=== PATIENT | female | born 1965 | race Two or more races ===

== ENCOUNTER → 2022-09-01 | Outpatient (CLI) | payer MEDICAID | END | disposition home or self-care (01) | LOC: Rad HDHVI 10:54 | PROVIDERS: ATTEND Internal Medicine Cardiovascular Disease | DX: R07.9 Chest pain, unspecified (principal); E78.5 Hyperlipidemia, unspecified | CPT/HCPCS: 93306 ==

== ENCOUNTER → 2022-09-14 | Outpatient (CLI) | payer MEDICAID ==
[~2022-09-14] VITALS: Ht 165.1 cm; Wt 81.6 kg
[~2022-09-14] MED LIST: ADENOSINE 69 MG in GIVE UN-DILUTED 0 ML IV ONE; ADENOSINE 90 MG/30 ML INJ IV ONE; cloNIDine HCL 0.1 MG TAB ONE
== END | disposition home or self-care (01) ==
LOC: Rad HDHVI 09:28
PROVIDERS: ATTEND Internal Medicine Cardiovascular Disease
DX: I20.0 Unstable angina (principal); I45.10 Unspecified right bundle-branch block; I10 Essential (primary) hypertension; E11.21 Type 2 diabetes mellitus with diabetic nephropathy; E11.65 Type 2 diabetes mellitus with hyperglycemia; E11.40 Type 2 diabetes mellitus with diabetic neuropathy, unspecified
CPT/HCPCS: 78452; 93005; 96374; 96375; A9500; J0153

== ENCOUNTER 2025-01-27 16:03 | Inpatient (IN) | payer MEDICAID ==
[~2025-01-27] VITALS: Ht 152.4 cm; Wt 65.3 kg
--- NOTE | 2025-01-27 16:09 | ECG ---
[facility] Test Date: 2025-01-27 Test Time: 16:08:03 Pat Name: GAIL PEREZ Department: ED Room: [address] [place] [address] Gender: F Tax Accountant: EVANS : 1965 Requested By: EFRA MARLOW Order Number: [id number] Reading MD: Lio Albright Measurements Intervals [place] Rate: 127 P: 0 IN: 100 QRS: 54 QRSD: 136 T: 59 QT: 404 QTc: 588 Interpretive Statements Sinus tachycardia Consider left atrial enlargement Right bundle branch block Electronically Signed On 01-29-2025 21:02:46 PDT by Lio Albright Please click the below link to view image of tracing.
[2025-01-27] MEDS: SODIUM CHLORIDE 0.9% 2,000 ML IV ONE (16:26)
[2025-01-27 16:29] VITALS: PULSE 127; RESP 26; O2SAT 99
--- NOTE | 2025-01-27 16:45 | ED.PDOC ---
Altered Mental Status HPI Comments 59 y.o female with PMHx of DM and HTN, presents to the ED via EMS for an evaluation of altered mental status. EMS reports family on scene noticed patient weak and confused today, unknown what time or when she was last seen normal. Patient presents alert and oriented x 1, complaining of total body pain and nausea. No further information obtained as no family is present at bedside. EMS, patient is currently on doxycycline for unknown reason. 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 Dry mucous membranes.) Neck: Full Range of Motion, Normal Inspection Respiratory: Lungs Clear, No Accessory Muscle Use, No Respiratory Distress, Normal Breath Sounds Cardiovascular: No Edema, No JVD, Tachycardia Breast Exam: Deferred Gastrointestinal: Diffuse, Soft, Tenderness Genitalia: Deferred Pelvic: Deferred Rectal: Deferred Extremities: Normal inspection, Normal range of motion, Non-tender, No pedal edema Neurologic: Alert (Oriented x1), Other (Moves all extremities purposefully with adequate strength and tone) Cerebellar Function: NOT DONE Reflexes: NOT DONE Skin: Dry, Normal Color, Warm Lymphatic: NOT DONE EKG EKG : Comments Sinus tach, rate 127, normal FL interval, QRS prolonged at 136, QTC prolonged at 588, normal axis, right bundle-branch block, anteroseptal T inversion with other nonspecific T change Was a procedure done? Was a procedure done?: No Differential Diagnosis (ALOC) Differential Diagnosis: Dehydration, Hypoglycemia, Encephalopathy, Sepsis, Hypoxemia, Closed Head Injury, CVA, SAH, Drug Overdose, ETOH Intoxication, Heart Failure, Renal Failure, Other (Pneumoniae) Other Differential Diagnosis UTI X-Ray, Labs, Meds, VS Vital Signs Date Time Temp Pulse Resp B/P (MAP) Pulse Ox O2 Delivery O2 Flow Rate FiO2 01/27/25 18:00 98.5 115 20 114/70 (85) 99 98.5 01/27/25 16:29 127 26 99 Room Air* 0 21 01/27/25 16:29 99.4 127 26 93/68 (76) 99 99.4 01/27/25 16:25 131 01/27/25 16:08 127 01/27/25 16:08 98.3 140 16 109/72 (84) 99 98.3 Lab Test 01/27/25 18:01 01/27/25 16:33 01/27/25 16:25 01/27/25 16:06 Range/Units Troponin I High Sensitivity < 3 L 3 L </=34 ng/L White Blood Count 9.2 4.4-10.8 10^3/uL Red Blood Count 3.20 L 4.0-5.20 10^6/uL Hemoglobin 8.8 L 12.2-16.2 g/dL Hematocrit 25.9 L 36.0-46.0 % Mean Corpuscular Volume 80.9 80.0-100.0 fL Mean Corpuscular Hemoglobin 27.5 L 28.0-32.0 pg Mean Corpuscular Hemoglobin Concent 34.0 32.0-36.0 g/dL Red Cell Distribution Width 15.2 H 11.8-14.3 % Platelet Count 330 140-450 10^3/uL Mean Platelet Volume 7.8 6.9-10.8 fL Neutrophils (%) (Auto) 80.2 H 37.0-80.0 % Lymphocytes (%) (Auto) 9.6 L 10.0-50.0 % Monocytes (%) (Auto) 9.2 0.0-12.0 % Eosinophils (%) (Auto) 0.4 0.0-7.0 % Basophils (%) (Auto) 0.6 0.0-2.0 % Neutrophils # (Auto) 7.4 1.6-8.6 10 ^3/uL Lymphocytes # (Auto) 0.9 0.4-5.4 10 ^3/uL Monocytes # (Auto) 0.8 0-1.3 10 ^3/uL Eosinophils # (Auto) 0 0-0.8 10 ^3/uL Basophils # (Auto) 0.1 0-0.2 10 ^3/uL Nucleated Red Blood Cells 0.0 % Sodium Level 140 136-145 mmol/L Potassium Level 2.5 *L 3.5-5.1 mmol/L Chloride Level 101 98-107 mmol/L Carbon Dioxide Level 20 20-31 mmol/L Anion Gap 19 H 5-15 Blood Urea Nitrogen 24 H 9-23 mg/dL Creatinine 0.79 0.550-1.02 mg/dL Glomerular Filtration Rate Calc 86 >90 mL/min BUN/Creatinine Ratio 30.4 H 10.0-20.0 Serum Glucose 96 74-106 mg/dL Lactic Acid Level 2.0 0.4-2.0 mmol/L Calcium Level 8.5 L 8.7-10.4 mg/dL Total Bilirubin 0.6 0.2-1.0 mg/dL Aspartate Amino Transferase (AST) 24 13-40 U/L Alanine Aminotransferase (ALT) < 9 7-40 U/L Alkaline Phosphatase 112 46-116 U/L B-Type Natriuretic Peptide 34.77 0-100 pg/mL Total Protein 5.8 5.7-8.2 g/dL Albumin 3.1 L 3.2-4.8 g/dL Plasma/Serum Blood Alcohol 3.7 <10 mg/dL POC Glucose 106 70-106 mg/dl Urine Color Light-orange Yellow Urine Clarity Ex.turbid Clear Urine pH 6.0 5.0-9.0 Urine Specific [place] 1.021 1.001-1.035 Urine Protein 1+ H Negative Urine Ketones 2+ H Negative Urine Blood Trace H Negative /uL Urine Nitrite Negative Negative Urine Bilirubin 1+ H Negative Urine Urobilinogen 2 H Negative mg/dL Urine Leukocyte Esterase 3+ Negative /uL Urine RBC 30 0 - 4 /hpf Urine WBC Clumps Present None Seen /hpf Urine Microscopic WBC 733 H 0-5 /HPF Urine Squamous Epithelial Cells Mod <5 /hpf Urine Bacteria Few H None Seen /hpf Urine Mucus Few None Seen Urine Yeast (Budding) Many None Seen /hpf Urine Glucose Normal Normal mg/dL Urine Opiates Screen Neg NEGATIVE Urine Fentanyl Screen Neg NEGATIVE Urine Barbiturates Screen Neg NEGATIVE Urine Phencyclidine Screen Neg NEGATIVE Urine Amphetamines Screen Neg NEGATIVE Urine Benzodiazepines Screen Neg NEGATIVE Urine Cocaine Screen Neg NEGATIVE Urine Cannabinoids Screen Neg NEGATIVE Current Medications Medications (Trade) Dose Ordered Sig/Karan Route Start Time Stop Time Status Last Admin Sodium Chloride 2,000 ml @ 1,000 mls/hr Q2H ONCE IV 01/27/25 16:15 01/27/25 18:14 DC 01/27/25 16:26 Ondansetron HCl (Zofran) 4 mg ONCE ONCE IV 01/27/25 17:15 01/27/25 17:16 DC 01/27/25 17:22 Potassium Chloride 100 ml @ 50 mls/hr ONCE ONCE IV 01/27/25 17:15 01/27/25 19:14 01/27/25 17:21 Acetaminophen/ Hydrocodone Bitart (Monclova 5/325MG Tab) 1 tab ONCE ONCE PO 01/27/25 18:15 01/27/25 18:16 DC 01/27/25 18:10 PROCEDURE(s): HWOCT - HEAD WITHOUT CONTRAST REASON: aloc ORDER NUMBER(s): [id number], ACCESSION NUMBER(s): [id number] EXAM: CT HEAD WITHOUT CONTRAST INDICATION: aloc TECHNIQUE: CT of the head without intravenous contrast. Radiation Dose Information: CT Dose: CTDI volume is 53.4 mGy. Dose-length product is 964.64 mGy*cm The dose indicators for CT are the volume Computed Tomography (CT) Dose Index (CTDIvol) and the Dose Length Product (DLP), and are measured in units of mGy and mGy-cm, respectively. These indicators are not patient dose, but values generated from the CT scanner acquisition factors. The report includes radiation exposure data for exposures received during this examination. COMPARISON: None FINDINGS: There is no evidence of acute intracranial hemorrhage, extra-axial collection, mass effect, midline shift, herniation or hydrocephalus. The ventricles, sulci and cisterns are age appropriate. The floyd-white differentiation is intact. Patchy periventricular and subcortical white matter hypoattenuation is nonspecific but may be related to small vessel ischemic disease. The visualized paranasal sinuses and mastoid air cells are clear. The surrounding soft tissues and osseous structures are unremarkable. IMPRESSION: 1. No acute intracranial abnormality. EDURE(s): CXRP - CHEST PORTABLE REASON: gen sultana ORDER NUMBER(s): [id number], ACCESSION NUMBER(s): [id number] CHEST RADIOGRAPH Indication: gen sultana Technique: Single frontal view of the chest was obtained COMPARISON: None FINDINGS: Lines and Tubes: None Lungs: Clear Pleura: No effusion. No pneumothorax. Cardiomediastinal contours: Unremarkable Bones: Unremarkable IMPRESSION: 1. No acute disease. X-Ray, Labs, Meds, VS Comment 59-year-old female with a history of hypertension and diabetes brought in by EMS from home with altered mental status Vitals remarkable for heart rate 127 Exam remarkable for diffuse abdominal tenderness to palpation and orientation x1 Rhythm strip independently interpreted by me: Sinus tach, rate 27, no ectopy. CT head and chest x-ray unremarkable CBC remarkable for hemoglobin 8.8, hematocrit 25.9, basic metabolic panel remarkable for potassium 2.5, BUN 24, troponin and BNP negative, lactate 2.0 Patient treated with the following in the ED: 2 L 0.9 normal saline IV bolus, Zofran 4 mg IV, Monclova 5/325 mg p.o., K rider 20 mEq IV, Rocephin 1 g IV, vancomycin per pharmacy IV On re-evaluation, heart rate is still 120, other vitals were stable. No new neurologic changes. Plan is to admit the patient for IV antibiotics, electrolyte correction and hydration. Time of 1ST Reevaluation: 17:00 Reevaluation 1ST: Unchanged Patient Education/Counseling: Other (Patient is altered ) Family Education/Counseling: No Family Present Sepsis Sepsis Reasesment Focused Exam Sepsis focused exam: focus exam completed (1700) Orders: Laboratory Tests 01/27/25 16:33: Lactic Acid Level 2.0 Sepsis Date: Jan 27, 2025 Time recognized/suspected: 18:00 Recent Procedure: No On Antibiotic Therapy: Yes Respiratory Rate >20: Yes Heart Rate >90: Yes Temp<36 C (96.8 F) or >38.3 C: No SBP <90 or MAP <65 mmHG: No New Acute Mental Status Change: Yes Is the patient on CPAP, BIPAP,: No IV fluid given: Yes Departure 1 Departure Time of Disposition: 18:30 Impression: Primary Impression: UTI (urinary tract infection) Qualified Codes: N39.0 - Urinary tract infection, site not specified Additional Impressions: Sepsis Qualified Codes: A41.9 - Sepsis, unspecified organism Metabolic encephalopathy Hypokalemia Dehydration Disposition: 09 ADMITTED INPATIENT Admit to: Tele Condition: Guarded Critical Care Note Critical Care Time?: Yes (45 min-critical care time only) Critical care comment: Critical care time including multiple bedside re-evaluations, review of lab and imaging studies, and discussion of the case with the admitting provider. Patient is high risk for metabolic and/or hemodynamic decompensation. Stability Stability form required: No Heart Score Heart Score: Heart Score Response (Comments) Value History N/A 0 EKG N/A 0 Age N/A 0 Risk Factors N/A 0 Troponin N/A 0 Total 0 I personally scribed for EFRA CHIRINOS MD ([email or web address]) on 01/27/25 at 16:45. Electronically submitted by Saira Clark ([facility]). EFRA CHIRINOS MD Jan 27, 2025 16:45
[2025-01-27 16:50] LABS: Hematocrit 25.9 % (36.0-46.0); Hemoglobin 8.8 g/dL (12.2-16.2); Mean Corpuscular Hemoglobin 27.5 pg (28.0-32.0); Mean Corpuscular Volume 80.9 fL (80.0-100.0); Nucleated Red Blood Cells % 0.0 %
[2025-01-27 17:02] LABS: Alkaline Phosphatase 112 U/L (46-116); Anion Gap 19 (5-15); BUN/Creatinine Ratio 30.4 (10.0-20.0); Chloride 101 mmol/L (98-107); Glucose 96 mg/dL (74-106); Sodium 140 mmol/L (136-145); Total Protein 5.8 g/dL (5.7-8.2)
[2025-01-27 17:03] LABS: Bilirubin, Total 0.6 mg/dL (0.2-1.0)
[2025-01-27 17:04] LABS: Alanine Aminotransferase < 9 U/L (7-40); Albumin 3.1 g/dL (3.2-4.8); Blood Urea Nitrogen 24 mg/dL (9-23); Calcium 8.5 mg/dL (8.7-10.4); Carbon Dioxide 20 mmol/L (20-31)
[2025-01-27 17:06] LABS: Potassium 2.5 mmol/L (3.5-5.1)
[2025-01-27] MEDS: POTASSIUM CHL 20MEQ/100ML 100 ML IV ONE (17:21)
[2025-01-27] MEDS: ONDANSETRON HCL 4 MG/2 ML VIAL IV ONE (17:22)
[2025-01-27 17:31] LABS: Urine Budding Yeast MANY /hpf (None Seen); Urine Protein, UAD 1+ (Negative); Urine WBC Clumps PRESENT /hpf (None Seen)
[2025-01-27 17:34] LABS: Amphetamine Screen, Urine Neg (NEGATIVE); Barbiturate Scree,Urine Neg (NEGATIVE); Benzodiazephine Screen, Urine Neg (NEGATIVE); Cannabinoid Screen, Urine Neg (NEGATIVE); Cocaine Screen, Urine Neg (NEGATIVE); Opiate Scree,Urine Neg (NEGATIVE); Phencyclidine Screen, Urine Neg (NEGATIVE)
--- NOTE | 2025-01-27 17:55 | DVH ---
EXAM: CT HEAD WITHOUT CONTRAST INDICATION: aloc TECHNIQUE: CT of the head without intravenous contrast. Radiation Dose Information: CT Dose: CTDI volume is 53.4 mGy. Dose-length product is 964.64 mGy*cm The dose indicators for CT are the volume Computed Tomography (CT) Dose Index (CTDIvol) and the Dose Length Product (DLP), and are measured in units of mGy and mGy-cm, respectively. These indicators are not patient dose, but values generated from the CT scanner acquisition factors. The report includes radiation exposure data for exposures received during this examination. COMPARISON: None FINDINGS: There is no evidence of acute intracranial hemorrhage, extra-axial collection, mass effect, midline s hift, herniation or hydrocephalus. The ventricles, sulci and cisterns are age appropriate. The floyd-white differentiation is intact. Patchy periventricular and subcortical white matter hypoattenuation is nonspecific but may be related to small vessel ischemic disease. The visualized paranasal sinuses and mastoid air cells are clear. The surrounding soft tissues and osseous structures are unremarkable. IMPRESSION: 1. No acute intracranial abnormality.
--- NOTE | 2025-01-27 17:56 | DVH ---
CHEST RADIOGRAPH Indication: gen weak Technique: Single frontal view of the chest was obtained COMPARISON: None FINDINGS: Lines and Tubes: None Lungs: Clear Pleura: No effusion. No pneumothorax. Cardiomediastinal contours: Unremarkable Bones: Unremarkable IMPRESSION: 1. No acute disease.
[2025-01-27] MEDS: HYDROcodone-ACET 5/325MG TAB PO ONE (18:10)
[2025-01-27] MEDS ORDERED: VANCOMYCIN PER PHARMACY 0 MG IV SCH (18:30)
[2025-01-27] MEDS ORDERED: DOCUSATE SOD 100 MG CAP PO PRN (18:45)
[2025-01-27] MEDS ORDERED: NITROGLYCERIN 0.4 MG SL TAB SL PRN (18:45)
[2025-01-27] MEDS ORDERED: MORPHINE SULFATE INJ 2 MG/ml SYRG IV PRN (18:45)
--- NOTE | 2025-01-27 18:50 | DVHHP2 ---
History of Present Illness Reason for Visit: Sepsis, unspecified organism History of Present Illness The patient is a 59-year-old female with past medical history of arthritis, diabetes mellitus, and hypertension who presented to [facility] for evaluation of altered mental status. As reported by daughter at bedside, patient was experiencing arthritis pain, became very weak, altered, total body pain, and nausea. Patient was seen and evaluated in the ED, laboratory data shows WBC 9.2, hemoglobin 8.8, hematocrit 25.9, platelets 330, sodium 140, potassium 2.5, BUN 24, creatinine 0.79, glucose 96, troponin < 3, BNP 34.77, albumin 3.1, blood pressure 93/68, heart rate 140 trending down to 110, temperature 99.4 F, O2 saturation 99% on room air, urinalysis positive for urinary tract infection. Head CT showed no acute intracranial abnormality. Patient was started on IV antibiotic regimen levofloxacin, please see medication orders section in the computer. On my assessment, patient denies chest pain, no headache, no dizziness, no diaphoresis, currently on oxygen, no nausea, no vomiting, no fever, no chills. Patient was admitted for further evaluation and medical management. Past Medical History Arthritis, DM, HTN Past Surgical History Reviewed, noncontributory to the management of this case. Past Social History The patient lives at home, denies smoking, alcohol or illicit drugs abuse. Review of Systems Constitutional: Yes: Weakness; No: Fever, Chills, Sweats, Malaise, Other Eyes: No: Pain, Vision change, Conjunctivae inflammation, Eyelid inflammation, Other, Redness ENT: No: Ear pain, Ear discharge, Nose pain, Nose discharge, Nose congestion, Mouth pain, Mouth swelling, Throat pain, Throat swelling, Other Respiratory: No: Cough, Dry, Shortness of breath, SOB with excertion, Wheezing, Hemoptysis, Pleuritic Pain, Sputum, Wheezing, Other Cardiovascular: No: Chest Pain, Palpitations, Orthopnea, Paroxysmal Noc. Dyspnea, Edema, Lt Headedness, Other Gastrointestinal: No: Nausea, Vomiting, Abdominal Pain, Diarrhea, Constipation, Melena, Hematochezia, Other Genitourinary: No Dysuria, No Frequency, No Incontinence, No Hematuria, No Retention; Other (Wilks catheter in place) Musculoskeletal: No: other, neck pain, shoulder pain, arm pain, back pain, hand pain, leg pain, foot pain Skin: No: Rash, Lesions, Jaundice, Bruising, Other Neurological: Other (Altered level of consciousness); No: Weakness, Numbness, Incoordination, Change in speech, Confusion, Seizures Allergies: Coded Allergies: Atorvastatin (Verified Allergy, Unknown, 01/27/25) Penicillins (Verified Allergy, Unknown, 09/14/22) Medications Current Medications Medications Dose Ordered Sig/Karan Route Start Time Stop Time Status Last Admin Dose Admin Vancomycin HCl 0 ml @ 0 mls/hr UD IV 01/27/25 18:30 Vancomycin HCl 200 ml @ 200 mls/hr Q12H IV 01/27/25 20:00 UNV Exam Vital Signs Vital Signs Date Time Temp Pulse Resp B/P (MAP) Pulse Ox O2 Delivery O2 Flow Rate FiO2 01/27/25 18:00 98.5 115 20 114/70 (85) 99 98.5 01/27/25 16:29 Room Air* 0 21 General Appearance: Alert, Cooperative, No acute distress, Other (Oriented x2) HEENT: Atraumatic, PERRLA, EOMI, Mucous membr. moist/pink Respiratory: Normal air movement Cardiovascular: Regular rate, Normal S1, Normal S2, No murmurs Abdominal: Normal bowel sounds, Soft, No tenderness, No hepatospenomegaly, No masses Extremities: No clubbing, No cyanosis, No edema, Normal pulses, Other (Lower extremity tenderness) Skin: No rashes, No breakdown, No significant lesion Neuro: Normal speech, Normal tone, Sensation intact, Cranial nerves 3-12 NL, Reflexes 2+, Other (Generalized weakness) Psych/Mental Status: Mental status NL, Mood NL Labs/Xrays Labs Test 01/27/25 18:01 01/27/25 16:33 01/27/25 16:25 01/27/25 16:06 Range/Units Troponin I High Sensitivity < 3 L </=34 ng/L White Blood Count 9.2 4.4-10.8 10^3/uL Red Blood Count 3.20 L 4.0-5.20 10^6/uL Hemoglobin 8.8 L 12.2-16.2 g/dL Hematocrit 25.9 L 36.0-46.0 % Mean Corpuscular Volume 80.9 80.0-100.0 fL Mean Corpuscular Hemoglobin 27.5 L 28.0-32.0 pg Mean Corpuscular Hemoglobin Concent 34.0 32.0-36.0 g/dL Red Cell Distribution Width 15.2 H 11.8-14.3 % Platelet Count 330 140-450 10^3/uL Mean Platelet Volume 7.8 6.9-10.8 fL Neutrophils (%) (Auto) 80.2 H 37.0-80.0 % Lymphocytes (%) (Auto) 9.6 L 10.0-50.0 % Monocytes (%) (Auto) 9.2 0.0-12.0 % Eosinophils (%) (Auto) 0.4 0.0-7.0 % Basophils (%) (Auto) 0.6 0.0-2.0 % Neutrophils # (Auto) 7.4 1.6-8.6 10 ^3/uL Lymphocytes # (Auto) 0.9 0.4-5.4 10 ^3/uL Monocytes # (Auto) 0.8 0-1.3 10 ^3/uL Eosinophils # (Auto) 0 0-0.8 10 ^3/uL Basophils # (Auto) 0.1 0-0.2 10 ^3/uL Nucleated Red Blood Cells 0.0 % Sodium Level 140 136-145 mmol/L Potassium Level 2.5 *L 3.5-5.1 mmol/L Chloride Level 101 98-107 mmol/L Carbon Dioxide Level 20 20-31 mmol/L Anion Gap 19 H 5-15 Blood Urea Nitrogen 24 H 9-23 mg/dL Creatinine 0.79 0.550-1.02 mg/dL Glomerular Filtration Rate Calc 86 >90 mL/min BUN/Creatinine Ratio 30.4 H 10.0-20.0 Serum Glucose 96 74-106 mg/dL Lactic Acid Level 2.0 0.4-2.0 mmol/L Calcium Level 8.5 L 8.7-10.4 mg/dL Total Bilirubin 0.6 0.2-1.0 mg/dL Aspartate Amino Transferase (AST) 24 13-40 U/L Alanine Aminotransferase (ALT) < 9 7-40 U/L Alkaline Phosphatase 112 46-116 U/L B-Type Natriuretic Peptide 34.77 0-100 pg/mL Total Protein 5.8 5.7-8.2 g/dL Albumin 3.1 L 3.2-4.8 g/dL Plasma/Serum Blood Alcohol 3.7 <10 mg/dL POC Glucose 106 70-106 mg/dl Urine Color Light-orange Yellow Urine Clarity Ex.turbid Clear Urine pH 6.0 5.0-9.0 Urine Specific [place] 1.021 1.001-1.035 Urine Protein 1+ H Negative Urine Ketones 2+ H Negative Urine Blood Trace H Negative /uL Urine Nitrite Negative Negative Urine Bilirubin 1+ H Negative Urine Urobilinogen 2 H Negative mg/dL Urine Leukocyte Esterase 3+ Negative /uL Urine RBC 30 0 - 4 /hpf Urine WBC Clumps Present None Seen /hpf Urine Microscopic WBC 733 H 0-5 /HPF Urine Squamous Epithelial Cells Mod <5 /hpf Urine Bacteria Few H None Seen /hpf Urine Mucus Few None Seen Urine Yeast (Budding) Many None Seen /hpf Urine Glucose Normal Normal mg/dL Urine Opiates Screen Neg NEGATIVE Urine Fentanyl Screen Neg NEGATIVE Urine Barbiturates Screen Neg NEGATIVE Urine Phencyclidine Screen Neg NEGATIVE Urine Amphetamines Screen Neg NEGATIVE Urine Benzodiazepines Screen Neg NEGATIVE Urine Cocaine Screen Neg NEGATIVE Urine Cannabinoids Screen Neg NEGATIVE PATIENT: GAIL PEREZ ACCT: [id number] UNIT: [id number] : 1965 LOC: ER ROOM / BED: / AGE / SEX: 59 / F ADM STATUS: REG ER SERVICE 1611 ORDERING PHYSICIAN: EFRA CHIRINOS MD PROCEDURE(s): HWOCT - HEAD WITHOUT CONTRAST REASON: aloc ORDER NUMBER(s): [id number], ACCESSION NUMBER(s): [id number] EXAM: CT HEAD WITHOUT CONTRAST INDICATION: aloc TECHNIQUE: CT of the head without intravenous contrast. Radiation Dose Information: CT Dose: CTDI volume is 53.4 mGy. Dose-length product is 964.64 mGy*cm The dose indicators for CT are the volume Computed Tomography (CT) Dose Index (CTDIvol) and the Dose Length Product (DLP), and are measured in units of mGy and mGy-cm, respectively. These indicators are not patient dose, but values generated from the CT scanner acquisition factors. The report includes radiation exposure data for exposures received during this examination. COMPARISON: None FINDINGS: There is no evidence of acute intracranial hemorrhage, extra-axial collection, mass effect, midline shift, herniation or hydrocephalus. The ventricles, sulci and cisterns are age appropriate. The floyd-white differentiation is intact. Patchy periventricular and subcortical white matter hypoattenuation is nonspecific but may be related to small vessel ischemic disease. The visualized paranasal sinuses and mastoid air cells are clear. The surrounding soft tissues and osseous structures are unremarkable. IMPRESSION: 1. No acute intracranial abnormality. ORDERING PHYSICIAN: EFRA CHIRINOS MD PROCEDURE(s): CXRP - CHEST PORTABLE REASON: gen weak ORDER NUMBER(s): [id number], ACCESSION NUMBER(s): [id number] CHEST RADIOGRAPH Indication: gen weak Technique: Single frontal view of the chest was obtained COMPARISON: None FINDINGS: Lines and Tubes: None Lungs: Clear Pleura: No effusion. No pneumothorax. Cardiomediastinal contours: Unremarkable Bones: Unremarkable IMPRESSION: 1. No acute disease. Assessment/Plan Assessment/Plan Sepsis, unspecified organism UTI (urinary tract infection) Urinary tract infection, site not specified Hypokalemia Dehydration Metabolic encephalopathy Generalized weakness Plan 1. Admit to telemetry unit 2. Breathing treatment 3. Pain control management 4. IV antibiotic management 5. Management of fluids and electrolytes 6. Consultation for hospitalist 7. Diagnostic test head CT 8. DVT prophylaxis on SCDs 9. Repeat labs CBC, CMP in a.m. 10. Home medication reviewed and reconciled 11. Continue with current medical management 12. Treatment plan discussed with patient/daughter and RN. Patient/daughter verbalized understanding. Plan discussed with: Patient, Other (RN) My Orders Orders - ANURAG NO DNP Procedure Category Date Status Time Levofloxacin Levaquin PHA 01/28/25 Verified 10:00 Admit ADMIT 01/27/25 Verified 18:43 Allergies KALYAN 01/27/25 Verified 18:43 Code Status CODE 01/27/25 Verified 18:43 Sodium Chloride Lock PHA 01/27/25 Verified (Saline Lock Ns) 22:00 Oxygen Per Hour RT 01/27/25 Verified 18:43 Hydrocodone-Acet PHA 01/27/25 Verified 5/325mg Tab ([place] 18:45 Ondansetron Hcl PHA 01/27/25 Verified (Zofran) 18:45 Docusate Sodium PHA 01/27/25 Verified Capsule (Colace 18:45 Fall Risk Precautions KALYAN 01/27/[address] 18:43 Comprehensive LAB 01/28/25 Verified Metabolic Panel 04:00 Cardiac DIET 01/28/25 Verified Diet-2gna,Lofat,Lochol Breakfast Condition: Serious [facility] 01/27/25 Verified 18:43 Acetaminophen Tablet PHA 01/27/25 Verified (Tylenol Tablet) 18:45 Bedrest With Bathroom [facility] 01/27/25 Verified Privileg 18:43 Sequential [facility] 01/27/25 Verified Compression Device Nitroglycerin [facility] 01/27/25 Verified Sublingual (Ntrostat 18:45 Morphine Sulfate [facility] 01/27/25 Verified Injection 18:45 Stat Ekg For Chest [facility] 01/27/25 Verified Pain 18:43 Notify Md Of Changes [facility] 01/27/25 Verified From Base 18:43 Last Sorter For [facility] 01/27/25 Verified 24 Hours 18:43 Emergency Dysrhythmia [facility] 01/27/25 Verified Protocol 18:43 Rhythm Strips Once [facility] 01/27/25 Verified Every Shift 18:43 Oxygen By Nasal RT 01/27/25 Verified Cannula 18:43 Problem List: (1) Sepsis, unspecified organism (2) UTI (urinary tract infection) (3) Hypokalemia (4) Metabolic encephalopathy (5) Dehydration (6) Urinary tract infection, site not specified (7) Generalized weakness Date of Service: Jan 27, 2025 Billing Provider: ANURAG NO DNP Common Visit Codes: 11801-JPOTVTG INP/OBS CARE (HIGH) ANURAG NO DNP Jan 27, 2025 18:50
[2025-01-27] MEDS: cefTRIAXone 1GM/50ML D5W 50 ML IV ONE (19:08)
[2025-01-27 19:30] VITALS: PULSE 108; RESP 17; O2SAT 98
[2025-01-27] MEDS: VANCOMYCIN 1GM/200ML PM 200 ML IV SCH (20:15)
[2025-01-27] MEDS: SODIUM CHLOR 0.9% PF (SALINE LOCK) 10ML VIAL/SYR IV SCH (22:03)
[2025-01-28] VITALS (56 sets, daily range): BP systolic 80–132; BP diastolic 51–83; PULSE 83–115; RESP 17–20; TEMP 97.9–98.8; O2SAT 95–100
[2025-01-28] MEDS: HYDROcodone-ACET 5/325MG TAB PO PRN (01:13)
[2025-01-28 04:29] LABS: Hematocrit 22.6 % (36.0-46.0); Nucleated Red Blood Cells % 0.1 %
[2025-01-28 04:31] LABS: Hemoglobin 7.5 g/dL (12.2-16.2); Mean Corpuscular Hemoglobin 27.5 pg (28.0-32.0); Mean Corpuscular Volume 82.5 fL (80.0-100.0)
[2025-01-28 04:40] LABS: Alkaline Phosphatase 94 U/L (46-116); Anion Gap 17 (5-15); BUN/Creatinine Ratio 30.2 (10.0-20.0); Bilirubin, Total 0.4 mg/dL (0.2-1.0); Blood Urea Nitrogen 16 mg/dL (9-23); Chloride 104 mmol/L (98-107); Glucose 90 mg/dL (74-106); Sodium 139 mmol/L (136-145)
[2025-01-28 04:41] LABS: Alanine Aminotransferase < 9 U/L (7-40); Albumin 2.9 g/dL (3.2-4.8); Calcium 7.9 mg/dL (8.7-10.4); Carbon Dioxide 18 mmol/L (20-31); Potassium 2.7 mmol/L (3.5-5.1); Total Protein 5.4 g/dL (5.7-8.2)
[2025-01-28] MEDS ORDERED: POTASSIUM CHL 20MEQ/100ML 100 ML IV SCH (07:00)
[2025-01-28] MEDS ORDERED: SODIUM CHLORIDE 0.9% 1,000 ML IV ONE (08:00)
[2025-01-28] MEDS: POTASSIUM CHL 20 Meq TABLET PO ONE (08:11)
[2025-01-28] MEDS: SODIUM CHLORIDE 0.9% 1,000 ML IV ONE (08:12)
[2025-01-28] MEDS: NOREPINEPHRINE 8 MG/250ML KIT 250 ML IV SCH (09:33)
[2025-01-28] MEDS: NOREPINEPHRINE 8 MG/250ML KIT 250 ML IV ONE (09:34)
[2025-01-28 09:39] LABS: Hematocrit 21.2 % (36.0-46.0)
[2025-01-28 09:44] LABS: Hemoglobin 7.0 g/dL (12.2-16.2)
[2025-01-28 11:05] LABS: Iron 74.0 ug/dL (50-170)
[2025-01-28 11:10] LABS: Total Iron Binding Capacity 129.0 ug/dL (250-425)
[2025-01-28 13:56] LABS: Hematocrit 22.9 % (36.0-46.0); Hemoglobin 7.6 g/dL (12.2-16.2); Mean Corpuscular Hemoglobin 27.3 pg (28.0-32.0); Mean Corpuscular Volume 81.8 fL (80.0-100.0); Nucleated Red Blood Cells % 0.0 %
[2025-01-28 14:07] LABS: Chloride 107 mmol/L (98-107); Sodium 139 mmol/L (136-145)
[2025-01-28 14:08] LABS: Anion Gap 14 (5-15)
[2025-01-28 14:13] LABS: BUN/Creatinine Ratio 30.6 (10.0-20.0); Blood Urea Nitrogen 15 mg/dL (9-23); Glucose 102 mg/dL (74-106)
[2025-01-28 14:15] LABS: Calcium 8.2 mg/dL (8.7-10.4); Carbon Dioxide 18 mmol/L (20-31)
[2025-01-28 14:16] LABS: Potassium 2.4 mmol/L (3.5-5.1)
[2025-01-28] MEDS: CEFEPIME 2GM/50ML NS 50 ML IV ONE (14:51)
[2025-01-28] MEDS: SODIUM CHLORIDE 0.9% 500 ML IV ONE (17:31)
--- NOTE | 2025-01-28 17:41 | DVH ---
Technique: Real-time ultrasound imaging of the abdomen was performed with grayscale and color Doppler . Indication: cholelithiasis Comparison: None Findings: Liver measures 17.6 cm. Left hepatic lobe not completely visualized/characterized. It is increased i n echogenicity and echotexture without focal mass. Portal vein is normal in caliber and demonstrates normal hepatopetal flow. Right hepatic lobe cysts measuring 1.7 cm. Gallbladder demonstrates sludge and cholelithiasis. There is no pericholecystic fluid. The wall thick ness is normal. The common bile duct is nonvisualized. The right kidney measures 8.7 cm. There is no hydronephrosis or sonographic evidence of nephrolithias is. The visualized portion of the pancreas is unremarkable. Spleen measures cm. The visualized portion of the IVC is unremarkable. Impression: 1. Cholelithiasis and sludge. 2. Echogenic liver which can be seen with hepatic steatosis, cirrhosis. 3. Hepatomegaly. Limited evaluation of the left hepatic lobe
[2025-01-28] MEDS: POTASSIUM CHLORIDE 60 MEQ, LIDOCAINE 1% (LOCAL ANESTH.) 6 ML in SODIUM CHL 0.9% 500 ML IV ONE (18:22)
--- NOTE | 2025-01-28 18:57 | DVH ---
Exam: US LEFT LOWER EXTREMITY ULTRASOUN Date: 01/28/2025 03:56 PM Clinical History: Rule out effusion Comparison: None Technique: Targeted sonographic evaluation of the soft tissues of the knees bilaterallywas obtained utilizing gr ayscale and color Doppler imaging. Findings: Right knee: Small joint effusion right knee measuring 1.5 x 0.3 x 1.5 cm. Left knee: Small effusion measuring 1.6 x 0.6 x 1.1 cm. IMPRESSION: 1. Small bilateral joint effusions with measurements noted above.
[2025-01-28] MEDS: LACTATED RINGER'S 1,000 ML IV SCH (19:12)
--- NOTE | 2025-01-28 19:59 | DVH ---
Exam: US RIGHT LOWER EXTREMITY ULTRASOU Date: 01/28/2025 03:52 PM Clinical History: Bilateral knee effusions. Comparison: None Technique: Targeted sonographic evaluation of the soft tissues of the knees bilaterally. was obtained utilizing grayscale and color Doppler imaging. Findings: Right knee: Small effusion measuring 1.5 x 0.3 x 1.5 cm Left knee: Small effusion measuring 1.6 x 0.6 x 1.1 cm IMPRESSION: 1. Small bilateral knee effusions. Measurements given above.
[2025-01-28] MEDS: VANCOMYCIN 750mg/100mL D5W or NS KIT IV SCH (20:09)
[2025-01-28] MEDS: POTASSIUM EFFERVESENT TAB 25 MEQ PO ONE (21:52)
[2025-01-28] MEDS: CEFEPIME 2GM/50ML NS 50 ML IV SCH (21:54)
[2025-01-29] VITALS (95 sets, daily range): BP systolic 81–148; BP diastolic 45–94; PULSE 92–128; RESP 14–30; TEMP 97.9–99.2; O2SAT 86–100
[2025-01-29 08:13] LABS: Hematocrit 27.6 % (36.0-46.0); Hemoglobin 9.4 g/dL (12.2-16.2); Mean Corpuscular Hemoglobin 28.3 pg (28.0-32.0); Mean Corpuscular Volume 83.4 fL (80.0-100.0); Nucleated Red Blood Cells % 0.0 %
[2025-01-29 08:17] LABS: INR 1.06 (0.9-1.15); Partial Thromboplastin Time 28.6 SEC (24.5-34.5); Prothrombin Time 11.2 sec (9.3-11.8)
--- NOTE | 2025-01-29 09:18 | DVH ---
CT CT AB PEL WITH IV CON ONLY INDICATION: Sacral wound, cholelithiasis EXAM DATE: 01/29/2025 08:15 AM COMPARISON: None RADIATION DOSE: CTDIvol: 15.5 mGy, DLP: 855.84 mGy*cm PROCEDURE: Helical CT images were obtained of the abdomen and pelvis with IV contrast Sagittal and co patrick reconstructions are provided. ORAL CONTRAST: None. ADDITIONAL IMAGES / REFORMATS: None All CT s cans at this medical facility are performed using dose modulation techniques as appropriate to a perf ormed exam including the following: Automated exposure control was utilized; adjustment of the MA and /or KV according to patient size; and use of iterative reconstruction technique. FINDINGS: LUNG BASE: Normal. LIVER: 9 mm calcified liver lesion. GALLBLADDER AND BILIARY TREE: Tiny gallstones. No intra- or extrahepatic biliary ductal dilation. PANCREAS: Normal. SPLEEN: Normal. BOWEL: Moderate colonic diverticulosis. ADRENALS: Normal. KIDNEYS AND URETER: Normal. BLADDER: Wilks in a decompressed bladder. REPRODUCTIVE ORGANS: Normal. LYMPH NODES:No lymphadenopathy. PERITONEUM: No ascites or free air. No other fluid collection. VESSELS: Scattered atherosclerotic calcifications are noted. RETROPERITONEUM: Normal. ABDOMINAL WALL: Normal. BONES: Scattered osseous degenerative changes are noted. IMPRESSION: No acute intraabdominal abnormality. Cholelithiasis. No sacral soft tissue defect visualized.
--- NOTE | 2025-01-29 09:23 | DVHPN2 ---
Subjective Reporting generalized weakness. Nausea and vomiting Reviewed: Care Plan, H&P, Labs, Medications Changes from previous H/P or p: No Changes General: Per HPI Eyes: No Pain, No Vision change, No Conjunctivae inflammation, No Eyelid inflammation, No Other, No Redness ENT: No Ear pain, No Ear discharge, No Nose pain, No Nose discharge, No Nose congestion, No Mouth pain, No Mouth swelling, No Throat pain, No Throat swelling, No Other Cardiovascular: No Chest Pain, No Palpitations, No Orthopnea, No Paroxysmal Noc. Dyspnea, No Edema, No Lt Headedness, No Other Respiratory: No Cough, No Dry, No Shortness of breath, No SOB with excertion, No Wheezing, No Hemoptysis, No Pleuritic Pain, No Sputum, No Other Gastrointestinal: No Nausea, No Vomiting, No Abdominal Pain, No Diarrhea, No Constipation, No Melena, No Hematochezia, No Other Genitourinary: No Dysuria, No Frequency, No Incontinence, No Hematuria, No Retention; Other (Wilks catheter in place) Musculoskeletal: No other, No neck pain, No shoulder pain, No arm pain, No back pain, No hand pain, No leg pain, No foot pain Skin: No Rash, No Lesions, No Jaundice, No Bruising, No Other Objective Vitals Vital Signs Date Time Temp Pulse Resp B/P (MAP) Pulse Ox O2 Delivery O2 Flow Rate FiO2 01/29/25 06:45 114 124/74 (91) 100 01/29/25 06:00 18 01/29/25 06:00 Room Air* 0 21 01/29/25 04:00 97.9 97.9 Intake/Output Intake and Output 01/29/25 07:00 Intake Total 5120.0 ml Output Total 1425 ml Balance 3695.0 ml Intake Oral 200 ml IV Total 3420.0 ml Blood Product 500 ml Other 1000 ml Output Urine Total 1425 ml # Bowel Movements 1 General Appearance: Alert, Oriented X3, Cooperative, mild distress HEENT: Atraumatic, PERRLA Lungs: Clear to auscultation, Normal air movement Cardiovascular: Normal S1, Normal S2 Abdomen: Normal bowel sounds, No tenderness Musculoskeletal: Normal sensory function, Normal motor function Extremities: Other (Knees are swollen) Skin: Dry, Intact Psych/Mental Status: Mental status NL, Mood NL Medications Current Medications Medications Dose Ordered Sig/Karan Route Start Time Stop Time Status Last Admin Dose Admin Vancomycin HCl 0 ml @ 0 mls/hr UD IV 01/27/25 18:30 Sodium Chloride 10 ml Q8HR IV 01/27/25 22:00 01/28/25 22:00 10 ML Acetaminophen/ Hydrocodone Bitart 1 tab Q4HP PRN PO 01/27/25 18:45 01/28/25 17:46 1 TAB Ondansetron HCl 4 mg Q4HP PRN IV 01/27/25 18:45 Docusate Sodium 100 mg BIDPRN PRN PO 01/27/25 18:45 Acetaminophen 650 mg Q6HP PRN PO 01/27/25 18:45 Nitroglycerin 0.4 mg Q5MINP PRN SL 01/27/25 18:45 Morphine Sulfate 2 mg Q30M PRN IV 01/27/25 18:45 Potassium Chloride 100 ml @ 50 mls/hr Q2H IV 01/28/25 07:00 01/28/25 12:59 Cancel Norepinephrine Bitartrate 250 ml @ 3.75 mls/hr Q24H IV 01/28/25 09:15 01/28/25 09:33 3.75 MLS/HR Vancomycin HCl 100 ml @ 100 mls/hr Q12H IV 01/28/25 20:00 01/28/25 20:09 100 MLS/HR Cefepime HCl 50 ml @ 12.5 mls/hr Q8HR IV 01/28/25 22:00 01/29/25 05:14 12.5 MLS/HR Lactated Ringer's 1,000 ml @ 125 mls/hr Q8H IV 01/28/25 15:15 01/29/25 03:25 125 MLS/HR Vancomycin HCl 250 ml @ 200 mls/hr Q12H IV 01/29/25 20:00 UNV Pantoprazole Sodium 40 mg DAILY IV 01/29/25 10:00 UNV Laboratory Results Laboratory Tests 01/28/25 13:30 01/29/25 02:16 01/29/25 03:00 01/29/25 07:46 Chemistry Test 01/28/25 13:30 Calcium Level 8.2 mg/dL (8.7-10.4) L Magnesium Level 2.1 mg/dL (1.6-2.6) Coagulation Test 01/29/25 07:46 Prothrombin Time 11.2 sec (9.3-11.8) Prothrombin Time INR 1.06 (0.9-1.15) Activated Partial Thromboplast Time 28.6 SEC (24.5-34.5) Urinalysis Test 01/27/25 16:06 Urine Color Light-orange (Yellow) Urine Clarity Ex.turbid (Clear) Urine pH 6.0 (5.0-9.0) Urine Specific [place] 1.021 (1.001-1.035) Urine Protein 1+ (Negative) H Urine Ketones 2+ (Negative) H Urine Blood Trace /uL (Negative) H Urine Nitrite Negative (Negative) Urine Bilirubin 1+ (Negative) H Urine Urobilinogen 2 mg/dL (Negative) H Urine Leukocyte Esterase 3+ /uL (Negative) Urine RBC 30 /hpf (0 - 4) Urine WBC Clumps Present /hpf (None Seen) Urine Microscopic WBC 733 /HPF (0-5) H Urine Squamous Epithelial Cells Mod /hpf (<5) Urine Bacteria Few /hpf (None Seen) H Urine Mucus Few (None Seen) Urine Yeast (Budding) Many /hpf (None Seen) Urine Glucose Normal mg/dL (Normal) Blood Gas Results Test 01/28/25 13:34 FiO2 % 21.0 Microbiology Microbiology Date/Time Source Procedure Growth Status 01/28/25 00:45 Nose MRSA Screen - Final Complete 01/27/25 16:41 Blood Blood Culture - Preliminary NO GROWTH AFTER 24 HOURS OF INCUBATION. Resulted Labs and/or images reviewed: Labs reviewed by me, Image(s) reviewed by me Assessment/Plan Assessment/Plan Impression: -severe sepsis with shock -hypokalemia -anemia -cholelithiasis -intractable nausea and vomiting -rheumatoid arthritis -primary hypertension -complicated cystitis Plan: -check ESR, CRP -transfuse 1 unit of PRBCs -empiric antibiotic therapy with cefepime and Zyvox -CT scan of the abdomen and pelvis with IV contrast -gallbladder ultrasound -bilateral knee ultrasound for possible joint effusions -check haptoglobin, direct, indirect Sofiya, reticulocyte count. Iron panel normal -blood and urine cultures -norepinephrine drip to keep map greater than 65 mmHg -repeat labs in a.m. -potassium replacement Critical care time spent with patient discussing and formulating plan of care: 40 minutes. This does not include time spent performing procedures. This medical document was created using an electronic medical record system with [employer] computerized dictation system. Although this document has been carefully reviewed, there may still be some phonetic and typographical errors. These areas are purely typographical due to imperfections of the software programs, and do not reflect any compromise in the patient's medical care. Plan discussed with: Patient, Other (RN) My Orders Orders - MARC CARVER NP Procedure Category Date Status Time Haptoglobin LAB 01/28/25 In Process 12:53 Venous Blood Gas RT 01/28/25 Logged 12:54 Vitamin D 25-Hydroxy LAB 01/28/25 In Process D2 + D3 12:53 Cefepime 2gm/50ml Ns PHA 01/28/25 In Process (Maxipime 2gm/50ml) 22:00 Pharmacy [facility] 01/28/25 In Process Clarification: 13:06 Jannette; Comprehensive LAB 01/28/25 In Process Panel 12:53 Ct Ab Pel With Iv Con CT 01/28/25 Taken Only 15:08 Gallbladder US 01/28/25 Resulted 15:08 Urine Bacterial LALO 01/28/25 In Process Culture 15:08 Wound Culture W/ Gs LALO 01/28/25 In Process 15:08 Lactated Ringer's PHA 01/28/25 In Process 15:15 Right Lower Extremity US 01/28/25 Resulted Ultrasou 15:15 Left Lower Extremity US 01/28/25 Resulted Ultrasoun 15:15 Cleanse Wound With [facility] 01/28/25 In Process Wound Clean 16:08 Basic Metabolic Panel LAB 01/30/25 Verified 05:00 Basic Metabolic Panel LAB 01/31/25 Verified 05:00 Basic Metabolic Panel LAB 02/01/25 Verified 05:00 Complete Blood Count LAB 01/30/25 Verified 05:00 Complete Blood Count LAB 01/31/25 Verified 05:00 Complete Blood Count LAB 02/01/25 Verified 05:00 Echo 2d Mode Cardiac US 01/29/25 Logged DOP 09:10 Obtain Mr From Other ORDERS 01/29/25 Transmitted Facility 09:11 Pantoprazole PHA 01/29/25 Logged (Protonix) 10:00 Clear Liq Diet DIET 01/29/25 Transmitted Breakfast Date of Service: Jan 28, 2025 Billing Provider: MARC CARVER NP Common Visit Codes: [id number] CARE 30-74 MIN MARC CARVER NP Jan 29, 2025 09:23
--- NOTE | 2025-01-29 09:26 | DVHPN2 ---
Subjective Patient states she feels better than yesterday. Reviewed: Care Plan, H&P, Labs, Medications Changes from previous H/P or p: No Changes General: Per HPI Eyes: No Pain, No Vision change, No Conjunctivae inflammation, No Eyelid inflammation, No Other, No Redness ENT: No Ear pain, No Ear discharge, No Nose pain, No Nose discharge, No Nose congestion, No Mouth pain, No Mouth swelling, No Throat pain, No Throat swelling, No Other Cardiovascular: No Chest Pain, No Palpitations, No Orthopnea, No Paroxysmal Noc. Dyspnea, No Edema, No Lt Headedness, No Other Respiratory: No Cough, No Dry, No Shortness of breath, No SOB with excertion, No Wheezing, No Hemoptysis, No Pleuritic Pain, No Sputum, No Other Gastrointestinal: No Nausea, No Vomiting, No Abdominal Pain, No Diarrhea, No Constipation, No Melena, No Hematochezia, No Other Genitourinary: No Dysuria, No Frequency, No Incontinence, No Hematuria, No Retention; Other (Wilks catheter in place) Musculoskeletal: No other, No neck pain, No shoulder pain, No arm pain, No back pain, No hand pain, No leg pain, No foot pain Skin: No Rash, No Lesions, No Jaundice, No Bruising, No Other Objective Vitals Vital Signs Date Time Temp Pulse Resp B/P (MAP) Pulse Ox O2 Delivery O2 Flow Rate FiO2 01/29/25 06:45 114 124/74 (91) 100 01/29/25 06:00 18 01/29/25 06:00 Room Air* 0 21 01/29/25 04:00 97.9 97.9 Intake/Output Intake and Output 01/29/25 07:00 Intake Total 5120.0 ml Output Total 1425 ml Balance 3695.0 ml Intake Oral 200 ml IV Total 3420.0 ml Blood Product 500 ml Other 1000 ml Output Urine Total 1425 ml # Bowel Movements 1 General Appearance: Alert, Oriented X3, Cooperative, mild distress HEENT: Atraumatic, PERRLA Lungs: Clear to auscultation, Normal air movement Cardiovascular: Normal S1, Normal S2, Other (Sinus tachycardia) Abdomen: Normal bowel sounds, No tenderness Musculoskeletal: Normal sensory function, Normal motor function Extremities: Other (Knees are swollen) Skin: Dry, Intact Psych/Mental Status: Mental status NL, Mood NL Medications Current Medications Medications Dose Ordered Sig/Karan Route Start Time Stop Time Status Last Admin Dose Admin Vancomycin HCl 0 ml @ 0 mls/hr UD IV 01/27/25 18:30 Sodium Chloride 10 ml Q8HR IV 01/27/25 22:00 01/28/25 22:00 10 ML Acetaminophen/ Hydrocodone Bitart 1 tab Q4HP PRN PO 01/27/25 18:45 01/28/25 17:46 1 TAB Ondansetron HCl 4 mg Q4HP PRN IV 01/27/25 18:45 Docusate Sodium 100 mg BIDPRN PRN PO 01/27/25 18:45 Acetaminophen 650 mg Q6HP PRN PO 01/27/25 18:45 Nitroglycerin 0.4 mg Q5MINP PRN SL 01/27/25 18:45 Morphine Sulfate 2 mg Q30M PRN IV 01/27/25 18:45 Potassium Chloride 100 ml @ 50 mls/hr Q2H IV 01/28/25 07:00 01/28/25 12:59 Cancel Norepinephrine Bitartrate 250 ml @ 3.75 mls/hr Q24H IV 01/28/25 09:15 01/28/25 09:33 3.75 MLS/HR Vancomycin HCl 100 ml @ 100 mls/hr Q12H IV 01/28/25 20:00 01/28/25 20:09 100 MLS/HR Cefepime HCl 50 ml @ 12.5 mls/hr Q8HR IV 01/28/25 22:00 01/29/25 05:14 12.5 MLS/HR Lactated Ringer's 1,000 ml @ 125 mls/hr Q8H IV 01/28/25 15:15 01/29/25 03:25 125 MLS/HR Vancomycin HCl 250 ml @ 200 mls/hr Q12H IV 01/29/25 20:00 UNV Pantoprazole Sodium 40 mg DAILY IV 01/29/25 10:00 UNV Laboratory Results Laboratory Tests 01/28/25 13:30 01/29/25 02:16 01/29/25 03:00 01/29/25 07:46 Chemistry Test 01/28/25 13:30 Calcium Level 8.2 mg/dL (8.7-10.4) L Magnesium Level 2.1 mg/dL (1.6-2.6) Coagulation Test 01/29/25 07:46 Prothrombin Time 11.2 sec (9.3-11.8) Prothrombin Time INR 1.06 (0.9-1.15) Activated Partial Thromboplast Time 28.6 SEC (24.5-34.5) Urinalysis Test 01/27/25 16:06 Urine Color Light-orange (Yellow) Urine Clarity Ex.turbid (Clear) Urine pH 6.0 (5.0-9.0) Urine Specific [place] 1.021 (1.001-1.035) Urine Protein 1+ (Negative) H Urine Ketones 2+ (Negative) H Urine Blood Trace /uL (Negative) H Urine Nitrite Negative (Negative) Urine Bilirubin 1+ (Negative) H Urine Urobilinogen 2 mg/dL (Negative) H Urine Leukocyte Esterase 3+ /uL (Negative) Urine RBC 30 /hpf (0 - 4) Urine WBC Clumps Present /hpf (None Seen) Urine Microscopic WBC 733 /HPF (0-5) H Urine Squamous Epithelial Cells Mod /hpf (<5) Urine Bacteria Few /hpf (None Seen) H Urine Mucus Few (None Seen) Urine Yeast (Budding) Many /hpf (None Seen) Urine Glucose Normal mg/dL (Normal) Blood Gas Results Test 01/28/25 13:34 FiO2 % 21.0 Microbiology Microbiology Date/Time Source Procedure Growth Status 01/28/25 00:45 Nose MRSA Screen - Final Complete 01/27/25 16:41 Blood Blood Culture - Preliminary NO GROWTH AFTER 24 HOURS OF INCUBATION. Resulted Labs and/or images reviewed: Labs reviewed by me, Image(s) reviewed by me Assessment/Plan Assessment/Plan Impression: -severe sepsis with shock -hypokalemia -anemia -cholelithiasis -intractable nausea and vomiting -rheumatoid arthritis -primary hypertension -complicated cystitis Plan: -events: No events overnight. Patient off norepinephrine. Potassium repleted -CT scan of the abdomen and pelvis results pending -empiric antibiotic therapy with cefepime and Zyvox -gallbladder ultrasound with stone and sludge -bilateral knee ultrasounds with minimal fluid. -echocardiogram -blood and urine cultures: Results pending -continue aggressive IV hydration -start clear liquid diet -repeat labs in a.m. -obtain medical records from [facility] regarding EGD and colonoscopy results. -long discussion made with the patient's family were bedside. All questions answered. Critical care time spent with patient discussing and formulating plan of care: 90 minutes. This does not include time spent performing procedures. This medical document was created using an electronic medical record system with H[employer] dictation system. Although this document has been carefully reviewed, there may still be some phonetic and typographical errors. These areas are purely typographical due to imperfections of the software programs, and do not reflect any compromise in the patient's medical care. Plan discussed with: Patient, Other (RN) My Orders Orders - MARC CARVER MICA SIZER Procedure Category Date Status Time Haptoglobin LAB 01/28/25 In Process 12:53 Venous Blood Gas RT 01/28/25 Logged 12:54 Vitamin D 25-Hydroxy LAB 01/28/25 In Process D2 + D3 12:53 Cefepime 2gm/50ml Ns PHA 01/28/25 In Process (Maxipime 2gm/50ml) 22:00 Pharmacy [facility] 01/28/25 In Process Clarification: 13:06 Jannette; Comprehensive LAB 01/28/25 In Process Panel 12:53 Ct Ab Pel With Iv Con CT 01/28/25 Taken Only 15:08 Gallbladder US 01/28/25 Resulted 15:08 Urine Bacterial LALO 01/28/25 In Process Culture 15:08 Wound Culture W/ Gs LALO 01/28/25 In Process 15:08 Lactated Ringer's PHA 01/28/25 In Process 15:15 Right Lower Extremity US 01/28/25 Resulted Ultrasou 15:15 Left Lower Extremity US 01/28/25 Resulted Ultrasoun 15:15 Cleanse Wound With [facility] 01/28/25 In Process Wound Clean 16:08 Basic Metabolic Panel LAB 01/30/25 Verified 05:00 Basic Metabolic Panel LAB 01/31/25 Verified 05:00 Basic Metabolic Panel LAB 02/01/25 Verified 05:00 Complete Blood Count LAB 01/30/25 Verified 05:00 Complete Blood Count LAB 01/31/25 Verified 05:00 Complete Blood Count LAB 02/01/25 Verified 05:00 Echo 2d Mode Cardiac US 01/29/25 Logged DOP 09:10 Obtain Mr From Other ORDERS 01/29/25 Transmitted Facility 09:11 Pantoprazole PHA 01/29/25 Logged (Protonix) 10:00 Clear Liq Diet DIET 6/11/25 Transmitted Breakfast Date of Service: Jan 29, 2025 Billing Provider: MARC CARVER NP Common Visit Codes: [id number] CARE 30-74 MIN, [id number] CARE-EACH +30MIN MARC CARVER NP Jan 29, 2025 09:26
[2025-01-29 10:35] LABS: Hepatitis B Surface Antigen Negative (Negative); Hepatitis C Antibody Negative (Negative)
[2025-01-29] MEDS ORDERED: VANCOMYCIN 750mg/100mL D5W or NS KIT IV SCH (13:00)
[2025-01-29] MEDS: VANCOMYCIN 750mg/150ml 150 ML IV SCH (13:57)
[2025-01-29] MEDS: PANTOPRAZOLE 40 MG/10 ML VIAL INJ IV SCH (13:57)
--- NOTE | 2025-01-29 15:10 | DVH ---
EXAM: US Duplex Bilateral Upper Extremities Veins CLINICAL INDICATION: r/o dvt TECHNIQUE: Real-time duplex ultrasound scan of the bilateral upper extremity veins integrating B-mod e two-dimensional vascular structure, Doppler spectral analysis, color flow Doppler imaging and compr ession. COMPARISON: None FINDINGS: RIGHT DEEP VEINS: Unremarkable. No DVT in the right internal jugular, subclavian, axillary, or bra chial veins. The veins demonstrate normal color flow, are normally compressible, with normal phasic flow and/or augmentation response. RIGHT SUPERFICIAL VEINS: Thrombus of the cephalic veins, bilaterally. LEFT DEEP VEINS: Unremarkable. No DVT in the left internal jugular, subclavian, axillary, or brach ial veins. The veins demonstrate normal color flow, are normally compressible, with normal phasic fl ow and/or augmentation response. LEFT SUPERFICIAL VEINS: See above. SOFT TISSUES: No acute findings. OTHER FINDINGS: Right thyroid nodule with hypervascularity measuring 2.1 x 1.1 x 1.1 cm. Dedicated ultrasound of the thyroid is recommended. . IMPRESSION: 1. Thrombus of the cephalic veins, bilaterally. 2. Right thyroid nodule with hypervascularity measuring 2.1 x 1.1 x 1.1 cm. Dedicated ultrasound of the thyroid is recommended.
--- NOTE | 2025-01-29 17:30 | DVHSR ---
APPROVED REPORT EXAM: Two-dimensional and M-mode echocardiogram with Doppler and color Doppler. Blood Pressure: 124/74 mmHg INDICATION Tachycardia, shock? Hx of CAD RISK FACTORS Height: 60, Weight: 143 DIMENSIONS LVDd (3.8-5.7cm)LA (2D)3.3 (1.9-4.0cm)Aortic Root (2.0-3.7cm) EF (%) 52.0 (55-70%)Rt. Atrium3.1 (1.9-4.0cm)Asc. Aorta cm Mitral Valve MitralMitral Stenosis E wave0.50m/sMV Mean GR.1mmHg A wave0.75m/sMV Peak GR.3mmHg E/A ratio0.72D MVAcm2 DECEL [id number] 1/2 [id number] IVRTmsDop MVA4.48cm2 Aortic Valve Aortic ValveAortic Stenosis V10.88m/Elin Mean GR.3mmHg V21.20m/Elin Peak GR.6mmHg Tricuspid Valve TR Velocity1.90m/s [id number] Other Information Technically limited study due to body habitus and patient position. Patient was non verbal and unabl e to follow directions. Patient was laying flat on her back during exam. Conclusion lvef 60% grade 1 diastolic dysfunction normal rv functon left atrium enlarged
[2025-01-29] MEDS ORDERED: VANCOMYCIN 1.25GM/250ML 250 ML IV SCH (20:00)
[2025-01-29] MEDS: ONDANSETRON HCL 4 MG/2 ML VIAL IV PRN (21:55)
[2025-01-30] VITALS (94 sets, daily range): BP systolic 73–130; BP diastolic 34–89; PULSE 67–110; RESP 12–25; TEMP 97.9–98.3; O2SAT 98–100
[2025-01-30 04:03] LABS: Hematocrit 25.0 % (36.0-46.0)
[2025-01-30 04:06] LABS: Hemoglobin 8.4 g/dL (12.2-16.2); Mean Corpuscular Hemoglobin 28.0 pg (28.0-32.0); Mean Corpuscular Volume 83.5 fL (80.0-100.0); Nucleated Red Blood Cells % 0.2 %
[2025-01-30 04:14] LABS: Anion Gap 10 (5-15); Potassium 3.9 mmol/L (3.5-5.1); Sodium 137 mmol/L (136-145)
[2025-01-30 04:20] LABS: BUN/Creatinine Ratio 32.1 (10.0-20.0); Glucose 87 mg/dL (74-106)
[2025-01-30 04:44] LABS: Blood Urea Nitrogen 9 mg/dL (9-23); Calcium 7.6 mg/dL (8.7-10.4); Carbon Dioxide 19 mmol/L (20-31); Chloride 108 mmol/L (98-107)
[2025-01-30] MEDS: LACTATED RINGER'S 1,000 ML IV SCH (10:00)
--- NOTE | 2025-01-30 10:11 | DVH ---
ULTRASOUND SOFT TISSUE HEAD AND NECK CLINICAL INDICATION: thyroid panel TECHNIQUE: Multiple real time sonographic images of the thyroid were obtained. FINDINGS: The right thyroid gland measures 3 cm. The left thyroid gland measures approximately 3.6 cm. The isthmus measures 0.4 cm. ACR TIRADS 2 x 2 x 2 cm Right Lobe TR 3 nodule. IMPRESSION: 1. 2 x 2 x 2 cm Right Lobe TR 3 nodule. FNA is suggested. [employer] TI-RADS Categories and Recommendations (2017): TR1: 0 points, Benign, No FNA TR2: 2 points, Not suspicious, No FNA TR3: 3 points, Mildly suspicious, FNA if > or = 2.5 cm, Follow if > or = 1.5 cm TR4: 4-6 points, Moderately Suspicious, FNA if > or = 1.5 cm, Follow if > or = 1.0 cm TR5: 7+ points, Highly Suspicious, FNA if > or = 1.0 cm, Follow if > or = 0.5 cm Follow-up ultrasound guidelines: TR5: yearly for 5 years, if no growth or change in TI-RADS level TR4: at 1, 2, 3 and 5 years, if no growth or change in TI-RADS level TR3: at 1, 3 and 5 years, if no growth or change in TI-RADS level If increased but below threshold for FNA, repeat in one year. Source: ACR Thyroid Imaging, Reporting and Data System (TI-RADS): White Paper of the ACR TI-RADS Committee. Mikhail et al., J Am Eryn Radiol 2017;14:587-595.
[2025-01-30] MEDS: KETOROLAC TROMETH 30 MG/ML 1ML VIAL IV ONE (10:39)
[2025-01-30] MEDS: MICAFUNGIN SODIUM 100 MG in SODIUM CHL 0.9% 100 ML IV SCH (10:42)
--- NOTE | 2025-01-30 11:16 | DVHPN2 ---
Subjective Patient with generalized weakness, lethargic today. Reviewed: Care Plan, H&P, Labs, Medications Changes from previous H/P or p: No Changes General: Per HPI Eyes: No Pain, No Vision change, No Conjunctivae inflammation, No Eyelid inflammation, No Other, No Redness ENT: No Ear pain, No Ear discharge, No Nose pain, No Nose discharge, No Nose congestion, No Mouth pain, No Mouth swelling, No Throat pain, No Throat swelling, No Other Cardiovascular: No Chest Pain, No Palpitations, No Orthopnea, No Paroxysmal Noc. Dyspnea, No Edema, No Lt Headedness, No Other Respiratory: No Cough, No Dry, No Shortness of breath, No SOB with excertion, No Wheezing, No Hemoptysis, No Pleuritic Pain, No Sputum, No Other Gastrointestinal: No Nausea, No Vomiting, No Abdominal Pain, No Diarrhea, No Constipation, No Melena, No Hematochezia, No Other Genitourinary: No Dysuria, No Frequency, No Incontinence, No Hematuria, No Retention; Other (Wilks catheter in place) Musculoskeletal: No other, No neck pain, No shoulder pain, No arm pain, No back pain, No hand pain, No leg pain, No foot pain Skin: No Rash, No Lesions, No Jaundice, No Bruising, No Other Objective Vitals Vital Signs Date Time Temp Pulse Resp B/P (MAP) Pulse Ox O2 Delivery O2 Flow Rate FiO2 01/30/25 06:45 91 17 91/66 (74) 100 01/30/25 06:00 Room Air* 0 21 01/30/25 04:00 98.3 98.3 Intake/Output Intake and Output 01/30/25 07:00 Intake Total 3497.5 ml Output Total 1225 ml Balance 2272.5 ml Intake Oral 110 ml IV Total 3387.5 ml Output Urine Total 1225 ml # Bowel Movements 3 General Appearance: Alert, Oriented X3, Cooperative, mild distress HEENT: Atraumatic, PERRLA Lungs: Clear to auscultation, Normal air movement Cardiovascular: Normal S1, Normal S2, Other (Sinus tachycardia) Abdomen: Normal bowel sounds, No tenderness Musculoskeletal: Normal sensory function, Normal motor function Extremities: Other (Knees are swollen) Skin: Dry, Intact Psych/Mental Status: Mental status NL, Mood NL Medications Current Medications Medications Dose Ordered Sig/Karan Route Start Time Stop Time Status Last Admin Dose Admin Vancomycin HCl 0 ml @ 0 mls/hr UD IV 01/27/25 18:30 Sodium Chloride 10 ml Q8HR IV 01/27/25 22:00 01/30/25 06:11 10 ML Acetaminophen/ Hydrocodone Bitart 1 tab Q4HP PRN PO 01/27/25 18:45 01/30/25 02:33 1 TAB Ondansetron HCl 4 mg Q4HP PRN IV 01/27/25 18:45 01/30/25 04:38 4 MG Docusate Sodium 100 mg BIDPRN PRN PO 01/27/25 18:45 Acetaminophen 650 mg Q6HP PRN PO 01/27/25 18:45 Nitroglycerin 0.4 mg Q5MINP PRN SL 01/27/25 18:45 Morphine Sulfate 2 mg Q30M PRN IV 01/27/25 18:45 Potassium Chloride 100 ml @ 50 mls/hr Q2H IV 01/28/25 07:00 01/28/25 12:59 Cancel Norepinephrine Bitartrate 250 ml @ 3.75 mls/hr Q24H IV 01/28/25 09:15 01/28/25 09:33 3.75 MLS/HR Cefepime HCl 50 ml @ 12.5 mls/hr Q8HR IV 01/28/25 22:00 01/30/25 06:11 12.5 MLS/HR Pantoprazole Sodium 40 mg DAILY IV 01/29/25 10:00 01/30/25 10:42 40 MG Vancomycin HCl 150 ml @ 150 mls/hr Q12H IV 01/29/25 13:00 01/30/25 01:12 150 MLS/HR Micafungin Sodium 100 mg/Sodium Chloride 100 ml @ 100 mls/hr DAILY IV 01/30/25 10:00 01/30/25 10:42 100 MLS/HR Lactated Ringer's 1,000 ml @ 75 mls/hr [id number] IV 01/30/25 10:00 01/30/25 10:00 75 MLS/HR Midodrine 10 mg TID@0600,1200,1800 PO 01/30/25 12:00 UNV Laboratory Results Laboratory Tests 01/30/25 03:41 Chemistry Test 01/30/25 03:41 Calcium Level 7.6 mg/dL (8.7-10.4) L Urinalysis Test 01/27/25 16:06 Urine Color Light-orange (Yellow) Urine Clarity Ex.turbid (Clear) Urine pH 6.0 (5.0-9.0) Urine Specific [place] 1.021 (1.001-1.035) Urine Protein 1+ (Negative) H Urine Ketones 2+ (Negative) H Urine Blood Trace /uL (Negative) H Urine Nitrite Negative (Negative) Urine Bilirubin 1+ (Negative) H Urine Urobilinogen 2 mg/dL (Negative) H Urine Leukocyte Esterase 3+ /uL (Negative) Urine RBC 30 /hpf (0 - 4) Urine WBC Clumps Present /hpf (None Seen) Urine Microscopic WBC 733 /HPF (0-5) H Urine Squamous Epithelial Cells Mod /hpf (<5) Urine Bacteria Few /hpf (None Seen) H Urine Mucus Few (None Seen) Urine Yeast (Budding) Many /hpf (None Seen) Urine Glucose Normal mg/dL (Normal) Microbiology Microbiology Date/Time Source Procedure Growth Status 01/28/25 16:23 Sacrum Gram Stain - Final Resulted 01/28/25 16:23 Sacrum Wound Culture - Preliminary Resulted 01/27/25 16:41 Blood Blood Culture - Preliminary NO GROWTH AFTER 48 HOURS OF INCUBATION. Resulted Labs and/or images reviewed: Labs reviewed by me, Image(s) reviewed by me Assessment/Plan Assessment/Plan Impression: -severe sepsis with shock -hypokalemia -anemia -cholelithiasis -intractable nausea and vomiting -rheumatoid arthritis -primary hypertension -complicated cystitis Plan: -events: No events overnight. Blood pressure on lower end. Ultrasound of bilateral extremity shows superficial thrombus to cephalic veins. Continues to have loose stools. Check for C diff -CT of the abdomen and pelvis reviewed. -empiric antibiotic therapy with cefepime and Zyvox -echocardiogram: Normal ejection fraction, unremarkable -blood and urine cultures: Results pending -continue aggressive IV hydration Continue clear liquid diet -start midodrine 10 mg p.o. t.i.d. -repeat labs in a.m. -obtain medical records from [facility] regarding EGD and colonoscopy results. Critical care time spent with patient discussing and formulating plan of care: 90 minutes. This does not include time spent performing procedures. This medical document was created using an electronic medical record system with [employer] dictation system. Although this document has been carefully reviewed, there may still be some phonetic and typographical errors. These areas are purely typographical due to imperfections of the software programs, and do not reflect any compromise in the patient's medical care. Plan discussed with: Patient, Other (RN) My Orders Orders - MARC CARVER NP Procedure Category Date Status Time Bi Lat Upper Dvt US 01/29/25 Resulted 11:30 Micafungin Sodium PHA 01/30/25 In Process (Mycamine) 10:00 Thyroid US 01/30/25 Resulted 08:38 Cortisol Am LAB 01/31/25 Verified 04:00 Transfer Orders XFER 01/30/25 Transmitted 09:48 Thyroid Panel LAB 01/30/25 In Process 09:50 Lactated Ringer's PHA 01/30/25 In Process 10:00 Insert Rectal Tube ORDERS 01/30/25 Transmitted 10:34 Midodrine Tablet PHA 01/30/25 Transmitted (Proamatine Tablet) 12:00 Date of Service: Jan 30, 2025 Billing Provider: MARC CARVER NP Common Visit Codes: [id number] CARE 30-74 MIN MARC CARVER NP Jan 30, 2025 11:16
[2025-01-30 14:07] LABS: Anti-Centromere B Antibody <0.2 AI (0.0-0.9); Anti-Jo-1 Antibody <0.2 AI (0.0-0.9); Anti-dsDNA Antibody 2 IU/mL (0-9); Antichromatin Antibody <0.2 AI (0.0-0.9); Antiscleroderma-70 Antibody <0.2 AI (0.0-0.9); Sjogren's Anti-SS-A Antibody <0.2 AI (0.0-0.9); Sjogren's Anti-SS-B Antibody <0.2 AI (0.0-0.9)
[2025-01-30] MEDS: MIDODRINE HCL 10 MG TAB PO SCH (14:15)
[2025-01-31] VITALS (95 sets, daily range): BP systolic 91–141; BP diastolic 32–87; PULSE 59–89; RESP 13–21; TEMP 96.8–98.1; O2SAT 96–100
[2025-01-31 03:53] LABS: Hematocrit 28.5 % (36.0-46.0); Hemoglobin 9.4 g/dL (12.2-16.2); Mean Corpuscular Hemoglobin 27.7 pg (28.0-32.0); Mean Corpuscular Volume 83.6 fL (80.0-100.0); Nucleated Red Blood Cells % 0.1 %
[2025-01-31 04:06] LABS: Anion Gap 11 (5-15); Carbon Dioxide 20 mmol/L (20-31); Potassium 3.5 mmol/L (3.5-5.1); Sodium 140 mmol/L (136-145)
[2025-01-31 04:07] LABS: Chloride 109 mmol/L (98-107)
[2025-01-31 04:11] LABS: Calcium 7.8 mg/dL (8.7-10.4)
[2025-01-31 04:12] LABS: BUN/Creatinine Ratio 38.5 (10.0-20.0); Blood Urea Nitrogen 10 mg/dL (9-23); Glucose 70 mg/dL (74-106)
[2025-01-31] MEDS: CALCIUM GLUC 1,000mg/50ml-NS 50 ML IV ONE (05:43)
[2025-01-31] MEDS: POTASSIUM CHL 20MEQ/100ML 100 ML IV ONE (05:44)
[2025-01-31 07:07] LABS: Free Thyroxine Index 2.3 (1.2-4.9)
[2025-01-31 11:07] LABS: Vitamin D-2 25-Hydroxy <1.0 ng/mL (.); Vitamin D-3 25-Hydroxy 11 ng/mL (.)
--- NOTE | 2025-01-31 11:14 | DVHPN2 ---
Subjective Patient with generalized weakness, lethargic today. Reviewed: Care Plan, H&P, Labs, Medications Changes from previous H/P or p: No Changes General: Per HPI Eyes: No Pain, No Vision change, No Conjunctivae inflammation, No Eyelid inflammation, No Other, No Redness ENT: No Ear pain, No Ear discharge, No Nose pain, No Nose discharge, No Nose congestion, No Mouth pain, No Mouth swelling, No Throat pain, No Throat swelling, No Other Cardiovascular: No Chest Pain, No Palpitations, No Orthopnea, No Paroxysmal Noc. Dyspnea, No Edema, No Lt Headedness, No Other Respiratory: No Cough, No Dry, No Shortness of breath, No SOB with excertion, No Wheezing, No Hemoptysis, No Pleuritic Pain, No Sputum, No Other Gastrointestinal: No Nausea, No Vomiting, No Abdominal Pain, No Diarrhea, No Constipation, No Melena, No Hematochezia, No Other Genitourinary: Other Musculoskeletal: No other, No neck pain, No shoulder pain, No arm pain, No back pain, No hand pain, No leg pain, No foot pain Skin: No Rash, No Lesions, No Jaundice, No Bruising, No Other Objective Vitals Vital Signs Date Time Temp Pulse Resp B/P (MAP) Pulse Ox O2 Delivery O2 Flow Rate FiO2 01/31/25 10:45 68 17 114/73 (87) 100 01/31/25 10:00 Room Air* 0 21 01/31/25 08:00 97.4 97.4 Intake/Output Intake and Output 01/31/25 07:00 Intake Total 2406.0 ml Output Total 1850 ml Balance 556.0 ml Intake Oral 45 ml IV Total 2361.0 ml Output Urine Total 1850 ml # Bowel Movements 4 General Appearance: Alert, Oriented X3, Cooperative, mild distress HEENT: Atraumatic, PERRLA Lungs: Clear to auscultation, Normal air movement Cardiovascular: Normal S1, Normal S2, Other Abdomen: Normal bowel sounds, No tenderness Musculoskeletal: Normal sensory function, Normal motor function Extremities: Other Skin: Dry, Intact Psych/Mental Status: Mental status NL, Mood NL Medications Current Medications Medications Dose Ordered Sig/Karan Route Start Time Stop Time Status Last Admin Dose Admin Sodium Chloride 10 ml Q8HR IV 01/27/25 22:00 01/31/25 05:42 10 ML Acetaminophen/ Hydrocodone Bitart 1 tab Q4HP PRN PO 01/27/25 18:45 01/30/25 02:33 1 TAB Ondansetron HCl 4 mg Q4HP PRN IV 01/27/25 18:45 01/30/25 04:38 4 MG Docusate Sodium 100 mg BIDPRN PRN PO 01/27/25 18:45 Acetaminophen 650 mg Q6HP PRN PO 01/27/25 18:45 Nitroglycerin 0.4 mg Q5MINP PRN SL 01/27/25 18:45 Morphine Sulfate 2 mg Q30M PRN IV 01/27/25 18:45 Potassium Chloride 100 ml @ 50 mls/hr Q2H IV 01/28/25 07:00 01/28/25 12:59 Cancel Norepinephrine Bitartrate 250 ml @ 3.75 mls/hr Q24H IV 01/28/25 09:15 01/28/25 09:33 3.75 MLS/HR Cefepime HCl 50 ml @ 12.5 mls/hr Q8HR IV 01/28/25 22:00 01/31/25 05:43 12.5 MLS/HR Pantoprazole Sodium 40 mg DAILY IV 01/29/25 10:00 01/31/25 10:05 40 MG Micafungin Sodium 100 mg/Sodium Chloride 100 ml @ 100 mls/hr DAILY IV 01/30/25 10:00 01/31/25 10:07 100 MLS/HR Lactated Ringer's 1,000 ml @ 75 mls/hr [id number] IV 01/30/25 10:00 01/31/25 06:15 75 MLS/HR Midodrine 10 mg TID@0600,1200,1800 PO 01/30/25 12:00 01/31/25 05:43 10 MG Laboratory Results Laboratory Tests 01/31/25 03:35 Chemistry Test 01/31/25 03:35 Calcium Level 7.8 mg/dL (8.7-10.4) L Urinalysis Test 01/27/25 16:06 Urine Color Light-orange (Yellow) Urine Clarity Ex.turbid (Clear) Urine pH 6.0 (5.0-9.0) Urine Specific [place] 1.021 (1.001-1.035) Urine Protein 1+ (Negative) H Urine Ketones 2+ (Negative) H Urine Blood Trace /uL (Negative) H Urine Nitrite Negative (Negative) Urine Bilirubin 1+ (Negative) H Urine Urobilinogen 2 mg/dL (Negative) H Urine Leukocyte Esterase 3+ /uL (Negative) Urine RBC 30 /hpf (0 - 4) Urine WBC Clumps Present /hpf (None Seen) Urine Microscopic WBC 733 /HPF (0-5) H Urine Squamous Epithelial Cells Mod /hpf (<5) Urine Bacteria Few /hpf (None Seen) H Urine Mucus Few (None Seen) Urine Yeast (Budding) Many /hpf (None Seen) Urine Glucose Normal mg/dL (Normal) Microbiology Microbiology Date/Time Source Procedure Growth Status 01/28/25 20:20 Urine - [place] Urine Culture - Preliminary Resulted 01/28/25 16:23 Sacrum Gram Stain - Final Resulted 01/28/25 16:23 Wound Culture - Preliminary Escherichia coli Resulted 01/27/25 16:41 Blood Blood Culture - Preliminary NO GROWTH AFTER 72 HOURS OF INCUBATION. Resulted Labs and/or images reviewed: Labs reviewed by me, Image(s) reviewed by me Assessment/Plan Assessment/Plan Impression: -severe sepsis with shock -hypokalemia -anemia -cholelithiasis -intractable nausea and vomiting -rheumatoid arthritis -primary hypertension -complicated cystitis Plan: -events: No events overnight. Patient hemodynamically stable. Now with persistent encephalopathy. -MRI of the brain -neurology consultation -CT of the abdomen and pelvis reviewed. -continue cefepime and micafungin -urine with greater than [id number] yeast. -decrease IV fluids -advance diet as tolerated -continue midodrine -repeat labs in a.m. -C diff results pending Critical care time spent with patient discussing and formulating plan of care: 90 minutes. This does not include time spent performing procedures. This medical document was created using an electronic medical record system with [employer] dictation system. Although this document has been carefully reviewed, there may still be some phonetic and typographical errors. These areas are purely typographical due to imperfections of the software programs, and do not reflect any compromise in the patient's medical care. Plan discussed with: Patient, Other (RN) My Orders Orders - MARC CARVER CUSTOMER RELATIONS CONSULTANT Procedure Category Date Status Time Midodrine Tablet PHA 01/30/25 In Process (Proamatine Tablet) 12:00 Brain Head Wo Contrast MRI 01/31/25 Logged 10:59 Date of Service: Jan 31, 2025 Billing Provider: MARC CARVER NP Common Visit Codes: [id number] CARE 30-74 MIN MARC CARVER NP Jan 31, 2025 11:14
--- NOTE | 2025-01-31 18:37 | DVH ---
EXAM: MRI BRAIN HEAD WO CONTRAST CLINICAL HISTORY: aloc COMPARISON: 01/27/2025 TECHNIQUE: Multiplanar, multisequence magnetic resonance imaging of the brain was performed intravenous contrast . FINDINGS: There is normal brain volume and formation. Scattered periventricular, deep and subcortical white mat ter T2/FLAIR hyperintense foci which may represent chronic small-vessel ischemic changes. No hemorrhages, masses, mass effect, midline shift, herniation or cytotoxic edema following large vas cular territory. No intra-axial or extra-axial fluid collections. No evidence of hydrocephalus. Basa l cisterns are patent. Vascular flow voids are maintained. The pituitary gland, sella and parasellar regions unremarkable. The cerebellar tonsils are in normal position. The cerebellum is unremarkable. The orbits and globes unremarkable. Paranasal sinuses and mastoids are clear. There are No worrisome calvarial lesions. IMPRESSION: No evidence of acute intracranial abnormalities.
--- NOTE | 2025-01-31 19:41 | DVHINCON2 ---
Date of service: Jan 31, 2025 Referring Physician Maximo Reason for Consultation Encephalopathy History of Present Illness Ms. Evans is a 59 years old right-handed female with a history of hypertension, diabetes, gallstone, rheumatoid arthritis, the patient was brought to the [facility] on 01/27/2025 with a chief company of altered mental status. At this time, she is awake, not cooperative, he may only orie nted to herself, the history is obtained from her daughter, nurse, and chart review On 01/27/2025, her eyes were spacing out, mentally altered or less responsive to her surroundings, and she was brought to the hospital. In the hospital, the patient was found to have hypotension, UTI,, sedated metabolic acidosis, sacral wound Apparently the patient has had intermittent nausea, vomiting for a while. In 12/2024, the patient was admitted to the [facility] for nausea, vomiting, pain in the knee and stomach, About 1-2 weeks ago, because of worsened nausea, vomiting, she was seen in the [facility] for one day, where the patient was said to have infection in her bottom, the patient was discharged with antibiotics Blood culture, 01/28/2025: Wound culture, 01/28/2025: E coli Urine culture, 01/28/2025: Yeast: > 100,000 UDS, 01/27/2025: Negative Plasma alcohol, 01/27/2025: 3.7 Urinalysis, 01/27/2025: WBC: 733, urine leukocyte esterase: 3+ WBC/HB/PLT/MCV, 02/17/2025: 6.6/9.4/258/83.6 HCO3, : 20, 01/28/2025: 18, 02/17/2025: 20 CRP, 01/28/2025: 8.04 Liver function tests, 01/28/2025: Unremarkable Ammonia, : 10 Vitamin B12, 01/28/2025: 339 Folic acid, 01/28/2025: 2.75 TSH, 01/28/2025: 3.96 FT four, 01/30/2025: 2.3 Echocardiogram, 01/29/2025: Conclusion lvef 60% grade 1 diastolic dysfunction normal rv functon left atrium enlarged CT abdominal/pelvis, 01/29/2025: No acute intraabdominal abnormality. Cholelithiasis.No sacral soft tissue defect visualized MRI head, 01/31/2025: No evidence of acute intracranial abnormalities Past Medical History Hypertension, diabetes, gallstone, rheumatoid arthritis Past Surgical History None Family History: FH: brain aneurysm G8 BROTHER, Onset:Unknown FH: myocardial infarction G8 BROTHER, Onset:Unknown G8 BROTHER, Onset:Unknown Stroke in brother G8 BROTHER, Onset:Unknown Family History Hypertension, diabetes, bony autism, heart attack, stroke, ovarian cancer Social History She has no history of tobacco smoking, alcohol or drug abuse Allergies: Coded Allergies: Atorvastatin (Verified Allergy, Unknown, 01/27/25) Penicillins (Verified Allergy, Unknown, 09/14/22) Review of Systems As above, the other systems are negative Vital Signs Vital Signs Date Time Temp Pulse Resp B/P (MAP) Pulse Ox O2 Delivery O2 Flow Rate FiO2 01/31/25 18:45 63 19 107/57 (74) 100 01/31/25 18:00 Room Air* 0 21 01/31/25 16:00 96.8 96.8 Physical Exam GENERAL EXAM: General: the patient is well developed and nourished. No acute distress. HEENT: Normocephalic, neck is supple, no carotid bruits. No mass. RESPIRATORY: Normal respiratory effort with symmetrical lung expansion. Lungs clear to auscultation. CARDIOVASCULAR: Regular rate and rhythm with no murmurs. S1, S2. ABDOMEN: Soft, nontender, normal bowel sound MUSCULOSKELETAL EXAM: Change in the both hands is consistent with history of rheumatoid arthritis NEUROLOGICAL: MENTAL STATUS: HPI SPEECH, LANGUAGE, HIGHER CORTICAL FUNCTION: She does not vocalize. CRANIAL NERVES: #2: Intact visual fisher to confrontation to visual field. #3,4,6: Pupils are equal, round and reactive. EOMs full and conjugate. #5: Facial sensation intact in all three divisions bilaterally. Mandibular strength intact. #7: Facial muscles symmetrical and strength intact. #8: Hearing grossly normal to voice. #9,10: Deferred #11: Deferred. #12: Deferred SENSATION: Sensation to touch and pinprick is okay MOTOR: Normal tone in the upper and lower extremity. Normal muscle bulk. No fasciculations. No abnormal movements or posturing. She does not move the arms and legs REFLEXES: Deep tendon reflexes are symmetrical. No pathological reflexes. CEREBELLAR/COORDINATION: Deferred GAIT/STATION: deferred. Labs/Diagnostic Data Labs Test 01/31/25 08:15 01/31/25 03:35 01/31/25 00:25 01/30/25 10:33 Range/Units Cortisol AM Sample 21.08 5.27-22.45 ug/dL White Blood Count 6.6 4.4-10.8 10^3/uL Red Blood Count 3.41 L 4.0-5.20 10^6/uL Hemoglobin 9.4 L 12.2-16.2 g/dL Hematocrit 28.5 #L 36.0-46.0 % Mean Corpuscular Volume 83.6 80.0-100.0 fL Mean Corpuscular Hemoglobin 27.7 L 28.0-32.0 pg Mean Corpuscular Hemoglobin Concent 33.1 32.0-36.0 g/dL Red Cell Distribution Width 15.9 H 11.8-14.3 % Platelet Count 258 140-450 10^3/uL Mean Platelet Volume 8.1 6.9-10.8 fL Neutrophils (%) (Auto) 78.1 37.0-80.0 % Lymphocytes (%) (Auto) 12.6 10.0-50.0 % Monocytes (%) (Auto) 3.9 0.0-12.0 % Eosinophils (%) (Auto) 4.5 0.0-7.0 % Basophils (%) (Auto) 0.9 0.0-2.0 % Neutrophils # (Auto) 5.1 1.6-8.6 10 ^3/uL Lymphocytes # (Auto) 0.8 0.4-5.4 10 ^3/uL Monocytes # (Auto) 0.3 0-1.3 10 ^3/uL Eosinophils # (Auto) 0.3 0-0.8 10 ^3/uL Basophils # (Auto) 0.1 0-0.2 10 ^3/uL Nucleated Red Blood Cells 0.1 % Sodium Level 140 136-145 mmol/L Potassium Level 3.5 3.5-5.1 mmol/L Chloride Level 109 H 98-107 mmol/L Carbon Dioxide Level 20 20-31 mmol/L Anion Gap 11 5-15 Blood Urea Nitrogen 10 9-23 mg/dL Creatinine 0.26 L 0.550-1.02 mg/dL Glomerular Filtration Rate Calc 126 >90 mL/min BUN/Creatinine Ratio 38.5 H 10.0-20.0 Serum Glucose 70 L 74-106 mg/dL Calcium Level 7.8 L 8.7-10.4 mg/dL Vancomycin Level Trough 22.1 H 5-10 ug/mL Ammonia < 10 L 11-32 umol/L Free Thyroxine Index 2.3 1.2-4.9 Thyroxine (T4) 5.9 4.5-12.0 ug/dL Triiodothyronine (T3) Uptake 39 24-39 % Test 01/29/25 11:01 01/29/25 07:46 01/28/25 13:34 01/28/25 13:30 Range/Units POC Glucose 83 70-106 mg/dl Prothrombin Time 11.2 9.3-11.8 sec Prothrombin Time INR 1.06 0.9-1.15 Activated Partial Thromboplast Time 28.6 24.5-34.5 SEC Blood Gas Specimen Type Venous Blood Gas Sample Site Vbg - n/a Blood Gas Patient Temperature 37.0 Arterial Blood Date Drawn [id number] Bennie Test N/a Venous Blood pH 7.405 7.320-7.430 Venous Blood pCO2 at Patient Temp 29.0 L 38.0-54.0 mmHg Venous Blood pO2 at Patient Temp 44.4 23.0-48.0 mmHg Venous Blood HCO3 17.8 L 22.0-29.0 mmol/L Venous Blood Base Excess -5.4 L -2.0-3.0 mmol/L Blood Gas Modality Room air FiO2 % 21.0 Specimen Drawn By jenny Connolly rn Erythrocyte Sedimentation Rate 62 H 0-20 mm/hr Haptoglobin 189 33-346 mg/dL Uric Acid 4.5 3.1-7.8 mg/dL Magnesium Level 2.1 1.6-2.6 mg/dL C-Reactive Protein High Sensitivity 8.04 H <1.0 mg/dL Vitamin D 25-Hydroxy 11 L . ng/mL 25-Hydroxy Vitamin D2 <1.0 . ng/mL 25-Hydroxy Vitamin D3 11 . ng/mL Anti-Nuclear Antibody Comment Comment . MASHA-1 Antibody <0.2 0.0-0.9 AI SS-A/Ro Antibody <0.2 0.0-0.9 AI SS-B/La Antibody <0.2 0.0-0.9 AI Sm Antibody <0.2 0.0-0.9 AI PLATFORM SOFTWARE ENGINEER Antibody <0.2 0.0-0.9 AI Scl-70 (Scleroderma) Antibody <0.2 0.0-0.9 AI Anti-Double Strand DNA Antibody 2 0-9 IU/mL Chromatin Antibody <0.2 0.0-0.9 AI Centromere B Antibody <0.2 0.0-0.9 AI Test 01/28/25 09:19 01/28/25 03:55 01/27/25 19:50 01/27/25 16:33 Range/Units Iron Level 74 50-170 ug/dL Total Iron Binding Capacity 129 L 250-425 ug/dL Percent Iron Saturation 57.4 H 15-50 % Vitamin B12 Level 339 211-911 pg/mL Folic Acid 2.75 >5.38 ng/mL Total Bilirubin 0.4 0.2-1.0 mg/dL Aspartate Amino Transferase (AST) 23 13-40 U/L Alanine Aminotransferase (ALT) < 9 7-40 U/L Alkaline Phosphatase 94 46-116 U/L Lactate Dehydrogenase 180 120-246 U/L Total Protein 5.4 L 5.7-8.2 g/dL Albumin 2.9 L 3.2-4.8 g/dL Thyroid Stimulating Hormone (TSH) 3.96 0.55-4.78 uIU/mL Hepatitis B Surface Antigen Negative Negative Hepatitis C Antibody Negative Negative Troponin I High Sensitivity < 3 L </=34 ng/L Lactic Acid Level 2.0 0.4-2.0 mmol/L B-Type Natriuretic Peptide 34.77 0-100 pg/mL Plasma/Serum Blood Alcohol 3.7 <10 mg/dL Test 01/27/25 16:06 Range/Units Urine Color Light-orange Yellow Urine Clarity Ex.turbid Clear Urine pH 6.0 5.0-9.0 Urine Specific [place] 1.021 1.001-1.035 Urine Protein 1+ H Negative Urine Ketones 2+ H Negative Urine Blood Trace H Negative /uL Urine Nitrite Negative Negative Urine Bilirubin 1+ H Negative Urine Urobilinogen 2 H Negative mg/dL Urine Leukocyte Esterase 3+ Negative /uL Urine RBC 30 0 - 4 /hpf Urine WBC Clumps Present None Seen /hpf Urine Microscopic WBC 733 H 0-5 /HPF Urine Squamous Epithelial Cells Mod <5 /hpf Urine Bacteria Few H None Seen /hpf Urine Mucus Few None Seen Urine Yeast (Budding) Many None Seen /hpf Urine Glucose Normal Normal mg/dL Urine Opiates Screen Neg NEGATIVE Urine Fentanyl Screen Neg NEGATIVE Urine Barbiturates Screen Neg NEGATIVE Urine Phencyclidine Screen Neg NEGATIVE Urine Amphetamines Screen Neg NEGATIVE Urine Benzodiazepines Screen Neg NEGATIVE Urine Cocaine Screen Neg NEGATIVE Urine Cannabinoids Screen Neg NEGATIVE Microbiology Date/Time Source Procedure Growth Status 01/28/25 20:20 Urine - [place] Urine Culture - Preliminary Resulted 01/28/25 16:23 Sacrum Gram Stain - Final Resulted 01/28/25 16:23 Wound Culture - Preliminary Escherichia coli Resulted 01/27/25 16:41 Blood Blood Culture - Preliminary NO GROWTH AFTER 72 HOURS OF INCUBATION. Resulted Assessment Altered mental status Metabolic encephalopathy secondary to UTI, sepsis/septic shock Pressure wound Metabolic acidosis Nausea, vomiting Plan/Recommendation Monitoring Supportive treatment Blood culture EEG Follow-up labs ICU care Stabilize vitals Respiratory support p.r.n. IV antibiotics DVT prophylaxis GI prophylaxis Plan discussed with: Daughter, Other RIZWANA MUÑOZ MD Jan 31, 2025 19:41
[2025-01-31] MEDS: DEXTROSE (50%) 50ML SYRG IV PRN (22:00)
[2025-01-31] MEDS: InsuLIN REG 1unit/0.01ml Soln (100units/ml) SC SCH (22:00)
[2025-01-31] MEDS: ACCU-CHEK COMFORT CURVE STRIP VI SCH (22:17)
[2025-02-01] VITALS (73 sets, daily range): BP systolic 81–137; BP diastolic 44–100; PULSE 64–105; RESP 14–24; TEMP 97.7–99.2; O2SAT 98–100
[2025-02-01 04:39] LABS: Hematocrit 28.3 % (36.0-46.0); Hemoglobin 9.5 g/dL (12.2-16.2); Mean Corpuscular Hemoglobin 28.1 pg (28.0-32.0); Mean Corpuscular Volume 83.9 fL (80.0-100.0); Nucleated Red Blood Cells % 0.1 %
[2025-02-01 04:41] LABS: Sodium 142 mmol/L (136-145)
[2025-02-01 04:42] LABS: Anion Gap 14 (5-15); Carbon Dioxide 16 mmol/L (20-31); Chloride 112 mmol/L (98-107); Potassium 3.1 mmol/L (3.5-5.1)
[2025-02-01 04:43] LABS: Calcium 8.5 mg/dL (8.7-10.4)
[2025-02-01 04:47] LABS: BUN/Creatinine Ratio 22.2 (10.0-20.0)
[2025-02-01 04:56] LABS: Blood Urea Nitrogen 8 mg/dL (9-23); Glucose 56 mg/dL (74-106)
[2025-02-01] MEDS: POTASSIUM CHL 20MEQ/50ML 50 ML IV SCH (05:21)
[2025-02-01] MEDS: DEXTROSE 50% SYRINGE 50 ML IV ONE (09:28)
[2025-02-01] MEDS: ACCU-CHEK COMFORT CURVE STRIP VI SCH (09:29)
--- NOTE | 2025-02-01 09:40 | DVHPN2 ---
Subjective Patient with generalized weakness, lethargic today. Reviewed: Care Plan, H&P, Labs, Medications Changes from previous H/P or p: No Changes General: Per HPI Eyes: No Pain, No Vision change, No Conjunctivae inflammation, No Eyelid inflammation, No Other, No Redness ENT: No Ear pain, No Ear discharge, No Nose pain, No Nose discharge, No Nose congestion, No Mouth pain, No Mouth swelling, No Throat pain, No Throat swelling, No Other Cardiovascular: No Chest Pain, No Palpitations, No Orthopnea, No Paroxysmal Noc. Dyspnea, No Edema, No Lt Headedness, No Other Respiratory: No Cough, No Dry, No Shortness of breath, No SOB with excertion, No Wheezing, No Hemoptysis, No Pleuritic Pain, No Sputum, No Other Gastrointestinal: No Nausea, No Vomiting, No Abdominal Pain, No Diarrhea, No Constipation, No Melena, No Hematochezia, No Other Genitourinary: Other Musculoskeletal: No other, No neck pain, No shoulder pain, No arm pain, No back pain, No hand pain, No leg pain, No foot pain Skin: No Rash, No Lesions, No Jaundice, No Bruising, No Other Objective Vitals Vital Signs Date Time Temp Pulse Resp B/P (MAP) Pulse Ox O2 Delivery O2 Flow Rate FiO2 02/01/25 09:15 110/65 02/01/25 09:00 87 21 100 02/01/25 08:00 98.0 98.0 02/01/25 08:00 Room Air* 0 21 Intake/Output Intake and Output 02/01/25 07:00 Intake Total 2107.5 ml Output Total 850 ml Balance 1257.5 ml Intake Oral 70 ml IV Total 2037.5 ml Output Urine Total 850 ml # Bowel Movements 1 General Appearance: Alert, Oriented X3, Cooperative, mild distress HEENT: Atraumatic, PERRLA Lungs: Clear to auscultation, Normal air movement Cardiovascular: Normal S1, Normal S2, Other Abdomen: Normal bowel sounds, No tenderness Musculoskeletal: Normal sensory function, Normal motor function Extremities: Other Skin: Dry, Intact Psych/Mental Status: Mental status NL, Mood NL Medications Current Medications Medications Dose Ordered Sig/Karan Route Start Time Stop Time Status Last Admin Dose Admin Sodium Chloride 10 ml Q8HR IV 01/27/25 22:00 02/01/25 05:22 10 ML Acetaminophen/ Hydrocodone Bitart 1 tab Q4HP PRN PO 01/27/25 18:45 01/30/25 02:33 1 TAB Ondansetron HCl 4 mg Q4HP PRN IV 01/27/25 18:45 01/30/25 04:38 4 MG Docusate Sodium 100 mg BIDPRN PRN PO 01/27/25 18:45 Acetaminophen 650 mg Q6HP PRN PO 01/27/25 18:45 Nitroglycerin 0.4 mg Q5MINP PRN SL 01/27/25 18:45 Morphine Sulfate 2 mg Q30M PRN IV 01/27/25 18:45 Potassium Chloride 100 ml @ 50 mls/hr Q2H IV 01/28/25 07:00 01/28/25 12:59 Cancel Norepinephrine Bitartrate 250 ml @ 3.75 mls/hr Q24H IV 01/28/25 09:15 01/28/25 09:33 3.75 MLS/HR Cefepime HCl 50 ml @ 12.5 mls/hr Q8HR IV 01/28/25 22:00 02/01/25 05:22 12.5 MLS/HR Pantoprazole Sodium 40 mg DAILY IV 01/29/25 10:00 02/01/25 09:30 40 MG Micafungin Sodium 100 mg/Sodium Chloride 100 ml @ 100 mls/hr DAILY IV 01/30/25 10:00 02/01/25 09:30 100 MLS/HR Midodrine 10 mg TID@0600,1200,1800 PO 01/30/25 12:00 02/01/25 06:00 10 MG Dextrose 50 ml UD PRN IV 01/31/25 22:00 02/01/25 05:33 50 ML Diagnostic Test (Pha) 1 strip IQ4HR 02/01/25 08:00 02/01/25 09:29 1 STRIP Dextrose/Sodium Chloride 1,000 ml @ 75 mls/hr [id number] IV 02/01/25 07:30 UNV Laboratory Results Laboratory Tests 02/01/25 03:51 Chemistry Test 02/01/25 03:51 Calcium Level 8.5 mg/dL (8.7-10.4) L Urinalysis Test 01/27/25 16:06 Urine Color Light-orange (Yellow) Urine Clarity Ex.turbid (Clear) Urine pH 6.0 (5.0-9.0) Urine Specific [place] 1.021 (1.001-1.035) Urine Protein 1+ (Negative) H Urine Ketones 2+ (Negative) H Urine Blood Trace /uL (Negative) H Urine Nitrite Negative (Negative) Urine Bilirubin 1+ (Negative) H Urine Urobilinogen 2 mg/dL (Negative) H Urine Leukocyte Esterase 3+ /uL (Negative) Urine RBC 30 /hpf (0 - 4) Urine WBC Clumps Present /hpf (None Seen) Urine Microscopic WBC 733 /HPF (0-5) H Urine Squamous Epithelial Cells Mod /hpf (<5) Urine Bacteria Few /hpf (None Seen) H Urine Mucus Few (None Seen) Urine Yeast (Budding) Many /hpf (None Seen) Urine Glucose Normal mg/dL (Normal) Microbiology Microbiology Date/Time Source Procedure Growth Status 01/28/25 20:20 Urine - [place] Urine Culture - Preliminary Resulted 01/28/25 16:23 Sacrum Gram Stain - Final Resulted 01/28/25 16:23 Wound Culture - Preliminary Escherichia coli Resulted 01/27/25 16:41 Blood Blood Culture - Preliminary NO GROWTH AFTER 72 HOURS OF INCUBATION. Resulted Labs and/or images reviewed: Labs reviewed by me, Image(s) reviewed by me Assessment/Plan Assessment/Plan Impression: -severe sepsis with shock -hypokalemia -anemia -cholelithiasis -intractable nausea and vomiting -rheumatoid arthritis -primary hypertension -complicated cystitis Plan: -events: No events overnight. MRI unremarkable. Patient continues to be encephalopathic. -MVI, vitamin-D supplementation -neurology consultation: Recommendations reviewed -CT of the abdomen and pelvis reviewed. -continue cefepime and micafungin -urine with greater than [id number] yeast. Continue micafungin -decrease IV fluids -advance diet as tolerated -continue midodrine -repeat labs in a.m. -C diff results pending Critical care time spent with patient discussing and formulating plan of care: 90 minutes. This does not include time spent performing procedures. This medical document was created using an electronic medical record system with [employer] dictation system. Although this document has been carefully reviewed, there may still be some phonetic and typographical errors. These areas are purely typographical due to imperfections of the software programs, and do not reflect any compromise in the patient's medical care. Plan discussed with: Patient, Other (RN) My Orders Orders - MARC CARVER NP Procedure Category Date Status Time Brain Head Wo Contrast MRI 01/31/25 Resulted 10:59 * Neurology Consult CONS 01/31/25 Transmitted 11:09 * Photoeng[employer]ving [employer]er CONS 01/31/25 Transmitted Consult * Wound Consult CONS 01/31/25 Transmitted D5w/Sod Chlo 0.9% PHA 02/01/25 Logged (D5w Ns 0.9%) 07:30 Potassium LAB 02/01/25 Logged 12:00 Venous Blood Gas RT 02/01/25 Logged 12:00 Multiple Vitamin PHA 02/01/25 Logged Tablet (Mvi Tab) 10:00 Cholecalciferol PHA 02/01/25 Logged Tablet (Vitamin D3 10:00 Date of Service: Feb 01, 2025 Billing Provider: MARC CARVER NP Common Visit Codes: [id number] CARE 30-74 MIN MARC CARVER NP Feb 01, 2025 09:40
[2025-02-01] MEDS: MULTIPLE VITAMIN TAB PO SCH (10:00)
[2025-02-01] MEDS: CHOLECALCIFEROL (VITD3) 1,000UNIT=25mCg TAB PO SCH (10:00)
[2025-02-01] MEDS: D5W/SOD CHLO 0.9% 1,000 ML IV SCH (10:02)
--- NOTE | 2025-02-01 20:54 | DVHPN2 ---
Progress Note - Dictate Date Seen: Feb 01, 2025 Medical Necessity Reason Pt with a Central, PICC or Fol: Yes The following are medically ne: [place] Catheter Subjective Ms. Evans is a 59 years old right-handed female with a history of hypertension, diabetes, gallstone, rheumatoid arthritis, the patient was brought to the [facility] on 01/27/2025 with a chief company of altered mental status. I have seen and examined the patient, I have talked to her nurse, she is awake, but he is not cooperative, she does not follow verbal commands, she does not vocalize, she does not move the extremities ABG, 02/01/2025: Compensated metabolic acidosis Blood culture, 01/28/2025: No growth Wound culture, 01/28/2025: E coli Urine culture, 01/28/2025: Yeast: > 100,000 UDS, 01/27/2025: Negative Plasma alcohol, 01/27/2025: 3.7 Urinalysis, 01/27/2025: WBC: 733, urine leukocyte esterase: 3+ WBC/HB/PLT/MCV, 02/17/2025: 6.6/9.4/258/83.6 HCO3, : 20, 01/28/2025: 18, 02/17/2025: 20 CRP, 01/28/2025: 8.04 Liver function tests, 01/28/2025: Unremarkable Ammonia, six: 10 Vitamin B12, 01/28/2025: 339 Folic acid, 01/28/2025: 2.75 TSH, 01/28/2025: 3.96 FT four, 01/30/2025: 2.3 Echocardiogram, 01/29/2025: Conclusion lvef 60% grade 1 diastolic dysfunction normal rv functon left atrium enlarged CT abdominal/pelvis, 01/29/2025: No acute intraabdominal abnormality. Cholelithiasis.No sacral soft tissue defect visualized MRI head, 01/31/2025: No evidence of acute intracranial abnormalities vital signs Vital Sign Date Time Temp Pulse Resp B/P (MAP) Pulse Ox O2 Delivery O2 Flow Rate FiO2 02/01/25 20:30 97.7 73 16 100/62 (75) 100 97.7 02/01/25 20:00 Room Air* 0 21 Total Intake and Output 01/31/25 01/31/25 02/01/25 15:00 23:00 07:00 Intake Total 775.0 ml 687.5 ml 720.0 ml Output Total 325 ml 525 ml Balance 775.0 ml 362.5 ml 195.0 ml medications Current Medications Medications Dose Ordered Sig/Karan Route Start Time Stop Time Status Last Admin Dose Admin Sodium Chloride 10 ml Q8HR IV 01/27/25 22:00 02/01/25 14:15 10 ML Acetaminophen/ Hydrocodone Bitart 1 tab Q4HP PRN PO 01/27/25 18:45 01/30/25 02:33 1 TAB Ondansetron HCl 4 mg Q4HP PRN IV 01/27/25 18:45 01/30/25 04:38 4 MG Docusate Sodium 100 mg BIDPRN PRN PO 01/27/25 18:45 Acetaminophen 650 mg Q6HP PRN PO 01/27/25 18:45 Nitroglycerin 0.4 mg Q5MINP PRN SL 01/27/25 18:45 Morphine Sulfate 2 mg Q30M PRN IV 01/27/25 18:45 Potassium Chloride 100 ml @ 50 mls/hr Q2H IV 01/28/25 07:00 01/28/25 12:59 Cancel Norepinephrine Bitartrate 250 ml @ 3.75 mls/hr Q24H IV 01/28/25 09:15 01/28/25 09:33 3.75 MLS/HR Cefepime HCl 50 ml @ 12.5 mls/hr Q8HR IV 01/28/25 22:00 02/01/25 14:15 12.5 MLS/HR Pantoprazole Sodium 40 mg DAILY IV 01/29/25 10:00 02/01/25 09:30 40 MG Micafungin Sodium 100 mg/Sodium Chloride 100 ml @ 100 mls/hr DAILY IV 01/30/25 10:00 02/01/25 09:30 100 MLS/HR Midodrine 10 mg TID@0600,1200,1800 PO 01/30/25 12:00 02/01/25 06:00 10 MG Dextrose 50 ml UD PRN IV 01/31/25 22:00 02/01/25 05:33 50 ML Diagnostic Test (Pha) 1 strip IQ4HR 02/01/25 08:00 02/01/25 16:27 1 STRIP Dextrose/Sodium Chloride 1,000 ml @ 75 mls/hr [id number] IV 02/01/25 07:30 02/01/25 10:02 75 MLS/HR Multivitamins 1 tab DAILY PO 02/01/25 10:00 Cholecalciferol 2,000 unit DAILY PO 02/01/25 10:00 objective General: the patient is well developed and nourished. No acute distress. MUSCULOSKELETAL EXAM: Change in the both hands is consistent with history of rheumatoid arthritis MENTAL STATUS: Subjective SPEECH, LANGUAGE, HIGHER CORTICAL FUNCTION: She does not vocalize. CRANIAL NERVES: Pupils are equal, round and reactive. EOMs full and conjugate. Facial sensation intact in all three divisions bilaterally. Mandibular strength intact. Facial muscles symmetrical and strength intact. SENSATION: Sensation to touch and pinprick is okay MOTOR: Normal tone in the upper and lower extremity. Normal muscle bulk. No fasciculations. No abnormal movements or posturing. She does not move the arms and legs REFLEXES: Deep tendon reflexes are symmetrical. No pathological reflexes. CEREBELLAR/COORDINATION: Deferred GAIT/STATION: deferred laboratory and microbiology Laboratory Tests 02/01/25 11:59 02/01/25 03:51 Test 02/01/25 03:51 Range/Units Serum Glucose 56 L 74-106 mg/dL Problem List Altered mental status Metabolic encephalopathy secondary to UTI, sepsis/septic shock Pressure wound Metabolic acidosis Nausea, vomiting Assessment/Plan Monitoring Supportive treatment Blood culture EEG Follow-up labs ICU care Stabilize vitals Respiratory support p.r.n. IV antibiotics DVT prophylaxis GI prophylaxis More recommendation per clinical course This medical document was created using an electronic medical record system with [employer] dictation system. Although this document has been carefully reviewed, there may still be some phonetic and typographical errors. These areas are purely typographical due to imperfections of the software programs, and do not reflect any compromise in the patient's medical care. Prognosis poor Dietary Evaluation Review Comments: 1. CCHO-45 Cardiac Diet 2. Reassess in 2-3 days Expected Outcomes/Goals: Gradual Wt loss will be desirable. Plan discussed with: Other RIZWANA MUÑOZ MD Feb 01, 2025 20:54
--- NOTE | 2025-02-01 23:51 | DVHEEG2 ---
Neurology EEG Procedural Note Procedural Note EXAM DATE: 02/02/2024 REFERRING DOCTOR: Dr. Muñoz TECHNIQUE: Eighteen channels of EEG, 2 channels of EOG, and 1 channel of EKG were recorded using the International 10/20 system. CLINICAL DATA: The patient was referred for an EEG evaluation for the evidence of seizure disorder. MEDICATIONS: See chart BACKGROUND ACTIVITY: The record showed moderate amount of low to medium voltage polymorphic delta and theta activity over both hemispheres, that was reactive to external stimuli ACTIVATION: Hyperventilation: Not done Photic Stimulation: Not done Sleep: Not seen IMPRESSION: This is a moderately abnormal EEG., this EEG seen in moderate cerebral dysfunction due to metabolic/hypoxic encephalopathy or medication effects, please correlate clinically The EKG channel showed a regular heart rate of 78 per minute. [place] [address] RIZWANA MUÑOZ MD Feb 01, 2025 23:51
[2025-02-02] VITALS (69 sets, daily range): BP systolic 87–150; BP diastolic 52–81; PULSE 59–100; RESP 12–24; TEMP 93–97.8; O2SAT 99–100
[2025-02-02 04:13] LABS: Hematocrit 25.6 % (36.0-46.0); Hemoglobin 8.4 g/dL (12.2-16.2); Mean Corpuscular Hemoglobin 28.1 pg (28.0-32.0); Mean Corpuscular Volume 85.4 fL (80.0-100.0); Nucleated Red Blood Cells % 0.1 %
[2025-02-02 04:25] LABS: Anion Gap 15 (5-15); Sodium 142 mmol/L (136-145)
[2025-02-02 04:28] LABS: Calcium 7.6 mg/dL (8.7-10.4); Carbon Dioxide 15 mmol/L (20-31); Chloride 112 mmol/L (98-107); Potassium 2.7 mmol/L (3.5-5.1)
[2025-02-02 04:31] LABS: BUN/Creatinine Ratio 17.6 (10.0-20.0); Glucose 97 mg/dL (74-106)
[2025-02-02 04:32] LABS: Blood Urea Nitrogen 6 mg/dL (9-23); Magnesium 1.4 mg/dL (1.6-2.6)
[2025-02-02] MEDS: CALCIUM GLUC 1,000mg/50ml-NS 50 ML IV ONE (05:09)
[2025-02-02] MEDS: POTASSIUM CHL 20MEQ/100ML 100 ML IV SCH (05:11)
[2025-02-02] MEDS: MAGNESIUM SULFATE 1GM/100ML 100 ML IV SCH (05:31)
--- NOTE | 2025-02-02 08:17 | DVHPN2 ---
Subjective Patient with generalized weakness, lethargic today. Reviewed: Care Plan, H&P, Labs, Medications Changes from previous H/P or p: No Changes General: Per HPI Eyes: No Pain, No Vision change, No Conjunctivae inflammation, No Eyelid inflammation, No Other, No Redness ENT: No Ear pain, No Ear discharge, No Nose pain, No Nose discharge, No Nose congestion, No Mouth pain, No Mouth swelling, No Throat pain, No Throat swelling, No Other Cardiovascular: No Chest Pain, No Palpitations, No Orthopnea, No Paroxysmal Noc. Dyspnea, No Edema, No Lt Headedness, No Other Respiratory: No Cough, No Dry, No Shortness of breath, No SOB with excertion, No Wheezing, No Hemoptysis, No Pleuritic Pain, No Sputum, No Other Gastrointestinal: No Nausea, No Vomiting, No Abdominal Pain, No Diarrhea, No Constipation, No Melena, No Hematochezia, No Other Genitourinary: Other Musculoskeletal: No other, No neck pain, No shoulder pain, No arm pain, No back pain, No hand pain, No leg pain, No foot pain Skin: No Rash, No Lesions, No Jaundice, No Bruising, No Other Objective Vitals Vital Signs Date Time Temp Pulse Resp B/P (MAP) Pulse Ox O2 Delivery O2 Flow Rate FiO2 02/02/25 07:00 73 17 104/70 (81) 100 02/02/25 06:00 Room Air* 0 21 02/02/25 04:30 97.8 97.8 Intake/Output Intake and Output 02/02/25 07:00 Intake Total 2232.5 ml Output Total 2100 ml Balance 132.5 ml Intake Oral 20 ml IV Total 2212.5 ml Output Urine Total 2100 ml General Appearance: Alert, Oriented X3, Cooperative, mild distress HEENT: Atraumatic, PERRLA Lungs: Clear to auscultation, Normal air movement Cardiovascular: Normal S1, Normal S2, Other Abdomen: Normal bowel sounds, No tenderness Musculoskeletal: Normal sensory function, Normal motor function Extremities: Other Skin: Dry, Intact Psych/Mental Status: Mental status NL, Mood NL Medications Current Medications Medications Dose Ordered Sig/Karan Route Start Time Stop Time Status Last Admin Dose Admin Sodium Chloride 10 ml Q8HR IV 01/27/25 22:00 02/02/25 05:32 10 ML Acetaminophen/ Hydrocodone Bitart 1 tab Q4HP PRN PO 01/27/25 18:45 01/30/25 02:33 1 TAB Ondansetron HCl 4 mg Q4HP PRN IV 01/27/25 18:45 01/30/25 04:38 4 MG Docusate Sodium 100 mg BIDPRN PRN PO 01/27/25 18:45 Acetaminophen 650 mg Q6HP PRN PO 01/27/25 18:45 Nitroglycerin 0.4 mg Q5MINP PRN SL 01/27/25 18:45 Morphine Sulfate 2 mg Q30M PRN IV 01/27/25 18:45 Potassium Chloride 100 ml @ 50 mls/hr Q2H IV 01/28/25 07:00 01/28/25 12:59 Cancel Norepinephrine Bitartrate 250 ml @ 3.75 mls/hr Q24H IV 01/28/25 09:15 01/28/25 09:33 3.75 MLS/HR Cefepime HCl 50 ml @ 12.5 mls/hr Q8HR IV 01/28/25 22:00 02/02/25 06:07 12.5 MLS/HR Pantoprazole Sodium 40 mg DAILY IV 01/29/25 10:00 02/01/25 09:30 40 MG Micafungin Sodium 100 mg/Sodium Chloride 100 ml @ 100 mls/hr DAILY IV 01/30/25 10:00 02/01/25 09:30 100 MLS/HR Midodrine 10 mg TID@0600,1200,1800 PO 01/30/25 12:00 02/02/25 05:31 10 MG Dextrose 50 ml UD PRN IV 01/31/25 22:00 02/01/25 05:33 50 ML Diagnostic Test (Pha) 1 strip IQ4HR 02/01/25 08:00 02/02/25 04:00 1 STRIP Multivitamins 1 tab DAILY PO 02/01/25 10:00 Cholecalciferol 2,000 unit DAILY PO 02/01/25 10:00 Potassium Chloride 100 ml @ 50 mls/hr Q2H IV 02/02/25 05:00 02/02/25 10:59 02/02/25 06:57 50 MLS/HR Potassium Chloride/Dextrose/ Sod Cl 1,000 ml @ 50 mls/hr Q20H IV 02/02/25 06:45 Laboratory Results Laboratory Tests 02/02/25 03:45 Chemistry Test 02/02/25 03:45 Calcium Level 7.6 mg/dL (8.7-10.4) L Magnesium Level 1.4 mg/dL (1.6-2.6) L Urinalysis Test 01/27/25 16:06 Urine Color Light-orange (Yellow) Urine Clarity Ex.turbid (Clear) Urine pH 6.0 (5.0-9.0) Urine Specific [place] 1.021 (1.001-1.035) Urine Protein 1+ (Negative) H Urine Ketones 2+ (Negative) H Urine Blood Trace /uL (Negative) H Urine Nitrite Negative (Negative) Urine Bilirubin 1+ (Negative) H Urine Urobilinogen 2 mg/dL (Negative) H Urine Leukocyte Esterase 3+ /uL (Negative) Urine RBC 30 /hpf (0 - 4) Urine WBC Clumps Present /hpf (None Seen) Urine Microscopic WBC 733 /HPF (0-5) H Urine Squamous Epithelial Cells Mod /hpf (<5) Urine Bacteria Few /hpf (None Seen) H Urine Mucus Few (None Seen) Urine Yeast (Budding) Many /hpf (None Seen) Urine Glucose Normal mg/dL (Normal) Blood Gas Results Test 02/01/25 15:56 FiO2 % 21.0 Microbiology Microbiology Date/Time Source Procedure Growth Status 01/28/25 20:20 Urine - [place] Urine Culture - Final Presumptive [place] albicans Complete 01/28/25 16:23 Sacrum Gram Stain - Final Complete 01/28/25 16:23 Wound Culture - Final Escherichia coli Presumptive [place] albicans Complete 01/27/25 16:41 Blood Blood Culture - Final NO GROWTH AFTER 5 DAYS OF INCUBATION. Complete Labs and/or images reviewed: Labs reviewed by me, Image(s) reviewed by me Assessment/Plan Assessment/Plan Impression: -severe sepsis with shock -hypokalemia -anemia -cholelithiasis -intractable nausea and vomiting -rheumatoid arthritis -primary hypertension -complicated cystitis Plan: -events: No events overnight. Normal EEG. MRI unremarkable. Patient continues to be encephalopathic. K and Mag replacement continues to have metabolic encephalopathy. -MVI, vitamin-D supplementation -neurology consultation: Recommendations reviewed -CT of the abdomen and pelvis reviewed. -continue cefepime and micafungin -urine with greater than [id number] yeast. Continue micafungin -decrease IV fluids -advance diet as tolerated -continue midodrine -repeat labs in a.m. -C diff results pending Critical care time spent with patient discussing and formulating plan of care: 90 minutes. This does not include time spent performing procedures. This medical document was created using an electronic medical record system with [employer] dictation system. Although this document has been carefully reviewed, there may still be some phonetic and typographical errors. These areas are purely typographical due to imperfections of the software programs, and do not reflect any compromise in the patient's medical care. Plan discussed with: Patient, Other (RN) My Orders Orders - MARC CARVER NP Procedure Category Date Status Time Venous Blood Gas RT 02/01/25 Logged 12:00 Multiple Vitamin PHA 02/01/25 In Process Tablet (Mvi Tab) 10:00 Cholecalciferol PHA 02/01/25 In Process Tablet (Vitamin D3 10:00 D5w/Sod Chl 0.45%/Kcl PHA 02/02/25 In Process 40meq 06:45 Date of Service: Feb 02, 2025 Billing Provider: MARC CARVER NP Common Visit Codes: [id number] INP/OBS CARE(HIGH) MARC CARVER NP Feb 02, 2025 08:17
[2025-02-02] MEDS: D5W/SOD CHL 0.45%/KCL 40MEQ 1,000 ML IV SCH (11:16)
[2025-02-02 14:06] LABS: Potassium 3.8 mmol/L (3.5-5.1); Sodium 143 mmol/L (136-145)
[2025-02-02 14:07] LABS: Anion Gap 11 (5-15)
[2025-02-02 14:11] LABS: Calcium 8.4 mg/dL (8.7-10.4); Carbon Dioxide 18 mmol/L (20-31); Chloride 114 mmol/L (98-107)
[2025-02-02 14:12] LABS: BUN/Creatinine Ratio 28.1 (10.0-20.0)
[2025-02-02 14:17] LABS: Blood Urea Nitrogen 9 mg/dL (9-23); Glucose 132 mg/dL (74-106)
[2025-02-03] VITALS (73 sets, daily range): BP systolic 87–121; BP diastolic 45–81; PULSE 73–120; RESP 15–24; TEMP 94.3–99; O2SAT 99–100
[2025-02-03 04:29] LABS: Anion Gap 14 (5-15); Potassium 4.4 mmol/L (3.5-5.1); Sodium 142 mmol/L (136-145)
[2025-02-03 04:35] LABS: BUN/Creatinine Ratio 25.0 (10.0-20.0); Blood Urea Nitrogen 10 mg/dL (9-23); Glucose 93 mg/dL (74-106)
[2025-02-03 04:46] LABS: Calcium 7.8 mg/dL (8.7-10.4); Carbon Dioxide 14 mmol/L (20-31); Chloride 114 mmol/L (98-107); Magnesium 1.5 mg/dL (1.6-2.6)
[2025-02-03] MEDS: MAGNESIUM SULFATE 1GM/100ML 100 ML IV SCH (05:38)
[2025-02-03 06:35] LABS: Hematocrit 26.2 % (36.0-46.0); Hemoglobin 8.9 g/dL (12.2-16.2); Mean Corpuscular Hemoglobin 28.2 pg (28.0-32.0); Mean Corpuscular Volume 83.3 fL (80.0-100.0); Nucleated Red Blood Cells % 0.1 %
[2025-02-03] MEDS: SODIUM BICARB 50mEq/50ml Vial 75 ML in D5W 5% 1,000 ML IV SCH (09:53)
--- NOTE | 2025-02-03 09:59 | DVHPN2 ---
Progress Note - Dictate Date Seen: Feb 03, 2025 Medical Necessity Reason Pt with a Central, PICC or Fol: Yes The following are medically ne: Wilks Catheter Subjective Ms. Evans is a 59 years old right-handed female with a history of hypertension, diabetes, gallstone, rheumatoid arthritis, the patient was brought to the [facility] on 01/27/2025 with a chief company of altered mental status. I have seen and examined the patient, I have talked to her nurse, eyes are open, she tracks, but is nonresponsive to verbal stimuli, she does not move the extremities either I have discussed the case with Maximo LUDWIG, 02/01/2025: Compensated metabolic acidosis, Blood culture, 01/28/2025: No growth Wound culture, 01/28/2025: E coli Urine culture, 01/28/2025: Yeast: > 100,000 UDS, 01/27/2025: Negative Plasma alcohol, 01/27/2025: 3.7 Urinalysis, 01/27/2025: WBC: 733, urine leukocyte esterase: 3+ WBC/HB/PLT/MCV, 02/17/2025: 6.6/9.4/258/83.6 HCO3, : 20, 01/28/2025: 18, 01/31/2025: 20, 02/03/2025: 14 CRP, 01/28/2025: 8.04 Liver function tests, 01/28/2025: Unremarkable Ammonia, six: 10 Vitamin B12, 01/28/2025: 339 Folic acid, 01/28/2025: 2.75 TSH, 01/28/2025: 3.96 FT four, 01/30/2025: 2.3 Echocardiogram, 01/29/2025: Conclusion lvef 60% grade 1 diastolic dysfunction normal rv functon left atrium enlarged EEG, 02/01/2025: Moderately abnormal EEG CT abdominal/pelvis, 01/29/2025: No acute intraabdominal abnormality. Cholelithiasis.No sacral soft tissue defect visualized MRI head, 01/31/2025: No evidence of acute intracranial abnormalities vital signs Vital Sign Date Time Temp Pulse Resp B/P (MAP) Pulse Ox O2 Delivery O2 Flow Rate FiO2 02/03/25 09:00 97.3 90 19 94/64 (74) 100 207.1 02/03/25 08:00 Room Air* 0 21 Total Intake and Output 02/02/25 02/02/25 02/03/25 15:00 23:00 07:00 Intake Total 775.0 ml 587.5 ml 550 ml Output Total 950 ml 50 ml Balance 775.0 ml -362.5 ml 500 ml medications Current Medications Medications Dose Ordered Sig/Karan Route Start Time Stop Time Status Last Admin Dose Admin Sodium Chloride 10 ml Q8HR IV 01/27/25 22:00 02/03/25 06:20 10 ML Acetaminophen/ Hydrocodone Bitart 1 tab Q4HP PRN PO 01/27/25 18:45 01/30/25 02:33 1 TAB Ondansetron HCl 4 mg Q4HP PRN IV 01/27/25 18:45 01/30/25 04:38 4 MG Docusate Sodium 100 mg BIDPRN PRN PO 01/27/25 18:45 Acetaminophen 650 mg Q6HP PRN PO 01/27/25 18:45 Nitroglycerin 0.4 mg Q5MINP PRN SL 01/27/25 18:45 Morphine Sulfate 2 mg Q30M PRN IV 01/27/25 18:45 Potassium Chloride 100 ml @ 50 mls/hr Q2H IV 01/28/25 07:00 01/28/25 12:59 Cancel Norepinephrine Bitartrate 250 ml @ 3.75 mls/hr Q24H IV 01/28/25 09:15 01/28/25 09:33 3.75 MLS/HR Cefepime HCl 50 ml @ 12.5 mls/hr Q8HR IV 01/28/25 22:00 02/03/25 09:12 12.5 MLS/HR Pantoprazole Sodium 40 mg DAILY IV 01/29/25 10:00 02/03/25 09:12 40 MG Micafungin Sodium 100 mg/Sodium Chloride 100 ml @ 100 mls/hr DAILY IV 01/30/25 10:00 02/02/25 09:36 100 MLS/HR Midodrine 10 mg TID@0600,1200,1800 PO 01/30/25 12:00 02/02/25 17:09 10 MG Dextrose 50 ml UD PRN IV 01/31/25 22:00 02/01/25 05:33 50 ML Diagnostic Test (Pha) 1 strip IQ4HR 02/01/25 08:00 02/03/25 08:00 1 STRIP Multivitamins 1 tab DAILY PO 02/01/25 10:00 02/02/25 09:36 1 TAB Cholecalciferol 2,000 unit DAILY PO 02/01/25 10:00 02/02/25 09:36 2,000 UNIT Sodium Bicarbonate 75 ml/ Dextrose 1,075 ml @ 100 mls/hr [id number] IV 02/03/25 08:15 objective General: the patient is well developed and nourished. No acute distress. MUSCULOSKELETAL EXAM: Change in the both hands is consistent with history of rheumatoid arthritis MENTAL STATUS: Subjective SPEECH, LANGUAGE, HIGHER CORTICAL FUNCTION: She does not vocalize. CRANIAL NERVES: Pupils are equal, round and reactive. EOMs full and conjugate. Facial sensation intact in all three divisions bilaterally. Mandibular strength intact. Facial muscles symmetrical and strength intact. SENSATION: Sensation to touch and pinprick is okay MOTOR: Normal tone in the upper and lower extremity. Normal muscle bulk. No fasciculations. No abnormal movements or posturing. She does not move the arms and legs REFLEXES: Deep tendon reflexes are symmetrical. No pathological reflexes. CEREBELLAR/COORDINATION: Deferred GAIT/STATION: deferred laboratory and microbiology Laboratory Tests 02/03/25 06:17 02/03/25 03:46 Test 02/03/25 03:46 Range/Units Serum Glucose 93 74-106 mg/dL Problem List Altered mental status Metabolic encephalopathy secondary to UTI, sepsis/septic shock Pressure wound Metabolic acidosis Nausea, vomiting Assessment/Plan Monitoring Supportive treatment Blood culture Follow-up labs ICU care Stabilize vitals Respiratory support p.r.n. IV antibiotics DVT prophylaxis GI prophylaxis More recommendation per clinical course This medical document was created using an electronic medical record system with [employer] dictation system. Although this document has been carefully reviewed, there may still be some phonetic and typographical errors. These areas are purely typographical due to imperfections of the software programs, and do not reflect any compromise in the patient's medical care. Prognosis poor Dietary Evaluation Review Comments: 1. CCHO-45 Cardiac Diet 2. Reassess in 2-3 days Expected Outcomes/Goals: Gradual Wt loss will be desirable. Plan discussed with: Other RIZWANA MUÑOZ MD Feb 03, 2025 09:59
[2025-02-03] MEDS ORDERED: VANCOMYCIN PER PHARMACY 0 MG IV SCH (10:00)
[2025-02-03] MEDS ORDERED: Jevity 1.2 Cal/Fiber 1 Liter GT SCH (10:00)
--- NOTE | 2025-02-03 10:00 | DVHPN2 ---
Subjective Patient with generalized weakness, lethargic today. Reviewed: Care Plan, H&P, Labs, Medications Changes from previous H/P or p: No Changes General: Per HPI Eyes: No Pain, No Vision change, No Conjunctivae inflammation, No Eyelid inflammation, No Other, No Redness ENT: No Ear pain, No Ear discharge, No Nose pain, No Nose discharge, No Nose congestion, No Mouth pain, No Mouth swelling, No Throat pain, No Throat swelling, No Other Cardiovascular: No Chest Pain, No Palpitations, No Orthopnea, No Paroxysmal Noc. Dyspnea, No Edema, No Lt Headedness, No Other Respiratory: No Cough, No Dry, No Shortness of breath, No SOB with excertion, No Wheezing, No Hemoptysis, No Pleuritic Pain, No Sputum, No Other Gastrointestinal: No Nausea, No Vomiting, No Abdominal Pain, No Diarrhea, No Constipation, No Melena, No Hematochezia, No Other Genitourinary: Other Musculoskeletal: No other, No neck pain, No shoulder pain, No arm pain, No back pain, No hand pain, No leg pain, No foot pain Skin: No Rash, No Lesions, No Jaundice, No Bruising, No Other Objective Vitals Vital Signs Date Time Temp Pulse Resp B/P (MAP) Pulse Ox O2 Delivery O2 Flow Rate FiO2 02/03/25 09:00 97.3 90 19 94/64 (74) 100 207.1 02/03/25 08:00 Room Air* 0 21 Intake/Output Intake and Output 02/03/25 07:00 Intake Total 1912.5 ml Output Total 1000 ml Balance 912.5 ml Intake Oral 100 ml IV Total 1812.5 ml Output Urine Total 1000 ml General Appearance: Alert, Oriented X3, Cooperative, mild distress HEENT: Atraumatic, PERRLA Lungs: Clear to auscultation, Normal air movement Cardiovascular: Normal S1, Normal S2, Other Abdomen: Normal bowel sounds, No tenderness Musculoskeletal: Normal sensory function, Normal motor function Extremities: Other Neuro: Other (Patient unable to follow commands.) Skin: Dry, Intact Psych/Mental Status: Mental status NL, Mood NL Medications Current Medications Medications Dose Ordered Sig/Karan Route Start Time Stop Time Status Last Admin Dose Admin Sodium Chloride 10 ml Q8HR IV 01/27/25 22:00 02/03/25 06:20 10 ML Acetaminophen/ Hydrocodone Bitart 1 tab Q4HP PRN PO 01/27/25 18:45 01/30/25 02:33 1 TAB Ondansetron HCl 4 mg Q4HP PRN IV 01/27/25 18:45 01/30/25 04:38 4 MG Docusate Sodium 100 mg BIDPRN PRN PO 01/27/25 18:45 Acetaminophen 650 mg Q6HP PRN PO 01/27/25 18:45 Nitroglycerin 0.4 mg Q5MINP PRN SL 01/27/25 18:45 Morphine Sulfate 2 mg Q30M PRN IV 01/27/25 18:45 Potassium Chloride 100 ml @ 50 mls/hr Q2H IV 01/28/25 07:00 01/28/25 12:59 Cancel Norepinephrine Bitartrate 250 ml @ 3.75 mls/hr Q24H IV 01/28/25 09:15 01/28/25 09:33 3.75 MLS/HR Pantoprazole Sodium 40 mg DAILY IV 01/29/25 10:00 02/03/25 09:12 40 MG Micafungin Sodium 100 mg/Sodium Chloride 100 ml @ 100 mls/hr DAILY IV 01/30/25 10:00 02/02/25 09:36 100 MLS/HR Midodrine 10 mg TID@0600,1200,1800 PO 01/30/25 12:00 02/02/25 17:09 10 MG Dextrose 50 ml UD PRN IV 01/31/25 22:00 02/01/25 05:33 50 ML Diagnostic Test (Pha) 1 strip IQ4HR 02/01/25 08:00 02/03/25 08:00 1 STRIP Multivitamins 1 tab DAILY PO 02/01/25 10:00 02/02/25 09:36 1 TAB Cholecalciferol 2,000 unit DAILY PO 02/01/25 10:00 02/02/25 09:36 2,000 UNIT Sodium Bicarbonate 75 ml/ Dextrose 1,075 ml @ 100 mls/hr [id number] IV 02/03/25 08:15 02/03/25 09:53 100 MLS/HR Meropenem 50 ml @ 17 mls/hr Q8HR IV 02/03/25 14:00 UNV Vancomycin HCl 0 ml @ 0 mls/hr UD IV 02/03/25 10:00 UNV Laboratory Results Laboratory Tests 02/03/25 03:46 02/03/25 06:17 Chemistry Test 02/02/25 13:42 02/03/25 03:46 Calcium Level 8.4 mg/dL (8.7-10.4) L 7.8 mg/dL (8.7-10.4) L Magnesium Level 1.5 mg/dL (1.6-2.6) L Urinalysis Test 01/27/25 16:06 Urine Color Light-orange (Yellow) Urine Clarity Ex.turbid (Clear) Urine pH 6.0 (5.0-9.0) Urine Specific [place] 1.021 (1.001-1.035) Urine Protein 1+ (Negative) H Urine Ketones 2+ (Negative) H Urine Blood Trace /uL (Negative) H Urine Nitrite Negative (Negative) Urine Bilirubin 1+ (Negative) H Urine Urobilinogen 2 mg/dL (Negative) H Urine Leukocyte Esterase 3+ /uL (Negative) Urine RBC 30 /hpf (0 - 4) Urine WBC Clumps Present /hpf (None Seen) Urine Microscopic WBC 733 /HPF (0-5) H Urine Squamous Epithelial Cells Mod /hpf (<5) Urine Bacteria Few /hpf (None Seen) H Urine Mucus Few (None Seen) Urine Yeast (Budding) Many /hpf (None Seen) Urine Glucose Normal mg/dL (Normal) Microbiology Microbiology Date/Time Source Procedure Growth Status 01/28/25 20:20 Urine - [place] Urine Culture - Final Presumptive [place] albicans Complete 01/28/25 16:23 Sacrum Gram Stain - Final Complete 01/28/25 16:23 Wound Culture - Final Escherichia coli Presumptive [place] albicans Complete 01/27/25 16:41 Blood Blood Culture - Final NO GROWTH AFTER 5 DAYS OF INCUBATION. Complete Labs and/or images reviewed: Labs reviewed by me, Image(s) reviewed by me Assessment/Plan Assessment/Plan Impression: -severe sepsis with shock -hypokalemia -anemia -cholelithiasis -intractable nausea and vomiting -rheumatoid arthritis -primary hypertension -complicated cystitis Plan: -events: No events overnight. Abnormal EEG. MRI unremarkable. Patient continues to be encephalopathic. -NG tube, start tube feeding -MVI, vitamin-D supplementation -neurology consultation: Recommendations reviewed -CT of the abdomen and pelvis reviewed. -continue cefepime and micafungin -urine with greater than [id number] yeast. Continue micafungin -decrease IV fluids -advance diet as tolerated -continue midodrine -repeat labs in a.m. -C diff results pending Critical care time spent with patient discussing and formulating plan of care: 90 minutes. This does not include time spent performing procedures. This medical document was created using an electronic medical record system with [employer] dictation system. Although this document has been carefully reviewed, there may still be some phonetic and typographical errors. These areas are purely typographical due to imperfections of the software programs, and do not reflect any compromise in the patient's medical care. Plan discussed with: Patient, Other (RN) My Orders Orders - MARC CARVER NP Procedure Category Date Status Time D5w 5% (Dextrose 5%) PHA 02/03/25 In Process W/Sodium Bicarb 50m 08:15 Basic Metabolic Panel LAB 02/04/25 Verified 04:00 Magnesium LAB 02/04/25 Verified 04:00 Complete Blood Count LAB 02/04/25 Verified 04:00 Urine Bacterial LALO 02/03/25 Logged Culture 09:54 Meropenem 1gm Ivpb PHA 02/03/25 Logged (Merrem 1gm/ Ns) 14:00 Vancomycin Per PHA 02/03/25 Logged Pharmacy 10:00 Place Ng ORDERS 02/03/25 Verified 09:56 Nutritional PHA 02/03/25 Verified Supplements (Jevity 10:00 Date of Service: Feb 03, 2025 Billing Provider: MARC CARVER NP Common Visit Codes: 76481-[id number] CARE 30-74 MIN MARC CARVER NP Feb 03, 2025 10:00
[2025-02-03] MEDS: VANCOMYCIN 750mg/150ml 150 ML IV SCH (12:03)
--- NOTE | 2025-02-03 13:54 | DVH ---
CHEST RADIOGRAPH Indication: NG TUBE PLACEMENT Technique: Single frontal view of the chest was obtained Comparison: XY CHEST PORTABLE on DOS: 01/27/25 FINDINGS: Lines and Tubes: None Lungs: No focal consolidation. Pleura: No effusion. No pneumothorax. Cardiomediastinal contours: Unremarkable Bones: No acute osseous abnormality. IMPRESSION: No acute cardiopulmonary disease. NG tube not seen.
[2025-02-03] MEDS: MEROPENEM 1GM IVPB 50 ML IV SCH (14:03)
--- NOTE | 2025-02-03 14:40 | DVH ---
CHEST RADIOGRAPH Indication: NGT PLACEMENT Technique: Single frontal view of the chest was obtained Comparison: XY CHEST PORTABLE on DOS: 02/03/25, XY CHEST PORTABLE on DOS: 01/27/25 FINDINGS: Lines and Tubes: Advanced nasogastric tube by 10 cm. Lungs: No focal consolidation. Pleura: No effusion. No pneumothorax. Cardiomediastinal contours: Unremarkable Bones: No acute osseous abnormality. IMPRESSION: Advanced nasogastric tube by 10 cm.
[2025-02-03] MEDS: Glucerna 1.2 Cal 1Liter BOTTLE GT SCH (14:53)
[2025-02-03 22:45] LABS: Protein, Urine 62.8 mg/dL (1-14)
[2025-02-04] VITALS (70 sets, daily range): BP systolic 84–127; BP diastolic 42–73; PULSE 65–113; RESP 12–28; TEMP 82.2–99.7; O2SAT 95–100
[2025-02-04 04:31] LABS: Potassium 4.1 mmol/L (3.5-5.1); Sodium 139 mmol/L (136-145)
[2025-02-04 04:32] LABS: Anion Gap 14 (5-15)
[2025-02-04 04:33] LABS: Calcium 8.0 mg/dL (8.7-10.4); Carbon Dioxide 17 mmol/L (20-31); Chloride 108 mmol/L (98-107); Hematocrit 24.6 % (36.0-46.0); Hemoglobin 8.3 g/dL (12.2-16.2); Mean Corpuscular Hemoglobin 27.8 pg (28.0-32.0); Mean Corpuscular Volume 82.3 fL (80.0-100.0); Nucleated Red Blood Cells % 0.1 %
[2025-02-04 04:37] LABS: BUN/Creatinine Ratio 23.9 (10.0-20.0); Blood Urea Nitrogen 11 mg/dL (9-23)
[2025-02-04 04:38] LABS: Glucose 118 mg/dL (74-106); Magnesium 1.9 mg/dL (1.6-2.6)
--- NOTE | 2025-02-04 07:25 | ECG ---
[facility] Test Date: 2025-02-03 Test Time: 23:47:05 Pat Name: GAIL PEREZ Department: ICU Room: [address] [place] [address] A Gender: F Development Trainer: BIJAL Miller : 1965 Requested By: SISI HENDRICKSON Order Number: [id number] Reading MD: Lio Albright Measurements Intervals [place] Rate: 97 P: 26 NC: 153 QRS: 21 QRSD: 132 T: 257 QT: 393 QTc: 500 Interpretive Statements Sinus rhythm Right bundle branch block Electronically Signed On 02-04-2025 17:23:43 PDT by Lio Albright Please click the below link to view image of tracing.
--- NOTE | 2025-02-04 09:45 | DVHPN2 ---
Progress Note - Dictate Date Seen: Feb 04, 2025 Medical Necessity Reason Pt with a Central, PICC or Fol: Yes The following are medically ne: Wilks Catheter Subjective Ms. Evans is a 59 years old right-handed female with a history of hypertension, diabetes, gallstone, rheumatoid arthritis, the patient was brought to the [facility] on 01/27/2025 with a chief company of altered mental status. I have seen and examined the patient, I have talked to her nurse, family is in the room eyes are open, she tracks, follows a little bit, she only moves the toes slightly [facility] reports EGD 01/02/2025: Preoperative diagnosis: Microcytic anemia, nausea, vomiting Post-op diagnosis: Diffuse gastritis, no biopsy Colonoscopy, 01/02/2025: Postop diagnosis: One normal anal canal, there was no internal external hemorrhoids. 2, moderately severe uncomplicated sigmoid diverticulosis, 3. 2 mm polyp in the mid sigmoid removed by cold biopsy. The rest of the colon is normal on AVM mucosa anomalies or other polyps ABG, 02/01/2025: Compensated metabolic acidosis, Blood culture, 01/28/2025: No growth Wound culture, 01/28/2025: E coli Urine culture, 01/28/2025: Yeast: > 100,000 UDS, 01/27/2025: Negative Plasma alcohol, 01/27/2025: 3.7 Urinalysis, 01/27/2025: WBC: 733, urine leukocyte esterase: 3+ WBC/HB/PLT/MCV, 02/17/2025: 6.6/9.4/258/83.6 HCO3, : 20, 01/28/2025: 18, 01/31/2025: 20, 02/03/2025: 14, 02/04/2025: 17. CRP, 01/28/2025: 8.04 Liver function tests, 01/28/2025: Unremarkable Ammonia, : 10 Vitamin B12, 01/28/2025: 339 Folic acid, 01/28/2025: 2.75 TSH, 01/28/2025: 3.96 FT four, 01/30/2025: 2.3 Echocardiogram, 01/29/2025: Conclusion lvef 60% grade 1 diastolic dysfunction normal rv functon left atrium enlarged EEG, 02/01/2025: Moderately abnormal EEG CT abdominal/pelvis, 01/29/2025: No acute intraabdominal abnormality. Cholelithiasis.No sacral soft tissue defect visualized MRI head, 01/31/2025: No evidence of acute intracranial abnormalities vital signs Vital Sign Date Time Temp Pulse Resp B/P (MAP) Pulse Ox O2 Delivery O2 Flow Rate FiO2 02/04/25 06:45 97.9 97 25 99 97.9 02/04/25 06:00 Room Air* 0 21 Total Intake and Output 02/03/25 02/03/25 02/04/25 15:00 23:00 07:00 Intake Total 367 ml 864 ml 1220 ml Output Total 150 ml 500 ml Balance 367 ml 714 ml 720 ml medications Current Medications Medications Dose Ordered Sig/Karan Route Start Time Stop Time Status Last Admin Dose Admin Sodium Chloride 10 ml Q8HR IV 01/27/25 22:00 02/04/25 05:39 10 ML Acetaminophen/ Hydrocodone Bitart 1 tab Q4HP PRN PO 01/27/25 18:45 01/30/25 02:33 1 TAB Ondansetron HCl 4 mg Q4HP PRN IV 01/27/25 18:45 01/30/25 04:38 4 MG Docusate Sodium 100 mg BIDPRN PRN PO 01/27/25 18:45 Acetaminophen 650 mg Q6HP PRN PO 01/27/25 18:45 Nitroglycerin 0.4 mg Q5MINP PRN SL 01/27/25 18:45 Morphine Sulfate 2 mg Q30M PRN IV 01/27/25 18:45 Potassium Chloride 100 ml @ 50 mls/hr Q2H IV 01/28/25 07:00 01/28/25 12:59 Cancel Norepinephrine Bitartrate 250 ml @ 3.75 mls/hr Q24H IV 01/28/25 09:15 01/28/25 09:33 3.75 MLS/HR Pantoprazole Sodium 40 mg DAILY IV 01/29/25 10:00 02/03/25 09:12 40 MG Micafungin Sodium 100 mg/Sodium Chloride 100 ml @ 100 mls/hr DAILY IV 01/30/25 10:00 02/03/25 11:42 100 MLS/HR Midodrine 10 mg TID@0600,1200,1800 PO 01/30/25 12:00 02/04/25 05:39 10 MG Dextrose 50 ml UD PRN IV 01/31/25 22:00 02/01/25 05:33 50 ML Diagnostic Test (Pha) 1 strip IQ4HR 02/01/25 08:00 02/04/25 04:06 1 STRIP Multivitamins 1 tab DAILY PO 02/01/25 10:00 02/02/25 09:36 1 TAB Cholecalciferol 2,000 unit DAILY PO 02/01/25 10:00 02/02/25 09:36 2,000 UNIT Sodium Bicarbonate 75 ml/ Dextrose 1,075 ml @ 100 mls/hr [id number] IV 02/03/25 08:15 02/04/25 05:23 100 MLS/HR Meropenem 50 ml @ 17 mls/hr Q8HR IV 02/03/25 14:00 02/04/25 05:38 17 MLS/HR Vancomycin HCl 0 ml @ 0 mls/hr UD IV 02/03/25 10:00 Vancomycin HCl 150 ml @ 150 mls/hr Q12H IV 02/03/25 12:00 02/04/25 00:21 150 MLS/HR Enteral Nutritional Formula 1,000 ml 30ML/HR GT 02/03/25 11:30 02/03/25 14:53 1,000 ML objective General: the patient is well developed and nourished. No acute distress. MUSCULOSKELETAL EXAM: Change in the both hands is consistent with history of rheumatoid arthritis MENTAL STATUS: Subjective SPEECH, LANGUAGE, HIGHER CORTICAL FUNCTION: She does not vocalize. CRANIAL NERVES: Pupils are equal, round and reactive. EOMs full and conjugate. Facial sensation intact in all three divisions bilaterally. Mandibular strength intact. Facial muscles symmetrical and strength intact. SENSATION: Sensation to touch and pinprick is okay MOTOR: Normal tone in the upper and lower extremity. Normal muscle bulk. No fasciculations. No abnormal movements or posturing. She does not move the arms and legs REFLEXES: Deep tendon reflexes are symmetrical. No pathological reflexes. CEREBELLAR/COORDINATION: Deferred GAIT/STATION: deferred laboratory and microbiology Laboratory Tests 02/04/25 03:50 Test 02/04/25 03:50 Range/Units Serum Glucose 118 H 74-106 mg/dL Problem List Altered mental status/Metabolic encephalopathy secondary to UTI, sepsis/septic shock Pressure wound Metabolic acidosis Nausea, vomiting Assessment/Plan Monitoring Supportive treatment Blood culture Follow-up labs ICU care Stabilize vitals Respiratory support p.r.n. IV antibiotics DVT prophylaxis GI prophylaxis More recommendation per clinical course This medical document was created using an electronic medical record system with [employer] dictation system. Although this document has been carefully reviewed, there may still be some phonetic and typographical errors. These areas are purely typographical due to imperfections of the software programs, and do not reflect any compromise in the patient's medical care. Prognosis poor Dietary Evaluation Review Comments: 1. CCHO-45 Cardiac Diet 2. Reassess in 2-3 days Expected Outcomes/Goals: Gradual Wt loss will be desirable. Plan discussed with: Huong Mckeon QUANWEI MD Feb 04, 2025 09:45
--- NOTE | 2025-02-04 09:50 | DVHPN2 ---
Subjective Patient with generalized weakness, lethargic today. Reviewed: Care Plan, H&P, Labs, Medications Changes from previous H/P or p: No Changes General: Per HPI Eyes: No Pain, No Vision change, No Conjunctivae inflammation, No Eyelid inflammation, No Other, No Redness ENT: No Ear pain, No Ear discharge, No Nose pain, No Nose discharge, No Nose congestion, No Mouth pain, No Mouth swelling, No Throat pain, No Throat swelling, No Other Cardiovascular: No Chest Pain, No Palpitations, No Orthopnea, No Paroxysmal Noc. Dyspnea, No Edema, No Lt Headedness, No Other Respiratory: No Cough, No Dry, No Shortness of breath, No SOB with excertion, No Wheezing, No Hemoptysis, No Pleuritic Pain, No Sputum, No Other Gastrointestinal: No Nausea, No Vomiting, No Abdominal Pain, No Diarrhea, No Constipation, No Melena, No Hematochezia, No Other Genitourinary: Other Musculoskeletal: No other, No neck pain, No shoulder pain, No arm pain, No back pain, No hand pain, No leg pain, No foot pain Skin: No Rash, No Lesions, No Jaundice, No Bruising, No Other Objective Vitals Vital Signs Date Time Temp Pulse Resp B/P (MAP) Pulse Ox O2 Delivery O2 Flow Rate FiO2 02/04/25 06:45 97.9 97 25 99 97.9 02/04/25 06:00 Room Air* 0 21 Intake/Output Intake and Output 02/04/25 07:00 Intake Total 2451 ml Output Total 650 ml Balance 1801 ml Intake Oral 0 ml IV Total 2201 ml Tube Feeding 250 ml Output Urine Total 650 ml # Bowel Movements 1 General Appearance: Alert, Oriented X3, Cooperative, mild distress HEENT: Atraumatic, PERRLA Lungs: Clear to auscultation, Normal air movement Cardiovascular: Normal S1, Normal S2, Other Abdomen: Normal bowel sounds, No tenderness Musculoskeletal: Normal sensory function, Normal motor function Extremities: Other Neuro: Other (Patient unable to follow commands.) Skin: Dry, Intact Psych/Mental Status: Mental status NL, Mood NL Medications Current Medications Medications Dose Ordered Sig/Karan Route Start Time Stop Time Status Last Admin Dose Admin Sodium Chloride 10 ml Q8HR IV 01/27/25 22:00 02/04/25 05:39 10 ML Acetaminophen/ Hydrocodone Bitart 1 tab Q4HP PRN PO 01/27/25 18:45 01/30/25 02:33 1 TAB Ondansetron HCl 4 mg Q4HP PRN IV 01/27/25 18:45 01/30/25 04:38 4 MG Docusate Sodium 100 mg BIDPRN PRN PO 01/27/25 18:45 Acetaminophen 650 mg Q6HP PRN PO 01/27/25 18:45 Nitroglycerin 0.4 mg Q5MINP PRN SL 01/27/25 18:45 Morphine Sulfate 2 mg Q30M PRN IV 01/27/25 18:45 Potassium Chloride 100 ml @ 50 mls/hr Q2H IV 01/28/25 07:00 01/28/25 12:59 Cancel Norepinephrine Bitartrate 250 ml @ 3.75 mls/hr Q24H IV 01/28/25 09:15 01/28/25 09:33 3.75 MLS/HR Pantoprazole Sodium 40 mg DAILY IV 01/29/25 10:00 02/03/25 09:12 40 MG Micafungin Sodium 100 mg/Sodium Chloride 100 ml @ 100 mls/hr DAILY IV 01/30/25 10:00 02/03/25 11:42 100 MLS/HR Midodrine 10 mg TID@0600,1200,1800 PO 01/30/25 12:00 02/04/25 05:39 10 MG Dextrose 50 ml UD PRN IV 01/31/25 22:00 02/01/25 05:33 50 ML Diagnostic Test (Pha) 1 strip IQ4HR 02/01/25 08:00 02/04/25 04:06 1 STRIP Multivitamins 1 tab DAILY PO 02/01/25 10:00 02/02/25 09:36 1 TAB Cholecalciferol 2,000 unit DAILY PO 02/01/25 10:00 02/02/25 09:36 2,000 UNIT Sodium Bicarbonate 75 ml/ Dextrose 1,075 ml @ 100 mls/hr [id number] IV 02/03/25 08:15 02/04/25 05:23 100 MLS/HR Meropenem 50 ml @ 17 mls/hr Q8HR IV 02/03/25 14:00 02/04/25 05:38 17 MLS/HR Vancomycin HCl 0 ml @ 0 mls/hr UD IV 02/03/25 10:00 Vancomycin HCl 150 ml @ 150 mls/hr Q12H IV 02/03/25 12:00 02/04/25 00:21 150 MLS/HR Enteral Nutritional Formula 1,000 ml 30ML/HR GT 02/03/25 11:30 02/03/25 14:53 1,000 ML Laboratory Results Laboratory Tests 02/04/25 03:50 Chemistry Test 02/04/25 03:50 Calcium Level 8.0 mg/dL (8.7-10.4) L Magnesium Level 1.9 mg/dL (1.6-2.6) Urinalysis Test 01/27/25 16:06 02/03/25 22:00 Urine Color Light-orange (Yellow) Urine Clarity Ex.turbid (Clear) Urine pH 6.0 (5.0-9.0) Urine Specific Huntley 1.021 (1.001-1.035) Urine Protein 1+ (Negative) H Urine Ketones 2+ (Negative) H Urine Blood Trace /uL (Negative) H Urine Nitrite Negative (Negative) Urine Bilirubin 1+ (Negative) H Urine Urobilinogen 2 mg/dL (Negative) H Urine Leukocyte Esterase 3+ /uL (Negative) Urine RBC 30 /hpf (0 - 4) Urine WBC Clumps Present /hpf (None Seen) Urine Microscopic WBC 733 /HPF (0-5) H Urine Squamous Epithelial Cells Mod /hpf (<5) Urine Bacteria Few /hpf (None Seen) H Urine Mucus Few (None Seen) Urine Yeast (Budding) Many /hpf (None Seen) Urine Glucose Normal mg/dL (Normal) Urine Creatinine 21.71 mg/dL (30.0-125.0) L Urine Protein/Creatinine Ratio 2.89 Urine Total Protein 62.8 mg/dL (1-14) H Microbiology Microbiology Date/Time Source Procedure Growth Status 01/28/25 20:20 Urine - [place] Urine Culture - Final Presumptive Floridalma albicans Complete 01/28/25 16:23 Sacrum Gram Stain - Final Complete 01/28/25 16:23 Wound Culture - Final Escherichia coli Presumptive Floridalma albicans Complete 01/27/25 16:41 Blood Blood Culture - Final NO GROWTH AFTER 5 DAYS OF INCUBATION. Complete Labs and/or images reviewed: Labs reviewed by me, Image(s) reviewed by me Assessment/Plan Assessment/Plan Impression: -severe sepsis with shock -hypokalemia -anemia -cholelithiasis -intractable nausea and vomiting -rheumatoid arthritis -primary hypertension -complicated cystitis Plan: -events: No events overnight. Awaiting repeat am cortisol. Tolerating feeding -Continue tube feeding. -Start Lomotil -MVI, vitamin-D supplementation -neurology consultation: Recommendations reviewed -CT of the abdomen and pelvis reviewed. -continue cefepime and micafungin -urine with greater than [id number] yeast. Continue micafungin -decrease IV fluids -advance diet as tolerated -continue midodrine -repeat labs in a.m. -C diff results pending Critical care time spent with patient discussing and formulating plan of care: 90 minutes. This does not include time spent performing procedures. This medical document was created using an electronic medical record system with [employer] system. Although this document has been carefully reviewed, there may still be some phonetic and typographical errors. These areas are purely typographical due to imperfections of the software programs, and do not reflect any compromise in the patient's medical care. Plan discussed with: Patient, Other (RN) My Orders Orders - MARC CARVER NP Procedure Category Date Status Time Urine Bacterial LALO 02/03/25 In Process Culture 09:54 Meropenem 1gm Ivpb PHA 02/03/25 In Process (Merrem 1gm/ Ns) 14:00 Vancomycin Per PHA 02/03/25 In Process Pharmacy 10:00 Place Ng ORDERS 02/03/25 Transmitted 09:56 Vancomycin PHA 02/03/25 In Process 750mg/150ml 12:00 Vancomycin,Trough LAB 02/04/25 Logged 23:00 Vancomycin Per KALYAN 02/03/25 In Process Pharmacy Protoc 11:02 Nutritional PHA 02/03/25 In Process Supplements (Glucerna 11:30 Chest Portable XY 02/03/25 Resulted 12:31 Chest Portable XY 02/03/25 Resulted 13:54 Basic Metabolic Panel LAB 02/05/25 Verified 04:00 Complete Blood Count LAB 02/05/25 Verified 04:00 Date of Service: Feb 04, 2025 Billing Provider: MARC CARVER NP Common Visit Codes: [id number] CARE 30-74 MIN MARC CARVER NP Feb 04, 2025 09:50
--- NOTE | 2025-02-04 17:12 | DVH ---
Date: 02/04/2025 04:41 PM Examination: XY KUB ABDOMEN SINGLE VIEW History: vomiting and diarrhea Comparison: None TECHNIQUE: Frontal views of the abdomen was obtained. FINDINGS: Bowel gas pattern is unremarkable. Enteric tube in the stomach. Bowel-gas pattern nonspecific. Patient is status post tubal ligation. The lung bases are unremarkable. No acute osseous abnormality identified. IMPRESSION: 1. Nonobstructive bowel gas pattern. 2. Enteric tube in the stomach. HS:Y
[2025-02-04] MEDS: METOCLOPRAMIDE HCL 5MG/ml INJ 2ml VIAL IV SCH (23:02)
[2025-02-04] MEDS: ALBUMIN 5% 250 ML IV ONE (23:18)
[2025-02-05] VITALS (102 sets, daily range): BP systolic 81–140; BP diastolic 41–72; PULSE 66–106; RESP 12–26; TEMP 97–99.3; O2SAT 93–100
[2025-02-05] MEDS: ALBUMIN 5% 250 ML IV ONE (00:23)
[2025-02-05 04:19] LABS: Hematocrit 22.4 % (36.0-46.0); Hemoglobin 7.2 g/dL (12.2-16.2); Mean Corpuscular Hemoglobin 27.5 pg (28.0-32.0); Mean Corpuscular Volume 85.6 fL (80.0-100.0); Nucleated Red Blood Cells % 0.1 %
[2025-02-05 04:31] LABS: Sodium 140 mmol/L (136-145)
[2025-02-05 04:32] LABS: Anion Gap 11 (5-15)
[2025-02-05 04:37] LABS: BUN/Creatinine Ratio 17.4 (10.0-20.0); Glucose 99 mg/dL (74-106)
[2025-02-05 04:40] LABS: Blood Urea Nitrogen 8 mg/dL (9-23); Calcium 8.2 mg/dL (8.7-10.4); Carbon Dioxide 20 mmol/L (20-31); Chloride 109 mmol/L (98-107); Potassium 3.1 mmol/L (3.5-5.1)
[2025-02-05] MEDS: POTASSIUM CHL 20MEQ/100ML 100 ML IV SCH (05:35)
--- NOTE | 2025-02-05 10:34 | DVHPN2 ---
Progress Note - Dictate Date Seen: Feb 05, 2025 Medical Necessity Reason Pt with a Central, PICC or Fol: Yes The following are medically ne: Wilks Catheter Subjective Ms. Evans is a 59 years old right-handed female with a history of hypertension, diabetes, gallstone, rheumatoid arthritis, the patient was brought to the [facility] on 01/27/2025 with a chief company of altered mental status. I have seen and examined the patient, I have talked to her nurse, her eyes tightly closed, with strong resistance when I tried to open them, she does not talk or answer questions, she does not follow me, she does not move her extremities [facility] reports EGD 01/02/2025: Preoperative diagnosis: Microcytic anemia, nausea, vomiting Post-op diagnosis: Diffuse gastritis, no biopsy Colonoscopy, 01/02/2025: Postop diagnosis: One normal anal canal, there was no internal external hemorrhoids. 2, moderately severe uncomplicated sigmoid diverticulosis, 3. 2 mm polyp in the mid sigmoid removed by cold biopsy. The rest of the colon is normal on AVM mucosa anomalies or other polyps ABG, 02/01/2025: Compensated metabolic acidosis, Blood culture, 01/28/2025: No growth Wound culture, 01/28/2025: E coli Urine culture, 01/28/2025: Yeast: > 100,000 UDS, 01/27/2025: Negative Plasma alcohol, 01/27/2025: 3.7 Urinalysis, 01/27/2025: WBC: 733, urine leukocyte esterase: 3+ WBC/HB/PLT/MCV, 02/17/2025: 6.6/9.4/258/83.6 HCO3, : 20, 01/28/2025: 18, 01/31/2025: 20, 02/03/2025: 14, 02/04/2025: 17./: 20 CRP, 01/28/2025: 8.04 Liver function tests, 01/28/2025: Unremarkable Ammonia, : 10 Vitamin B12, 01/28/2025: 339 Folic acid, 01/28/2025: 2.75 TSH, 01/28/2025: 3.96 FT four, 01/30/2025: 2.3 Echocardiogram, 01/29/2025: Conclusion lvef 60% grade 1 diastolic dysfunction normal rv functon left atrium enlarged EEG, 02/01/2025: Moderately abnormal EEG CT abdominal/pelvis, 01/29/2025: No acute intraabdominal abnormality. Cholelithiasis.No sacral soft tissue defect visualized MRI head, 01/31/2025: No evidence of acute intracranial abnormalities vital signs Vital Sign Date Time Temp Pulse Resp B/P (MAP) Pulse Ox O2 Delivery O2 Flow Rate FiO2 02/05/25 10:00 98.1 75 17 118/59 (78) 100 208.6 02/05/25 06:00 Room Air* 0 21 Total Intake and Output 02/04/25 02/04/25 02/05/25 15:00 23:00 07:00 Intake Total 1101 ml 1055.35 ml 557.50 ml Output Total 550 ml 1300 ml Balance 1101 ml 505.35 ml -742.50 ml medications Current Medications Medications Dose Ordered Sig/Karan Route Start Time Stop Time Status Last Admin Dose Admin Sodium Chloride 10 ml Q8HR IV 01/27/25 22:00 02/05/25 05:35 10 ML Acetaminophen/ Hydrocodone Bitart 1 tab Q4HP PRN PO 01/27/25 18:45 02/04/25 12:12 1 TAB Ondansetron HCl 4 mg Q4HP PRN IV 01/27/25 18:45 01/30/25 04:38 4 MG Docusate Sodium 100 mg BIDPRN PRN PO 01/27/25 18:45 Acetaminophen 650 mg Q6HP PRN PO 01/27/25 18:45 Nitroglycerin 0.4 mg Q5MINP PRN SL 01/27/25 18:45 Morphine Sulfate 2 mg Q30M PRN IV 01/27/25 18:45 Potassium Chloride 100 ml @ 50 mls/hr Q2H IV 01/28/25 07:00 01/28/25 12:59 Cancel Norepinephrine Bitartrate 250 ml @ 3.75 mls/hr Q24H IV 01/28/25 09:15 02/04/25 18:21 3.75 MLS/HR Pantoprazole Sodium 40 mg DAILY IV 01/29/25 10:00 02/05/25 09:59 40 MG Micafungin Sodium 100 mg/Sodium Chloride 100 ml @ 100 mls/hr DAILY IV 01/30/25 10:00 02/05/25 09:57 100 MLS/HR Midodrine 10 mg TID@0600,1200,1800 PO 01/30/25 12:00 02/04/25 18:23 10 MG Dextrose 50 ml UD PRN IV 01/31/25 22:00 02/01/25 05:33 50 ML Diagnostic Test (Pha) 1 strip IQ4HR 02/01/25 08:00 02/05/25 08:12 1 STRIP Multivitamins 1 tab DAILY PO 02/01/25 10:00 02/05/25 09:59 1 TAB Cholecalciferol 2,000 unit DAILY PO 02/01/25 10:00 02/05/25 09:59 2,000 UNIT Sodium Bicarbonate 75 ml/ Dextrose 1,075 ml @ 100 mls/hr [id number] IV 02/03/25 08:15 02/05/25 08:15 100 MLS/HR Meropenem 50 ml @ 17 mls/hr Q8HR IV 02/03/25 14:00 02/05/25 05:35 17 MLS/HR Vancomycin HCl 0 ml @ 0 mls/hr UD IV 02/03/25 10:00 Vancomycin HCl 150 ml @ 150 mls/hr Q12H IV 02/03/25 12:00 02/05/25 01:16 150 MLS/HR Enteral Nutritional Formula 1,000 ml 30ML/HR GT 02/03/25 11:30 02/03/25 14:53 1,000 ML Diphenoxylate HCl/ Atropine 2.5 mg Q12HP PRN PO 02/04/25 10:00 Metoclopramide HCl 10 mg Q8HR IV 02/04/25 22:00 02/05/25 14:01 02/05/25 05:35 10 MG objective General: the patient is well developed and nourished. No acute distress. MUSCULOSKELETAL EXAM: Change in the both hands is consistent with history of rheumatoid arthritis MENTAL STATUS: Subjective SPEECH, LANGUAGE, HIGHER CORTICAL FUNCTION: She does not vocalize. CRANIAL NERVES: Pupils are equal, round and reactive. EOMs full and conjugate. Facial sensation intact in all three divisions bilaterally. Mandibular strength intact. Facial muscles symmetrical and strength intact. SENSATION: Sensation to touch and pinprick is okay MOTOR: Normal tone in the upper and lower extremity. Normal muscle bulk. No fasciculations. No abnormal movements or posturing. She does not move the arms and legs REFLEXES: Deep tendon reflexes are symmetrical. No pathological reflexes. CEREBELLAR/COORDINATION: Deferred GAIT/STATION: deferred laboratory and microbiology Laboratory Tests 02/05/25 03:33 Test 02/05/25 03:33 Range/Units Serum Glucose 99 74-106 mg/dL Problem List Altered mental status/Metabolic encephalopathy secondary to UTI, sepsis/septic shock Pressure wound Metabolic acidosis Nausea, vomiting Assessment/Plan Monitoring Supportive treatment Blood culture Follow-up labs ICU care Stabilize vitals Respiratory support p.r.n. IV antibiotics DVT prophylaxis GI prophylaxis More recommendation per clinical course This medical document was created using an electronic medical record system with [employer] dictation system. Although this document has been carefully reviewed, there may still be some phonetic and typographical errors. These areas are purely typographical due to imperfections of the software programs, and do not reflect any compromise in the patient's medical care. Prognosis poor Dietary Evaluation Review Comments: 1. CCHO-45 Cardiac Diet 2. Reassess in 2-3 days Expected Outcomes/Goals: Gradual Wt loss will be desirable. Plan discussed with: Other RIZWANA MUÑOZ MD Feb 05, 2025 10:34
[2025-02-05 11:40] LABS: Hepatitis B Surface Antigen Negative (Negative); Hepatitis C Antibody Negative (Negative)
[2025-02-05] MEDS ORDERED: fentaNYL CITRATE 100 MCG/2 ML VL ONE (12:58)
[2025-02-05] MEDS ORDERED: diphenhdrAMINE HCL 50 MG/1 ML VL ONE (12:58)
[2025-02-05] MEDS ORDERED: MIDAZOLAM HCL 2MG/2ML 2ml VIAL (1mg/ml) ONE (12:58)
[2025-02-05] MEDS ORDERED: LIDOCAINE VISCOUS 2% 15ML UD ONE (13:29)
[2025-02-05] MEDS: SODIUM BICARB 50mEq/50ml Vial 75 ML in D5W 5% 1,000 ML IV SCH (16:15)
--- NOTE | 2025-02-05 16:15 | DVHPN2 ---
Progress Note Date Seen: Feb 05, 2025 Medical Necessity Reason Pt with a Central, PICC or Fol: Yes The following are medically ne: Perera Catheter Reason for perera catheter: Strict I&O Subjective Patient reports: No new complaints Review of Systems: HEENT:Normal, CVS:Normal, RESPIRATORY:Normal, GI:Normal, :Normal, MSK:Normal, NEURO:Normal Objective vital signs Vital Sign Date Time Temp Pulse Resp B/P (MAP) Pulse Ox O2 Delivery O2 Flow Rate FiO2 02/05/25 15:15 97.3 66 15 118/59 (78) 100 207.1 02/05/25 14:00 Room Air* 0 21 Total Intake and Output 02/04/25 02/04/25 02/05/25 15:00 23:00 07:00 Intake Total 1101 ml 1055.35 ml 557.50 ml Output Total 550 ml 1300 ml Balance 1101 ml 505.35 ml -742.50 ml medications Current Medications Medications Dose Ordered Sig/Karan Route Start Time Stop Time Status Last Admin Dose Admin Sodium Chloride 10 ml Q8HR IV 01/27/25 22:00 02/05/25 13:35 10 ML Acetaminophen/ Hydrocodone Bitart 1 tab Q4HP PRN PO 01/27/25 18:45 02/04/25 12:12 1 TAB Ondansetron HCl 4 mg Q4HP PRN IV 01/27/25 18:45 01/30/25 04:38 4 MG Docusate Sodium 100 mg BIDPRN PRN PO 01/27/25 18:45 Acetaminophen 650 mg Q6HP PRN PO 01/27/25 18:45 Nitroglycerin 0.4 mg Q5MINP PRN SL 01/27/25 18:45 Morphine Sulfate 2 mg Q30M PRN IV 01/27/25 18:45 Potassium Chloride 100 ml @ 50 mls/hr Q2H IV 01/28/25 07:00 01/28/25 12:59 Cancel Norepinephrine Bitartrate 250 ml @ 3.75 mls/hr Q24H IV 01/28/25 09:15 02/04/25 18:21 3.75 MLS/HR Pantoprazole Sodium 40 mg DAILY IV 01/29/25 10:00 02/05/25 09:59 40 MG Micafungin Sodium 100 mg/Sodium Chloride 100 ml @ 100 mls/hr DAILY IV 01/30/25 10:00 02/05/25 09:57 100 MLS/HR Dextrose 50 ml UD PRN IV 01/31/25 22:00 02/01/25 05:33 50 ML Diagnostic Test (Pha) 1 strip IQ4HR 02/01/25 08:00 02/05/25 15:54 1 STRIP Multivitamins 1 tab DAILY PO 02/01/25 10:00 02/05/25 09:59 1 TAB Meropenem 50 ml @ 17 mls/hr Q8HR IV 02/03/25 14:00 02/05/25 13:34 17 MLS/HR Vancomycin HCl 0 ml @ 0 mls/hr UD IV 02/03/25 10:00 Vancomycin HCl 150 ml @ 150 mls/hr Q12H IV 02/03/25 12:00 02/05/25 12:01 150 MLS/HR Enteral Nutritional Formula 1,000 ml 30ML/HR GT 02/03/25 11:30 02/03/25 14:53 1,000 ML Diphenoxylate HCl/ Atropine 2.5 mg Q12HP PRN PO 02/04/25 10:00 Sodium Bicarbonate 75 ml/ Dextrose 1,075 ml @ 60 mls/hr [id number] IV 02/05/25 16:15 UNV Methylprednisolone Sodium Succinate 40 mg BID IV 02/05/25 22:00 UNV Examination: GENERAL:Normal, HEENT:Normal, NECK:Normal, LUNGS:Normal, LUNGS:Abnormal (on oxygen), CVS:Normal, ABDOMEN:Normal, ABDOMEN:Abnormal (ng tube), MSK:Normal, SKIN:Normal, NEURO:Normal, NEURO:Abnormal (encephalopathy), :Normal laboratory and microbiology Laboratory Tests 02/05/25 03:33 Test 02/05/25 03:33 Range/Units Serum Glucose 99 74-106 mg/dL Microbiology Date/Time Source Procedure Growth Status 02/03/25 22:00 Urine - Perera Port Urine Culture - Preliminary Resulted 01/28/25 16:23 Sacrum Gram Stain - Final Complete 01/28/25 16:23 Wound Culture - Final Escherichia coli Presumptive Floridalma albicans Complete 01/27/25 16:41 Blood Blood Culture - Final NO GROWTH AFTER 5 DAYS OF INCUBATION. Complete Problem List/Assessment/Plan Problem List/Assessment/Plan #1 septic shock with uti: iv pressors, iv antibiotics #2 gallstones #3 encephalopathy- ?metabolic #4 dm: ssi #5 RA: start solumedrol #6 obesity #7 anemia: transfuse #8 thrombocytopenia: monitor #9 nutrition: tube feedings #10 mod protein malnutrition Plan discussed with: Patient My Orders My Orders Orders - BAILEY ROBERSON MD Procedure Category Date Status Time Type And Screen BBK 02/05/25 Logged 16:06 D5w 5% (Dextrose 5%) PHA 02/05/25 Logged W/Sodium Bicarb 50m 16:15 Methylprednisolone PHA 02/05/25 Logged Sod Succ (Solu Medrol 16:15 Methylprednisolone PHA 02/05/25 Logged Sod Succ (Solu Medrol 22:00 Urinalysis LAB 02/05/25 Uncollected 16:02 Packedcell-Noactive BBK 02/05/25 Transmitted Bleeding 16:02 Type And Screen BBK 02/05/25 Transmitted 16:02 Administer Blood KALYAN 02/05/25 In Process Products 16:02 Complete Blood Count LAB 02/06/25 Verified 06:00 Comprehensive LAB 02/06/25 Verified Metabolic Panel 06:00 Dietary Evaluation Review Comments: 1. CCHO-45 Cardiac Diet 2. Reassess in 2-3 days Expected Outcomes/Goals: Gradual Wt loss will be desirable. Critical Care Time (mins): 51 (critical care time excluding procedures is 51 mins) Date of Service: Feb 05, 2025 Billing Provider: BAILEY ROBERSON MD Common Visit Codes: [id number] CARE 30-74 MIN BAILEY ROBERSON MD Feb 05, 2025 16:15
[2025-02-05] MEDS: methylPREDNISolone SOD SUCC 40 MG/ML VL IV ONE (16:59)
[2025-02-05 17:09] LABS: Urine Protein, UAD TRACE (Negative)
[2025-02-05] MEDS: ACETAMINOPHEN 325 MG TAB PO PRN (21:00)
[2025-02-05] MEDS: methylPREDNISolone SOD SUCC 40 MG/ML VL IV SCH (21:00)
[2025-02-06] VITALS (93 sets, daily range): BP systolic 110–149; BP diastolic 52–87; PULSE 69–91; RESP 10–20; TEMP 96.3–98.6; O2SAT 97–100
[2025-02-06] MEDS: DIPHENOXYLATE W/ATROPINE 2.5 MG TAB PO PRN (00:14)
[2025-02-06 03:53] LABS: Hematocrit 27.3 % (36.0-46.0); Hemoglobin 9.4 g/dL (12.2-16.2); Mean Corpuscular Hemoglobin 28.7 pg (28.0-32.0); Mean Corpuscular Volume 83.5 fL (80.0-100.0); Nucleated Red Blood Cells % 0.1 %
[2025-02-06 04:14] LABS: Anion Gap 11 (5-15); BUN/Creatinine Ratio 18.4 (10.0-20.0); Carbon Dioxide 24 mmol/L (20-31); Sodium 142 mmol/L (136-145)
[2025-02-06 04:15] LABS: Bilirubin, Total 0.7 mg/dL (0.2-1.0)
[2025-02-06 04:16] LABS: Alanine Aminotransferase < 9 U/L (7-40); Albumin 2.5 g/dL (3.2-4.8); Alkaline Phosphatase 159 U/L (46-116); Blood Urea Nitrogen 7 mg/dL (9-23); Calcium 7.5 mg/dL (8.7-10.4); Chloride 107 mmol/L (98-107); Glucose 182 mg/dL (74-106); Potassium 3.1 mmol/L (3.5-5.1); Total Protein 4.5 g/dL (5.7-8.2)
[2025-02-06] MEDS: POTASSIUM CHL 20MEQ/100ML 100 ML IV ONE (05:13)
--- NOTE | 2025-02-06 10:52 | DVHPN2 ---
Progress Note - Dictate Date Seen: Feb 06, 2025 Medical Necessity Reason Pt with a Central, PICC or Fol: Yes The following are medically ne: Perera Catheter Reason for perera catheter: Strict I&O Subjective Ms. Evans is a 59 years old right-handed female with a history of hypertension, diabetes, gallstone, rheumatoid arthritis, the patient was brought to the [facility] on 01/27/2025 with a chief company of altered mental status. I have seen and examined the patient, I have talked to her nurse and family. She is awake, happy, she talks, but she only oriented to person. She only move her feet slightly [facility] reports EGD 01/02/2025: Preoperative diagnosis: Microcytic anemia, nausea, vomiting Post-op diagnosis: Diffuse gastritis, no biopsy Colonoscopy, 01/02/2025: Postop diagnosis: One normal anal canal, there was no internal external hemorrhoids. 2, moderately severe uncomplicated sigmoid diverticulosis, 3. 2 mm polyp in the mid sigmoid removed by cold biopsy. The rest of the colon is normal on AVM mucosa anomalies or other polyps ABG, 02/01/2025: Compensated metabolic acidosis, Blood culture, 01/28/2025: No growth Wound culture, 01/28/2025: E coli Urine culture, 01/28/2025: Yeast: > 100,000 UDS, 01/27/2025: Negative Plasma alcohol, 01/27/2025: 3.7 Urinalysis, 01/27/2025: WBC: 733, urine leukocyte esterase: 3+ WBC/HB/PLT/MCV, 02/17/2025: 6.6/9.4/258/83.6 HCO3, : 20, 01/28/2025: 18, 01/31/2025: 20, 02/03/2025: 14, 02/04/2025: 17. 6/18: 20, 02/06/2025: 24 CRP, 01/28/2025: 8.04 Liver function tests, 01/28/2025: Unremarkable Ammonia, six: 10 Vitamin B12, 01/28/2025: 339 Folic acid, 01/28/2025: 2.75 TSH, 01/28/2025: 3.96 FT four, 01/30/2025: 2.3 Echocardiogram, 01/29/2025: Conclusion lvef 60% grade 1 diastolic dysfunction normal rv functon left atrium enlarged EEG, 02/01/2025: Moderately abnormal EEG CT abdominal/pelvis, 01/29/2025: No acute intraabdominal abnormality. Cholelithiasis.No sacral soft tissue defect visualized MRI head, 01/31/2025: No evidence of acute intracranial abnormalities vital signs Vital Sign Date Time Temp Pulse Resp B/P (MAP) Pulse Ox O2 Delivery O2 Flow Rate FiO2 02/06/25 09:45 97.9 80 17 134/74 (94) 100 208.2 02/06/25 08:00 Room Air* 0 21 Total Intake and Output 02/05/25 02/05/25 02/06/25 15:00 23:00 07:00 Intake Total 1110.25 ml 732.50 ml 1415 ml Output Total 1200 ml 600 ml Balance 1110.25 ml -467.50 ml 815 ml medications Current Medications Medications Dose Ordered Sig/Karan Route Start Time Stop Time Status Last Admin Dose Admin Sodium Chloride 10 ml Q8HR IV 01/27/25 22:00 02/06/25 05:13 10 ML Acetaminophen/ Hydrocodone Bitart 1 tab Q4HP PRN PO 01/27/25 18:45 02/04/25 12:12 1 TAB Ondansetron HCl 4 mg Q4HP PRN IV 01/27/25 18:45 01/30/25 04:38 4 MG Docusate Sodium 100 mg BIDPRN PRN PO 01/27/25 18:45 Acetaminophen 650 mg Q6HP PRN PO 01/27/25 18:45 02/05/25 21:00 650 MG Nitroglycerin 0.4 mg Q5MINP PRN SL 01/27/25 18:45 Morphine Sulfate 2 mg Q30M PRN IV 01/27/25 18:45 Potassium Chloride 100 ml @ 50 mls/hr Q2H IV 01/28/25 07:00 01/28/25 12:59 Cancel Norepinephrine Bitartrate 250 ml @ 3.75 mls/hr Q24H IV 01/28/25 09:15 02/04/25 18:21 3.75 MLS/HR Pantoprazole Sodium 40 mg DAILY IV 01/29/25 10:00 02/06/25 09:09 40 MG Micafungin Sodium 100 mg/Sodium Chloride 100 ml @ 100 mls/hr DAILY IV 01/30/25 10:00 02/06/25 09:09 100 MLS/HR Dextrose 50 ml UD PRN IV 01/31/25 22:00 02/01/25 05:33 50 ML Diagnostic Test (Pha) 1 strip IQ4HR 02/01/25 08:00 02/06/25 08:05 1 STRIP Multivitamins 1 tab DAILY PO 02/01/25 10:00 02/06/25 09:10 1 TAB Meropenem 50 ml @ 17 mls/hr Q8HR IV 02/03/25 14:00 02/06/25 05:13 17 MLS/HR Vancomycin HCl 0 ml @ 0 mls/hr UD IV 02/03/25 10:00 Vancomycin HCl 150 ml @ 150 mls/hr Q12H IV 02/03/25 12:00 02/06/25 00:14 150 MLS/HR Enteral Nutritional Formula 1,000 ml 30ML/HR GT 02/03/25 11:30 02/03/25 14:53 1,000 ML Diphenoxylate HCl/ Atropine 2.5 mg Q12HP PRN PO 02/04/25 10:00 02/06/25 00:14 2.5 MG Sodium Bicarbonate 75 ml/ Dextrose 1,075 ml @ 60 mls/hr [id number] IV 02/05/25 16:15 02/05/25 19:28 60 MLS/HR Methylprednisolone Sodium Succinate 40 mg BID IV 02/05/25 22:00 02/06/25 09:09 40 MG objective General: the patient is well developed and nourished. No acute distress. MUSCULOSKELETAL EXAM: Change in the both hands is consistent with history of rheumatoid arthritis MENTAL STATUS: Subjective SPEECH, LANGUAGE, HIGHER CORTICAL FUNCTION: She does not vocalize. CRANIAL NERVES: Pupils are equal, round and reactive. EOMs full and conjugate. Facial sensation intact in all three divisions bilaterally. Mandibular strength intact. Facial muscles symmetrical and strength intact. SENSATION: Sensation to touch and pinprick is okay MOTOR: Normal tone in the upper and lower extremity. Normal muscle bulk. No fasciculations. No abnormal movements or posturing. Minimal movement in the feet REFLEXES: Deep tendon reflexes are symmetrical. No pathological reflexes. CEREBELLAR/COORDINATION: Deferred GAIT/STATION: deferred laboratory and microbiology Laboratory Tests 02/06/25 03:16 Test 02/06/25 03:16 Range/Units Serum Glucose 182 H 74-106 mg/dL Problem List Altered mental status/Metabolic encephalopathy secondary to UTI, sepsis/septic shock Pressure wound Metabolic acidosis Nausea, vomiting Improving Assessment/Plan Monitoring Supportive treatment Blood culture Follow-up labs ICU care Stabilize vitals Respiratory support p.r.n. IV antibiotics DVT prophylaxis GI prophylaxis More recommendation per clinical course This medical document was created using an electronic medical record system with [employer] dictation system. Although this document has been carefully reviewed, there may still be some phonetic and typographical errors. These areas are purely typographical due to imperfections of the software programs, and do not reflect any compromise in the patient's medical care. Prognosis poor Dietary Evaluation Review Comments: 1. CCHO-45 Cardiac Diet 2. Reassess in 2-3 days Expected Outcomes/Goals: Gradual Wt loss will be desirable. Plan discussed with: Other RIZWANA MUÑOZ MD Feb 06, 2025 10:52
--- NOTE | 2025-02-06 14:52 | DVHPN2 ---
Progress Note Date Seen: Feb 06, 2025 Medical Necessity Reason Pt with a Central, PICC or Fol: Yes The following are medically ne: Perera Catheter Reason for perera catheter: Strict I&O Subjective Patient reports: No new complaints Review of Systems: HEENT:Normal, CVS:Normal, RESPIRATORY:Normal, GI:Normal, :Normal, MSK:Normal, NEURO:Normal Objective vital signs Vital Sign Date Time Temp Pulse Resp B/P (MAP) Pulse Ox O2 Delivery O2 Flow Rate FiO2 02/06/25 11:45 98.2 81 11 144/83 (103) 100 208.8 02/06/25 10:00 Room Air* 0 21 Total Intake and Output 02/05/25 02/05/25 02/06/25 15:00 23:00 07:00 Intake Total 1110.25 ml 732.50 ml 1415 ml Output Total 1200 ml 600 ml Balance 1110.25 ml -467.50 ml 815 ml medications Current Medications Medications Dose Ordered Sig/Karan Route Start Time Stop Time Status Last Admin Dose Admin Sodium Chloride 10 ml Q8HR IV 01/27/25 22:00 02/06/25 13:55 10 ML Acetaminophen/ Hydrocodone Bitart 1 tab Q4HP PRN PO 01/27/25 18:45 02/04/25 12:12 1 TAB Ondansetron HCl 4 mg Q4HP PRN IV 01/27/25 18:45 01/30/25 04:38 4 MG Docusate Sodium 100 mg BIDPRN PRN PO 01/27/25 18:45 Acetaminophen 650 mg Q6HP PRN PO 01/27/25 18:45 02/05/25 21:00 650 MG Nitroglycerin 0.4 mg Q5MINP PRN SL 01/27/25 18:45 Morphine Sulfate 2 mg Q30M PRN IV 01/27/25 18:45 Potassium Chloride 100 ml @ 50 mls/hr Q2H IV 01/28/25 07:00 01/28/25 12:59 Cancel Norepinephrine Bitartrate 250 ml @ 3.75 mls/hr Q24H IV 01/28/25 09:15 02/04/25 18:21 3.75 MLS/HR Pantoprazole Sodium 40 mg DAILY IV 01/29/25 10:00 02/06/25 09:09 40 MG Micafungin Sodium 100 mg/Sodium Chloride 100 ml @ 100 mls/hr DAILY IV 01/30/25 10:00 02/06/25 09:09 100 MLS/HR Dextrose 50 ml UD PRN IV 01/31/25 22:00 02/01/25 05:33 50 ML Diagnostic Test (Pha) 1 strip IQ4HR 02/01/25 08:00 02/06/25 11:46 1 STRIP Multivitamins 1 tab DAILY PO 02/01/25 10:00 02/06/25 09:10 1 TAB Meropenem 50 ml @ 17 mls/hr Q8HR IV 02/03/25 14:00 02/06/25 13:55 17 MLS/HR Vancomycin HCl 0 ml @ 0 mls/hr UD IV 02/03/25 10:00 Vancomycin HCl 150 ml @ 150 mls/hr Q12H IV 02/03/25 12:00 02/06/25 11:46 150 MLS/HR Enteral Nutritional Formula 1,000 ml 30ML/HR GT 02/03/25 11:30 02/03/25 14:53 1,000 ML Diphenoxylate HCl/ Atropine 2.5 mg Q12HP PRN PO 02/04/25 10:00 02/06/25 00:14 2.5 MG Sodium Bicarbonate 75 ml/ Dextrose 1,075 ml @ 60 mls/hr [id number] IV 02/05/25 16:15 02/05/25 19:28 60 MLS/HR Methylprednisolone Sodium Succinate 40 mg BID IV 02/05/25 22:00 02/06/25 09:09 40 MG Examination: GENERAL:Normal, HEENT:Normal, NECK:Normal, LUNGS:Normal, CVS:Normal, ABDOMEN:Normal, ABDOMEN:Abnormal (ng tube), MSK:Normal, SKIN:Normal, NEURO:Normal, :Normal laboratory and microbiology Laboratory Tests 02/06/25 03:16 Test 02/06/25 03:16 Range/Units Serum Glucose 182 H 74-106 mg/dL Microbiology Date/Time Source Procedure Growth Status 02/03/25 22:00 Urine - Perera Port Urine Culture - Final Complete 01/28/25 16:23 Sacrum Gram Stain - Final Complete 01/28/25 16:23 Wound Culture - Final Escherichia coli Presumptive Floridalma albicans Complete 01/27/25 16:41 Blood Blood Culture - Final NO GROWTH AFTER 5 DAYS OF INCUBATION. Complete Problem List/Assessment/Plan Problem List/Assessment/Plan #1 septic shock with uti: iv pressors, iv antibiotics #2 gallstones #3 encephalopathy- ?metabolic #4 dm: ssi #5 RA: start solumedrol #6 obesity #7 anemia: transfuse #8 thrombocytopenia: monitor #9 nutrition: tube feedings #10 mod protein malnutrition Plan discussed with: Patient, Other (SISTER) My Orders My Orders Orders - BAILEY ROBERSON MD Procedure Category Date Status Time D5w 5% (Dextrose 5%) PHA 02/05/25 In Process W/Sodium Bicarb 50m 16:15 Methylprednisolone PHA 02/05/25 In Process Sod Succ (Solu Medrol 22:00 Packedcell-Noactive BBK 02/05/25 Logged Bleeding 16:02 Transfer Orders XFER 02/05/25 Transmitted 22:09 Pt Request For Service PT 02/06/25 Transmitted 14:39 Baclofen Tablet PHA 02/06/25 Transmitted (Liorisal Tablet) 14:45 Fluconazole Ivpb PHA 02/07/25 Verified Diflucan 10:00 Basic Metabolic Panel LAB 02/07/25 Verified 06:00 Complete Blood Count LAB 02/07/25 Verified 06:00 Magnesium LAB 02/07/25 Verified 05:00 Dietary Evaluation Review Comments: 1. CCHO-45 Cardiac Diet 2. Reassess in 2-3 days Expected Outcomes/Goals: Gradual Wt loss will be desirable. Critical Care Time (mins): 38 (critical care time 38 mins) Date of Service: Feb 06, 2025 Billing Provider: BAILEY ROBERSON MD Common Visit Codes: [id number] CARE 30-74 MIN BAILEY ROBERSON MD Feb 06, 2025 14:51
[2025-02-06] MEDS ORDERED: DEXTROSE (50%) 50ML SYRG IV PRN (15:00)
[2025-02-06] MEDS: BACLOFEN 10 MG TAB PO ONE (15:23)
[2025-02-06] MEDS: ACCU-CHEK COMFORT CURVE STRIP VI SCH (15:23)
[2025-02-06] MEDS: InsuLIN REG 1unit/0.01ml Soln (100units/ml) SC SCH (15:28)
[2025-02-06] MEDS: LIDOCAINE 1% (LOCAL ANESTH.) PF 5ml SDV ID ONE (17:00)
--- NOTE | 2025-02-06 18:12 | DVH ---
Indication: S/P LOWER EXTREMITY PICC LINE PLACEMENT Technique: Single view abdomen. Comparison: None FINDINGS/IMPRESSION: Right lower extremity peripherally inserted line with tip projecting over the IVC at the level of the L2/L3 disc space level. Wilks catheter. Bilateral tubal ligation clips. Nasogastric tube projecting towards the gastric fundal region. Large volume stool within the ascending colon. Overall paucity of small bowel gas. Severe degenerate changes right hip. [id number] degenerate changes left hip.
[2025-02-06] MEDS: SODIUM CHLOR 0.9% PF (SALINE LOCK) 10ML VIAL/SYR IV SCH (21:22)
[2025-02-07] VITALS (52 sets, daily range): BP systolic 113–150; BP diastolic 56–86; PULSE 66–91; RESP 11–18; TEMP 96.1–99; O2SAT 97–100
[2025-02-07] MEDS ORDERED: chlorproMAZINE HCL 25 MG/1 ML AMP IM ONE (04:45)
--- NOTE | 2025-02-07 05:07 | DVH ---
EXAM: XR Chest, 1 View CLINICAL INDICATION: Pain TECHNIQUE: Frontal view of the chest. COMPARISON: XR Chest dated 02/03/2025 FINDINGS: LUNGS AND PLEURAL SPACES: Stable interstitial opacity. No pneumothorax. HEART: Unremarkable. No cardiomegaly. MEDIASTINUM: Unremarkable. Normal mediastinal contour. BONES/JOINTS: Unremarkable. No acute fracture. TUBES, LINES AND DEVICES: Enteric tube tip in the stomach. IMPRESSION: No significant change from the prior exam.
[2025-02-07] MEDS: [UNRECOGNIZED DRUG - OTHER] IV ONE (05:45)
[2025-02-07] MEDS: SODIUM CHL 0.9% IV ONE (05:45)
[2025-02-07 06:43] LABS: Hematocrit 26.5 % (36.0-46.0); Hemoglobin 9.2 g/dL (12.2-16.2); Mean Corpuscular Hemoglobin 28.8 pg (28.0-32.0); Mean Corpuscular Volume 83.1 fL (80.0-100.0); Nucleated Red Blood Cells % 0.3 %
[2025-02-07 06:52] LABS: Potassium 3.5 mmol/L (3.5-5.1); Sodium 143 mmol/L (136-145)
[2025-02-07 06:53] LABS: Anion Gap 9 (5-15); Carbon Dioxide 26 mmol/L (20-31)
[2025-02-07 06:59] LABS: Magnesium 1.8 mg/dL (1.6-2.6)
[2025-02-07 07:00] LABS: Calcium 7.8 mg/dL (8.7-10.4); Chloride 108 mmol/L (98-107); Glucose 123 mg/dL (74-106)
[2025-02-07 07:23] LABS: BUN/Creatinine Ratio 33.9 (10.0-20.0); Blood Urea Nitrogen 19 mg/dL (9-23)
[2025-02-07] MEDS: FLUCONAZOLE 200MG/100ML 100 ML IV SCH (10:10)
--- NOTE | 2025-02-07 21:02 | DVHPN2 ---
Progress Note - Dictate Date Seen: Feb 07, 2025 Medical Necessity Reason Pt with a Central, PICC or Fol: Yes The following are medically ne: Perera Catheter Reason for perera catheter: Strict I&O Subjective Ms. Evans is a 59 years old right-handed female with a history of hypertension, diabetes, gallstone, rheumatoid arthritis, the patient was brought to the [facility] on 01/27/2025 with a chief company of altered mental status. I have seen and examined the patient, I have talked to her nurse and family. She is sleepy now, earlier today, she was awake, able to say her name and her date of . She has hiccups [facility] reports EGD 01/02/2025: Preoperative diagnosis: Microcytic anemia, nausea, vomiting Post-op diagnosis: Diffuse gastritis, no biopsy Colonoscopy, 01/02/2025: Postop diagnosis: One normal anal canal, there was no internal external hemorrhoids. 2, moderately severe uncomplicated sigmoid diverticulosis, 3. 2 mm polyp in the mid sigmoid removed by cold biopsy. The rest of the colon is normal on AVM mucosa anomalies or other polyps ABG, 02/01/2025: Compensated metabolic acidosis, Blood culture, 01/28/2025: No growth Wound culture, 01/28/2025: E coli Urine culture, 01/28/2025: Yeast: > 100,000 UDS, 01/27/2025: Negative Plasma alcohol, 01/27/2025: 3.7 Urinalysis, 01/27/2025: WBC: 733, urine leukocyte esterase: 3+ WBC/HB/PLT/MCV, 02/17/2025: 6.6/9.4/258/83.6 HCO3, : 20, 01/28/2025: 18, 01/31/2025: 20, 02/03/2025: 14, 02/04/2025: 17. 6/: 20, 02/06/2025: 24 CRP, 01/28/2025: 8.04 Liver function tests, 01/28/2025: Unremarkable Ammonia, : 10 Vitamin B12, 01/28/2025: 339 Folic acid, 01/28/2025: 2.75 TSH, 01/28/2025: 3.96 FT four, 01/30/2025: 2.3 Echocardiogram, 01/29/2025: Conclusion lvef 60% grade 1 diastolic dysfunction normal rv functon left atrium enlarged EEG, 02/01/2025: Moderately abnormal EEG CT abdominal/pelvis, 01/29/2025: No acute intraabdominal abnormality. Cholelithiasis.No sacral soft tissue defect visualized MRI head, 01/31/2025: No evidence of acute intracranial abnormalities vital signs Vital Sign Date Time Temp Pulse Resp B/P (MAP) Pulse Ox O2 Delivery O2 Flow Rate FiO2 02/07/25 20:21 15 100 Room Air* 0 21 02/07/25 20:00 97.7 68 136/75 (95) 207.9 Total Intake and Output 02/06/25 02/06/25 02/07/25 15:00 23:00 07:00 Intake Total 720 ml 380 ml 377 ml Output Total 150 ml Balance 720 ml 380 ml 227 ml medications Current Medications Medications Dose Ordered Sig/Karan Route Start Time Stop Time Status Last Admin Dose Admin Sodium Chloride 10 ml Q8HR IV 01/27/25 22:00 02/07/25 13:55 10 ML Acetaminophen/ Hydrocodone Bitart 1 tab Q4HP PRN PO 01/27/25 18:45 02/04/25 12:12 1 TAB Ondansetron HCl 4 mg Q4HP PRN IV 01/27/25 18:45 01/30/25 04:38 4 MG Docusate Sodium 100 mg BIDPRN PRN PO 01/27/25 18:45 Acetaminophen 650 mg Q6HP PRN PO 01/27/25 18:45 02/06/25 21:23 650 MG Nitroglycerin 0.4 mg Q5MINP PRN SL 01/27/25 18:45 Morphine Sulfate 2 mg Q30M PRN IV 01/27/25 18:45 Potassium Chloride 100 ml @ 50 mls/hr Q2H IV 01/28/25 07:00 01/28/25 12:59 Cancel Norepinephrine Bitartrate 250 ml @ 3.75 mls/hr Q24H IV 01/28/25 09:15 02/04/25 18:21 3.75 MLS/HR Pantoprazole Sodium 40 mg DAILY IV 01/29/25 10:00 02/07/25 10:09 40 MG Multivitamins 1 tab DAILY PO 02/01/25 10:00 02/07/25 10:10 1 TAB Meropenem 50 ml @ 17 mls/hr Q8HR IV 02/03/25 14:00 02/07/25 13:54 17 MLS/HR Vancomycin HCl 0 ml @ 0 mls/hr UD IV 02/03/25 10:00 Enteral Nutritional Formula 1,000 ml 30ML/HR GT 02/03/25 11:30 02/06/25 22:48 1,000 ML Diphenoxylate HCl/ Atropine 2.5 mg Q12HP PRN PO 02/04/25 10:00 02/06/25 00:14 2.5 MG Methylprednisolone Sodium Succinate 40 mg BID IV 02/05/25 22:00 02/07/25 10:10 40 MG Fluconazole 100 ml @ 100 mls/hr DAILY IV 02/07/25 10:00 02/07/25 10:10 100 MLS/HR Diagnostic Test (Pha) 1 strip IQ4HR 02/06/25 16:00 02/07/25 20:22 1 STRIP Insulin Human Regular IQ4HR SC 02/06/25 16:00 02/06/25 19:51 2 UNITS Dextrose 50 ml UD PRN IV 02/06/25 15:00 Sodium Chloride 10 ml QSHIFT@10,22 IV 02/06/25 22:00 02/07/25 10:10 10 ML objective General: the patient is well developed and nourished. No acute distress. MUSCULOSKELETAL EXAM: Change in the both hands is consistent with history of rheumatoid arthritis MENTAL STATUS: Subjective SPEECH, LANGUAGE, HIGHER CORTICAL FUNCTION: She does not vocalize. CRANIAL NERVES: Pupils are equal, round and reactive. EOMs full and conjugate. Facial sensation intact in all three divisions bilaterally. Mandibular strength intact. Facial muscles symmetrical and strength intact. SENSATION: Sensation to touch and pinprick is okay MOTOR: Normal tone in the upper and lower extremity. Normal muscle bulk. No fasciculations. No abnormal movements or posturing. Minimal movement in the feet REFLEXES: Deep tendon reflexes are symmetrical. No pathological reflexes. CEREBELLAR/COORDINATION: Deferred GAIT/STATION: deferred laboratory and microbiology Laboratory Tests 02/07/25 06:20 Test 02/07/25 06:20 Range/Units Serum Glucose 123 H 74-106 mg/dL Problem List Altered mental status/Metabolic encephalopathy secondary to UTI, sepsis/septic shock Pressure wound Metabolic acidosis Nausea, vomiting Improving Assessment/Plan Monitoring Supportive treatment Blood culture Follow-up labs ICU care Stabilize vitals Respiratory support p.r.n. IV antibiotics DVT prophylaxis GI prophylaxis More recommendation per clinical course This medical document was created using an electronic medical record system with [employer] dictation system. Although this document has been carefully reviewed, there may still be some phonetic and typographical errors. These areas are purely typographical due to imperfections of the software programs, and do not reflect any compromise in the patient's medical care. Prognosis poor Dietary Evaluation Review Comments: 1. CCHO-45 Cardiac Diet 2. Reassess in 2-3 days Expected Outcomes/Goals: Gradual Wt loss will be desirable. Plan discussed with: Other RIZWANA MUÑOZ MD Feb 07, 2025 21:02
[2025-02-08] VITALS (33 sets, daily range): BP systolic 120–141; BP diastolic 69–81; PULSE 58–91; RESP 10–15; TEMP 97.2–99; O2SAT 96–100
[2025-02-08 04:00] LABS: Hematocrit 26.5 % (36.0-46.0); Hemoglobin 9.0 g/dL (12.2-16.2); Mean Corpuscular Hemoglobin 28.4 pg (28.0-32.0); Mean Corpuscular Volume 84.1 fL (80.0-100.0); Nucleated Red Blood Cells % 0.6 %
[2025-02-08 04:10] LABS: Potassium 3.6 mmol/L (3.5-5.1)
[2025-02-08 04:11] LABS: Anion Gap 8 (5-15); Carbon Dioxide 27 mmol/L (20-31)
[2025-02-08 04:12] LABS: Calcium 7.5 mg/dL (8.7-10.4); Chloride 110 mmol/L (98-107); Sodium 145 mmol/L (136-145)
[2025-02-08 04:16] LABS: BUN/Creatinine Ratio 55.1 (10.0-20.0)
[2025-02-08 04:17] LABS: Magnesium 2.0 mg/dL (1.6-2.6)
[2025-02-08 04:19] LABS: Blood Urea Nitrogen 27 mg/dL (9-23); Glucose 118 mg/dL (74-106)
--- NOTE | 2025-02-08 09:31 | DVHPN2 ---
Subjective Patient last speaking and lethargic today. Reviewed: Care Plan, H&P, Labs, Medications Changes from previous H/P or p: No Changes General: Per HPI Eyes: No Pain, No Vision change, No Conjunctivae inflammation, No Eyelid inflammation, No Other, No Redness ENT: No Ear pain, No Ear discharge, No Nose pain, No Nose discharge, No Nose congestion, No Mouth pain, No Mouth swelling, No Throat pain, No Throat swelling, No Other Cardiovascular: No Chest Pain, No Palpitations, No Orthopnea, No Paroxysmal Noc. Dyspnea, No Edema, No Lt Headedness, No Other Respiratory: No Cough, No Dry, No Shortness of breath, No SOB with excertion, No Wheezing, No Hemoptysis, No Pleuritic Pain, No Sputum, No Other Gastrointestinal: No Nausea, No Vomiting, No Abdominal Pain, No Diarrhea, No Constipation, No Melena, No Hematochezia, No Other Genitourinary: Other Musculoskeletal: No other, No neck pain, No shoulder pain, No arm pain, No back pain, No hand pain, No leg pain, No foot pain Skin: No Rash, No Lesions, No Jaundice, No Bruising, No Other Objective Vitals Vital Signs Date Time Temp Pulse Resp B/P (MAP) Pulse Ox O2 Delivery O2 Flow Rate FiO2 02/08/25 09:00 98.8 91 14 135/70 (91) 99 209.8 02/08/25 07:30 Room Air* 0 21 Intake/Output Intake and Output 02/08/25 07:00 Intake Total 814 ml Output Total 250 ml Balance 564 ml Intake Oral 60 ml IV Total 234 ml Tube Feeding 520 ml Output Urine Total 250 ml # Bowel Movements 2 General Appearance: moderate distress HEENT: Atraumatic, PERRLA Lungs: Clear to auscultation, Normal air movement Cardiovascular: Normal S1, Normal S2, Other Abdomen: Normal bowel sounds, No tenderness Musculoskeletal: Normal sensory function, Normal motor function Extremities: Other Neuro: Other (Patient unable to follow commands.) Skin: Dry, Intact Psych/Mental Status: Mental status NL, Mood NL Medications Current Medications Medications Dose Ordered Sig/Karan Route Start Time Stop Time Status Last Admin Dose Admin Sodium Chloride 10 ml Q8HR IV 01/27/25 22:00 02/08/25 05:14 10 ML Acetaminophen/ Hydrocodone Bitart 1 tab Q4HP PRN PO 01/27/25 18:45 02/04/25 12:12 1 TAB Ondansetron HCl 4 mg Q4HP PRN IV 01/27/25 18:45 01/30/25 04:38 4 MG Docusate Sodium 100 mg BIDPRN PRN PO 01/27/25 18:45 Acetaminophen 650 mg Q6HP PRN PO 01/27/25 18:45 02/06/25 21:23 650 MG Nitroglycerin 0.4 mg Q5MINP PRN SL 01/27/25 18:45 Morphine Sulfate 2 mg Q30M PRN IV 01/27/25 18:45 Potassium Chloride 100 ml @ 50 mls/hr Q2H IV 01/28/25 07:00 01/28/25 12:59 Cancel Norepinephrine Bitartrate 250 ml @ 3.75 mls/hr Q24H IV 01/28/25 09:15 02/04/25 18:21 3.75 MLS/HR Pantoprazole Sodium 40 mg DAILY IV 01/29/25 10:00 02/08/25 08:36 40 MG Multivitamins 1 tab DAILY PO 02/01/25 10:00 02/08/25 08:38 1 TAB Meropenem 50 ml @ 17 mls/hr Q8HR IV 02/03/25 14:00 02/08/25 05:14 17 MLS/HR Vancomycin HCl 0 ml @ 0 mls/hr UD IV 02/03/25 10:00 Enteral Nutritional Formula 1,000 ml 30ML/HR GT 02/03/25 11:30 02/07/25 23:26 1,000 ML Diphenoxylate HCl/ Atropine 2.5 mg Q12HP PRN PO 02/04/25 10:00 02/06/25 00:14 2.5 MG Methylprednisolone Sodium Succinate 40 mg BID IV 02/05/25 22:00 02/08/25 08:37 40 MG Fluconazole 100 ml @ 100 mls/hr DAILY IV 02/07/25 10:00 02/08/25 08:36 100 MLS/HR Diagnostic Test (Pha) 1 strip IQ4HR 02/06/25 16:00 02/08/25 08:37 1 STRIP Insulin Human Regular IQ4HR SC 02/06/25 16:00 02/06/25 19:51 2 UNITS Dextrose 50 ml UD PRN IV 02/06/25 15:00 Sodium Chloride 10 ml QSHIFT@10,22 IV 02/06/25 22:00 02/08/25 08:37 10 ML Laboratory Results Laboratory Tests 02/08/25 03:45 Chemistry Test 02/08/25 03:45 Calcium Level 7.5 mg/dL (8.7-10.4) L Magnesium Level 2.0 mg/dL (1.6-2.6) Urinalysis Test 01/27/25 16:06 02/03/25 22:00 02/05/25 16:30 Urine WBC Clumps Present /hpf (None Seen) Urine Mucus Few (None Seen) Urine Yeast (Budding) Many /hpf (None Seen) Urine Creatinine 21.71 mg/dL (30.0-125.0) L Urine Protein/Creatinine Ratio 2.89 Urine Total Protein 62.8 mg/dL (1-14) H Urine Color Colorless (Yellow) Urine Clarity Turbid (Clear) H Urine pH 7.0 (5.0-9.0) Urine Specific [place] 1.009 (1.001-1.035) Urine Protein Trace (Negative) H Urine Ketones Negative (Negative) Urine Blood 2+ /uL (Negative) H Urine Nitrite Negative (Negative) Urine Bilirubin Negative (Negative) Urine Urobilinogen Normal mg/dL (Negative) Urine Leukocyte Esterase 3+ /uL (Negative) Urine RBC 5 /hpf (0 - 4) Urine Microscopic WBC 26 /HPF (0-5) H Urine Squamous Epithelial Cells None seen /hpf (<5) Urine Bacteria Few /hpf (None Seen) H Urine Glucose Trace mg/dL (Normal) Microbiology Microbiology Date/Time Source Procedure Growth Status 02/03/25 22:00 Urine - [place] Urine Culture - Final Complete 01/28/25 16:23 Sacrum Gram Stain - Final Complete 01/28/25 16:23 Wound Culture - Final Escherichia coli Presumptive Floridalma albicans Complete 01/27/25 16:41 Blood Blood Culture - Final NO GROWTH AFTER 5 DAYS OF INCUBATION. Complete Labs and/or images reviewed: Labs reviewed by me, Image(s) reviewed by me Assessment/Plan Assessment/Plan Impression: -severe sepsis with shock -hypokalemia -anemia -cholelithiasis -intractable nausea and vomiting -rheumatoid arthritis -primary hypertension -complicated cystitis -? Nonepileptic seizure activity Plan: -events: No events overnight. Assess patient to be nonverbal. Eyes upward gaze. No response to pain. Stat EEG ordered. -Continue tube feeding. -Start Lomotil -MVI, vitamin-D supplementation -neurology consultation: Recommendations reviewed -advance diet as tolerated -repeat labs in a.m. Critical care time spent with patient discussing and formulating plan of care: 90 minutes. This does not include time spent performing procedures. This medical document was created using an electronic medical record system with [employer] dictation system. Although this document has been carefully reviewed, there may still be some phonetic and typographical errors. These areas are purely typographical due to imperfections of the software programs, and do not reflect any compromise in the patient's medical care. Plan discussed with: Patient, Son, Other (RN, Sister) My Orders Orders - MARC CARVER NP Procedure Category Date Status Time Eeg Awake/Sleep/Act EEG 02/07/25 Transmitted 09:48 Vancomycin Per KALYAN 02/07/25 In Process Pharmacy [facility] 11:45 Bladder Scan ORDERS 02/07/25 Transmitted 11:47 Date of Service: Feb 07, 2025 Billing Provider: MARC CARVER NP Common Visit Codes: [id number] CARE 30-74 MIN MARC CARVER NP Feb 08, 2025 09:31
[2025-02-08] MEDS: VANCOMYCIN 1GM/200ML PM 0 ML IV ONE (09:41)
--- NOTE | 2025-02-08 09:42 | DVHPN2 ---
Subjective Patient only grunting now. Reviewed: Care Plan, H&P, Labs, Medications Changes from previous H/P or p: No Changes General: Per HPI Eyes: No Pain, No Vision change, No Conjunctivae inflammation, No Eyelid inflammation, No Other, No Redness ENT: No Ear pain, No Ear discharge, No Nose pain, No Nose discharge, No Nose congestion, No Mouth pain, No Mouth swelling, No Throat pain, No Throat swelling, No Other Cardiovascular: No Chest Pain, No Palpitations, No Orthopnea, No Paroxysmal Noc. Dyspnea, No Edema, No Lt Headedness, No Other Respiratory: No Cough, No Dry, No Shortness of breath, No SOB with excertion, No Wheezing, No Hemoptysis, No Pleuritic Pain, No Sputum, No Other Gastrointestinal: No Nausea, No Vomiting, No Abdominal Pain, No Diarrhea, No Constipation, No Melena, No Hematochezia, No Other Genitourinary: Other Musculoskeletal: No other, No neck pain, No shoulder pain, No arm pain, No back pain, No hand pain, No leg pain, No foot pain Skin: No Rash, No Lesions, No Jaundice, No Bruising, No Other Objective Vitals Vital Signs Date Time Temp Pulse Resp B/P (MAP) Pulse Ox O2 Delivery O2 Flow Rate FiO2 02/08/25 09:00 98.8 91 14 135/70 (91) 99 209.8 02/08/25 07:30 Room Air* 0 21 Intake/Output Intake and Output 02/08/25 07:00 Intake Total 814 ml Output Total 250 ml Balance 564 ml Intake Oral 60 ml IV Total 234 ml Tube Feeding 520 ml Output Urine Total 250 ml # Bowel Movements 2 General Appearance: moderate distress HEENT: Atraumatic, PERRLA Lungs: Clear to auscultation, Normal air movement Cardiovascular: Normal S1, Normal S2, Other Abdomen: Normal bowel sounds, No tenderness Musculoskeletal: Normal sensory function, Normal motor function Extremities: Other Neuro: Other (Patient unable to follow commands.) Skin: Dry, Intact Psych/Mental Status: Mental status NL, Mood NL Medications Current Medications Medications Dose Ordered Sig/Karan Route Start Time Stop Time Status Last Admin Dose Admin Sodium Chloride 10 ml Q8HR IV 01/27/25 22:00 02/08/25 05:14 10 ML Acetaminophen/ Hydrocodone Bitart 1 tab Q4HP PRN PO 01/27/25 18:45 02/04/25 12:12 1 TAB Ondansetron HCl 4 mg Q4HP PRN IV 01/27/25 18:45 01/30/25 04:38 4 MG Docusate Sodium 100 mg BIDPRN PRN PO 01/27/25 18:45 Acetaminophen 650 mg Q6HP PRN PO 01/27/25 18:45 02/06/25 21:23 650 MG Nitroglycerin 0.4 mg Q5MINP PRN SL 01/27/25 18:45 Morphine Sulfate 2 mg Q30M PRN IV 01/27/25 18:45 Potassium Chloride 100 ml @ 50 mls/hr Q2H IV 01/28/25 07:00 01/28/25 12:59 Cancel Norepinephrine Bitartrate 250 ml @ 3.75 mls/hr Q24H IV 01/28/25 09:15 02/04/25 18:21 3.75 MLS/HR Pantoprazole Sodium 40 mg DAILY IV 01/29/25 10:00 02/08/25 08:36 40 MG Multivitamins 1 tab DAILY PO 02/01/25 10:00 02/08/25 08:38 1 TAB Meropenem 50 ml @ 17 mls/hr Q8HR IV 02/03/25 14:00 02/08/25 05:14 17 MLS/HR Vancomycin HCl 0 ml @ 0 mls/hr UD IV 02/03/25 10:00 Enteral Nutritional Formula 1,000 ml 30ML/HR GT 02/03/25 11:30 02/07/25 23:26 1,000 ML Diphenoxylate HCl/ Atropine 2.5 mg Q12HP PRN PO 02/04/25 10:00 02/06/25 00:14 2.5 MG Methylprednisolone Sodium Succinate 40 mg BID IV 02/05/25 22:00 02/08/25 08:37 40 MG Fluconazole 100 ml @ 100 mls/hr DAILY IV 02/07/25 10:00 02/08/25 08:36 100 MLS/HR Diagnostic Test (Pha) 1 strip IQ4HR 02/06/25 16:00 02/08/25 08:37 1 STRIP Insulin Human Regular IQ4HR SC 02/06/25 16:00 02/06/25 19:51 2 UNITS Dextrose 50 ml UD PRN IV 02/06/25 15:00 Sodium Chloride 10 ml QSHIFT@10,22 IV 02/06/25 22:00 02/08/25 08:37 10 ML Sodium Chloride 1,000 ml @ 100 mls/hr Q10H IV 02/08/25 09:45 02/09/25 05:44 UNV Laboratory Results Laboratory Tests 02/08/25 03:45 Chemistry Test 02/08/25 03:45 Calcium Level 7.5 mg/dL (8.7-10.4) L Magnesium Level 2.0 mg/dL (1.6-2.6) Urinalysis Test 01/27/25 16:06 02/03/25 22:00 02/05/25 16:30 Urine WBC Clumps Present /hpf (None Seen) Urine Mucus Few (None Seen) Urine Yeast (Budding) Many /hpf (None Seen) Urine Creatinine 21.71 mg/dL (30.0-125.0) L Urine Protein/Creatinine Ratio 2.89 Urine Total Protein 62.8 mg/dL (1-14) H Urine Color Colorless (Yellow) Urine Clarity Turbid (Clear) H Urine pH 7.0 (5.0-9.0) Urine Specific [place] 1.009 (1.001-1.035) Urine Protein Trace (Negative) H Urine Ketones Negative (Negative) Urine Blood 2+ /uL (Negative) H Urine Nitrite Negative (Negative) Urine Bilirubin Negative (Negative) Urine Urobilinogen Normal mg/dL (Negative) Urine Leukocyte Esterase 3+ /uL (Negative) Urine RBC 5 /hpf (0 - 4) Urine Microscopic WBC 26 /HPF (0-5) H Urine Squamous Epithelial Cells None seen /hpf (<5) Urine Bacteria Few /hpf (None Seen) H Urine Glucose Trace mg/dL (Normal) Microbiology Microbiology Date/Time Source Procedure Growth Status 02/03/25 22:00 Urine - [place] Urine Culture - Final Complete 01/28/25 16:23 Sacrum Gram Stain - Final Complete 01/28/25 16:23 Wound Culture - Final Escherichia coli Presumptive Floridalma albicans Complete 01/27/25 16:41 Blood Blood Culture - Final NO GROWTH AFTER 5 DAYS OF INCUBATION. Complete Labs and/or images reviewed: Labs reviewed by me, Image(s) reviewed by me Assessment/Plan Assessment/Plan Impression: -severe sepsis with shock -hypokalemia -anemia -cholelithiasis -intractable nausea and vomiting -rheumatoid arthritis -primary hypertension -complicated cystitis -? Nonepileptic seizure activity Plan: -events: Decreased urine output. Start IV fluids. Patient also has continued neurological depression. -Continue tube feeding. -continue empiric antibiotics -continue steroids -MVI, vitamin-D supplementation -neurology consultation: Recommendations reviewed -advance diet as tolerated -repeat labs in a.m. Critical care time spent with patient discussing and formulating plan of care: 90 minutes. This does not include time spent performing procedures. This medical document was created using an electronic medical record system with [employer] dictation system. Although this document has been carefully reviewed, there may still be some phonetic and typographical errors. These areas are purely typographical due to imperfections of the software programs, and do not reflect any compromise in the patient's medical care. Plan discussed with: Patient, Other (RN) My Orders Orders - MARC CARVER NP Procedure Category Date Status Time Eeg Awake/Sleep/Act EEG 02/07/25 Transmitted 09:48 Vancomycin Per KALYAN 02/07/25 In Process Pharmacy [facility] 11:45 Bladder Scan ORDERS 02/07/25 Transmitted 11:47 Sodium Chloride 0.9% PHA 02/08/25 Logged 09:45 Date of Service: Feb 08, 2025 Billing Provider: MARC CARVER NP Common Visit Codes: [id number] CARE 30-74 MIN MARC CARVER NP Feb 08, 2025 09:42
[2025-02-08] MEDS: SODIUM CHLORIDE 0.9% 1,000 ML IV SCH (09:53)
[2025-02-09] VITALS (24 sets, daily range): BP systolic 131–158; BP diastolic 69–83; PULSE 49–74; RESP 10–17; TEMP 95.7–98.2; O2SAT 96–100
[2025-02-09 06:04] LABS: Potassium 3.6 mmol/L (3.5-5.1)
[2025-02-09 06:05] LABS: Anion Gap 10 (5-15); Carbon Dioxide 25 mmol/L (20-31)
[2025-02-09 06:09] LABS: Hematocrit 26.7 % (36.0-46.0); Hemoglobin 9.0 g/dL (12.2-16.2); Mean Corpuscular Hemoglobin 29.1 pg (28.0-32.0); Mean Corpuscular Volume 86.6 fL (80.0-100.0); Nucleated Red Blood Cells % 0.4 %
[2025-02-09 06:10] LABS: BUN/Creatinine Ratio 74.4 (10.0-20.0); Glucose 104 mg/dL (74-106)
[2025-02-09 06:14] LABS: Blood Urea Nitrogen 32 mg/dL (9-23); Calcium 7.4 mg/dL (8.7-10.4); Chloride 111 mmol/L (98-107); Sodium 146 mmol/L (136-145)
--- NOTE | 2025-02-09 09:05 | DVHPN2 ---
Subjective Patient does awakened, although slowly to her commands. Patient able to open her eyes upon command. Denies any symptoms. Reviewed: Care Plan, H&P, Labs, Medications Changes from previous H/P or p: Changes General: Per HPI Eyes: No Pain, No Vision change, No Conjunctivae inflammation, No Eyelid inflammation, No Other, No Redness ENT: No Ear pain, No Ear discharge, No Nose pain, No Nose discharge, No Nose congestion, No Mouth pain, No Mouth swelling, No Throat pain, No Throat swelling, No Other Cardiovascular: No Chest Pain, No Palpitations, No Orthopnea, No Paroxysmal Noc. Dyspnea, No Edema, No Lt Headedness, No Other Respiratory: No Cough, No Dry, No Shortness of breath, No SOB with excertion, No Wheezing, No Hemoptysis, No Pleuritic Pain, No Sputum, No Other Gastrointestinal: No Nausea, No Vomiting, No Abdominal Pain, No Diarrhea, No Constipation, No Melena, No Hematochezia, No Other Genitourinary: Other Musculoskeletal: No other, No neck pain, No shoulder pain, No arm pain, No back pain, No hand pain, No leg pain, No foot pain Skin: No Rash, No Lesions, No Jaundice, No Bruising, No Other Objective Vitals Vital Signs Date Time Temp Pulse Resp B/P (MAP) Pulse Ox O2 Delivery O2 Flow Rate FiO2 02/09/25 08:00 69 02/09/25 08:00 17 99 Room Air* 0 21 02/09/25 06:00 98.1 131/69 (89) 98.1 Intake/Output Intake and Output 02/09/25 07:00 Intake Total 2470 ml Output Total 600 ml Balance 1870 ml Intake Oral 60 ml IV Total 2050 ml Tube Feeding 360 ml Output Urine Total 400 ml Stool Total 200 ml General Appearance: moderate distress HEENT: Atraumatic, PERRLA Lungs: Clear to auscultation, Normal air movement Cardiovascular: Normal S1, Normal S2, Other Abdomen: Normal bowel sounds, No tenderness Musculoskeletal: Normal sensory function, Normal motor function Extremities: Other (Weeping edema to upper extremity) Neuro: Other (Patient unable to follow commands.) Skin: Dry, Intact Psych/Mental Status: Mental status NL, Mood NL Medications Current Medications Medications Dose Ordered Sig/Karan Route Start Time Stop Time Status Last Admin Dose Admin Sodium Chloride 10 ml Q8HR IV 01/27/25 22:00 02/09/25 05:28 10 ML Acetaminophen/ Hydrocodone Bitart 1 tab Q4HP PRN PO 01/27/25 18:45 02/04/25 12:12 1 TAB Ondansetron HCl 4 mg Q4HP PRN IV 01/27/25 18:45 02/09/25 01:19 4 MG Docusate Sodium 100 mg BIDPRN PRN PO 01/27/25 18:45 Acetaminophen 650 mg Q6HP PRN PO 01/27/25 18:45 02/06/25 21:23 650 MG Nitroglycerin 0.4 mg Q5MINP PRN SL 01/27/25 18:45 Morphine Sulfate 2 mg Q30M PRN IV 01/27/25 18:45 Potassium Chloride 100 ml @ 50 mls/hr Q2H IV 01/28/25 07:00 01/28/25 12:59 Cancel Norepinephrine Bitartrate 250 ml @ 3.75 mls/hr Q24H IV 01/28/25 09:15 02/04/25 18:21 3.75 MLS/HR Pantoprazole Sodium 40 mg DAILY IV 01/29/25 10:00 02/08/25 08:36 40 MG Multivitamins 1 tab DAILY PO 02/01/25 10:00 02/08/25 08:38 1 TAB Meropenem 50 ml @ 17 mls/hr Q8HR IV 02/03/25 14:00 02/09/25 05:28 17 MLS/HR Vancomycin HCl 0 ml @ 0 mls/hr UD IV 02/03/25 10:00 Enteral Nutritional Formula 1,000 ml 30ML/HR GT 02/03/25 11:30 02/07/25 23:26 1,000 ML Diphenoxylate HCl/ Atropine 2.5 mg Q12HP PRN PO 02/04/25 10:00 02/06/25 00:14 2.5 MG Methylprednisolone Sodium Succinate 40 mg BID IV 02/05/25 22:00 02/08/25 20:58 40 MG Fluconazole 100 ml @ 100 mls/hr DAILY IV 02/07/25 10:00 02/08/25 08:36 100 MLS/HR Diagnostic Test (Pha) 1 strip IQ4HR 02/06/25 16:00 02/09/25 08:08 1 STRIP Insulin Human Regular IQ4HR SC 02/06/25 16:00 02/09/25 00:25 2 UNITS Dextrose 50 ml UD PRN IV 02/06/25 15:00 Sodium Chloride 10 ml QSHIFT@10,22 IV 02/06/25 22:00 02/08/25 20:57 10 ML Laboratory Results Laboratory Tests 02/09/25 03:00 Chemistry Test 02/09/25 03:00 Calcium Level 7.4 mg/dL (8.7-10.4) L Urinalysis Test 01/27/25 16:06 02/03/25 22:00 02/05/25 16:30 Urine WBC Clumps Present /hpf (None Seen) Urine Mucus Few (None Seen) Urine Yeast (Budding) Many /hpf (None Seen) Urine Creatinine 21.71 mg/dL (30.0-125.0) L Urine Protein/Creatinine Ratio 2.89 Urine Total Protein 62.8 mg/dL (1-14) H Urine Color Colorless (Yellow) Urine Clarity Turbid (Clear) H Urine pH 7.0 (5.0-9.0) Urine Specific [place] 1.009 (1.001-1.035) Urine Protein Trace (Negative) H Urine Ketones Negative (Negative) Urine Blood 2+ /uL (Negative) H Urine Nitrite Negative (Negative) Urine Bilirubin Negative (Negative) Urine Urobilinogen Normal mg/dL (Negative) Urine Leukocyte Esterase 3+ /uL (Negative) Urine RBC 5 /hpf (0 - 4) Urine Microscopic WBC 26 /HPF (0-5) H Urine Squamous Epithelial Cells None seen /hpf (<5) Urine Bacteria Few /hpf (None Seen) H Urine Glucose Trace mg/dL (Normal) Microbiology Microbiology Date/Time Source Procedure Growth Status 02/03/25 22:00 Urine - [place] Urine Culture - Final Complete 01/28/25 16:23 Sacrum Gram Stain - Final Complete 01/28/25 16:23 Wound Culture - Final Escherichia coli Presumptive Floridalma albicans Complete 01/27/25 16:41 Blood Blood Culture - Final NO GROWTH AFTER 5 DAYS OF INCUBATION. Complete Labs and/or images reviewed: Labs reviewed by me, Image(s) reviewed by me Assessment/Plan Assessment/Plan Impression: -severe sepsis with shock -hypokalemia -anemia -cholelithiasis -intractable nausea and vomiting -rheumatoid arthritis -primary hypertension -complicated cystitis -? Nonepileptic seizure activity Plan: -events: Mild improvement with urine output. Blood pressure improved. Add free water with tube feedings given minimal residual. Repeat EEG with altered mental status currently pending read. -Continue tube feeding. -continue empiric antibiotics -continue steroids -MVI, vitamin-D supplementation -neurology consultation: Recommendations reviewed -advance diet as tolerated -repeat labs in a.m. Critical care time spent with patient discussing and formulating plan of care: 90 minutes. This does not include time spent performing procedures. This medical document was created using an electronic medical record system with [employer] dictation system. Although this document has been carefully reviewed, there may still be some phonetic and typographical errors. These areas are purely typographical due to imperfections of the software programs, and do not reflect any compromise in the patient's medical care. Plan discussed with: Patient, Other (RN) Date of Service: Feb 09, 2025 Billing Provider: MARC CARVER NP Common Visit Codes: [id number] CARE 30-74 MIN MARC CARVER NP Feb 09, 2025 09:05
[2025-02-09] MEDS: FREE WATER GT SCH (11:53)
[2025-02-09] MEDS: VANCOMYCIN 500mg/100mL 100 ML IV ONE (11:53)
--- NOTE | 2025-02-09 23:25 | DVHPN2 ---
Progress Note - Dictate Date Seen: Feb 09, 2025 Medical Necessity Reason Pt with a Central, PICC or Fol: Yes The following are medically ne: Perera Catheter Reason for perera catheter: Strict I&O Subjective Ms. Evans is a 59 years old right-handed female with a history of hypertension, diabetes, gallstone, rheumatoid arthritis, the patient was brought to the [facility] on 01/27/2025 with a chief company of altered mental status. I have seen and examined the patient, I have talked to her nurse. She is awake, but with her eyes closed, not follow my verbal commands Her heart rate in the high 50s, with the lowest in the high 40s [facility] reports EGD 01/02/2025: Preoperative diagnosis: Microcytic anemia, nausea, vomiting Post-op diagnosis: Diffuse gastritis, no biopsy Colonoscopy, 01/02/2025: Postop diagnosis: One normal anal canal, there was no internal external hemorrhoids. 2, moderately severe uncomplicated sigmoid diverticulosis, 3. 2 mm polyp in the mid sigmoid removed by cold biopsy. The rest of the colon is normal on AVM mucosa anomalies or other polyps ABG, 02/01/2025: Compensated metabolic acidosis, Blood culture, 01/28/2025: No growth Wound culture, 01/28/2025: E coli Urine culture, 01/28/2025: Yeast: > 100,000 UDS, 01/27/2025: Negative Plasma alcohol, 01/27/2025: 3.7 Urinalysis, 01/27/2025: WBC: 733, urine leukocyte esterase: 3+ WBC/HB/PLT/MCV, 02/17/2025: 6.6/9.4/258/83.6 HCO3, : 20, 01/28/2025: 18, 01/31/2025: 20, 02/03/2025: 14, 02/04/2025: 17. 6/: 20, 02/06/2025: 24 CRP, 01/28/2025: 8.04 Liver function tests, 01/28/2025: Unremarkable Ammonia, : 10 Vitamin B12, 01/28/2025: 339 Folic acid, 01/28/2025: 2.75 TSH, 01/28/2025: 3.96 FT four, 01/30/2025: 2.3 Echocardiogram, 01/29/2025: Conclusion lvef 60% grade 1 diastolic dysfunction normal rv functon left atrium enlarged EEG, 02/01/2025: Moderately abnormal EEG CT abdominal/pelvis, 01/29/2025: No acute intraabdominal abnormality. Cholelithiasis.No sacral soft tissue defect visualized MRI head, 01/31/2025: No evidence of acute intracranial abnormalities vital signs Vital Sign Date Time Temp Pulse Resp B/P (MAP) Pulse Ox O2 Delivery O2 Flow Rate FiO2 02/09/25 19:00 96.8 56 10 150/74 (99) 99 206.2 02/09/25 18:00 Room Air* 0 21 Total Intake and Output 02/08/25 02/08/25 02/09/25 15:00 23:00 07:00 Intake Total 500 ml 800 ml 1270 ml Output Total 150 ml 450 ml Balance 500 ml 650 ml 820 ml medications Current Medications Medications Dose Ordered Sig/Karan Route Start Time Stop Time Status Last Admin Dose Admin Sodium Chloride 10 ml Q8HR IV 01/27/25 22:00 02/09/25 22:03 10 ML Acetaminophen/ Hydrocodone Bitart 1 tab Q4HP PRN PO 01/27/25 18:45 02/04/25 12:12 1 TAB Ondansetron HCl 4 mg Q4HP PRN IV 01/27/25 18:45 02/09/25 01:19 4 MG Docusate Sodium 100 mg BIDPRN PRN PO 01/27/25 18:45 Acetaminophen 650 mg Q6HP PRN PO 01/27/25 18:45 02/06/25 21:23 650 MG Nitroglycerin 0.4 mg Q5MINP PRN SL 01/27/25 18:45 Morphine Sulfate 2 mg Q30M PRN IV 01/27/25 18:45 Potassium Chloride 100 ml @ 50 mls/hr Q2H IV 01/28/25 07:00 01/28/25 12:59 Cancel Norepinephrine Bitartrate 250 ml @ 3.75 mls/hr Q24H IV 01/28/25 09:15 02/04/25 18:21 3.75 MLS/HR Pantoprazole Sodium 40 mg DAILY IV 01/29/25 10:00 02/09/25 10:06 40 MG Multivitamins 1 tab DAILY PO 02/01/25 10:00 02/09/25 10:07 1 TAB Meropenem 50 ml @ 17 mls/hr Q8HR IV 02/03/25 14:00 02/09/25 22:03 17 MLS/HR Vancomycin HCl 0 ml @ 0 mls/hr UD IV 02/03/25 10:00 Enteral Nutritional Formula 1,000 ml 30ML/HR GT 02/03/25 11:30 02/07/25 23:26 1,000 ML Diphenoxylate HCl/ Atropine 2.5 mg Q12HP PRN PO 02/04/25 10:00 02/06/25 00:14 2.5 MG Methylprednisolone Sodium Succinate 40 mg BID IV 02/05/25 22:00 02/09/25 22:01 40 MG Fluconazole 100 ml @ 100 mls/hr DAILY IV 02/07/25 10:00 02/09/25 10:06 100 MLS/HR Sodium Chloride 10 ml QSHIFT@,22 IV 02/06/25 22:00 02/09/25 22:03 10 ML Purified Water 200 ml Q6HR GT 02/09/25 12:00 02/09/25 18:01 200 ML objective General: the patient is well developed and nourished. No acute distress. MUSCULOSKELETAL EXAM: Change in the both hands is consistent with history of rheumatoid arthritis MENTAL STATUS: Subjective SPEECH, LANGUAGE, HIGHER CORTICAL FUNCTION: She does not vocalize. CRANIAL NERVES: Pupils are equal, round and reactive. EOMs full and conjugate. Facial sensation intact in all three divisions bilaterally. Mandibular strength intact. Facial muscles symmetrical and strength intact. SENSATION: Sensation to touch and pinprick is okay MOTOR: Normal tone in the upper and lower extremity. Normal muscle bulk. No fasciculations. No abnormal movements or posturing. Minimal movement in the feet REFLEXES: Deep tendon reflexes are symmetrical. No pathological reflexes. CEREBELLAR/COORDINATION: Deferred GAIT/STATION: deferred laboratory and microbiology Laboratory Tests 02/09/25 03:00 Test 02/09/25 03:00 Range/Units Serum Glucose 104 74-106 mg/dL Problem List Altered mental status/Metabolic encephalopathy secondary to UTI, sepsis/septic shock Pressure wound Metabolic acidosis Nausea, vomiting Bradycardia Assessment/Plan Monitoring Supportive treatment Blood culture Follow-up labs ICU care Stabilize vitals Respiratory support p.r.n. IV antibiotics DVT prophylaxis GI prophylaxis More recommendation per clinical course This medical document was created using an electronic medical record system with [employer] computerized dictation system. Although this document has been carefully reviewed, there may still be some phonetic and typographical errors. These areas are purely typographical due to imperfections of the software programs, and do not reflect any compromise in the patient's medical care. Prognosis poor Dietary Evaluation Review Comments: 1. CCHO-45 Cardiac Diet 2. Reassess in 2-3 days Expected Outcomes/Goals: Gradual Wt loss will be desirable. Plan discussed with: Other RIZWANA MUÑOZ MD Feb 09, 2025 23:25
[2025-02-10] VITALS (30 sets, daily range): BP systolic 135–169; BP diastolic 64–78; PULSE 44–95; RESP 9–17; TEMP 97.8–99.5; O2SAT 98–100
[2025-02-10 03:28] LABS: Anion Gap 8 (5-15); Carbon Dioxide 26 mmol/L (20-31); Potassium 4.0 mmol/L (3.5-5.1)
[2025-02-10 03:34] LABS: BUN/Creatinine Ratio 80.0 (10.0-20.0); Blood Urea Nitrogen 32 mg/dL (9-23); Calcium 7.6 mg/dL (8.7-10.4); Chloride 111 mmol/L (98-107); Glucose 141 mg/dL (74-106); Sodium 145 mmol/L (136-145)
[2025-02-10 04:13] LABS: Hematocrit 26.8 % (36.0-46.0); Hemoglobin 9.0 g/dL (12.2-16.2); Mean Corpuscular Hemoglobin 29.3 pg (28.0-32.0); Mean Corpuscular Volume 87.3 fL (80.0-100.0); Nucleated Red Blood Cells % 0.3 %
--- NOTE | 2025-02-10 09:47 | ECG ---
[facility] Test Date: 2025-02-10 Test Time: 09:46:34 Pat Name: GAIL PEREZ Department: ICU Room: [address] [place] [address] A Gender: F Chef: Hawk Bobby : 1965 Requested By: MARC CARVER Order Number: [id number] Reading MD: Lio Albright Measurements Intervals [place] Rate: 46 P: 17 NE: 119 QRS: 38 QRSD: 125 T: 70 QT: 512 QTc: 448 Interpretive Statements Sinus bradycardia Borderline short NE interval IVCD, consider atypical RBBB Electronically Signed On 02-11-2025 22:18:53 PDT by Lio Albright Please click the below link to view image of tracing.
--- NOTE | 2025-02-10 10:13 | DVHPN2 ---
Progress Note - Dictate Date Seen: Feb 10, 2025 Medical Necessity Reason Pt with a Central, PICC or Fol: Yes The following are medically ne: Perera Catheter Reason for perera catheter: Strict I&O Subjective Ms. Evans is a 59 years old right-handed female with a history of hypertension, diabetes, gallstone, rheumatoid arthritis, the patient was brought to the [facility] on 01/27/2025 with a chief company of altered mental status. I have seen and examined the patient, I have talked to her nurse. She is awake, but with her eyes closed tightly, not follow my verbal commands Maximo mentioned the patient has had an event where she was nonresponsive with eyes rolling back Her heart rate in the high 50s on 02/09/25, high 40s on 02/10/2025, [facility] reports EGD 01/02/2025: Preoperative diagnosis: Microcytic anemia, nausea, vomiting Post-op diagnosis: Diffuse gastritis, no biopsy Colonoscopy, 01/02/2025: Postop diagnosis: One normal anal canal, there was no internal external hemorrhoids. 2, moderately severe uncomplicated sigmoid diverticulosis, 3. 2 mm polyp in the mid sigmoid removed by cold biopsy. The rest of the colon is normal on AVM mucosa anomalies or other polyps ABG, 02/01/2025: Compensated metabolic acidosis, Blood culture, 01/28/2025: No growth Wound culture, 01/28/2025: E coli Urine culture, 01/28/2025: Yeast: > 100,000 UDS, 01/27/2025: Negative Plasma alcohol, 01/27/2025: 3.7 Urinalysis, 01/27/2025: WBC: 733, urine leukocyte esterase: 3+ WBC/HB/PLT/MCV, 02/17/2025: 6.6/9.4/258/83.6 HCO3, : 20, 01/28/2025: 18, 01/31/2025: 20, 02/03/2025: 14, 02/04/2025: 17. 6/18: 20, 02/06/2025: 24, 02/10/2025: 26 CRP, 01/28/2025: 8.04 Liver function tests, 01/28/2025: Unremarkable Ammonia, : 10 Vitamin B12, 01/28/2025: 339 Folic acid, 01/28/2025: 2.75 TSH, 01/28/2025: 3.96 FT four, 01/30/2025: 2.3 Echocardiogram, 01/29/2025: Conclusion lvef 60% grade 1 diastolic dysfunction normal rv functon left atrium enlarged EEG, 02/01/2025: Moderately abnormal EEG CT abdominal/pelvis, 01/29/2025: No acute intraabdominal abnormality. Cholelithiasis.No sacral soft tissue defect visualized MRI head, 01/31/2025: No evidence of acute intracranial abnormalities vital signs Vital Sign Date Time Temp Pulse Resp B/P (MAP) Pulse Ox O2 Delivery O2 Flow Rate FiO2 02/10/25 08:00 44 13 99 Room Air* 0 21 02/10/25 08:00 97.8 154/77 (102) 97.8 Total Intake and Output 02/09/25 02/09/25 02/10/25 15:00 23:00 07:00 Intake Total 450 ml 665 ml 812 ml Output Total 350 ml 275 ml Balance 450 ml 315 ml 537 ml medications Current Medications Medications Dose Ordered Sig/Karan Route Start Time Stop Time Status Last Admin Dose Admin Sodium Chloride 10 ml Q8HR IV 01/27/25 22:00 02/10/25 05:56 10 ML Acetaminophen/ Hydrocodone Bitart 1 tab Q4HP PRN PO 01/27/25 18:45 02/04/25 12:12 1 TAB Ondansetron HCl 4 mg Q4HP PRN IV 01/27/25 18:45 02/09/25 01:19 4 MG Docusate Sodium 100 mg BIDPRN PRN PO 01/27/25 18:45 Acetaminophen 650 mg Q6HP PRN PO 01/27/25 18:45 02/06/25 21:23 650 MG Nitroglycerin 0.4 mg Q5MINP PRN SL 01/27/25 18:45 Morphine Sulfate 2 mg Q30M PRN IV 01/27/25 18:45 Potassium Chloride 100 ml @ 50 mls/hr Q2H IV 01/28/25 07:00 01/28/25 12:59 Cancel Norepinephrine Bitartrate 250 ml @ 3.75 mls/hr Q24H IV 01/28/25 09:15 02/04/25 18:21 3.75 MLS/HR Pantoprazole Sodium 40 mg DAILY IV 01/29/25 10:00 02/09/25 10:06 40 MG Multivitamins 1 tab DAILY PO 02/01/25 10:00 02/09/25 10:07 1 TAB Meropenem 50 ml @ 17 mls/hr Q8HR IV 02/03/25 14:00 02/10/25 05:56 17 MLS/HR Vancomycin HCl 0 ml @ 0 mls/hr UD IV 02/03/25 10:00 Enteral Nutritional Formula 1,000 ml 30ML/HR GT 02/03/25 11:30 02/10/25 05:56 1,000 ML Diphenoxylate HCl/ Atropine 2.5 mg Q12HP PRN PO 02/04/25 10:00 02/06/25 00:14 2.5 MG Methylprednisolone Sodium Succinate 40 mg BID IV 02/05/25 22:00 02/09/25 22:01 40 MG Fluconazole 100 ml @ 100 mls/hr DAILY IV 02/07/25 10:00 02/09/25 10:06 100 MLS/HR Sodium Chloride 10 ml QSHIFT@10,22 IV 02/06/25 22:00 02/09/25 22:03 10 ML Purified Water 200 ml Q6HR GT 02/09/25 12:00 02/10/25 05:56 200 ML Vancomycin HCl 200 ml @ 200 mls/hr DAILY IV 02/10/25 12:00 UNV objective General: the patient is well developed and nourished. No acute distress. MUSCULOSKELETAL EXAM: Change in the both hands is consistent with history of rheumatoid arthritis MENTAL STATUS: Subjective SPEECH, LANGUAGE, HIGHER CORTICAL FUNCTION: She does not vocalize. CRANIAL NERVES: Pupils are equal, round and reactive. EOMs full and conjugate. Facial sensation intact in all three divisions bilaterally. Mandibular strength intact. Facial muscles symmetrical and strength intact. SENSATION: Sensation to touch and pinprick is okay MOTOR: Normal tone in the upper and lower extremity. Normal muscle bulk. No fasciculations. No abnormal movements or posturing. Minimal movement in the feet REFLEXES: Deep tendon reflexes are symmetrical. No pathological reflexes. CEREBELLAR/COORDINATION: Deferred GAIT/STATION: deferred laboratory and microbiology Laboratory Tests 02/10/25 03:00 Test 02/10/25 03:00 Range/Units Serum Glucose 141 H 74-106 mg/dL Problem List Altered mental status/Metabolic encephalopathy secondary to UTI, sepsis/septic shock Pressure wound Metabolic acidosis Nausea, vomiting Bradycardia Episodic event, rule out seizure Assessment/Plan Monitoring Supportive treatment EEG Follow-up labs ICU care Stabilize vitals Respiratory support p.r.n. IV antibiotics DVT prophylaxis GI prophylaxis Cardiology consultation More recommendation per clinical course This medical document was created using an electronic medical record system with [employer] dictation system. Although this document has been carefully reviewed, there may still be some phonetic and typographical errors. These areas are purely typographical due to imperfections of the software programs, and do not reflect any compromise in the patient's medical care. Prognosis poor Dietary Evaluation Review Comments: 1. CCHO-45 Cardiac Diet 2. Reassess in 2-3 days Expected Outcomes/Goals: Gradual Wt loss will be desirable. Plan discussed with: Other RIZWANA MUÑOZ MD Feb 10, 2025 10:13
[2025-02-10] MEDS ORDERED: VANCOMYCIN 500mg/100mL 100 ML IV ONE (11:00)
--- NOTE | 2025-02-10 11:37 | DVHINCON2 ---
Date Seen: Feb 10, 2025 Referring Physician MD Daniel Reason for Consultation Bradycardia History of Present Illness This is a 59-year-old female patient who presents to the emergency room with chief complaint of altered level of mentation. At the time of assessment, the patient is only alert to self. Cardiology has been consulted at this time for bradycardia. Initial twelve lead electrocardiogram done at time of admission reveals sinus tachycardia with right bundle branch block with prolonged QTc interval. At the time of assessment, the patient is in sinus bradycardia on care technician without any significant pauses or atrioventricular blocks. Serial troponin levels done on this admission were negative. Significant past medical history includes hypertension, type 2 diabetes mellitus, rheumatoid arthritis, and obesity. Past Medical History Past medical history reviewed. No other significant than mentioned above. Past Surgical History Unable to obtain Family History: FH: brain aneurysm G8 BROTHER, Onset:Unknown FH: myocardial infarction G8 BROTHER, Onset:Unknown G8 BROTHER, Onset:Unknown Stroke in brother G8 BROTHER, Onset:Unknown Family History Family history reviewed. Social History Unable to obtain Allergies: Coded Allergies: Atorvastatin (Verified Allergy, Unknown, 01/27/25) Penicillins (Verified Allergy, Unknown, 09/14/22) Home Meds Home medications reviewed. Current Medications Current Medications Medications (Trade) Dose Ordered Sig/Karan Route PRN Reason Start Time Stop Time Status Last Admin Purified Water 200 ml Q6HR GT 02/09/25 12:00 02/10/25 05:56 Vancomycin HCl 200 ml @ 200 mls/hr DAILY IV 02/10/25 12:00 UNV Review of Systems Constitutional: No symptom reported Ears, Nose, & Throat: No symptom reported Eyes: No symptom reported Neurological: Altered level of mentation Pulmonary/Respiratory: No symptoms reported Cardiovascular: No symptom reported Gastrointestinal: No symptom reported Genitourinary: No symptom reported Musculoskeletal: No symptom reported Skin: No symptom reported Psychiatric: No symptom reported Endocrine: No symptom reported Hematologic/Lymphatic: No symptom reported Vital Signs Vital Signs Date Time Temp Pulse Resp B/P (MAP) Pulse Ox O2 Delivery O2 Flow Rate FiO2 02/10/25 10:00 46 02/10/25 10:00 14 99 Room Air* 0 21 02/10/25 10:00 145/72 (96) 02/10/25 08:00 97.8 97.8 Physical Exam General Appearance: Cooperative. Obese Pulmonary/Respiratory: Clear, bilateral breaths sounds. Cardiovascular/Chest: Regular rate and rhythm. Peripheral Pulses: 2+ Radial (R). 2+ Radial (L). 2+ Pedal (R). 2+ Pedal (L) Abdominal Exam: Normal bowel sounds. Ankle Exam: Bilateral 3+ pitting edema Lower extremities: Bilateral 3+ pitting edema Neuro/Mental Status: A/OX1, confused. Thoughts/Psych: Deferred Appearance: No acute distress. Skin Exam: Sacral wound. Ecchymosis to bilateral arms. Skin warm and dry Labs/Diagnostic Data Labs Test 02/10/25 03:00 02/10/25 02:56 02/08/25 03:45 02/06/25 23:03 Range/Units White Blood Count 6.7 4.4-10.8 10^3/uL Red Blood Count 3.07 L 4.0-5.20 10^6/uL Hemoglobin 9.0 L 12.2-16.2 g/dL Hematocrit 26.8 L 36.0-46.0 % Mean Corpuscular Volume 87.3 80.0-100.0 fL Mean Corpuscular Hemoglobin 29.3 28.0-32.0 pg Mean Corpuscular Hemoglobin Concent 33.6 32.0-36.0 g/dL Red Cell Distribution Width 15.9 H 11.8-14.3 % Platelet Count 186 140-450 10^3/uL Mean Platelet Volume 8.6 6.9-10.8 fL Neutrophils (%) (Auto) 86.7 H 37.0-80.0 % Lymphocytes (%) (Auto) 8.9 L 10.0-50.0 % Monocytes (%) (Auto) 4.3 0.0-12.0 % Eosinophils (%) (Auto) 0.0 0.0-7.0 % Basophils (%) (Auto) 0.1 0.0-2.0 % Neutrophils # (Auto) 5.8 1.6-8.6 10 ^3/uL Lymphocytes # (Auto) 0.6 0.4-5.4 10 ^3/uL Monocytes # (Auto) 0.3 0-1.3 10 ^3/uL Eosinophils # (Auto) 0 0-0.8 10 ^3/uL Basophils # (Auto) 0 0-0.2 10 ^3/uL Nucleated Red Blood Cells 0.3 % Sodium Level 145 136-145 mmol/L Potassium Level 4.0 3.5-5.1 mmol/L Chloride Level 111 H 98-107 mmol/L Carbon Dioxide Level 26 20-31 mmol/L Anion Gap 8 5-15 Blood Urea Nitrogen 32 H 9-23 mg/dL Creatinine 0.40 L 0.550-1.02 mg/dL Glomerular Filtration Rate Calc 114 >90 mL/min BUN/Creatinine Ratio 80.0 H 10.0-20.0 Serum Glucose 141 H 74-106 mg/dL Calcium Level 7.6 L 8.7-10.4 mg/dL Random Vancomycin Level 10.9 H 5-10 ug/mL POC Glucose 140 H 70-106 mg/dl Magnesium Level 2.0 1.6-2.6 mg/dL Vancomycin Level Trough 33.1 *H 5-10 ug/mL Test 02/06/25 03:16 02/05/25 16:30 02/04/25 12:51 02/04/25 08:56 Range/Units Total Bilirubin 0.7 0.2-1.0 mg/dL Aspartate Amino Transferase (AST) 15 <34 U/L Alanine Aminotransferase (ALT) < 9 7-40 U/L Alkaline Phosphatase 159 H 46-116 U/L Total Protein 4.5 L 5.7-8.2 g/dL Albumin 2.5 L 3.2-4.8 g/dL Urine Color Colorless Yellow Urine Clarity Turbid H Clear Urine pH 7.0 5.0-9.0 Urine Specific [place] 1.009 1.001-1.035 Urine Protein Trace H Negative Urine Ketones Negative Negative Urine Blood 2+ H Negative /uL Urine Nitrite Negative Negative Urine Bilirubin Negative Negative Urine Urobilinogen Normal Negative mg/dL Urine Leukocyte Esterase 3+ Negative /uL Urine RBC 5 0 - 4 /hpf Urine Microscopic WBC 26 H 0-5 /HPF Urine Squamous Epithelial Cells None seen <5 /hpf Urine Bacteria Few H None Seen /hpf Urine Glucose Trace Normal mg/dL Hepatitis A IgM Antibody Negative Hepatitis B Surface Antigen Negative Negative Hepatitis B Core IgM Antibody Negative Negative Hepatitis C Antibody Negative Negative Cortisol AM Sample 23.24 H 5.27-22.45 ug/dL HIV (1&2) Antibody Negative Negative Test 02/04/25 06:30 02/03/25 22:00 02/01/25 15:56 01/30/25 10:33 Range/Units Stool Occult Blood Negative Negative Stool Occult Blood Sample #3 Negative Urine Creatinine 21.71 L 30.0-125.0 mg/dL Urine Protein/Creatinine Ratio 2.89 Urine Total Protein 62.8 H 1-14 mg/dL Blood Gas Specimen Type Venous Blood Gas Sample Site Vbg - n/a Blood Gas Patient Temperature 37.0 Arterial Blood Date Drawn [id number] Bennie Test N/a Venous Blood pH 7.424 7.320-7.430 Venous Blood pCO2 at Patient Temp 25.2 L 38.0-54.0 mmHg Venous Blood pO2 at Patient Temp < 36.5 23.0-48.0 mmHg Venous Blood HCO3 16.1 L 22.0-29.0 mmol/L Venous Blood Base Excess -6.3 L -2.0-3.0 mmol/L Blood Gas Modality Room air FiO2 % 21.0 Ammonia < 10 L 11-32 umol/L Free Thyroxine Index 2.3 1.2-4.9 Thyroxine (T4) 5.9 4.5-12.0 ug/dL Triiodothyronine (T3) Uptake 39 24-39 % Test 01/29/25 07:46 01/28/25 13:34 01/28/25 13:30 01/28/25 09:19 Range/Units Prothrombin Time 11.2 9.3-11.8 sec Prothrombin Time INR 1.06 0.9-1.15 Activated Partial Thromboplast Time 28.6 24.5-34.5 SEC Specimen Drawn By jenny Connolly rn Erythrocyte Sedimentation Rate 62 H 0-20 mm/hr Haptoglobin 189 33-346 mg/dL Uric Acid 4.5 3.1-7.8 mg/dL C-Reactive Protein High Sensitivity 8.04 H <1.0 mg/dL Vitamin D 25-Hydroxy 11 L . ng/mL 25-Hydroxy Vitamin D2 <1.0 . ng/mL 25-Hydroxy Vitamin D3 11 . ng/mL Anti-Nuclear Antibody Comment Comment . MASHA-1 Antibody <0.2 0.0-0.9 AI SS-A/Ro Antibody <0.2 0.0-0.9 AI SS-B/La Antibody <0.2 0.0-0.9 AI Sm Antibody <0.2 0.0-0.9 AI RESIDENT ADVISOR Antibody <0.2 0.0-0.9 AI Scl-70 (Scleroderma) Antibody <0.2 0.0-0.9 AI Anti-Double Strand DNA Antibody 2 0-9 IU/mL Chromatin Antibody <0.2 0.0-0.9 AI Centromere B Antibody <0.2 0.0-0.9 AI Iron Level 74 50-170 ug/dL Total Iron Binding Capacity 129 L 250-425 ug/dL Percent Iron Saturation 57.4 H 15-50 % Vitamin B12 Level 339 211-911 pg/mL Folic Acid 2.75 >5.38 ng/mL Test 01/28/25 03:55 01/27/25 19:50 01/27/25 16:33 01/27/25 16:06 Range/Units Lactate Dehydrogenase 180 120-246 U/L Thyroid Stimulating Hormone (TSH) 3.96 0.55-4.78 uIU/mL Troponin I High Sensitivity < 3 L </=34 ng/L Lactic Acid Level 2.0 0.4-2.0 mmol/L B-Type Natriuretic Peptide 34.77 0-100 pg/mL Plasma/Serum Blood Alcohol 3.7 <10 mg/dL Urine WBC Clumps Present None Seen /hpf Urine Mucus Few None Seen Urine Yeast (Budding) Many None Seen /hpf Urine Opiates Screen Neg NEGATIVE Urine Fentanyl Screen Neg NEGATIVE Urine Barbiturates Screen Neg NEGATIVE Urine Phencyclidine Screen Neg NEGATIVE Urine Amphetamines Screen Neg NEGATIVE Urine Benzodiazepines Screen Neg NEGATIVE Urine Cocaine Screen Neg NEGATIVE Urine Cannabinoids Screen Neg NEGATIVE Microbiology Date/Time Source Procedure Growth Status 02/03/25 22:00 Urine - [place] Urine Culture - Final Complete 01/28/25 16:23 Sacrum Gram Stain - Final Complete 01/28/25 16:23 Wound Culture - Final Escherichia coli Presumptive Floridalma albicans Complete 01/27/25 16:41 Blood Blood Culture - Final NO GROWTH AFTER 5 DAYS OF INCUBATION. Complete Assessment Sinus bradycardia with prolonged QTc interval Severe sepsis Urinary tract infection History of hypertension Acute anemia status post PRBC transfusion Type 2 diabetes mellitus Rheumatoid arthritis Obesity Plan/Recommendation We will continue following plan/recommendations (Dr. Sparks): * Transthoracic echocardiogram reveals EF 60% * Avoid AV case blocking agents * Avoid medications that prolong QTc interval * Consider reversible causes for bradycardia: Hypothermia, hypoxia, electrolyte imbalances, etc * Close cardiac surveillance; notify cardiology team immediately for any pauses or atrioventricular blocks * Antibiotics per primary care team Case reviewed and discussed with . Patient remains in sinus bradycardia without any significant atrioventricular blocks or pauses. At this time, the patient does not qualify for permanent pacemaker insertion. Continue with close cardiac surveillance and notify cardiology team immediately for any ECG changes. Further recommendations per clinical course and progression. Thank you for allowing us to care for this patient. Please call with any questions or concerns. Critical care time spent: 44 minutes This medical document was created using an electronic medical record system with voice recognition software and computerized dictation system. Although this document has been carefully reviewed, there might still be some phonetic and typographical errors. Occasional wrong-word or ``sound-alike substitutions may have occurred due to the inherent limitations of voice recognition software. These areas are purely typographical due to imperfections of the software programs and do not reflect any compromise in the patient's medical care. Please read the chart carefully and recognize, using context, where these substitutions have occurred. Plan discussed with: Patient, Other (Bedside RN) NYHA Physical activity limitations: NA Date of Service: Feb 10, 2025 Billing Provider: CHRISTINA WILSON Cardiology Common Codes: 11560-[id number] INP/OBS CARE (High) Cardiology Consultation Codes: [id number] CONSULT <45MIN CHRISTINA WILSON Feb 10, 2025 11:37
[2025-02-10] MEDS ORDERED: VANCOMYCIN 1GM/200ML PM 200 ML IV SCH (12:00)
--- NOTE | 2025-02-10 12:33 | MEDREC ---
[facility] Intervention Section I [facility] Intervention: Review courses of therapy (PLEASE CONSIDER REVIEW OF THERAPY SINCE FLUCONAZOLE CAN INDUCE QT PROLONGATION - SEE CARDIO CONSULT 02/10/25) BETTE AMANDA PHARMACIST Feb 10, 2025 12:33
--- NOTE | 2025-02-10 13:17 | DVHPN2 ---
Progress Note Date Seen: Feb 10, 2025 Medical Necessity Reason Pt with a Central, PICC or Fol: Yes The following are medically ne: Perera Catheter Reason for perera catheter: Strict I&O Subjective Patient reports: No new complaints Review of Systems: HEENT:Normal, CVS:Normal, RESPIRATORY:Normal, GI:Normal, :Normal, MSK:Normal, NEURO:Normal Objective vital signs Vital Sign Date Time Temp Pulse Resp B/P (MAP) Pulse Ox O2 Delivery O2 Flow Rate FiO2 02/10/25 12:00 97.8 57 13 150/66 (94) 99 97.8 02/10/25 12:00 Room Air* 0 21 Total Intake and Output 02/09/25 02/09/25 02/10/25 15:00 23:00 07:00 Intake Total 450 ml 665 ml 812 ml Output Total 350 ml 275 ml Balance 450 ml 315 ml 537 ml medications Current Medications Medications Dose Ordered Sig/Karan Route Start Time Stop Time Status Last Admin Dose Admin Sodium Chloride 10 ml Q8HR IV 01/27/25 22:00 02/10/25 05:56 10 ML Acetaminophen/ Hydrocodone Bitart 1 tab Q4HP PRN PO 01/27/25 18:45 02/04/25 12:12 1 TAB Ondansetron HCl 4 mg Q4HP PRN IV 01/27/25 18:45 02/09/25 01:19 4 MG Docusate Sodium 100 mg BIDPRN PRN PO 01/27/25 18:45 Acetaminophen 650 mg Q6HP PRN PO 01/27/25 18:45 02/06/25 21:23 650 MG Nitroglycerin 0.4 mg Q5MINP PRN SL 01/27/25 18:45 Morphine Sulfate 2 mg Q30M PRN IV 01/27/25 18:45 Potassium Chloride 100 ml @ 50 mls/hr Q2H IV 01/28/25 07:00 01/28/25 12:59 Cancel Norepinephrine Bitartrate 250 ml @ 3.75 mls/hr Q24H IV 01/28/25 09:15 02/04/25 18:21 3.75 MLS/HR Pantoprazole Sodium 40 mg DAILY IV 01/29/25 10:00 02/10/25 10:24 40 MG Multivitamins 1 tab DAILY PO 02/01/25 10:00 02/10/25 10:25 1 TAB Meropenem 50 ml @ 17 mls/hr Q8HR IV 02/03/25 14:00 02/10/25 05:56 17 MLS/HR Vancomycin HCl 0 ml @ 0 mls/hr UD IV 02/03/25 10:00 Enteral Nutritional Formula 1,000 ml 30ML/HR GT 02/03/25 11:30 02/10/25 05:56 1,000 ML Diphenoxylate HCl/ Atropine 2.5 mg Q12HP PRN PO 02/04/25 10:00 02/06/25 00:14 2.5 MG Methylprednisolone Sodium Succinate 40 mg BID IV 02/05/25 22:00 02/10/25 10:24 40 MG Fluconazole 100 ml @ 100 mls/hr DAILY IV 02/07/25 10:00 02/10/25 10:24 100 MLS/HR Sodium Chloride 10 ml QSHIFT@10,22 IV 02/06/25 22:00 02/10/25 10:25 10 ML Purified Water 200 ml Q6HR GT 02/09/25 12:00 02/10/25 11:38 200 ML Vancomycin HCl 200 ml @ 200 mls/hr DAILY IV 02/10/25 12:00 UNV Examination: GENERAL:Normal, HEENT:Normal, NECK:Normal, LUNGS:Normal, CVS:Normal, ABDOMEN:Normal, ABDOMEN:Abnormal (ng tube), MSK:Normal, SKIN:Normal, NEURO:Normal, :Normal laboratory and microbiology Laboratory Tests 02/10/25 03:00 Test 02/10/25 03:00 Range/Units Serum Glucose 141 H 74-106 mg/dL Microbiology Date/Time Source Procedure Growth Status 02/03/25 22:00 Urine - Perera Port Urine Culture - Final Complete 01/28/25 16:23 Sacrum Gram Stain - Final Complete 01/28/25 16:23 Wound Culture - Final Escherichia coli Presumptive Floridalma albicans Complete 01/27/25 16:41 Blood Blood Culture - Final NO GROWTH AFTER 5 DAYS OF INCUBATION. Complete Problem List/Assessment/Plan Problem List/Assessment/Plan #1 septic shock with uti: iv pressors, iv antibiotics #2 gallstones: surg eval for removal #3 encephalopathy- ?metabolic #4 dm: ssi #5 RA: start solumedrol #6 obesity #7 anemia: transfuse #8 thrombocytopenia: monitor #9 nutrition: tube feedings #10 mod protein malnutrition Plan discussed with: Patient Dietary Evaluation Review Comments: 1. CCHO-45 Cardiac Diet 2. Reassess in 2-3 days Expected Outcomes/Goals: Gradual Wt loss will be desirable. Critical Care Time (mins): 38 (critical care time excluding procedures is 38 mins) Date of Service: Feb 10, 2025 Billing Provider: BAILEY ROBERSON MD Common Visit Codes: [id number] CARE 30-74 MIN BAILEY ROBERSON MD Feb 10, 2025 13:17
--- NOTE | 2025-02-10 20:08 | DVH ---
Indication: Transient events of ALOC Technique: Real-time ultrasound images of the neck vessels with floyd-scale, color and wave Doppler we re obtained. Comparison: None Findings: Mild atherosclerotic plaque. The following peak systolic velocities were recorded in cm/sec: Right internal carotid: 58 Right common carotid: 51 Right external carotid: 61 Right internal/common carotid ratio: 1.1 Left internal carotid: 66 Left common carotid: 53 Left external carotid: 62 Left internal/common carotid ratio: 1.2 Right vertebral artery: Patent with normal antegrade direction of flow. Left vertebral artery: Patent with normal antegrade direction of flow. Impression: No hemodynamically significant stenosis by velocity criteria.
[2025-02-11] VITALS (28 sets, daily range): BP systolic 139–157; BP diastolic 64–84; PULSE 47–65; RESP 10–18; TEMP 97.8–99.3; O2SAT 96–100
[2025-02-11 03:49] LABS: Anion Gap 9 (5-15); BUN/Creatinine Ratio 77.1 (10.0-20.0); Carbon Dioxide 25 mmol/L (20-31); Potassium 4.0 mmol/L (3.5-5.1); Sodium 144 mmol/L (136-145)
[2025-02-11 03:50] LABS: Bilirubin, Total 0.4 mg/dL (0.2-1.0)
[2025-02-11 03:52] LABS: Hematocrit 27.5 % (36.0-46.0); Hemoglobin 9.1 g/dL (12.2-16.2); Mean Corpuscular Hemoglobin 29.4 pg (28.0-32.0); Mean Corpuscular Volume 88.6 fL (80.0-100.0)
[2025-02-11 03:54] LABS: INR 1.18 (0.9-1.15); Partial Thromboplastin Time 22.8 SEC (24.5-34.5); Prothrombin Time 12.3 sec (9.3-11.8)
[2025-02-11 03:56] LABS: Alkaline Phosphatase 152 U/L (46-116); Blood Urea Nitrogen 27 mg/dL (9-23); Chloride 110 mmol/L (98-107); Glucose 131 mg/dL (74-106)
[2025-02-11 03:57] LABS: Alanine Aminotransferase 52 U/L (7-40); Albumin 2.5 g/dL (3.2-4.8); Calcium 7.4 mg/dL (8.7-10.4); Total Protein 4.2 g/dL (5.7-8.2)
[2025-02-11 05:34] LABS: Nucleated Red Blood Cells % 1.0 %; Total Cells Counted 100.0 (100)
[2025-02-11] MEDS: Vital AF 1.2 Cal 1 liter bottle GT SCH (07:37)
--- NOTE | 2025-02-11 10:52 | DVHPN2 ---
Progress Note - Dictate Date Seen: Feb 11, 2025 Medical Necessity Reason Pt with a Central, PICC or Fol: Yes The following are medically ne: Perera Catheter Reason for perera catheter: Strict I&O Subjective Ms. Evans is a 59 years old right-handed female with a history of hypertension, diabetes, gallstone, rheumatoid arthritis, the patient was brought to the [facility] and the [facility] on 01/27/2025 with a chief company of altered mental status. I have seen and examined the patient, I have talked to her nurse. Her sister in the room, she is awake, eyes open, she talks, is oriented x2 She can not move her extremities Her heart rate in the high 50s on 02/09/25, high 40s on 02/10/2025, high 40s-low 50s on 02/11/2025 Have discussed with cardiology [facility] reports EGD 01/02/2025: Preoperative diagnosis: Microcytic anemia, nausea, vomiting Post-op diagnosis: Diffuse gastritis, no biopsy Colonoscopy, 01/02/2025: Postop diagnosis: One normal anal canal, there was no internal external hemorrhoids. 2, moderately severe uncomplicated sigmoid diverticulosis, 3. 2 mm polyp in the mid sigmoid removed by cold biopsy. The rest of the colon is normal on AVM mucosa anomalies or other polyps ABG, 02/01/2025: Compensated metabolic acidosis, Blood culture, 01/28/2025: No growth Wound culture, 01/28/2025: E coli Urine culture, 01/28/2025: Yeast: > 100,000 UDS, 01/27/2025: Negative Plasma alcohol, 01/27/2025: 3.7 Urinalysis, 01/27/2025: WBC: 733, urine leukocyte esterase: 3+ WBC/HB/PLT/MCV, 02/17/2025: 6.6/9.4/258/83.6 HCO3, : 20, 01/28/2025: 18, 01/31/2025: 20, 02/03/2025: 14, 02/04/2025: 17. 6/1825: 20, 02/06/2025: 24, 02/10/2025: 26 CRP, 01/28/2025: 8.04 Liver function tests, 01/28/2025: Unremarkable Ammonia, : 10 Vitamin B12, 01/28/2025: 339 Folic acid, 01/28/2025: 2.75 TSH, 01/28/2025: 3.96 FT four, 01/30/2025: 2.3 Echocardiogram, 01/29/2025: Conclusion lvef 60% grade 1 diastolic dysfunction normal rv functon left atrium enlarged EEG, 02/01/2025: Moderately abnormal EEG Carotid Doppler 02/10/2025: No hemodynamically significant stenosis by velocity criteria CT abdominal/pelvis, 01/29/2025: No acute intraabdominal abnormality. Cholelithiasis.No sacral soft tissue defect visualized MRI head, 01/31/2025: No evidence of acute intracranial abnormalities vital signs Vital Sign Date Time Temp Pulse Resp B/P (MAP) Pulse Ox O2 Delivery O2 Flow Rate FiO2 02/11/25 10:00 55 02/11/25 10:00 12 100 Room Air* 0 21 02/11/25 08:00 98.3 153/82 (105) 98.3 Total Intake and Output 02/10/25 02/10/25 02/11/25 15:00 23:00 07:00 Intake Total 350 ml 391 ml 795 ml Output Total 360 ml 370 ml Balance 350 ml 31 ml 425 ml medications Current Medications Medications Dose Ordered Sig/Karan Route Start Time Stop Time Status Last Admin Dose Admin Sodium Chloride 10 ml Q8HR IV 01/27/25 22:00 02/11/25 05:31 10 ML Acetaminophen/ Hydrocodone Bitart 1 tab Q4HP PRN PO 01/27/25 18:45 02/04/25 12:12 1 TAB Ondansetron HCl 4 mg Q4HP PRN IV 01/27/25 18:45 02/09/25 01:19 4 MG Docusate Sodium 100 mg BIDPRN PRN PO 01/27/25 18:45 Acetaminophen 650 mg Q6HP PRN PO 01/27/25 18:45 02/06/25 21:23 650 MG Nitroglycerin 0.4 mg Q5MINP PRN SL 01/27/25 18:45 Morphine Sulfate 2 mg Q30M PRN IV 01/27/25 18:45 Potassium Chloride 100 ml @ 50 mls/hr Q2H IV 01/28/25 07:00 01/28/25 12:59 Cancel Norepinephrine Bitartrate 250 ml @ 3.75 mls/hr Q24H IV 01/28/25 09:15 02/04/25 18:21 3.75 MLS/HR Pantoprazole Sodium 40 mg DAILY IV 01/29/25 10:00 02/11/25 09:36 40 MG Multivitamins 1 tab DAILY PO 02/01/25 10:00 02/11/25 09:36 1 TAB Meropenem 50 ml @ 17 mls/hr Q8HR IV 02/03/25 14:00 02/11/25 05:31 17 MLS/HR Vancomycin HCl 0 ml @ 0 mls/hr UD IV 02/03/25 10:00 Diphenoxylate HCl/ Atropine 2.5 mg Q12HP PRN PO 02/04/25 10:00 02/06/25 00:14 2.5 MG Methylprednisolone Sodium Succinate 40 mg BID IV 02/05/25 22:00 02/11/25 09:36 40 MG Sodium Chloride 10 ml QSHIFT@10,22 IV 02/06/25 22:00 02/11/25 09:45 10 ML Purified Water 200 ml Q6HR GT 02/09/25 12:00 02/11/25 05:32 200 ML Vancomycin HCl 200 ml @ 200 mls/hr DAILY IV 02/10/25 12:00 UNV Enteral Nutritional Formula 1,000 ml 40ML/HR GT 02/10/25 13:15 02/11/25 07:37 1,000 ML objective General: the patient is well developed and nourished. No acute distress. MUSCULOSKELETAL EXAM: Change in the both hands is consistent with history of rheumatoid arthritis MENTAL STATUS: Subjective SPEECH, LANGUAGE, HIGHER CORTICAL FUNCTION: She does not vocalize. CRANIAL NERVES: Pupils are equal, round and reactive. EOMs full and conjugate. Facial sensation intact in all three divisions bilaterally. Mandibular strength intact. Facial muscles symmetrical and strength intact. SENSATION: Sensation to touch and pinprick is okay MOTOR: Normal tone in the upper and lower extremity. Normal muscle bulk. No fasciculations. No abnormal movements or posturing. Minimal movement in the feet REFLEXES: Deep tendon reflexes are symmetrical. No pathological reflexes. CEREBELLAR/COORDINATION: Deferred GAIT/STATION: deferred laboratory and microbiology Laboratory Tests 02/11/25 03:00 Test 02/11/25 03:00 Range/Units Serum Glucose 131 H 74-106 mg/dL Problem List Altered mental status/Metabolic encephalopathy secondary to UTI, sepsis/septic shock Pressure wound Metabolic acidosis Nausea, vomiting Bradycardia Episodic event, rule out seizure Assessment/Plan Monitoring Supportive treatment EEG Follow-up labs ICU care Stabilize vitals Respiratory support p.r.n. IV antibiotics DVT prophylaxis GI prophylaxis Cardiology on case More recommendation per clinical course This medical document was created using an electronic medical record system with [employer] dictation system. Although this document has been carefully reviewed, there may still be some phonetic and typographical errors. These areas are purely typographical due to imperfections of the software programs, and do not reflect any compromise in the patient's medical care. Prognosis poor Dietary Evaluation Review Comments: 1. CCHO-45 Cardiac Diet 2. Reassess in 2-3 days Expected Outcomes/Goals: Gradual Wt loss will be desirable. Plan discussed with: Other RIZWANA MUÑOZ MD Feb 11, 2025 10:52
--- NOTE | 2025-02-11 10:54 | DVHPN2 ---
Consult Progress Note Date Seen: Feb 11, 2025 Subjective Other Systems: No overnight cardiac events reported Objective vital signs Vital Sign Date Time Temp Pulse Resp B/P (MAP) Pulse Ox O2 Delivery O2 Flow Rate FiO2 02/11/25 08:00 14 100 Room Air* 0 21 02/11/25 08:00 54 02/11/25 08:00 98.3 153/82 (105) 98.3 Total Intake and Output 02/10/25 02/10/25 02/11/25 15:00 23:00 07:00 Intake Total 350 ml 391 ml 795 ml Output Total 360 ml 370 ml Balance 350 ml 31 ml 425 ml medications Current Medications Medications Dose Ordered Sig/Karan Route Start Time Stop Time Status Last Admin Dose Admin Sodium Chloride 10 ml Q8HR IV 01/27/25 22:00 02/11/25 05:31 10 ML Acetaminophen/ Hydrocodone Bitart 1 tab Q4HP PRN PO 01/27/25 18:45 02/04/25 12:12 1 TAB Ondansetron HCl 4 mg Q4HP PRN IV 01/27/25 18:45 02/09/25 01:19 4 MG Docusate Sodium 100 mg BIDPRN PRN PO 01/27/25 18:45 Acetaminophen 650 mg Q6HP PRN PO 01/27/25 18:45 02/06/25 21:23 650 MG Nitroglycerin 0.4 mg Q5MINP PRN SL 01/27/25 18:45 Morphine Sulfate 2 mg Q30M PRN IV 01/27/25 18:45 Potassium Chloride 100 ml @ 50 mls/hr Q2H IV 01/28/25 07:00 01/28/25 12:59 Cancel Norepinephrine Bitartrate 250 ml @ 3.75 mls/hr Q24H IV 01/28/25 09:15 02/04/25 18:21 3.75 MLS/HR Pantoprazole Sodium 40 mg DAILY IV 01/29/25 10:00 02/11/25 09:36 40 MG Multivitamins 1 tab DAILY PO 02/01/25 10:00 02/11/25 09:36 1 TAB Meropenem 50 ml @ 17 mls/hr Q8HR IV 02/03/25 14:00 02/11/25 05:31 17 MLS/HR Vancomycin HCl 0 ml @ 0 mls/hr UD IV 02/03/25 10:00 Diphenoxylate HCl/ Atropine 2.5 mg Q12HP PRN PO 02/04/25 10:00 02/06/25 00:14 2.5 MG Methylprednisolone Sodium Succinate 40 mg BID IV 02/05/25 22:00 02/11/25 09:36 40 MG Sodium Chloride 10 ml QSHIFT@10,22 IV 02/06/25 22:00 02/11/25 09:45 10 ML Purified Water 200 ml Q6HR GT 02/09/25 12:00 02/11/25 05:32 200 ML Vancomycin HCl 200 ml @ 200 mls/hr DAILY IV 02/10/25 12:00 UNV Enteral Nutritional Formula 1,000 ml 40ML/HR GT 02/10/25 13:15 02/11/25 07:37 1,000 ML Examination: CVS:Normal (Sinus bradycardia 40s-50s bpm. Repeat ECG from 02/10/25 revealed a QTc of 448 ms), MSK:Abnormal (Third spacing to BLE), NEURO:Abnormal (Withdrawn) laboratory and microbiology Laboratory Tests 02/11/25 03:00 Test 02/11/25 03:00 Range/Units Serum Glucose 131 H 74-106 mg/dL Problem List/Assessment/Plan Problem List/Assessment/Plan Sinus bradycardia with improved QTc interval Severe sepsis Urinary tract infection History of hypertension Acute anemia status post PRBC transfusion Type 2 diabetes mellitus Rheumatoid arthritis Obesity Plan/Recommendation (Dr. Sparks) * Transthoracic echocardiogram reveals EF 60% * Avoid AV case blocking agents * Avoid medications that prolong QTc interval * Consider reversible causes for bradycardia: hypothermia, hypoxia, electrolyte imbalances, etc * Close cardiac surveillance; notify cardiology team immediately for any pauses or atrioventricular blocks * Atropine for HR =<30 bpm or TC pacing PRN for HR >30 bpm * Initiate albumin therapy Patient remains in sinus bradycardia without any significant atrioventricular blocks or pauses. At this time, the patient does not qualify for permanent pacemaker insertion. Continue with close cardiac surveillance and notify cardiology team immediately for any ECG changes. Cardiology team will be following up as needed basis. Kindly call in the setting worsening bradycardic events. Thank you for allowing us to care for this patient. Please call with any questions or concerns. Critical care time: 35 min. This medical document was created using an electronic medical record system with voice recognition software and computerized dictation system. Although this document has been carefully reviewed, there might still be some phonetic and typographical errors. Occasional wrong-word or ``sound-alike substitutions may have occurred due to the inherent limitations of voice recognition software. These areas are purely typographical due to imperfections of the software programs and do not reflect any compromise in the patient's medical care. Please read the chart carefully and recognize, using context, where these substitutions have occurred. Plan discussed with: Daughter, Other (Sister, primary RN) Dietary Evaluation Review Comments: 1. CCHO-45 Cardiac Diet 2. Reassess in 2-3 days Expected Outcomes/Goals: Gradual Wt loss will be desirable. Date of Service: Feb 11, 2025 Billing Provider: ANAMARIA SÁNCHEZ Cardiology Common Codes: [id number] CARE 30-74 MIN ANAMARIA SÁNCHEZ Feb 11, 2025 10:54
[2025-02-11] MEDS: ALBUMIN 25% 50 ML IV SCH (13:56)
[2025-02-11] MEDS: HYDROCORTISONE SOD SUCC 100 MG/2ML INJ VIAL IV ONE (14:45)
--- NOTE | 2025-02-11 15:08 | DVHPN2 ---
Progress Note Date Seen: Feb 11, 2025 Medical Necessity Reason Pt with a Central, PICC or Fol: Yes The following are medically ne: Perera Catheter Reason for perera catheter: Strict I&O Subjective Patient reports: No new complaints Review of Systems: HEENT:Normal, CVS:Normal, RESPIRATORY:Normal, GI:Normal, :Normal, MSK:Normal, NEURO:Normal Objective vital signs Vital Sign Date Time Temp Pulse Resp B/P (MAP) Pulse Ox O2 Delivery O2 Flow Rate FiO2 02/11/25 14:00 18 96 Room Air* 0 21 02/11/25 14:00 62 02/11/25 12:00 98.1 155/74 (101) 98.1 Total Intake and Output 02/10/25 02/10/25 02/11/25 15:00 23:00 07:00 Intake Total 350 ml 391 ml 795 ml Output Total 360 ml 370 ml Balance 350 ml 31 ml 425 ml medications Current Medications Medications Dose Ordered Sig/Karan Route Start Time Stop Time Status Last Admin Dose Admin Sodium Chloride 10 ml Q8HR IV 01/27/25 22:00 02/11/25 14:00 10 ML Acetaminophen/ Hydrocodone Bitart 1 tab Q4HP PRN PO 01/27/25 18:45 02/04/25 12:12 1 TAB Ondansetron HCl 4 mg Q4HP PRN IV 01/27/25 18:45 02/09/25 01:19 4 MG Docusate Sodium 100 mg BIDPRN PRN PO 01/27/25 18:45 Acetaminophen 650 mg Q6HP PRN PO 01/27/25 18:45 02/06/25 21:23 650 MG Nitroglycerin 0.4 mg Q5MINP PRN SL 01/27/25 18:45 Morphine Sulfate 2 mg Q30M PRN IV 01/27/25 18:45 Potassium Chloride 100 ml @ 50 mls/hr Q2H IV 01/28/25 07:00 01/28/25 12:59 Cancel Norepinephrine Bitartrate 250 ml @ 3.75 mls/hr Q24H IV 01/28/25 09:15 02/04/25 18:21 3.75 MLS/HR Pantoprazole Sodium 40 mg DAILY IV 01/29/25 10:00 02/11/25 09:36 40 MG Multivitamins 1 tab DAILY PO 02/01/25 10:00 02/11/25 09:36 1 TAB Meropenem 50 ml @ 17 mls/hr Q8HR IV 02/03/25 14:00 02/11/25 13:55 17 MLS/HR Vancomycin HCl 0 ml @ 0 mls/hr UD IV 02/03/25 10:00 Diphenoxylate HCl/ Atropine 2.5 mg Q12HP PRN PO 02/04/25 10:00 02/06/25 00:14 2.5 MG Methylprednisolone Sodium Succinate 40 mg BID IV 02/05/25 22:00 02/11/25 09:36 40 MG Sodium Chloride 10 ml QSHIFT@10,22 IV 02/06/25 22:00 02/11/25 09:45 10 ML Purified Water 200 ml Q6HR GT 02/09/25 12:00 02/11/25 12:18 200 ML Vancomycin HCl 200 ml @ 200 mls/hr DAILY IV 02/10/25 12:00 UNV Enteral Nutritional Formula 1,000 ml 40ML/HR GT 02/10/25 13:15 02/11/25 07:37 1,000 ML Albumin Human 50 ml @ 100 mls/hr Q8H IV 02/11/25 11:45 02/12/25 04:14 02/11/25 13:56 100 MLS/HR Examination: GENERAL:Normal, HEENT:Normal, NECK:Normal, LUNGS:Normal, CVS:Normal, ABDOMEN:Normal, MSK:Normal, MSK:Abnormal (anasarca), SKIN:Normal, NEURO:Normal, NEURO:Abnormal (quadriparesis), :Normal laboratory and microbiology Laboratory Tests 02/11/25 03:00 Test 02/11/25 03:00 Range/Units Serum Glucose 131 H 74-106 mg/dL Microbiology Date/Time Source Procedure Growth Status 02/03/25 22:00 Urine - Perera Port Urine Culture - Final Complete 01/28/25 16:23 Sacrum Gram Stain - Final Complete 01/28/25 16:23 Wound Culture - Final Escherichia coli Presumptive Floridalma albicans Complete 01/27/25 16:41 Blood Blood Culture - Final NO GROWTH AFTER 5 DAYS OF INCUBATION. Complete Problem List/Assessment/Plan Problem List/Assessment/Plan #1 septic shock with uti: iv pressors, iv antibiotics #2 gallstones: surg planned for #3 encephalopathy- ?metabolic #4 dm: ssi #5 RA: start solumedrol #6 obesity #7 anemia: transfuse #8 thrombocytopenia: monitor #9 nutrition: tube feedings #10 mod protein malnutrition #11 quadriparesis: mri c spine Plan discussed with: Other (sister) My Orders My Orders Orders - BAILEY ROBERSON MD Procedure Category Date Status Time Cervical Wo Contrast MRI 02/11/25 Verified 15:01 Complete Blood Count LAB 02/12/25 Verified 06:00 Comprehensive LAB 02/12/25 Verified Metabolic Panel 06:00 Chest Portable XY 02/12/25 Verified 06:00 Dietary Evaluation Review Comments: 1. CCHO-45 Cardiac Diet 2. Reassess in 2-3 days Expected Outcomes/Goals: Gradual Wt loss will be desirable. Critical Care Time (mins): 41 (critical care time 41 mins) Date of Service: Feb 11, 2025 Billing Provider: BAILEY ROBERSON MD Common Visit Codes: [id number] CARE 30-74 MIN BAILEY ROBERSON MD Feb 11, 2025 15:08
[2025-02-11] MEDS: PHYTONADIONE (VIT K)10 MG/ML 1ML VIAL SUBCUT ONE (16:32)
[2025-02-11] MEDS: FUROSEMIDE 20 MG/2 ML VIAL IV ONE (18:01)
[2025-02-12] VITALS (27 sets, daily range): BP systolic 131–174; BP diastolic 66–77; PULSE 51–83; RESP 8–18; TEMP 97.8–98.6; O2SAT 99–100
[2025-02-12 03:58] LABS: Hematocrit 26.0 % (36.0-46.0); Hemoglobin 8.6 g/dL (12.2-16.2); Mean Corpuscular Hemoglobin 29.7 pg (28.0-32.0); Mean Corpuscular Volume 90.0 fL (80.0-100.0)
[2025-02-12 04:00] LABS: Anion Gap 8 (5-15); BUN/Creatinine Ratio 69.7 (10.0-20.0); Carbon Dioxide 26 mmol/L (20-31); Potassium 3.7 mmol/L (3.5-5.1); Sodium 145 mmol/L (136-145)
[2025-02-12 04:01] LABS: Bilirubin, Total 0.5 mg/dL (0.2-1.0)
[2025-02-12 04:21] LABS: Alanine Aminotransferase 58 U/L (7-40); Albumin 2.9 g/dL (3.2-4.8); Alkaline Phosphatase 124 U/L (46-116); Blood Urea Nitrogen 23 mg/dL (9-23); Calcium 7.8 mg/dL (8.7-10.4); Chloride 111 mmol/L (98-107); Glucose 170 mg/dL (74-106); Total Protein 4.4 g/dL (5.7-8.2)
--- NOTE | 2025-02-12 05:11 | DVH ---
CHEST RADIOGRAPH Indication: pneumonia Technique: Single frontal view of the chest was obtained COMPARISON: XY CHEST XRAY 1 VIEW on DOS: 02/07/25, XY CHEST PORTABLE on DOS: 02/03/25, XY CHEST PORTABL E on DOS: 02/03/25, XY CHEST PORTABLE on DOS: 01/27/25 FINDINGS: Lines and Tubes: Enteric catheter in satisfactory position. Lungs: Increased interstitial prominence Pleura: No effusion. No pneumothorax. Cardiomediastinal contours: Unremarkable Bones: Unremarkable IMPRESSION: Mild pulmonary vascular congestion or viral pneumonia. No significant interval change.
[2025-02-12 05:13] LABS: Total Cells Counted 100.0 (100)
--- NOTE | 2025-02-12 09:57 | DVHPN2 ---
Progress Note - Dictate Date Seen: Feb 12, 2025 Medical Necessity Reason Pt with a Central, PICC or Fol: Yes The following are medically ne: Perera Catheter Reason for perera catheter: Strict I&O Subjective Ms. Evans is a 59 years old right-handed female with a history of hypertension, diabetes, gallstone, rheumatoid arthritis, the patient was brought to the [place] [facility] on 01/27/2025 with a chief company of altered mental status. I have seen and examined the patient, I have talked to her nurse. I have talked to her sister as well, who was outside the ICU He is doing fine today, awake, she talks, socially appropriate, she answer "yes" to all the questions except for "pain" Heart rate is in the 50s [facility] reports EGD 01/02/2025: Preoperative diagnosis: Microcytic anemia, nausea, vomiting Post-op diagnosis: Diffuse gastritis, no biopsy Colonoscopy, 01/02/2025: Postop diagnosis: One normal anal canal, there was no internal external hemorrhoids. 2, moderately severe uncomplicated sigmoid diverticulosis, 3. 2 mm polyp in the mid sigmoid removed by cold biopsy. The rest of the colon is normal on AVM mucosa anomalies or other polyps ABG, 02/01/2025: Compensated metabolic acidosis, Blood culture, 01/28/2025: No growth Wound culture, 01/28/2025: E coli Urine culture, 01/28/2025: Yeast: > 100,000 UDS, 01/27/2025: Negative Plasma alcohol, 01/27/2025: 3.7 Urinalysis, 01/27/2025: WBC: 733, urine leukocyte esterase: 3+ WBC/HB/PLT/MCV, 02/17/2025: 6.6/9.4/258/83.6 HCO3, : 20, 01/28/2025: 18, 01/31/2025: 20, 02/03/2025: 14, 02/04/2025: 17. 6/: 20, 02/06/2025: 24, 02/10/2025: 26 CRP, 01/28/2025: 8.04 Liver function tests, 01/28/2025: Unremarkable Ammonia, : 10 Vitamin B12, 01/28/2025: 339 Folic acid, 01/28/2025: 2.75 TSH, 01/28/2025: 3.96 FT four, 01/30/2025: 2.3 Echocardiogram, 01/29/2025: Conclusion lvef 60% grade 1 diastolic dysfunction normal rv functon left atrium enlarged EEG, 02/01/2025: Moderately abnormal EEG Carotid Doppler 02/10/2025: No hemodynamically significant stenosis by velocity criteria CT abdominal/pelvis, 01/29/2025: No acute intraabdominal abnormality. Cholelithiasis.No sacral soft tissue defect visualized MRI head, 01/31/2025: No evidence of acute intracranial abnormalities vital signs Vital Sign Date Time Temp Pulse Resp B/P (MAP) Pulse Ox O2 Delivery O2 Flow Rate FiO2 02/12/25 06:00 55 12 148/69 (95) 100 02/12/25 06:00 Room Air* 0 21 02/12/25 04:00 97.8 97.8 Total Intake and Output 02/11/25 02/11/25 02/12/25 15:00 23:00 07:00 Intake Total 100 ml 930 ml 862 ml Output Total 825 ml 1200 ml Balance 100 ml 105 ml -338 ml medications Current Medications Medications Dose Ordered Sig/Karan Route Start Time Stop Time Status Last Admin Dose Admin Sodium Chloride 10 ml Q8HR IV 01/27/25 22:00 02/12/25 05:44 10 ML Acetaminophen/ Hydrocodone Bitart 1 tab Q4HP PRN PO 01/27/25 18:45 02/04/25 12:12 1 TAB Ondansetron HCl 4 mg Q4HP PRN IV 01/27/25 18:45 02/09/25 01:19 4 MG Docusate Sodium 100 mg BIDPRN PRN PO 01/27/25 18:45 Acetaminophen 650 mg Q6HP PRN PO 01/27/25 18:45 02/06/25 21:23 650 MG Nitroglycerin 0.4 mg Q5MINP PRN SL 01/27/25 18:45 Morphine Sulfate 2 mg Q30M PRN IV 01/27/25 18:45 Potassium Chloride 100 ml @ 50 mls/hr Q2H IV 01/28/25 07:00 01/28/25 12:59 Cancel Pantoprazole Sodium 40 mg DAILY IV 01/29/25 10:00 02/11/25 09:36 40 MG Multivitamins 1 tab DAILY PO 02/01/25 10:00 02/11/25 09:36 1 TAB Meropenem 50 ml @ 17 mls/hr Q8HR IV 02/03/25 14:00 02/12/25 05:43 17 MLS/HR Vancomycin HCl 0 ml @ 0 mls/hr UD IV 02/03/25 10:00 Diphenoxylate HCl/ Atropine 2.5 mg Q12HP PRN PO 02/04/25 10:00 02/06/25 00:14 2.5 MG Methylprednisolone Sodium Succinate 40 mg BID IV 02/05/25 22:00 02/11/25 21:50 40 MG Sodium Chloride 10 ml QSHIFT@10,22 IV 02/06/25 22:00 02/11/25 21:50 10 ML Purified Water 200 ml Q6HR GT 02/09/25 12:00 02/12/25 05:43 200 ML Vancomycin HCl 200 ml @ 200 mls/hr DAILY IV 02/10/25 12:00 UNV Enteral Nutritional Formula 1,000 ml 40ML/HR GT 02/10/25 13:15 02/12/25 05:48 1,000 ML objective General: the patient is well developed and nourished. No acute distress. MUSCULOSKELETAL EXAM: Change in the both hands is consistent with history of rheumatoid arthritis MENTAL STATUS: Subjective SPEECH, LANGUAGE, HIGHER CORTICAL FUNCTION: She does not vocalize. CRANIAL NERVES: Pupils are equal, round and reactive. EOMs full and conjugate. Facial sensation intact in all three divisions bilaterally. Mandibular strength intact. Facial muscles symmetrical and strength intact. SENSATION: Sensation to touch and pinprick is okay MOTOR: Normal tone in the upper and lower extremity. Normal muscle bulk. No fasciculations. No abnormal movements or posturing. Minimal movement in the feet REFLEXES: Deep tendon reflexes are symmetrical. No pathological reflexes. CEREBELLAR/COORDINATION: Deferred GAIT/STATION: deferred laboratory and microbiology Laboratory Tests 02/12/25 02:55 Test 02/12/25 02:55 Range/Units Serum Glucose 170 H 74-106 mg/dL Problem List Altered mental status/Metabolic encephalopathy secondary to UTI, sepsis/septic shock Pressure wound Metabolic acidosis Nausea, vomiting Bradycardia Episodic event, rule out seizure Quadriparesis Assessment/Plan Monitoring Supportive treatment EEG MRI C-spine Follow-up labs ICU care Stabilize vitals Respiratory support p.r.n. IV antibiotics DVT prophylaxis GI prophylaxis Cardiology on case More recommendation per clinical course This medical document was created using an electronic medical record system with [employer] dictation system. Although this document has been carefully reviewed, there may still be some phonetic and typographical errors. These areas are purely typographical due to imperfections of the software programs, and do not reflect any compromise in the patient's medical care. Prognosis poor Dietary Evaluation Review Comments: 1. CCHO-45 Cardiac Diet 2. Reassess in 2-3 days Expected Outcomes/Goals: Gradual Wt loss will be desirable. Plan discussed with: Other RIZWANA MUÑOZ MD Feb 12, 2025 09:57
[2025-02-12] MEDS: VANCOMYCIN 1GM/200ML PM 200 ML IV ONE (11:00)
--- NOTE | 2025-02-12 16:00 | DVH ---
PROCEDURE: MRI CERVICAL WO CONTRAST Indication: cervical myelopathy COMPARISON: None TECHNIQUE: Multiplanar multisequence images of the the cervical spine are obtained. FINDINGS: Cervical vertebral body heights are maintained. Alignment maintained. Moderate multilevel disc space narrowing and desiccation. No prevertebral edema. Atlantooccipital, atlantoaxial articulations intact. C2-3: Small disc osteophyte complex. No spinal canal stenosis. Mild left neural foraminal stenosis. C3-4: Small disc osteophyte complex. No spinal canal stenosis. Moderate to severe left and mild-to-mo derate right neural foraminal stenosis secondary to facet and uncovertebral hypertrophy. C4-5: Disc osteophyte complex narrowing the ventral and dorsal CSF spaces. Thecal sac measures 9 mm A P. Mild spinal canal stenosis. Severe bilateral neural foraminal stenosis secondary to facet and unco vertebral hypertrophy. C5-6: Disc osteophyte complex narrowing the ventral and dorsal CSF spaces. Thecal sac measures 8 mm A P. [id number] spinal canal stenosis. Severe left and moderate to severe right neural foraminal stenosis secondary to facet and uncovertebral hypertrophy. C6-7: Small disc osteophyte complex. No spinal canal stenosis. Severe right and moderate to severe le ft neural foraminal stenosis. C7-T1: No spinal canal, neural foraminal stenosis. T1-2: Large disc osteophyte complex narrowing the ventral CSF space. Dorsal CSF space preserved. Thec al sac measures 9 mm AP. Mild spinal canal stenosis. Moderate to severe right and mild left neural fo raminal stenosis. IMPRESSION: Moderate cervical degenerative disc disease. [id number] spinal canal stenosis C5-6. Mild spinal canal stenosis at C4-5, T1-2. Moderate to severe multilevel neural foraminal stenosis as described. Recommend MRI thoracic spine to further evaluate given the findings at T1-T2.
--- NOTE | 2025-02-12 16:19 | DVHPN2 ---
Progress Note Date Seen: Feb 12, 2025 Medical Necessity Reason Pt with a Central, PICC or Fol: Yes The following are medically ne: Perera Catheter Reason for perera catheter: Strict I&O Subjective Patient reports: No new complaints Review of Systems: HEENT:Normal, CVS:Normal, RESPIRATORY:Normal, GI:Normal, :Normal, MSK:Normal, NEURO:Normal Objective vital signs Vital Sign Date Time Temp Pulse Resp B/P (MAP) Pulse Ox O2 Delivery O2 Flow Rate FiO2 02/12/25 16:12 14 100 Room Air* 0 21 02/12/25 16:12 61 02/12/25 14:00 98.2 160/73 (102) 98.2 Total Intake and Output 02/11/25 02/11/25 02/12/25 15:00 23:00 07:00 Intake Total 100 ml 930 ml 862 ml Output Total 825 ml 1200 ml Balance 100 ml 105 ml -338 ml medications Current Medications Medications Dose Ordered Sig/Karan Route Start Time Stop Time Status Last Admin Dose Admin Sodium Chloride 10 ml Q8HR IV 01/27/25 22:00 02/12/25 12:27 10 ML Ondansetron HCl 4 mg Q4HP PRN IV 01/27/25 18:45 02/09/25 01:19 4 MG Docusate Sodium 100 mg BIDPRN PRN PO 01/27/25 18:45 Acetaminophen 650 mg Q6HP PRN PO 01/27/25 18:45 02/06/25 21:23 650 MG Nitroglycerin 0.4 mg Q5MINP PRN SL 01/27/25 18:45 Potassium Chloride 100 ml @ 50 mls/hr Q2H IV 01/28/25 07:00 01/28/25 12:59 Cancel Pantoprazole Sodium 40 mg DAILY IV 01/29/25 10:00 02/12/25 12:25 40 MG Multivitamins 1 tab DAILY PO 02/01/25 10:00 02/11/25 09:36 1 TAB Meropenem 50 ml @ 17 mls/hr Q8HR IV 02/03/25 14:00 02/12/25 12:25 17 MLS/HR Vancomycin HCl 0 ml @ 0 mls/hr UD IV 02/03/25 10:00 Diphenoxylate HCl/ Atropine 2.5 mg Q12HP PRN PO 02/04/25 10:00 02/06/25 00:14 2.5 MG Methylprednisolone Sodium Succinate 40 mg BID IV 02/05/25 22:00 02/12/25 12:25 40 MG Sodium Chloride 10 ml QSHIFT@10,22 IV 02/06/25 22:00 02/12/25 12:27 10 ML Purified Water 200 ml Q6HR GT 02/09/25 12:00 02/12/25 05:43 200 ML Vancomycin HCl 200 ml @ 200 mls/hr DAILY IV 02/10/25 12:00 UNV Enteral Nutritional Formula 1,000 ml 40ML/HR GT 02/10/25 13:15 02/12/25 05:48 1,000 ML Examination: GENERAL:Normal, HEENT:Normal, NECK:Normal, LUNGS:Normal, CVS:Normal, ABDOMEN:Normal, MSK:Normal, SKIN:Normal, NEURO:Normal, :Normal laboratory and microbiology Laboratory Tests 02/12/25 02:55 Test 02/12/25 02:55 Range/Units Serum Glucose 170 H 74-106 mg/dL Microbiology Date/Time Source Procedure Growth Status 02/03/25 22:00 Urine - Perera Port Urine Culture - Final Complete 01/28/25 16:23 Sacrum Gram Stain - Final Complete 01/28/25 16:23 Wound Culture - Final Escherichia coli Presumptive Floridalma albicans Complete 01/27/25 16:41 Blood Blood Culture - Final NO GROWTH AFTER 5 DAYS OF INCUBATION. Complete Problem List/Assessment/Plan Problem List/Assessment/Plan #1 septic shock with uti: off iv pressors, iv antibiotics #2 gallstones: surg in am #3 encephalopathy- ?metabolic #4 dm: ssi #5 RA: start solumedrol #6 obesity #7 anemia: transfuse #8 thrombocytopenia: monitor #9 nutrition: tube feedings #10 mod protein malnutrition #11 quadriparesis: mri c spine #12 htn: hydralazine, lasix iv Plan discussed with: Other (rn) Dietary Evaluation Review Comments: 1. CCHO-45 Cardiac Diet 2. Reassess in 2-3 days Expected Outcomes/Goals: Gradual Wt loss will be desirable. Critical Care Time (mins): 38 (critical care time excluding procedures was 38 mins) Date of Service: Feb 12, 2025 Billing Provider: BAILEY ROBERSON MD Common Visit Codes: [id number] CARE 30-74 BAILEY HEALY MD Feb 12, 2025 16:19
[2025-02-12] MEDS: FREE WATER GT SCH (18:00)
[2025-02-12] MEDS: hydrALAZINE HCL 20 MG/ML VL IV PRN (18:09)
[2025-02-12] MEDS: FUROSEMIDE 20 MG/2 ML VIAL IV ONE (18:10)
[2025-02-12] MEDS: methylPREDNISolone SOD SUCC 40 MG/ML VL IV SCH (21:46)
[2025-02-13] VITALS (24 sets, daily range): BP systolic 92–158; BP diastolic 52–79; PULSE 53–125; RESP 11–19; TEMP 94.6–98.4; O2SAT 98–100
--- NOTE | 2025-02-13 00:22 | DVHEEG2 ---
Neurology EEG Procedural Note Procedural Note EXAM DATE: 02/07/2025 REFERRING DOCTOR: Dr. Muñoz TECHNIQUE: Eighteen channels of EEG, 2 channels of EOG, and 1 channel of EKG were recorded using the International 10/20 system. CLINICAL DATA: The patient was referred for an EEG evaluation for the evidence of seizure disorder. MEDICATIONS: See the chart BACKGROUND ACTIVITY: There was significant amount of electrode artifacts, the EEG appeared to be diffuse low amplitude theta activity over both hemispheres ACTIVATION: Hyperventilation: Not done Photic Stimulation: Not done Sleep: Not seen IMPRESSION: This is an inadequate but likely mildly abnormal EEG, this EEG seen in mild cerebral dysfunction due to metabolic/hypoxic encephalopathy or medication effects, please correlate clinically. The EKG channel showed a regular heart rate of 78/min[place] [address] RIZWANA MUÑOZ MD Feb 13, 2025 00:22
[2025-02-13 03:24] LABS: Hematocrit 26.8 % (36.0-46.0); Hemoglobin 8.8 g/dL (12.2-16.2); Mean Corpuscular Hemoglobin 29.9 pg (28.0-32.0); Mean Corpuscular Volume 90.8 fL (80.0-100.0)
[2025-02-13 03:37] LABS: Anion Gap 9 (5-15); BUN/Creatinine Ratio 87.5 (10.0-20.0); Blood Urea Nitrogen 21 mg/dL (9-23); Carbon Dioxide 26 mmol/L (20-31); Potassium 3.6 mmol/L (3.5-5.1)
[2025-02-13 03:38] LABS: Bilirubin, Total 0.5 mg/dL (0.2-1.0)
[2025-02-13 03:54] LABS: Alanine Aminotransferase 78 U/L (7-40); Albumin 2.9 g/dL (3.2-4.8); Alkaline Phosphatase 118 U/L (46-116); Calcium 7.7 mg/dL (8.7-10.4); Chloride 112 mmol/L (98-107); Glucose 142 mg/dL (74-106); Sodium 147 mmol/L (136-145); Total Protein 4.3 g/dL (5.7-8.2)
[2025-02-13 04:39] LABS: Anisocytosis Slight; Total Cells Counted 100.0 (100)
--- NOTE | 2025-02-13 05:44 | DVH ---
EXAM: XR Chest, 1 View CLINICAL INDICATION: Pre-op/ NG placement TECHNIQUE: Frontal view of the chest. COMPARISON: No relevant prior studies available. FINDINGS: LUNGS AND PLEURAL SPACES: Unremarkable. No consolidation. No pneumothorax. HEART: Unremarkable. No cardiomegaly. MEDIASTINUM: Unremarkable. Normal mediastinal contour. BONES/JOINTS: Unremarkable. No acute fracture. TUBES, LINES AND DEVICES: Enteric tube is in the stomach. OTHER FINDINGS: Comparison XY CHEST PORTABLE on DOS: 02/12/25, XY CHEST XRAY 1 VIEW on DOS: 02/07/25, XY CHEST PORTABLE on DOS: 02/03/25, XY CHEST PORTABLE on DOS: 02/03/25, XY CHEST PORTABLE on DOS: . IMPRESSION: Enteric tube is in the stomach. HS:Y
[2025-02-13] MEDS ORDERED: KETAMINE 50mg/ML 1ml syringe ONE (06:48)
[2025-02-13] MEDS ORDERED: MIDAZOLAM HCL 2MG/2ML 2ml VIAL (1mg/ml) ONE (06:48)
[2025-02-13] MEDS ORDERED: fentaNYL CITRATE 5 ML ONE (06:49)
[2025-02-13] MEDS ORDERED: ROCURONIUM 10MG/ML 10ML VIAL IV ONE (06:49)
[2025-02-13] MEDS ORDERED: LIDOCAINE 1% INJ PF 5ML AMP ONE (06:49)
[2025-02-13] MEDS ORDERED: SODIUM CHLORIDE LOCK 10 ML ONE (06:49)
[2025-02-13] MEDS ORDERED: LIDOCAINE HCL 2% TOP JELLY 5ML TOP ONE (06:49)
[2025-02-13] MEDS ORDERED: PROPOFOL 10 MG/ML 20 ML IV ONE (06:49)
[2025-02-13] MEDS ORDERED: ONDANSETRON HCL 4 MG/2 ML VIAL ONE (06:49)
[2025-02-13] MEDS ORDERED: HYDROmorphone HCL 2 MG/ML VL/or syr IV PRN ×2 (07:15)
[2025-02-13] MEDS ORDERED: MORPHINE SULFATE 4 MG/ML SYR/VIAL IV PRN (07:15)
[2025-02-13] MEDS: METOCLOPRAMIDE HCL 5MG/ml INJ 2ml VIAL IV ONE (07:15)
[2025-02-13] MEDS: KETOROLAC TROMETH 30 MG/ML 1ML VIAL IV ONE (07:15)
[2025-02-13] MEDS ORDERED: HYDROCORTISONE SOD SUCC 100 MG/2ML INJ VIAL ONE (07:29)
[2025-02-13] MEDS ORDERED: MORPHINE SULFATE INJ 2 MG/ml SYRG IV PRN (07:56)
[2025-02-13] MEDS ORDERED: SUGAMMADEX 200mg/2ml Vial (100MG/ML) IV ONE (08:07)
[2025-02-13] MEDS ORDERED: NEOSTIGMINE 1 MG/ML INJ (10mg/10ML VIAL) ONE (08:30)
[2025-02-13] MEDS ORDERED: GLYCOPYRROLATE 0.2 MG/ML 1ML VIAL ONE (08:30)
[2025-02-13] MEDS: BUPIVACAINE HCL 0.25% P/F 10 ML VIAL ONE (08:40)
[2025-02-13] MEDS: LIDOCAINE W/ EPINEPHRINE 1% 20ML VIAL ONE (08:40)
--- NOTE | 2025-02-13 09:46 | DVHOP ---
DATE OF SURGERY: 02/13/2025 PREOPERATIVE DIAGNOSES: Cholelithiasis, cholecystitis. POSTOPERATIVE DIAGNOSES: Cholelithiasis, cholecystitis. SURGEON: Roque Friend MD ADULT SPECIALIST: Tony Ly. ANESTHESIA: General endotracheal, Dr. Loza. PROCEDURES: Laparoscopy, laparoscopic cholecystectomy. DESCRIPTION OF PROCEDURE: Under general endotracheal anesthesia with the patient's skin prepped and draped, a supraumbilical incision was made and a Veress needle inserted into the peritoneal cavity by the hanging drop technique in order to establish pneumoperitoneum to 15 mmHg pressure by insufflation with carbon dioxide. With the abdomen fully distended, the needle was removed and replaced with a 5-mm trocar port through which a 0-degree viewing laparoscope was inserted under direct vision. A 5 and 10-mm ports were inserted through the right anterior axillary line at the level of the umbilicus and the subxiphoid skin in the midline respectively. Instrumentation was then introduced into the peritoneal cavity and laparoscopy was performed. It was hampered by the patient's obesity and the obliteration of the patient's lower abdomen and pelvis by multitude of adhesions between the omentum and the anterior abdominal wall. These adhesions were not disturbed as there was no suspicion of any pelvic pathology. The gallbladder was surrounded by adhesions which were lysed sharply and bluntly in the manipulation of the gallbladder. The gallbladder disintegrated partially and spilled numerous small stones and bile. The bile was aspirated and sent for cultures and sensitivities, and the stones were retrieved to the best of my ability. The gallbladder was then resected with the infundibular portion of the gallbladder being densely adherent to the structures surrounding the hepatocystic triangle. The cystic duct was circumferentially dissected and skeletonized, traced into the hepatocystic triangle so as to minimize the potential for an inadvertent injury to the common bile duct. Similarly, the cystic artery was skeletonized and divided between metallic clips close to the gallbladder so as to minimize the potential for an inadvertent injury to the common bile duct. Following the division of the cystic duct and the cystic artery, the gallbladder was placed on tension cephalad, resected from its liver bed by electrocautery and traction, and retrieved from the peritoneal cavity by placement into a specimen extraction bag which was withdrawn through the 10-mm port site. Subsequently, the right upper quadrant of the abdomen was profusely irrigated. The irrigant was aspirated. Hemostasis was meticulously inspected and found to be complete. At the termination of the procedure, there was no evidence of bleeding from either the cholecystectomy site or from the port sites. Due to the spill of the bile, which was aspirated to the best of my ability and irrigated out. A 10-mm Demetri Daley drain was placed underneath the right lobe of the liver and exteriorized through the 5-mm port site on the right flank of the patient and secured with a 2-0 nylon suture. Following desufflation of the abdomen and removal of all the instrumentation, having had a report of an accurate needle and sponge count, the abdomen was desufflated. The wound was approximated using Monocryl sutures, Dermabond glue, and Steri-Strips. The patient remained hemodynamically stable throughout the procedure, left the operating room following an accurate needle and sponge count. Her daughter, Mabel, was thoroughly informed by phone at [phone]. MD LELIA Mitchell/MARQUITA TID: [id number] RECEIPT: [id number]
--- NOTE | 2025-02-13 10:29 | DVHPN2 ---
Progress Note - Dictate Date Seen: Feb 13, 2025 Medical Necessity Reason Pt with a Central, PICC or Fol: Yes The following are medically ne: Perera Catheter Reason for perera catheter: Strict I&O Subjective Ms. Evans is a 59 years old right-handed female with a history of hypertension, diabetes, gallstone, rheumatoid arthritis, the patient was brought to the [facility] on 01/27/2025 with a chief company of altered mental status. I have seen and examined the patient, I have talked to her nurse. She went through cholecystectomy on 02/13/2025 He is doing fine today, awake but she does not vocalize, socially appropriate, [facility] reports EGD 01/02/2025: Preoperative diagnosis: Microcytic anemia, nausea, vomiting Post-op diagnosis: Diffuse gastritis, no biopsy Colonoscopy, 01/02/2025: Postop diagnosis: One normal anal canal, there was no internal external hemorrhoids. 2, moderately severe uncomplicated sigmoid diverticulosis, 3. 2 mm polyp in the mid sigmoid removed by cold biopsy. The rest of the colon is normal on AVM mucosa anomalies or other polyps ABG, 02/01/2025: Compensated metabolic acidosis, Blood culture, 01/28/2025: No growth Wound culture, 01/28/2025: E coli Urine culture, 01/28/2025: Yeast: > 100,000 UDS, 01/27/2025: Negative Plasma alcohol, 01/27/2025: 3.7 Urinalysis, 01/27/2025: WBC: 733, urine leukocyte esterase: 3+ WBC/HB/PLT/MCV, 02/17/2025: 6.6/9.4/258/83.6 HCO3, : 20, 01/28/2025: 18, 01/31/2025: 20, 02/03/2025: 14, 02/04/2025: 17. 6/: 20, 02/06/2025: 24, 02/10/2025: 26 CRP, 01/28/2025: 8.04 Liver function tests, 01/28/2025: Unremarkable Ammonia, : 10 Vitamin B12, 01/28/2025: 339 Folic acid, 01/28/2025: 2.75 TSH, 01/28/2025: 3.96 FT four, 01/30/2025: 2.3 Echocardiogram, 01/29/2025: Conclusion lvef 60% grade 1 diastolic dysfunction normal rv functon left atrium enlarged EEG, 02/01/2025: Moderately abnormal EEG EEG, 02/07/2025, This is an inadequate but likely mildly abnormal EEG, Carotid Doppler 02/10/2025: No hemodynamically significant stenosis by velocity criteria CT abdominal/pelvis, 01/29/2025: No acute intraabdominal abnormality. Cholelithiasis.No sacral soft tissue defect visualized MRI head, 01/31/2025: No evidence of acute intracranial abnormalities MRI cervical spine, 02/12/2025: Moderate cervical degenerative disc disease. [id number] spinal canal stenosis C5-6. Mild spinal canal stenosis at C4-5, T1-2. Moderate to severe multilevel neural foraminal stenosis as described. Recommend MRI thoracic spine to further evaluate given the findings at T1-T2. vital signs Vital Sign Date Time Temp Pulse Resp B/P (MAP) Pulse Ox O2 Delivery O2 Flow Rate FiO2 02/13/25 06:15 155/75 02/13/25 06:00 58 02/13/25 06:00 11 100 Room Air* 0 21 02/13/25 06:00 97.9 97.9 Total Intake and Output 02/12/25 02/12/25 02/13/25 15:00 23:00 07:00 Intake Total 440 ml 350 ml Output Total 475 ml 1800 ml Balance -35 ml -1450 ml medications Current Medications Medications Dose Ordered Sig/Karan Route Start Time Stop Time Status Last Admin Dose Admin Sodium Chloride 10 ml Q8HR IV 01/27/25 22:00 02/13/25 05:44 10 ML Ondansetron HCl 4 mg Q4HP PRN IV 01/27/25 18:45 02/09/25 01:19 4 MG Docusate Sodium 100 mg BIDPRN PRN PO 01/27/25 18:45 Acetaminophen 650 mg Q6HP PRN PO 01/27/25 18:45 02/06/25 21:23 650 MG Nitroglycerin 0.4 mg Q5MINP PRN SL 01/27/25 18:45 Potassium Chloride 100 ml @ 50 mls/hr Q2H IV 01/28/25 07:00 01/28/25 12:59 Cancel Pantoprazole Sodium 40 mg DAILY IV 01/29/25 10:00 02/12/25 12:25 40 MG Multivitamins 1 tab DAILY PO 02/01/25 10:00 02/11/25 09:36 1 TAB Meropenem 50 ml @ 17 mls/hr Q8HR IV 02/03/25 14:00 02/13/25 05:44 17 MLS/HR Vancomycin HCl 0 ml @ 0 mls/hr UD IV 02/03/25 10:00 Diphenoxylate HCl/ Atropine 2.5 mg Q12HP PRN PO 02/04/25 10:00 02/06/25 00:14 2.5 MG Sodium Chloride 10 ml QSHIFT@10,22 IV 02/06/25 22:00 02/12/25 21:46 10 ML Vancomycin HCl 200 ml @ 200 mls/hr DAILY IV 02/10/25 12:00 UNV Enteral Nutritional Formula 1,000 ml 40ML/HR GT 02/10/25 13:15 02/12/25 05:48 1,000 ML Purified Water 100 ml Q6HR GT 02/12/25 18:00 Methylprednisolone Sodium Succinate 20 mg BID IV 02/12/25 22:00 02/12/25 21:46 20 MG Hydralazine HCl 10 mg Q6HP PRN IV 02/12/25 16:15 02/13/25 06:15 10 MG Furosemide 20 mg DAILY IV 02/13/25 10:00 Morphine Sulfate 2 mg Q4H PRN IV 02/13/25 07:15 02/13/25 11:16 objective General: the patient is well developed and nourished. No acute distress. MUSCULOSKELETAL EXAM: Change in the both hands is consistent with history of rheumatoid arthritis MENTAL STATUS: Subjective SPEECH, LANGUAGE, HIGHER CORTICAL FUNCTION: She does not vocalize. CRANIAL NERVES: Pupils are equal, round and reactive. EOMs full and conjugate. Facial sensation intact in all three divisions bilaterally. Mandibular strength intact. Facial muscles symmetrical and strength intact. SENSATION: Sensation to touch and pinprick is okay MOTOR: Normal tone in the upper and lower extremity. Normal muscle bulk. No fasciculations. No abnormal movements or posturing. No extremity movement REFLEXES: Deep tendon reflexes are symmetrical. No pathological reflexes. CEREBELLAR/COORDINATION: Deferred GAIT/STATION: deferred laboratory and microbiology Laboratory Tests 02/13/25 02:40 Test 02/13/25 02:40 Range/Units Serum Glucose 142 H 74-106 mg/dL Problem List Altered mental status/Metabolic encephalopathy secondary to UTI, sepsis/septic shock Pressure wound Metabolic acidosis Nausea, vomiting Bradycardia Episodic event, rule out seizure Quadriparesis Assessment/Plan Monitoring Supportive treatment EEG MRI T-spine Follow-up labs ICU care Stabilize vitals Respiratory support p.r.n. IV antibiotics DVT prophylaxis GI prophylaxis Cardiology on case More recommendation per clinical course This medical document was created using an electronic medical record system with [employer] dictation system. Although this document has been carefully reviewed, there may still be some phonetic and typographical errors. These areas are purely typographical due to imperfections of the software programs, and do not reflect any compromise in the patient's medical care. Prognosis poor Dietary Evaluation Review Comments: 1. CCHO-45 Cardiac Diet 2. Reassess in 2-3 days Expected Outcomes/Goals: Gradual Wt loss will be desirable. Plan discussed with: Other RIZWANA MUÑOZ MD Feb 13, 2025 10:29
[2025-02-13] MEDS: FUROSEMIDE 20 MG/2 ML VIAL IV SCH (11:09)
[2025-02-13] MEDS: VANCOMYCIN 1GM/200ML PM 200 ML IV SCH (15:00)
--- NOTE | 2025-02-13 15:25 | DVHPN2 ---
Progress Note Date Seen: Feb 13, 2025 Medical Necessity Reason Pt with a Central, PICC or Fol: Yes The following are medically ne: Perera Catheter Reason for perera catheter: Strict I&O Subjective Patient reports: No new complaints Review of Systems: HEENT:Normal, CVS:Normal, RESPIRATORY:Normal, GI:Normal, :Normal, MSK:Normal, NEURO:Normal Objective vital signs Vital Sign Date Time Temp Pulse Resp B/P (MAP) Pulse Ox O2 Delivery O2 Flow Rate FiO2 02/13/25 12:00 15 99 Room Air* 0 21 02/13/25 12:00 104 02/13/25 11:09 106/58 02/13/25 09:50 97.6 97.6 Total Intake and Output 02/12/25 02/12/25 02/13/25 15:00 23:00 07:00 Intake Total 440 ml 350 ml Output Total 475 ml 1800 ml Balance -35 ml -1450 ml medications Current Medications Medications Dose Ordered Sig/Karan Route Start Time Stop Time Status Last Admin Dose Admin Sodium Chloride 10 ml Q8HR IV 01/27/25 22:00 02/13/25 14:00 10 ML Ondansetron HCl 4 mg Q4HP PRN IV 01/27/25 18:45 02/09/25 01:19 4 MG Docusate Sodium 100 mg BIDPRN PRN PO 01/27/25 18:45 Acetaminophen 650 mg Q6HP PRN PO 01/27/25 18:45 02/06/25 21:23 650 MG Nitroglycerin 0.4 mg Q5MINP PRN SL 01/27/25 18:45 Potassium Chloride 100 ml @ 50 mls/hr Q2H IV 01/28/25 07:00 01/28/25 12:59 Cancel Pantoprazole Sodium 40 mg DAILY IV 01/29/25 10:00 02/13/25 11:07 40 MG Multivitamins 1 tab DAILY PO 02/01/25 10:00 02/11/25 09:36 1 TAB Meropenem 50 ml @ 17 mls/hr Q8HR IV 02/03/25 14:00 02/13/25 14:53 17 MLS/HR Vancomycin HCl 0 ml @ 0 mls/hr UD IV 02/03/25 10:00 Diphenoxylate HCl/ Atropine 2.5 mg Q12HP PRN PO 02/04/25 10:00 02/06/25 00:14 2.5 MG Sodium Chloride 10 ml QSHIFT@10,22 IV 02/06/25 22:00 02/13/25 11:09 10 ML Vancomycin HCl 200 ml @ 200 mls/hr DAILY IV 02/10/25 12:00 UNV Enteral Nutritional Formula 1,000 ml 40ML/HR GT 02/10/25 13:15 02/12/25 05:48 1,000 ML Purified Water 100 ml Q6HR GT 02/12/25 18:00 Methylprednisolone Sodium Succinate 20 mg BID IV 02/12/25 22:00 02/13/25 11:08 20 MG Hydralazine HCl 10 mg Q6HP PRN IV 02/12/25 16:15 02/13/25 06:15 10 MG Furosemide 20 mg DAILY IV 02/13/25 10:00 02/13/25 11:09 20 MG Vancomycin HCl 200 ml @ 200 mls/hr Q12H IV 02/13/25 15:00 02/13/25 15:00 200 MLS/HR Examination: GENERAL:Normal, HEENT:Normal, NECK:Normal, LUNGS:Normal, CVS:Normal, ABDOMEN:Normal, MSK:Normal, MSK:Abnormal (edema+), SKIN:Normal, NEURO:Normal, :Normal laboratory and microbiology Laboratory Tests 02/13/25 02:40 Test 02/13/25 02:40 Range/Units Serum Glucose 142 H 74-106 mg/dL Microbiology Date/Time Source Procedure Growth Status 02/03/25 22:00 Urine - Perera Port Urine Culture - Final Complete 01/28/25 16:23 Sacrum Gram Stain - Final Complete 01/28/25 16:23 Wound Culture - Final Escherichia coli Presumptive Floridalma albicans Complete 01/27/25 16:41 Blood Blood Culture - Final NO GROWTH AFTER 5 DAYS OF INCUBATION. Complete Problem List/Assessment/Plan Problem List/Assessment/Plan #1 septic shock with uti: off iv pressors, iv antibiotics #2 gallstones: s/p surg #3 encephalopathy- ?metabolic #4 dm: ssi #5 RA: start solumedrol #6 obesity #7 anemia: transfuse #8 thrombocytopenia: monitor #9 nutrition: tube feedings #10 mod protein malnutrition #11 quadriparesis: mri c spine- spinal stenosis #12 htn: hydralazine, dc lasix iv long dw son/sister- reviewed labs and plan of care Plan discussed with: Son My Orders My Orders Orders - BAILEY ROBERSON MD Procedure Category Date Status Time Free Water PHA 02/12/25 In Process 18:00 Methylprednisolone PHA 02/12/25 In Process Sod Succ (Solu Medrol 22:00 Hydralazine Injection PHA 02/12/25 In Process (Apresoline Inject 16:15 Furosemide Injection PHA 02/13/25 In Process (Lasix Injection) 10:00 Chest Portable XY 02/13/25 Resulted 04:00 Albumin Ivpb PHA 02/13/25 Verified 15:30 Complete Blood Count LAB 02/14/25 Verified 06:00 Comprehensive LAB 02/14/25 Verified Metabolic Panel 06:00 Chest Portable XY 02/14/25 Verified 06:00 Fluconazole Ivpb PHA 02/14/25 Verified Diflucan 10:00 Fluconazole Ivpb PHA 02/13/25 Verified Diflucan 15:30 1/2 Ns PHA 02/13/25 Verified 15:30 Dietary Evaluation Review Comments: [facility] 2. Reassess in 2-3 days Expected Outcomes/Goals: Gradual Wt loss will be desirable. Critical Care Time (mins): 51 (critical care time including dw family was 51 mins) Date of Service: Feb 13, 2025 Billing Provider: BAILEY ROBERSON MD Common Visit Codes: [id number] CARE 30-74 MIN BAILEY ROBERSON MD Feb 13, 2025 15:25
[2025-02-13] MEDS: ACCU-CHEK COMFORT CURVE STRIP VI ONE (16:00)
[2025-02-13] MEDS: FLUCONAZOLE 200MG/100ML 100 ML IV ONE (17:15)
[2025-02-13] MEDS: ALBUMIN 25% 100 ML IV ONE (17:15)
[2025-02-13] MEDS: SOD CHL 0.45% 1,000 ML IV ONE (17:16)
[2025-02-14] VITALS (23 sets, daily range): BP systolic 135–175; BP diastolic 53–86; PULSE 58–104; RESP 13–30; TEMP 98.1–99.1; O2SAT 98–100
[2025-02-14 04:32] LABS: Hemoglobin 7.2 g/dL (12.2-16.2); Nucleated Red Blood Cells % 0.1 %
[2025-02-14 04:34] LABS: Hematocrit 21.7 % (36.0-46.0); Mean Corpuscular Hemoglobin 30.7 pg (28.0-32.0); Mean Corpuscular Volume 92.9 fL (80.0-100.0)
[2025-02-14 04:56] LABS: Alkaline Phosphatase 91 U/L (46-116); Anion Gap 9 (5-15); BUN/Creatinine Ratio 62.5 (10.0-20.0); Blood Urea Nitrogen 20 mg/dL (9-23); Carbon Dioxide 25 mmol/L (20-31); Potassium 3.5 mmol/L (3.5-5.1)
[2025-02-14 04:57] LABS: Bilirubin, Total 0.9 mg/dL (0.2-1.0)
[2025-02-14 04:59] LABS: Alanine Aminotransferase 167 U/L (7-40); Albumin 3.0 g/dL (3.2-4.8); Calcium 7.9 mg/dL (8.7-10.4); Chloride 111 mmol/L (98-107); Glucose 130 mg/dL (74-106); Sodium 145 mmol/L (136-145); Total Protein 4.3 g/dL (5.7-8.2)
--- NOTE | 2025-02-14 05:45 | DVH ---
EXAM: XR Chest, 1 View CLINICAL INDICATION: Pain TECHNIQUE: Frontal view of the chest. COMPARISON: 02/13/25 FINDINGS: LUNGS AND PLEURAL SPACES: Right basilar atelectasis or pneumonia. No pneumothorax. HEART: Unremarkable. No cardiomegaly. MEDIASTINUM: Unremarkable. Normal mediastinal contour. BONES/JOINTS: Unremarkable. No acute fracture. TUBES, LINES AND DEVICES: Enteric tube tip in the stomach. IMPRESSION: Right basilar atelectasis or pneumonia.
[2025-02-14] MEDS: FLUCONAZOLE 200MG/100ML 100 ML IV SCH (09:01)
--- NOTE | 2025-02-14 10:00 | DVHPN2 ---
Progress Note Date Seen: Feb 14, 2025 Medical Necessity Reason Pt with a Central, PICC or Fol: Yes The following are medically ne: Perera Catheter Reason for perera catheter: Strict I&O Objective vital signs Vital Sign Date Time Temp Pulse Resp B/P (MAP) Pulse Ox O2 Delivery O2 Flow Rate FiO2 02/14/25 08:00 95 15 98 Room Air* 0 21 02/14/25 08:00 98.8 135/72 (93) 209.8 Total Intake and Output 02/13/25 02/13/25 02/14/25 15:00 23:00 07:00 Intake Total 1300 ml 872 ml Output Total 90 ml 385 ml 530 ml Balance -90 ml 915 ml 342 ml medications Current Medications Medications Dose Ordered Sig/Karan Route Start Time Stop Time Status Last Admin Dose Admin Sodium Chloride 10 ml Q8HR IV 01/27/25 22:00 02/14/25 06:15 10 ML Ondansetron HCl 4 mg Q4HP PRN IV 01/27/25 18:45 02/09/25 01:19 4 MG Docusate Sodium 100 mg BIDPRN PRN PO 01/27/25 18:45 Acetaminophen 650 mg Q6HP PRN PO 01/27/25 18:45 02/13/25 18:29 650 MG Nitroglycerin 0.4 mg Q5MINP PRN SL 01/27/25 18:45 Potassium Chloride 100 ml @ 50 mls/hr Q2H IV 01/28/25 07:00 01/28/25 12:59 Cancel Pantoprazole Sodium 40 mg DAILY IV 01/29/25 10:00 02/14/25 09:00 40 MG Multivitamins 1 tab DAILY PO 02/01/25 10:00 02/14/25 09:07 1 TAB Meropenem 50 ml @ 17 mls/hr Q8HR IV 02/03/25 14:00 02/14/25 06:10 17 MLS/HR Vancomycin HCl 0 ml @ 0 mls/hr UD IV 02/03/25 10:00 Diphenoxylate HCl/ Atropine 2.5 mg Q12HP PRN PO 02/04/25 10:00 02/06/25 00:14 2.5 MG Sodium Chloride 10 ml QSHIFT@ IV 02/06/25 22:00 02/14/25 09:01 10 ML Vancomycin HCl 200 ml @ 200 mls/hr DAILY IV 02/10/25 12:00 UNV Enteral Nutritional Formula 1,000 ml 40ML/HR GT 02/10/25 13:15 02/13/25 18:41 1,000 ML Purified Water 100 ml Q6HR GT 02/12/25 18:00 02/14/25 06:15 100 ML Methylprednisolone Sodium Succinate 20 mg BID IV 02/12/25 22:00 02/14/25 09:00 20 MG Hydralazine HCl 10 mg Q6HP PRN IV 02/12/25 16:15 02/14/25 06:22 10 MG Vancomycin HCl 200 ml @ 200 mls/hr Q12H IV 02/13/25 15:00 02/14/25 03:36 200 MLS/HR Fluconazole 100 ml @ 100 mls/hr DAILY IV 02/14/25 10:00 02/14/25 09:01 100 MLS/HR laboratory and microbiology Laboratory Tests 02/14/25 03:30 Test 02/14/25 03:30 Range/Units Serum Glucose 130 H 74-106 mg/dL Problem List/Assessment/Plan Problem List/Assessment/Plan 02/14/25 alert,oriented, cooperative, wounds clean and well approximated, abdomen appropriately tender, SHANTE drainage serous.Bilirubin normal. will get a swallowing study and attempt to resume po intake Plan discussed with: Patient Dietary Evaluation Review Comments: 1. CCHO-45 Cardiac Diet 2. Reassess in 2-3 days Expected Outcomes/Goals: Gradual Wt loss will be desirable. VILLA BEASLEY MD Feb 14, 2025 10:00
--- NOTE | 2025-02-14 10:53 | DVHPN2 ---
Subjective The patient is seen and examined at bedside. Patient alert awake. No complaint today. Son at bedside. Reviewed: Care Plan, H&P, Labs, Medications Changes from previous H/P or p: No Changes General: Per HPI Eyes: No Pain, No Vision change, No Conjunctivae inflammation, No Eyelid inflammation, No Other, No Redness ENT: No Ear pain, No Ear discharge, No Nose pain, No Nose discharge, No Nose congestion, No Mouth pain, No Mouth swelling, No Throat pain, No Throat swelling, No Other Cardiovascular: No Chest Pain, No Palpitations, No Orthopnea, No Paroxysmal Noc. Dyspnea, No Edema, No Lt Headedness, No Other Respiratory: No Cough, No Dry, No Shortness of breath, No SOB with excertion, No Wheezing, No Hemoptysis, No Pleuritic Pain, No Sputum, No Other Gastrointestinal: No Nausea, No Vomiting, No Abdominal Pain, No Diarrhea, No Constipation, No Melena, No Hematochezia, No Other Genitourinary: Other Musculoskeletal: No other, No neck pain, No shoulder pain, No arm pain, No back pain, No hand pain, No leg pain, No foot pain Skin: No Rash, No Lesions, No Jaundice, No Bruising, No Other Objective Vitals Vital Signs Date Time Temp Pulse Resp B/P (MAP) Pulse Ox O2 Delivery O2 Flow Rate FiO2 02/14/25 08:00 95 15 98 Room Air* 0 21 02/14/25 08:00 98.8 135/72 (93) 209.8 Intake/Output Intake and Output 02/14/25 07:00 Intake Total 2172 ml Output Total 1005 ml Balance 1167 ml Intake Oral 100 ml IV Total 1717 ml Tube Feeding 355 ml Output Urine Total 500 ml Stool Total 100 ml Drainage Total 405 ml General Appearance: moderate distress HEENT: Atraumatic, PERRLA Lungs: Clear to auscultation, Normal air movement Cardiovascular: Normal S1, Normal S2, Other Abdomen: Normal bowel sounds, No tenderness Musculoskeletal: Normal sensory function, Normal motor function Extremities: Other (Weeping edema to upper extremity) Neuro: Other (Patient unable to follow commands.) Skin: Dry, Intact Psych/Mental Status: Mental status NL, Mood NL Medications Current Medications Medications Dose Ordered Sig/Karan Route Start Time Stop Time Status Last Admin Dose Admin Sodium Chloride 10 ml Q8HR IV 01/27/25 22:00 02/14/25 06:15 10 ML Ondansetron HCl 4 mg Q4HP PRN IV 01/27/25 18:45 02/09/25 01:19 4 MG Docusate Sodium 100 mg BIDPRN PRN PO 01/27/25 18:45 Acetaminophen 650 mg Q6HP PRN PO 01/27/25 18:45 02/13/25 18:29 650 MG Nitroglycerin 0.4 mg Q5MINP PRN SL 01/27/25 18:45 Potassium Chloride 100 ml @ 50 mls/hr Q2H IV 01/28/25 07:00 01/28/25 12:59 Cancel Pantoprazole Sodium 40 mg DAILY IV 01/29/25 10:00 02/14/25 09:00 40 MG Multivitamins 1 tab DAILY PO 02/01/25 10:00 02/14/25 09:07 1 TAB Meropenem 50 ml @ 17 mls/hr Q8HR IV 02/03/25 14:00 02/14/25 06:10 17 MLS/HR Vancomycin HCl 0 ml @ 0 mls/hr UD IV 02/03/25 10:00 Diphenoxylate HCl/ Atropine 2.5 mg Q12HP PRN PO 02/04/25 10:00 02/06/25 00:14 2.5 MG Sodium Chloride 10 ml QSHIFT@,22 IV 02/06/25 22:00 02/14/25 09:01 10 ML Vancomycin HCl 200 ml @ 200 mls/hr DAILY IV 02/10/25 12:00 UNV Enteral Nutritional Formula 1,000 ml 40ML/HR GT 02/10/25 13:15 02/13/25 18:41 1,000 ML Purified Water 100 ml Q6HR GT 02/12/25 18:00 02/14/25 06:15 100 ML Methylprednisolone Sodium Succinate 20 mg BID IV 02/12/25 22:00 02/14/25 09:00 20 MG Hydralazine HCl 10 mg Q6HP PRN IV 02/12/25 16:15 02/14/25 06:22 10 MG Vancomycin HCl 200 ml @ 200 mls/hr Q12H IV 02/13/25 15:00 02/14/25 03:36 200 MLS/HR Fluconazole 100 ml @ 100 mls/hr DAILY IV 02/14/25 10:00 02/14/25 09:01 100 MLS/HR Laboratory Results Laboratory Tests 02/14/25 03:30 Chemistry Test 02/14/25 03:30 Albumin 3.0 g/dL (3.2-4.8) L Calcium Level 7.9 mg/dL (8.7-10.4) L Total Protein 4.3 g/dL (5.7-8.2) L LFT Test 02/14/25 03:30 Alanine Aminotransferase (ALT) 167 U/L (7-40) H Alkaline Phosphatase 91 U/L (46-116) Aspartate Amino Transferase (AST) 140 U/L (<34) H Total Bilirubin 0.9 mg/dL (0.2-1.0) Urinalysis Test 01/27/25 16:06 02/03/25 22:00 02/05/25 16:30 Urine WBC Clumps Present /hpf (None Seen) Urine Mucus Few (None Seen) Urine Yeast (Budding) Many /hpf (None Seen) Urine Creatinine 21.71 mg/dL (30.0-125.0) L Urine Protein/Creatinine Ratio 2.89 Urine Total Protein 62.8 mg/dL (1-14) H Urine Color Colorless (Yellow) Urine Clarity Turbid (Clear) H Urine pH 7.0 (5.0-9.0) Urine Specific [place] 1.009 (1.001-1.035) Urine Protein Trace (Negative) H Urine Ketones Negative (Negative) Urine Blood 2+ /uL (Negative) H Urine Nitrite Negative (Negative) Urine Bilirubin Negative (Negative) Urine Urobilinogen Normal mg/dL (Negative) Urine Leukocyte Esterase 3+ /uL (Negative) Urine RBC 5 /hpf (0 - 4) Urine Microscopic WBC 26 /HPF (0-5) H Urine Squamous Epithelial Cells None seen /hpf (<5) Urine Bacteria Few /hpf (None Seen) H Urine Glucose Trace mg/dL (Normal) Microbiology Microbiology Date/Time Source Procedure Growth Status 02/13/25 08:30 Drainage Gram Stain Pending Resulted 02/13/25 08:30 Drainage Anaerobic Culture Pending Resulted 02/13/25 08:30 Drainage Aerobic Culture - Preliminary Resulted 02/03/25 22:00 Urine - [place] Urine Culture - Final Complete 01/28/25 16:23 Sacrum Gram Stain - Final Complete 01/28/25 16:23 Wound Culture - Final Escherichia coli Presumptive Floridalma albicans Complete 01/27/25 16:41 Blood Blood Culture - Final NO GROWTH AFTER 5 DAYS OF INCUBATION. Complete Labs and/or images reviewed: Labs reviewed by me Assessment/Plan Assessment/Plan #1 septic shock with uti: off iv pressors, continuing iv antibiotics #2 gallstones: s/p surgery #3 encephalopathy- ?metabolic #4 dm: Continuing ssi #5 RA: Continuing solumedrol #6 obesity #7 anemia: transfuse #8 thrombocytopenia: monitor #9 nutrition: tube feedings #10 mod protein malnutrition #11 quadriparesis: mri c spine- spinal stenosis #12 htn: Continuing hydralazine, dc lasix iv Critical care spent for this case is 37 minutes This medical document was created using an electronic medical record system with [employer] direct computerized dictation system. Although this document has been carefully reviewed, there may still be some phonetic and typographical errors. These areas are purely typographical due to imperfections of the software programs, and do not reflect any compromise in the patient's medical care. Plan discussed with: Patient, Son Date of Service: Feb 14, 2025 Billing Provider: CAROLE HERRING MD Common Visit Codes: [id number] CARE 30-74 MIN CAROLE HERRING MD Feb 14, 2025 10:53
[2025-02-14] MEDS: GASTROGRAFIN 120 ML SOL ONE (13:42)
--- NOTE | 2025-02-14 14:49 | DVH ---
XY ESOPHAGUS GASTROGRAFIN SWALLOW, HISTORY: eval swallow function to dc ngt and resume po intake COMPARISON: PROCEDURE: Gastrografin was administered orally, and radiographs were obtained under intermittent fl uoroscopic observation. Total fluoroscopic time was 0.7 minutes. FINDINGS: There is an NG tube. Contrast was given orally, a small amount. The esophagus was normal in caliber with no stricture, filling defect or wall irregularity demonstrat ed. Moderate esophageal reflux was demonstrated during this exam . IMPRESSION: A NGT is present. With a small amount of contrast given PO, contrast was seen passing down the esopha teofilo through the GE junction into the stomach.
--- NOTE | 2025-02-14 15:10 | DVH ---
PROCEDURE: MRI THORACIC SPINE WITHOUT INDICATION: Spondylosis Exam Date: 02/14/2025 02:21 PM COMPARISON: None TECHNIQUE: MRI thoracic spine without intravenous contrast. FINDINGS: The thoracic alignment is intact. Mild chronic anterior wedging of the T11 vertebral body. No acute compression fracture. There are degenerative endplate changes with anterior and lateral osteophytes mid to lower thoracic levels. Posterior disc bulge at T1-2 resulting in severe central canal stenosi s with impingement on the thoracic cord. Suspect mild abnormal cord signal. Posterior disc bulge at T11-12 resulting in moderate central canal stenosis. No significant neural foraminal stenosis identi fied. The visualized paraspinal soft tissues are otherwise unremarkable. Small to moderate bilateral pleural effusions right greater than left. IMPRESSION: 1. Large posterior disc bulge at T1-2 resulting in severe central canal stenosis with impingement on the thoracic cord and likely abnormal cord signal. Neurosurgical evaluation is recommended. Moderate central canal stenosis T11-12. No significant neural foraminal stenosis. 2. Bilateral pleural effusions right greater than left. HS:Y
[2025-02-14] MEDS ORDERED: VANCOMYCIN PER PHARMACY 0 MG IV SCH (16:30)
--- NOTE | 2025-02-14 22:40 | DVHPN2 ---
Progress Note - Dictate Date Seen: Feb 14, 2025 Medical Necessity Reason Pt with a Central, PICC or Fol: Yes The following are medically ne: Perera Catheter Reason for perera catheter: Strict I&O Subjective Ms. Evans is a 59 years old right-handed female with a history of hypertension, diabetes, gallstone, rheumatoid arthritis, the patient was brought to the [facility] on 01/27/2025 with a chief company of altered mental status. I have seen and examined the patient, I have talked to her nurse. She is awake, oriented times 1-2, able to speak versus very low voice Overall she is very weak, she does not move the arms and legs Status post cholecystectomy on 02/13/2025 [facility] reports EGD 01/02/2025: Preoperative diagnosis: Microcytic anemia, nausea, vomiting Post-op diagnosis: Diffuse gastritis, no biopsy Colonoscopy, 01/02/2025: Postop diagnosis: One normal anal canal, there was no internal external hemorrhoids. 2, moderately severe uncomplicated sigmoid diverticulosis, 3. 2 mm polyp in the mid sigmoid removed by cold biopsy. The rest of the colon is normal on AVM mucosa anomalies or other polyps ABG, 02/01/2025: Compensated metabolic acidosis, Blood culture, 01/28/2025: No growth Wound culture, 01/28/2025: E coli Urine culture, 01/28/2025: Yeast: > 100,000 UDS, 01/27/2025: Negative Plasma alcohol, 01/27/2025: 3.7 Urinalysis, 01/27/2025: WBC: 733, urine leukocyte esterase: 3+ WBC/HB/PLT/MCV, 02/17/2025: 6.6/9.4/258/83.6 HCO3, : 20, 01/28/2025: 18, 01/31/2025: 20, 02/03/2025: 14, 02/04/2025: 17. 6/: 20, 02/06/2025: 24, 02/10/2025: 26 CRP, 01/28/2025: 8.04 Liver function tests, 01/28/2025: Unremarkable Ammonia, : 10 Vitamin B12, 01/28/2025: 339 Folic acid, 01/28/2025: 2.75 TSH, 01/28/2025: 3.96 FT four, 01/30/2025: 2.3 Echocardiogram, 01/29/2025: Conclusion lvef 60% grade 1 diastolic dysfunction normal rv functon left atrium enlarged EEG, 02/01/2025: Moderately abnormal EEG EEG, 02/07/2025, This is an inadequate but likely mildly abnormal EEG, Carotid Doppler 02/10/2025: No hemodynamically significant stenosis by velocity criteria CT abdominal/pelvis, 01/29/2025: No acute intraabdominal abnormality. Cholelithiasis.No sacral soft tissue defect visualized MRI head, 01/31/2025: No evidence of acute intracranial abnormalities MRI cervical spine, 02/12/2025: Moderate cervical degenerative disc disease. [id number] spinal canal stenosis C5-6. Mild spinal canal stenosis at C4-5, T1-2. Moderate to severe multilevel neural foraminal stenosis as described. Recommend MRI thoracic spine to further evaluate given the findings at T1-T2. MRI T-spine, 02/14/2025:1. Large posterior disc bulge at T1-2 resulting in severe central canal stenosis with impingement on the thoracic cord and likely abnormal cord signal. Neurosurgical evaluation is recommended. Moderate central canal stenosis T11-12. No significant neural foraminal stenosis. 2. Bilateral pleural effusions right greater than left vital signs Vital Sign Date Time Temp Pulse Resp B/P (MAP) Pulse Ox O2 Delivery O2 Flow Rate FiO2 02/14/25 21:20 175/86 02/14/25 21:00 99.0 88 13 99 210.2 02/14/25 20:00 Room Air* 0 21 Total Intake and Output 02/13/25 02/13/25 02/14/25 15:00 23:00 07:00 Intake Total 1300 ml 872 ml Output Total 90 ml 385 ml 530 ml Balance -90 ml 915 ml 342 ml medications Current Medications Medications Dose Ordered Sig/Karan Route Start Time Stop Time Status Last Admin Dose Admin Sodium Chloride 10 ml Q8HR IV 01/27/25 22:00 02/14/25 21:20 10 ML Ondansetron HCl 4 mg Q4HP PRN IV 01/27/25 18:45 02/09/25 01:19 4 MG Docusate Sodium 100 mg BIDPRN PRN PO 01/27/25 18:45 Acetaminophen 650 mg Q6HP PRN PO 01/27/25 18:45 02/13/25 18:29 650 MG Nitroglycerin 0.4 mg Q5MINP PRN SL 01/27/25 18:45 Potassium Chloride 100 ml @ 50 mls/hr Q2H IV 01/28/25 07:00 01/28/25 12:59 Cancel Pantoprazole Sodium 40 mg DAILY IV 01/29/25 10:00 02/14/25 09:00 40 MG Multivitamins 1 tab DAILY PO 02/01/25 10:00 02/14/25 09:07 1 TAB Diphenoxylate HCl/ Atropine 2.5 mg Q12HP PRN PO 02/04/25 10:00 02/06/25 00:14 2.5 MG Sodium Chloride 10 ml QSHIFT@10,22 IV 02/06/25 22:00 02/14/25 21:20 10 ML Vancomycin HCl 200 ml @ 200 mls/hr DAILY IV 02/10/25 12:00 UNV Enteral Nutritional Formula 1,000 ml 40ML/HR GT 02/10/25 13:15 02/13/25 18:41 1,000 ML Purified Water 100 ml Q6HR GT 02/12/25 18:00 02/14/25 12:00 100 ML Methylprednisolone Sodium Succinate 20 mg BID IV 02/12/25 22:00 02/14/25 21:20 20 MG Hydralazine HCl 10 mg Q6HP PRN IV 02/12/25 16:15 02/14/25 21:20 10 MG Vancomycin HCl 200 ml @ 200 mls/hr Q12H IV 02/13/25 15:00 02/14/25 15:00 200 MLS/HR Fluconazole 100 ml @ 100 mls/hr DAILY IV 02/14/25 10:00 02/14/25 09:01 100 MLS/HR Vancomycin HCl 0 ml @ 0 mls/hr UD IV 02/14/25 16:30 objective General: the patient is well developed and nourished. No acute distress. MUSCULOSKELETAL EXAM: Change in the both hands is consistent with history of rheumatoid arthritis MENTAL STATUS: Subjective SPEECH, LANGUAGE, HIGHER CORTICAL FUNCTION: She does not vocalize. CRANIAL NERVES: Pupils are equal, round and reactive. EOMs full and conjugate. Facial sensation intact in all three divisions bilaterally. Mandibular strength intact. Facial muscles symmetrical and strength intact. SENSATION: Sensation to touch and pinprick is okay MOTOR: Normal tone in the upper and lower extremity. Normal muscle bulk. No fasciculations. No abnormal movements or posturing. No extremity movement REFLEXES: Deep tendon reflexes are symmetrical. No pathological reflexes. CEREBELLAR/COORDINATION: Deferred GAIT/STATION: deferred laboratory and microbiology Laboratory Tests 02/14/25 03:30 Test 02/14/25 03:30 Range/Units Serum Glucose 130 H 74-106 mg/dL Problem List Altered mental status/Metabolic encephalopathy secondary to UTI, sepsis/septic shock Pressure wound Metabolic acidosis Nausea, vomiting Bradycardia Episodic event, rule out seizure Quadriparesis T-spine stenosis Assessment/Plan Monitoring Supportive treatment Follow-up labs ICU care Stabilize vitals Respiratory support p.r.n. IV antibiotics DVT prophylaxis GI prophylaxis Cardiology on case Consult Dr. Tello More recommendation per clinical course This medical document was created using an electronic medical record system with [employer] dictation system. Although this document has been carefully reviewed, there may still be some phonetic and typographical errors. These areas are purely typographical due to imperfections of the software programs, and do not reflect any compromise in the patient's medical care. Prognosis poor Dietary Evaluation Review Comments: 1. CCHO-45 Cardiac Diet 2. Reassess in 2-3 days Expected Outcomes/Goals: Gradual Wt loss will be desirable. Plan discussed with: Other RIZWANA MUÑOZ MD Feb 14, 2025 22:40
[2025-02-15] VITALS (24 sets, daily range): BP systolic 130–155; BP diastolic 57–83; PULSE 54–103; RESP 10–25; TEMP 96.8–99.3; O2SAT 98–100
[2025-02-15 02:06] LABS: Hematocrit 21.5 % (36.0-46.0); Hemoglobin 7.2 g/dL (12.2-16.2); Mean Corpuscular Hemoglobin 31.1 pg (28.0-32.0); Mean Corpuscular Volume 92.6 fL (80.0-100.0); Nucleated Red Blood Cells % 0.1 %
[2025-02-15 02:21] LABS: Alkaline Phosphatase 103 U/L (46-116); Anion Gap 9 (5-15); BUN/Creatinine Ratio 75.9 (10.0-20.0); Bilirubin, Total 0.8 mg/dL (0.2-1.0); Blood Urea Nitrogen 22 mg/dL (9-23); Carbon Dioxide 24 mmol/L (20-31); Potassium 3.7 mmol/L (3.5-5.1)
[2025-02-15 02:22] LABS: Alanine Aminotransferase 157 U/L (7-40); Albumin 3.0 g/dL (3.2-4.8); Calcium 7.8 mg/dL (8.7-10.4); Chloride 114 mmol/L (98-107); Glucose 120 mg/dL (74-106); Sodium 147 mmol/L (136-145); Total Protein 4.4 g/dL (5.7-8.2)
--- NOTE | 2025-02-15 11:04 | DVHPN2 ---
Progress Note Date Seen: Feb 15, 2025 Medical Necessity Reason Pt with a Central, PICC or Fol: Yes The following are medically ne: Perera Catheter Reason for perera catheter: Strict I&O Objective vital signs Vital Sign Date Time Temp Pulse Resp B/P (MAP) Pulse Ox O2 Delivery O2 Flow Rate FiO2 02/15/25 10:00 12 100 Room Air* 0 21 02/15/25 10:00 71 02/15/25 10:00 97.2 136/61 (86) 207.0 Total Intake and Output 02/14/25 02/14/25 02/15/25 15:00 23:00 07:00 Intake Total 134 ml 646 ml 130 ml Output Total 720 ml 555 ml Balance 134 ml -74 ml -425 ml medications Current Medications Medications Dose Ordered Sig/Karan Route Start Time Stop Time Status Last Admin Dose Admin Sodium Chloride 10 ml Q8HR IV 01/27/25 22:00 02/15/25 06:29 10 ML Ondansetron HCl 4 mg Q4HP PRN IV 01/27/25 18:45 02/09/25 01:19 4 MG Docusate Sodium 100 mg BIDPRN PRN PO 01/27/25 18:45 Acetaminophen 650 mg Q6HP PRN PO 01/27/25 18:45 02/13/25 18:29 650 MG Nitroglycerin 0.4 mg Q5MINP PRN SL 01/27/25 18:45 Potassium Chloride 100 ml @ 50 mls/hr Q2H IV 01/28/25 07:00 01/28/25 12:59 Cancel Pantoprazole Sodium 40 mg DAILY IV 01/29/25 10:00 02/15/25 07:46 40 MG Multivitamins 1 tab DAILY PO 02/01/25 10:00 02/15/25 07:47 1 TAB Diphenoxylate HCl/ Atropine 2.5 mg Q12HP PRN PO 02/04/25 10:00 02/06/25 00:14 2.5 MG Sodium Chloride 10 ml QSHIFT@, IV 02/06/25 22:00 02/15/25 07:47 10 ML Vancomycin HCl 200 ml @ 200 mls/hr DAILY IV 02/10/25 12:00 UNV Enteral Nutritional Formula 1,000 ml 40ML/HR GT 02/10/25 13:15 02/13/25 18:41 1,000 ML Purified Water 100 ml Q6HR GT 02/12/25 18:00 02/14/25 12:00 100 ML Methylprednisolone Sodium Succinate 20 mg BID IV 02/12/25 22:00 02/15/25 07:46 20 MG Hydralazine HCl 10 mg Q6HP PRN IV 02/12/25 16:15 02/14/25 21:20 10 MG Fluconazole 100 ml @ 100 mls/hr DAILY IV 02/14/25 10:00 02/15/25 07:47 100 MLS/HR Vancomycin HCl 0 ml @ 0 mls/hr UD IV 02/14/25 16:30 laboratory and microbiology Laboratory Tests 02/15/25 01:50 Test 02/15/25 01:50 Range/Units Serum Glucose 120 H 74-106 mg/dL Problem List/Assessment/Plan Problem List/Assessment/Plan 02/14/25 alert,oriented, cooperative, wounds clean and well approximated, abdomen appropriately tender, SHANTE drainage serous.Bilirubin normal. will get a swallowing study and attempt to resume po intake 02/15/25 DOING WELL, NO NAUSEA, NO CHOKING ,SWALLOWING WELL, WOUNDS CLEAN AN WELL APPROXIMATED. ok TO ADVANCE DIET. FROM SURGICAL POINT OF VIEW SHE COULD BE DISCHARGED TOMORROW OR MONDAY Plan discussed with: Patient, Daughter Dietary Evaluation Review Comments: 1. CCHO-45 Cardiac Diet 2. Reassess in 2-3 days Expected Outcomes/Goals: Gradual Wt loss will be desirable. VILLA BEASLEY MD Feb 15, 2025 11:04
--- NOTE | 2025-02-15 17:07 | DVHPN2 ---
Progress Note - Dictate Date Seen: Feb 15, 2025 Medical Necessity Reason Pt with a Central, PICC or Fol: Yes The following are medically ne: Perera Catheter Reason for perera catheter: Strict I&O Subjective Ms. Evans is a 59 years old right-handed female with a history of hypertension, diabetes, gallstone, rheumatoid arthritis, the patient was brought to the [facility] on 01/27/2025 with a chief company of altered mental status. I have seen and examined the patient, I have talked to her nurse. Her sister other family members are in the room, she is awake, oriented to person place,, According to her sees, she has long history of pain in the joints, back, she will also had gait disturbance, she has been bed-bound for six months or since 2024, she has been using diaper for two months Status post cholecystectomy on 02/13/2025 [facility] reports EGD 01/02/2025: Preoperative diagnosis: Microcytic anemia, nausea, vomiting Post-op diagnosis: Diffuse gastritis, no biopsy Colonoscopy, 01/02/2025: Postop diagnosis: One normal anal canal, there was no internal external hemorrhoids. 2, moderately severe uncomplicated sigmoid diverticulosis, 3. 2 mm polyp in the mid sigmoid removed by cold biopsy. The rest of the colon is normal on AVM mucosa anomalies or other polyps ABG, 02/01/2025: Compensated metabolic acidosis, Blood culture, 01/28/2025: No growth Wound culture, 01/28/2025: E coli Urine culture, 01/28/2025: Yeast: > 100,000 UDS, 01/27/2025: Negative Plasma alcohol, 01/27/2025: 3.7 Urinalysis, 01/27/2025: WBC: 733, urine leukocyte esterase: 3+ WBC/HB/PLT/MCV, 02/17/2025: 6.6/9.4/258/83.6 HCO3, : 20, 01/28/2025: 18, 01/31/2025: 20, 02/03/2025: 14, 02/04/2025: 17. 6/: 20, 02/06/2025: 24, 02/10/2025: 26 CRP, 01/28/2025: 8.04 Liver function tests, 01/28/2025: Unremarkable Ammonia, : 10 Vitamin B12, 01/28/2025: 339 Folic acid, 01/28/2025: 2.75 TSH, 01/28/2025: 3.96 FT four, 01/30/2025: 2.3 Echocardiogram, 01/29/2025: Conclusion lvef 60% grade 1 diastolic dysfunction normal rv functon left atrium enlarged EEG, 02/01/2025: Moderately abnormal EEG EEG, 02/07/2025, This is an inadequate but likely mildly abnormal EEG, Carotid Doppler 02/10/2025: No hemodynamically significant stenosis by velocity criteria CT abdominal/pelvis, 01/29/2025: No acute intraabdominal abnormality. Cholelithiasis.No sacral soft tissue defect visualized MRI head, 01/31/2025: No evidence of acute intracranial abnormalities MRI cervical spine, 02/12/2025: Moderate cervical degenerative disc disease. [id number] spinal canal stenosis C5-6. Mild spinal canal stenosis at C4-5, T1-2. Moderate to severe multilevel neural foraminal stenosis as described. Recommend MRI thoracic spine to further evaluate given the findings at T1-T2. MRI T-spine, 02/14/2025:1. Large posterior disc bulge at T1-2 resulting in severe central canal stenosis with impingement on the thoracic cord and likely abnormal cord signal. Neurosurgical evaluation is recommended. Moderate central canal stenosis T11-12. No significant neural foraminal stenosis. 2. Bilateral pleural effusions right greater than left vital signs Vital Sign Date Time Temp Pulse Resp B/P (MAP) Pulse Ox O2 Delivery O2 Flow Rate FiO2 02/15/25 16:00 13 98 Room Air* 0 21 02/15/25 14:00 81 02/15/25 13:00 148/68 (94) 02/15/25 12:00 97.7 97.7 Total Intake and Output 02/14/25 02/14/25 02/15/25 15:00 23:00 07:00 Intake Total 134 ml 646 ml 130 ml Output Total 720 ml 555 ml Balance 134 ml -74 ml -425 ml medications Current Medications Medications Dose Ordered Sig/Karan Route Start Time Stop Time Status Last Admin Dose Admin Sodium Chloride 10 ml Q8HR IV 01/27/25 22:00 02/15/25 13:59 10 ML Ondansetron HCl 4 mg Q4HP PRN IV 01/27/25 18:45 02/09/25 01:19 4 MG Docusate Sodium 100 mg BIDPRN PRN PO 01/27/25 18:45 Acetaminophen 650 mg Q6HP PRN PO 01/27/25 18:45 02/13/25 18:29 650 MG Nitroglycerin 0.4 mg Q5MINP PRN SL 01/27/25 18:45 Potassium Chloride 100 ml @ 50 mls/hr Q2H IV 01/28/25 07:00 01/28/25 12:59 Cancel Pantoprazole Sodium 40 mg DAILY IV 01/29/25 10:00 02/15/25 07:46 40 MG Multivitamins 1 tab DAILY PO 02/01/25 10:00 02/15/25 07:47 1 TAB Diphenoxylate HCl/ Atropine 2.5 mg Q12HP PRN PO 02/04/25 10:00 02/06/25 00:14 2.5 MG Sodium Chloride 10 ml QSHIFT@10,22 IV 02/06/25 22:00 02/15/25 07:47 10 ML Vancomycin HCl 200 ml @ 200 mls/hr DAILY IV 02/10/25 12:00 UNV Enteral Nutritional Formula 1,000 ml 40ML/HR GT 02/10/25 13:15 02/13/25 18:41 1,000 ML Purified Water 100 ml Q6HR GT 02/12/25 18:00 02/14/25 12:00 100 ML Methylprednisolone Sodium Succinate 20 mg BID IV 02/12/25 22:00 02/15/25 07:46 20 MG Hydralazine HCl 10 mg Q6HP PRN IV 02/12/25 16:15 02/14/25 21:20 10 MG Fluconazole 100 ml @ 100 mls/hr DAILY IV 02/14/25 10:00 02/15/25 07:47 100 MLS/HR Vancomycin HCl 0 ml @ 0 mls/hr UD IV 02/14/25 16:30 objective General: the patient is well developed and nourished. No acute distress. MUSCULOSKELETAL EXAM: Change in the both hands is consistent with history of rheumatoid arthritis MENTAL STATUS: Subjective SPEECH, LANGUAGE, HIGHER CORTICAL FUNCTION: Subjective CRANIAL NERVES: Pupils are equal, round and reactive. EOMs full and conjugate. Facial sensation intact in all three divisions bilaterally. Mandibular strength intact. Facial muscles symmetrical and strength intact. SENSATION: Sensation to touch and pinprick is okay MOTOR: Normal tone in the upper and lower extremity. Normal muscle bulk. No fasciculations. No abnormal movements or posturing. No extremity movement REFLEXES: Deep tendon reflexes are symmetrical. No pathological reflexes. CEREBELLAR/COORDINATION: Deferred GAIT/STATION: deferred laboratory and microbiology Laboratory Tests 02/15/25 01:50 Test 02/15/25 01:50 Range/Units Serum Glucose 120 H 74-106 mg/dL Problem List Altered mental status/Metabolic encephalopathy secondary to UTI, sepsis/septic shock Pressure wound Metabolic acidosis Nausea, vomiting Bradycardia Episodic event, rule out seizure Quadriparesis T-spine stenosis Assessment/Plan Monitoring Supportive treatment Follow-up labs ICU care Stabilize vitals Respiratory support p.r.n. IV antibiotics DVT prophylaxis GI prophylaxis Cardiology on case Consult Dr. Tello More recommendation per clinical course This medical document was created using an electronic medical record system with [employer] dictation system. Although this document has been carefully reviewed, there may still be some phonetic and typographical errors. These areas are purely typographical due to imperfections of the software programs, and do not reflect any compromise in the patient's medical care. Prognosis poor Dietary Evaluation Review Comments: 1. CCHO-45 Cardiac Diet 2. Reassess in 2-3 days Expected Outcomes/Goals: Gradual Wt loss will be desirable. Plan discussed with: Other RIZWANA MUÑOZ MD Feb 15, 2025 17:07
--- NOTE | 2025-02-15 23:26 | DVHPN2 ---
Subjective The patient is seen and examined at bedside. Feel better today. Reviewed: Care Plan, H&P, Labs, Medications Changes from previous H/P or p: No Changes General: Per HPI Eyes: No Pain, No Vision change, No Conjunctivae inflammation, No Eyelid inflammation, No Other, No Redness ENT: No Ear pain, No Ear discharge, No Nose pain, No Nose discharge, No Nose congestion, No Mouth pain, No Mouth swelling, No Throat pain, No Throat swelling, No Other Cardiovascular: No Chest Pain, No Palpitations, No Orthopnea, No Paroxysmal Noc. Dyspnea, No Edema, No Lt Headedness, No Other Respiratory: No Cough, No Dry, No Shortness of breath, No SOB with excertion, No Wheezing, No Hemoptysis, No Pleuritic Pain, No Sputum, No Other Gastrointestinal: No Nausea, No Vomiting, No Abdominal Pain, No Diarrhea, No Constipation, No Melena, No Hematochezia, No Other Genitourinary: Other Musculoskeletal: No other, No neck pain, No shoulder pain, No arm pain, No back pain, No hand pain, No leg pain, No foot pain Skin: No Rash, No Lesions, No Jaundice, No Bruising, No Other Objective Vitals Vital Signs Date Time Temp Pulse Resp B/P (MAP) Pulse Ox O2 Delivery O2 Flow Rate FiO2 02/15/25 20:00 17 100 Room Air* 0 21 02/15/25 20:00 54 02/15/25 20:00 97.3 146/66 (92) 97.3 Intake/Output Intake and Output 02/15/25 07:00 Intake Total 910 ml Output Total 1275 ml Balance -365 ml Intake Oral 130 ml IV Total 334 ml Tube Feeding 446 ml Output Urine Total 860 ml Stool Total 25 ml Drainage Total 390 ml General Appearance: moderate distress HEENT: Atraumatic, PERRLA Lungs: Clear to auscultation, Normal air movement Cardiovascular: Normal S1, Normal S2, Other Abdomen: Normal bowel sounds, No tenderness Musculoskeletal: Normal sensory function, Normal motor function Extremities: Other Neuro: Other Skin: Dry, Intact Psych/Mental Status: Mental status NL, Mood NL Medications Current Medications Medications Dose Ordered Sig/Karan Route Start Time Stop Time Status Last Admin Dose Admin Sodium Chloride 10 ml Q8HR IV 01/27/25 22:00 02/15/25 22:50 10 ML Ondansetron HCl 4 mg Q4HP PRN IV 01/27/25 18:45 02/09/25 01:19 4 MG Docusate Sodium 100 mg BIDPRN PRN PO 01/27/25 18:45 Acetaminophen 650 mg Q6HP PRN PO 01/27/25 18:45 02/13/25 18:29 650 MG Nitroglycerin 0.4 mg Q5MINP PRN SL 01/27/25 18:45 Potassium Chloride 100 ml @ 50 mls/hr Q2H IV 01/28/25 07:00 01/28/25 12:59 Cancel Pantoprazole Sodium 40 mg DAILY IV 01/29/25 10:00 02/15/25 07:46 40 MG Multivitamins 1 tab DAILY PO 02/01/25 10:00 02/15/25 07:47 1 TAB Diphenoxylate HCl/ Atropine 2.5 mg Q12HP PRN PO 02/04/25 10:00 02/06/25 00:14 2.5 MG Sodium Chloride 10 ml QSHIFT@10,22 IV 02/06/25 22:00 02/15/25 22:50 10 ML Vancomycin HCl 200 ml @ 200 mls/hr DAILY IV 02/10/25 12:00 UNV Enteral Nutritional Formula 1,000 ml 40ML/HR GT 02/10/25 13:15 02/13/25 18:41 1,000 ML Purified Water 100 ml Q6HR GT 02/12/25 18:00 02/14/25 12:00 100 ML Methylprednisolone Sodium Succinate 20 mg BID IV 02/12/25 22:00 02/15/25 22:50 20 MG Hydralazine HCl 10 mg Q6HP PRN IV 02/12/25 16:15 02/14/25 21:20 10 MG Fluconazole 100 ml @ 100 mls/hr DAILY IV 02/14/25 10:00 02/15/25 07:47 100 MLS/HR Vancomycin HCl 0 ml @ 0 mls/hr UD IV 02/14/25 16:30 Laboratory Results Laboratory Tests 02/15/25 01:50 Chemistry Test 02/15/25 01:50 Albumin 3.0 g/dL (3.2-4.8) L Calcium Level 7.8 mg/dL (8.7-10.4) L Total Protein 4.4 g/dL (5.7-8.2) L LFT Test 02/15/25 01:50 Alanine Aminotransferase (ALT) 157 U/L (7-40) H Alkaline Phosphatase 103 U/L (46-116) Aspartate Amino Transferase (AST) 69 U/L (<34) H Total Bilirubin 0.8 mg/dL (0.2-1.0) Urinalysis Test 01/27/25 16:06 02/03/25 22:00 02/05/25 16:30 Urine WBC Clumps Present /hpf (None Seen) Urine Mucus Few (None Seen) Urine Yeast (Budding) Many /hpf (None Seen) Urine Creatinine 21.71 mg/dL (30.0-125.0) L Urine Protein/Creatinine Ratio 2.89 Urine Total Protein 62.8 mg/dL (1-14) H Urine Color Colorless (Yellow) Urine Clarity Turbid (Clear) H Urine pH 7.0 (5.0-9.0) Urine Specific [place] 1.009 (1.001-1.035) Urine Protein Trace (Negative) H Urine Ketones Negative (Negative) Urine Blood 2+ /uL (Negative) H Urine Nitrite Negative (Negative) Urine Bilirubin Negative (Negative) Urine Urobilinogen Normal mg/dL (Negative) Urine Leukocyte Esterase 3+ /uL (Negative) Urine RBC 5 /hpf (0 - 4) Urine Microscopic WBC 26 /HPF (0-5) H Urine Squamous Epithelial Cells None seen /hpf (<5) Urine Bacteria Few /hpf (None Seen) H Urine Glucose Trace mg/dL (Normal) Microbiology Microbiology Date/Time Source Procedure Growth Status 02/13/25 08:30 Drainage Gram Stain - Final Resulted 02/13/25 08:30 Drainage Anaerobic Culture - Preliminary Resulted 02/13/25 08:30 Drainage Aerobic Culture - Preliminary Resulted 02/03/25 22:00 Urine - [place] Urine Culture - Final Complete 01/28/25 16:23 Sacrum Gram Stain - Final Complete 01/28/25 16:23 Wound Culture - Final Escherichia coli Presumptive Floridalma albicans Complete 01/27/25 16:41 Blood Blood Culture - Final NO GROWTH AFTER 5 DAYS OF INCUBATION. Complete Labs and/or images reviewed: Labs reviewed by me Assessment/Plan Assessment/Plan #1 septic shock with uti: off iv pressors, continuing iv antibiotics #2 gallstones: s/p surgery #3 encephalopathy- ?metabolic #4 dm: ssi #5 RA: Continuing solumedrol #6 obesity #7 anemia: transfuse #8 thrombocytopenia: monitor #9 nutrition: tube feedings #10 mod protein malnutrition #11 quadriparesis: mri c spine- spinal stenosis #12 htn: hydralazine, dc lasix iv Critical care spent for this case is 38 minutes This medical document was created using an electronic medical record system with [employer] direct computerized dictation system. Although this document has been carefully reviewed, there may still be some phonetic and typographical errors. These areas are purely typographical due to imperfections of the software programs, and do not reflect any compromise in the patient's medical care. Plan discussed with: Patient, Other (RN) My Orders Orders - CAROLE HERRING MD Procedure Category Date Status Time Vancomycin,Random LAB 02/16/25 Verified 05:00 Transfer Orders XFER 02/15/25 Transmitted 16:38 Date of Service: Feb 15, 2025 Billing Provider: CAROLE HERRING MD Common Visit Codes: 82199-[id number] CARE 30-74 MIN CAROLE HERRING MD Feb 15, 2025 23:26
[2025-02-16] VITALS (31 sets, daily range): BP systolic 132–163; BP diastolic 62–80; PULSE 55–86; RESP 10–18; TEMP 97.5–98.8; O2SAT 96–100
[2025-02-16 07:34] LABS: Hematocrit 19.5 % (36.0-46.0); Mean Corpuscular Hemoglobin 32.1 pg (28.0-32.0); Mean Corpuscular Volume 93.9 fL (80.0-100.0); Nucleated Red Blood Cells % 0.0 %
[2025-02-16 07:36] LABS: Hemoglobin 6.7 g/dL (12.2-16.2)
[2025-02-16 07:52] LABS: Alkaline Phosphatase 87 U/L (46-116); Anion Gap 8 (5-15); BUN/Creatinine Ratio 88.0 (10.0-20.0); Bilirubin, Total 0.6 mg/dL (0.2-1.0); Blood Urea Nitrogen 22 mg/dL (9-23); Carbon Dioxide 26 mmol/L (20-31); Glucose 88 mg/dL (74-106); Magnesium 2.1 mg/dL (1.6-2.6); Potassium 3.7 mmol/L (3.5-5.1)
[2025-02-16 08:05] LABS: Alanine Aminotransferase 119 U/L (7-40); Albumin 2.6 g/dL (3.2-4.8); Calcium 8.4 mg/dL (8.7-10.4); Chloride 115 mmol/L (98-107); Sodium 149 mmol/L (136-145); Total Protein 3.8 g/dL (5.7-8.2)
--- NOTE | 2025-02-16 08:55 | DVHPN2 ---
Progress Note Date Seen: Feb 16, 2025 Medical Necessity Reason Pt with a Central, PICC or Fol: Yes The following are medically ne: Perera Catheter Reason for perera catheter: Strict I&O Objective vital signs Vital Sign Date Time Temp Pulse Resp B/P (MAP) Pulse Ox O2 Delivery O2 Flow Rate FiO2 02/16/25 06:00 14 96 Room Air* 0 21 02/16/25 06:00 70 02/16/25 06:00 97.9 137/64 (88) 208.2 Total Intake and Output 02/15/25 02/15/25 02/16/25 15:00 23:00 07:00 Intake Total 340 ml 300 ml 0 ml Output Total 535 ml 280 ml Balance 340 ml -235 ml -280 ml medications Current Medications Medications Dose Ordered Sig/Karan Route Start Time Stop Time Status Last Admin Dose Admin Sodium Chloride 10 ml Q8HR IV 01/27/25 22:00 02/16/25 05:25 10 ML Ondansetron HCl 4 mg Q4HP PRN IV 01/27/25 18:45 02/09/25 01:19 4 MG Docusate Sodium 100 mg BIDPRN PRN PO 01/27/25 18:45 Acetaminophen 650 mg Q6HP PRN PO 01/27/25 18:45 02/13/25 18:29 650 MG Nitroglycerin 0.4 mg Q5MINP PRN SL 01/27/25 18:45 Potassium Chloride 100 ml @ 50 mls/hr Q2H IV 01/28/25 07:00 01/28/25 12:59 Cancel Pantoprazole Sodium 40 mg DAILY IV 01/29/25 10:00 02/16/25 07:49 40 MG Multivitamins 1 tab DAILY PO 02/01/25 10:00 02/16/25 07:48 1 TAB Diphenoxylate HCl/ Atropine 2.5 mg Q12HP PRN PO 02/04/25 10:00 02/06/25 00:14 2.5 MG Sodium Chloride 10 ml QSHIFT@10,22 IV 02/06/25 22:00 02/16/25 07:49 10 ML Vancomycin HCl 200 ml @ 200 mls/hr DAILY IV 02/10/25 12:00 UNV Enteral Nutritional Formula 1,000 ml 40ML/HR GT 02/10/25 13:15 02/13/25 18:41 1,000 ML Methylprednisolone Sodium Succinate 20 mg BID IV 02/12/25 22:00 02/16/25 07:49 20 MG Hydralazine HCl 10 mg Q6HP PRN IV 02/12/25 16:15 02/14/25 21:20 10 MG Fluconazole 100 ml @ 100 mls/hr DAILY IV 02/14/25 10:00 02/16/25 07:49 100 MLS/HR Vancomycin HCl 0 ml @ 0 mls/hr UD IV 02/14/25 16:30 laboratory and microbiology Laboratory Tests 02/16/25 07:20 Test 02/16/25 07:20 Range/Units Serum Glucose 88 74-106 mg/dL Problem List/Assessment/Plan Problem List/Assessment/Plan 02/14/25 alert,oriented, cooperative, wounds clean and well approximated, abdomen appropriately tender, SHANTE drainage serous.Bilirubin normal. will get a swallowing study and attempt to resume po intake 02/15/25 DOING WELL, NO NAUSEA, NO CHOKING ,SWALLOWING WELL, WOUNDS CLEAN AN WELL APPROXIMATED. ok TO ADVANCE DIET. FROM SURGICAL POINT OF VIEW SHE COULD BE DISCHARGED TOMORROW OR Monday02/16/25 tolerating po liquids, abdomen non tender, SHANTE drainage non bilious. "surgically " stable. Plan discussed with: Patient, Other Dietary Evaluation Review Comments: 1. CCHO-45 Cardiac Diet 2. Reassess in 2-3 days Expected Outcomes/Goals: Gradual Wt loss will be desirable. VILLA BEASLEY MD Feb 16, 2025 08:55
--- NOTE | 2025-02-16 13:51 | DVHPN2 ---
Subjective The patient is seen and examined at bedside. Still had minimal abdominal pain. Remained weak. Son at bedside asking about her knee osteoarthritis and if she can have surgery on that too. Reviewed: Care Plan, H&P, Labs, Medications Changes from previous H/P or p: No Changes General: Per HPI Eyes: No Pain, No Vision change, No Conjunctivae inflammation, No Eyelid inflammation, No Other, No Redness ENT: No Ear pain, No Ear discharge, No Nose pain, No Nose discharge, No Nose congestion, No Mouth pain, No Mouth swelling, No Throat pain, No Throat swelling, No Other Cardiovascular: No Chest Pain, No Palpitations, No Orthopnea, No Paroxysmal Noc. Dyspnea, No Edema, No Lt Headedness, No Other Respiratory: No Cough, No Dry, No Shortness of breath, No SOB with excertion, No Wheezing, No Hemoptysis, No Pleuritic Pain, No Sputum, No Other Gastrointestinal: No Nausea, No Vomiting, No Abdominal Pain, No Diarrhea, No Constipation, No Melena, No Hematochezia, No Other Genitourinary: Other Musculoskeletal: No other, No neck pain, No shoulder pain, No arm pain, No back pain, No hand pain, No leg pain, No foot pain Skin: No Rash, No Lesions, No Jaundice, No Bruising, No Other Objective Vitals Vital Signs Date Time Temp Pulse Resp B/P (MAP) Pulse Ox O2 Delivery O2 Flow Rate FiO2 02/16/25 13:03 160/80 02/16/25 13:00 98.4 55 14 99 209.1 02/16/25 12:00 Room Air* 0 21 Intake/Output Intake and Output 02/16/25 07:00 Intake Total 640 ml Output Total 815 ml Balance -175 ml Intake Oral 540 ml IV Total 100 ml Tube Feeding 0 ml Output Urine Total 600 ml Stool Total 125 ml Drainage Total 90 ml General Appearance: moderate distress HEENT: Atraumatic, PERRLA Lungs: Clear to auscultation, Normal air movement Cardiovascular: Normal S1, Normal S2, Other Abdomen: Normal bowel sounds, No tenderness Musculoskeletal: Normal sensory function, Normal motor function Extremities: Other Neuro: Other Skin: Dry, Intact Psych/Mental Status: Mental status NL, Mood NL Medications Current Medications Medications Dose Ordered Sig/Karan Route Start Time Stop Time Status Last Admin Dose Admin Sodium Chloride 10 ml Q8HR IV 01/27/25 22:00 02/16/25 13:03 10 ML Ondansetron HCl 4 mg Q4HP PRN IV 01/27/25 18:45 02/09/25 01:19 4 MG Docusate Sodium 100 mg BIDPRN PRN PO 01/27/25 18:45 Acetaminophen 650 mg Q6HP PRN PO 01/27/25 18:45 02/13/25 18:29 650 MG Nitroglycerin 0.4 mg Q5MINP PRN SL 01/27/25 18:45 Potassium Chloride 100 ml @ 50 mls/hr Q2H IV 01/28/25 07:00 01/28/25 12:59 Cancel Pantoprazole Sodium 40 mg DAILY IV 01/29/25 10:00 02/16/25 07:49 40 MG Multivitamins 1 tab DAILY PO 02/01/25 10:00 02/16/25 07:48 1 TAB Diphenoxylate HCl/ Atropine 2.5 mg Q12HP PRN PO 02/04/25 10:00 02/06/25 00:14 2.5 MG Sodium Chloride 10 ml QSHIFT@10,22 IV 02/06/25 22:00 02/16/25 07:49 10 ML Vancomycin HCl 200 ml @ 200 mls/hr DAILY IV 02/10/25 12:00 UNV Methylprednisolone Sodium Succinate 20 mg BID IV 02/12/25 22:00 02/16/25 07:49 20 MG Hydralazine HCl 10 mg Q6HP PRN IV 02/12/25 16:15 02/16/25 13:03 10 MG Fluconazole 100 ml @ 100 mls/hr DAILY IV 02/14/25 10:00 02/16/25 07:49 100 MLS/HR Vancomycin HCl 0 ml @ 0 mls/hr UD IV 02/14/25 16:30 Laboratory Results Laboratory Tests 02/16/25 07:20 Chemistry Test 02/16/25 07:20 Albumin 2.6 g/dL (3.2-4.8) L Calcium Level 8.4 mg/dL (8.7-10.4) L Magnesium Level 2.1 mg/dL (1.6-2.6) Total Protein 3.8 g/dL (5.7-8.2) L LFT Test 02/16/25 07:20 Alanine Aminotransferase (ALT) 119 U/L (7-40) H Alkaline Phosphatase 87 U/L (46-116) Aspartate Amino Transferase (AST) 56 U/L (<34) H Total Bilirubin 0.6 mg/dL (0.2-1.0) Urinalysis Test 01/27/25 16:06 02/03/25 22:00 02/05/25 16:30 Urine WBC Clumps Present /hpf (None Seen) Urine Mucus Few (None Seen) Urine Yeast (Budding) Many /hpf (None Seen) Urine Creatinine 21.71 mg/dL (30.0-125.0) L Urine Protein/Creatinine Ratio 2.89 Urine Total Protein 62.8 mg/dL (1-14) H Urine Color Colorless (Yellow) Urine Clarity Turbid (Clear) H Urine pH 7.0 (5.0-9.0) Urine Specific [place] 1.009 (1.001-1.035) Urine Protein Trace (Negative) H Urine Ketones Negative (Negative) Urine Blood 2+ /uL (Negative) H Urine Nitrite Negative (Negative) Urine Bilirubin Negative (Negative) Urine Urobilinogen Normal mg/dL (Negative) Urine Leukocyte Esterase 3+ /uL (Negative) Urine RBC 5 /hpf (0 - 4) Urine Microscopic WBC 26 /HPF (0-5) H Urine Squamous Epithelial Cells None seen /hpf (<5) Urine Bacteria Few /hpf (None Seen) H Urine Glucose Trace mg/dL (Normal) Microbiology Microbiology Date/Time Source Procedure Growth Status 02/13/25 08:30 Drainage Gram Stain - Final Resulted 02/13/25 08:30 Drainage Anaerobic Culture - Preliminary Resulted 02/13/25 08:30 Drainage Aerobic Culture - Preliminary Resulted 02/03/25 22:00 Urine - [place] Urine Culture - Final Complete 01/28/25 16:23 Sacrum Gram Stain - Final Complete 01/28/25 16:23 Wound Culture - Final Escherichia coli Presumptive Floridalma albicans Complete 01/27/25 16:41 Blood Blood Culture - Final NO GROWTH AFTER 5 DAYS OF INCUBATION. Complete Labs and/or images reviewed: Labs reviewed by me Assessment/Plan Assessment/Plan #1 septic shock with uti: off iv pressors, continuing iv antibiotics #2 gallstones: s/p surgery #3 encephalopathy- ?metabolic #4 dm: ssi #5 RA: Continuing solumedrol #6 obesity #7 anemia: transfuse #8 thrombocytopenia: monitor #9 nutrition: tube feedings #10 mod protein malnutrition #11 quadriparesis: mri c spine- spinal stenosis #12 htn: hydralazine, dc lasix iv #13: Knee pain with osteoarthritis per patient son she had evaluation as outpatient and required possible surgery. I explained to the son that she is weak in there is other problem that we have to do with inpatient such as get herself stronger able to back to her baseline once she is stable as outpatient the son can continuing to pursue the treatment for knee pain such as surgery. Downgrade patient to telemetry Critical care time spent for this case today is 39 minutes excluding procedure This medical document was created using an electronic medical record system with [employer] [facility] [employer] direct computerized dictation system. Although this document has been carefully reviewed, there may still be some phonetic and typographical errors. These areas are purely typographical due to imperfections of the software programs, and do not reflect any compromise in the patient's medical care. Plan discussed with: Patient, Son My Orders Orders - CAROLE HERRING MD Procedure Category Date Status Time Transfer Orders XFER 02/15/25 Transmitted 16:38 Date of Service: Feb 16, 2025 Billing Provider: CAROLE HERRING MD Common Visit Codes: 82097-[id number] CARE 30-74 MIN CAROLE HERRING MD Feb 16, 2025 13:51
[2025-02-16] MEDS: VANCOMYCIN 500mg/100mL 100 ML IV SCH (18:38)
[2025-02-16 20:03] LABS: Hematocrit 29.2 % (36.0-46.0); Hemoglobin 9.5 g/dL (12.2-16.2)
[2025-02-17] VITALS (31 sets, daily range): BP systolic 133–178; BP diastolic 63–93; PULSE 60–93; RESP 11–18; TEMP 98.1–98.8; O2SAT 97–100
[2025-02-17 04:17] LABS: Hematocrit 29.5 % (36.0-46.0); Hemoglobin 9.9 g/dL (12.2-16.2); Mean Corpuscular Hemoglobin 29.6 pg (28.0-32.0); Mean Corpuscular Volume 88.4 fL (80.0-100.0); Nucleated Red Blood Cells % 0.2 %
[2025-02-17 04:24] LABS: Alkaline Phosphatase 103 U/L (46-116); Anion Gap 10 (5-15); BUN/Creatinine Ratio 70.0 (10.0-20.0); Bilirubin, Total 0.8 mg/dL (0.2-1.0); Blood Urea Nitrogen 21 mg/dL (9-23); Carbon Dioxide 23 mmol/L (20-31); Magnesium 2.1 mg/dL (1.6-2.6); Potassium 3.8 mmol/L (3.5-5.1)
[2025-02-17 04:38] LABS: Alanine Aminotransferase 117 U/L (7-40); Albumin 2.9 g/dL (3.2-4.8); Calcium 8.0 mg/dL (8.7-10.4); Chloride 115 mmol/L (98-107); Glucose 108 mg/dL (74-106); Sodium 148 mmol/L (136-145); Total Protein 4.2 g/dL (5.7-8.2)
[2025-02-17 05:18] LABS: Anisocytosis Slight
--- NOTE | 2025-02-17 11:15 | DVHPN2 ---
Progress Note - Dictate Date Seen: Feb 17, 2025 Medical Necessity Reason Pt with a Central, PICC or Fol: Yes The following are medically ne: Perera Catheter Reason for perera catheter: Strict I&O Subjective Ms. Evans is a 59 years old right-handed female with a history of hypertension, diabetes, gallstone, rheumatoid arthritis, the patient was [facility] on 01/[facility]2025 with a chief company of altered mental status. I have seen and examined the patient, I have talked to her nurse. Her sister other family members are in the room, she is awake, oriented to person, she knows that she is not home but in the hotel. Reasonable social skills Status post cholecystectomy on 02/13/2025 [facility] reports EGD 01/02/2025: Preoperative diagnosis: Microcytic anemia, nausea, vomiting Post-op diagnosis: Diffuse gastritis, no biopsy Colonoscopy, 01/02/2025: Postop diagnosis: One normal anal canal, there was no internal external hemorrhoids. 2, moderately severe uncomplicated sigmoid diverticulosis, 3. 2 mm polyp in the mid sigmoid removed by cold biopsy. The rest of the colon is normal on AVM mucosa anomalies or other polyps ABG, 02/01/2025: Compensated metabolic acidosis, Blood culture, 01/28/2025: No growth Wound culture, 01/28/2025: E coli Urine culture, 01/28/2025: Yeast: > 100,000 UDS, 01/27/2025: Negative Plasma alcohol, 01/27/2025: 3.7 Urinalysis, 01/27/2025: WBC: 733, urine leukocyte esterase: 3+ WBC/HB/PLT/MCV, 02/17/2025: 6.6/9.4/258/83.6 HCO3, : 20, 01/28/2025: 18, 01/31/2025: 20, 02/03/2025: 14, 02/04/2025: 17. 6/: 20, 02/06/2025: 24, 02/10/2025: 26 CRP, 01/28/2025: 8.04 Liver function tests, 01/28/2025: Unremarkable Ammonia, : 10 Vitamin B12, 01/28/2025: 339 Folic acid, 01/28/2025: 2.75 TSH, 01/28/2025: 3.96 FT four, 01/30/2025: 2.3 Echocardiogram, 01/29/2025: Conclusion lvef 60% grade 1 diastolic dysfunction normal rv functon left atrium enlarged EEG, 02/01/2025: Moderately abnormal EEG EEG, 02/07/2025, This is an inadequate but likely mildly abnormal EEG, Carotid Doppler 02/10/2025: No hemodynamically significant stenosis by velocity criteria CT abdominal/pelvis, 01/29/2025: No acute intraabdominal abnormality. Cholelithiasis.No sacral soft tissue defect visualized MRI head, 01/31/2025: No evidence of acute intracranial abnormalities MRI cervical spine, 02/12/2025: Moderate cervical degenerative disc disease. [id number] spinal canal stenosis C5-6. Mild spinal canal stenosis at C4-5, T1-2. Moderate to severe multilevel neural foraminal stenosis as described. Recommend MRI thoracic spine to further evaluate given the findings at T1-T2. MRI T-spine, 02/14/2025:1. Large posterior disc bulge at T1-2 resulting in severe central canal stenosis with impingement on the thoracic cord and likely abnormal cord signal. Neurosurgical evaluation is recommended. Moderate central canal stenosis T11-12. No significant neural foraminal stenosis. 2. Bilateral pleural effusions right greater than left vital signs Vital Sign Date Time Temp Pulse Resp B/P (MAP) Pulse Ox O2 Delivery O2 Flow Rate FiO2 02/17/25 07:00 98.2 60 13 148/69 (95) 98 208.8 02/17/25 06:00 Room Air* 0 21 Total Intake and Output 02/16/25 02/16/25 02/17/25 15:00 23:00 07:00 Intake Total 760 ml 440 ml 240 ml Output Total 275 ml 380 ml Balance 760 ml 165 ml -140 ml medications Current Medications Medications Dose Ordered Sig/Karan Route Start Time Stop Time Status Last Admin Dose Admin Sodium Chloride 10 ml Q8HR IV 01/27/25 22:00 02/17/25 06:06 10 ML Ondansetron HCl 4 mg Q4HP PRN IV 01/27/25 18:45 02/09/25 01:19 4 MG Docusate Sodium 100 mg BIDPRN PRN PO 01/27/25 18:45 Acetaminophen 650 mg Q6HP PRN PO 01/27/25 18:45 02/13/25 18:29 650 MG Nitroglycerin 0.4 mg Q5MINP PRN SL 01/27/25 18:45 Potassium Chloride 100 ml @ 50 mls/hr Q2H IV 01/28/25 07:00 01/28/25 12:59 Cancel Pantoprazole Sodium 40 mg DAILY IV 01/29/25 10:00 02/16/25 07:49 40 MG Multivitamins 1 tab DAILY PO 02/01/25 10:00 02/16/25 07:48 1 TAB Diphenoxylate HCl/ Atropine 2.5 mg Q12HP PRN PO 02/04/25 10:00 02/06/25 00:14 2.5 MG Sodium Chloride 10 ml QSHIFT@10,22 IV 02/06/25 22:00 02/16/25 21:41 10 ML Vancomycin HCl 200 ml @ 200 mls/hr DAILY IV 02/10/25 12:00 UNV Methylprednisolone Sodium Succinate 20 mg BID IV 02/12/25 22:00 02/16/25 21:41 20 MG Hydralazine HCl 10 mg Q6HP PRN IV 02/12/25 16:15 02/16/25 19:46 10 MG Fluconazole 100 ml @ 100 mls/hr DAILY IV 02/14/25 10:00 02/16/25 07:49 100 MLS/HR Vancomycin HCl 0 ml @ 0 mls/hr UD IV 02/14/25 16:30 Amlodipine Besylate 5 mg DAILY PO 02/17/25 10:00 Vancomycin HCl 100 ml @ 200 mls/hr Q12H IV 02/16/25 18:00 02/17/25 05:59 200 MLS/HR objective General: the patient is well developed and nourished. No acute distress. MUSCULOSKELETAL EXAM: Change in the both hands is consistent with history of rheumatoid arthritis MENTAL STATUS: Subjective SPEECH, LANGUAGE, HIGHER CORTICAL FUNCTION: Subjective CRANIAL NERVES: Pupils are equal, round and reactive. EOMs full and conjugate. Facial sensation intact in all three divisions bilaterally. Mandibular strength intact. Facial muscles symmetrical and strength intact. SENSATION: Sensation to touch and pinprick is okay, no [id number] differences, no sensory level MOTOR: Normal tone in the upper and lower extremity. Normal muscle bulk. No fasciculations. No abnormal movements or posturing. Minimal movement in the left foot REFLEXES: Deep tendon reflexes are symmetrical. No pathological reflexes. CEREBELLAR/COORDINATION: Deferred GAIT/STATION: deferred Mild tenderness to palpation in the neck, and back laboratory and microbiology Laboratory Tests 02/17/25 03:30 Test 02/17/25 03:30 Range/Units Serum Glucose 108 H 74-106 mg/dL Problem List Altered mental status/Metabolic encephalopathy secondary to UTI, sepsis/septic shock Pressure wound Metabolic acidosis Nausea, vomiting Bradycardia Episodic event, rule out seizure Quadriparesis T-spine stenosis Assessment/Plan Monitoring Supportive treatment Follow-up labs ICU care Stabilize vitals Respiratory support p.r.n. IV antibiotics DVT prophylaxis GI prophylaxis Cardiology on case Consult Dr. Tello More recommendation per clinical course This medical document was created using an electronic medical record system with [employer] dictation system. Although this document has been carefully reviewed, there may still be some phonetic and typographical errors. These areas are purely typographical due to imperfections of the software programs, and do not reflect any compromise in the patient's medical care. Prognosis poor Dietary Evaluation Review Comments: 1. CCHO-45 Cardiac Diet 2. Reassess in 2-3 days Expected Outcomes/Goals: Gradual Wt loss will be desirable. Plan discussed with: Other RIZWANA MUÑOZ MD Feb 17, 2025 11:15
--- NOTE | 2025-02-17 12:47 | DVHINCON2 ---
Consultation - Spinal Surgery Date Seen: Feb 17, 2025 Referring Physician Referring Physician Attending Doctor: Tad Miller MD Reason for Consultation Reason for Visit: Sepsis, unspecified organism, upon spine evaluation and was found the patient has weakness to all extremities, findings of cervical thoracic stenosis History of Present Illness History of Present Illness History of Present Illness The patient is a 59-year-old female with past medical history of arthritis, diabetes mellitus, and hypertension who presented to [facility] for evaluation of altered mental status. As reported by daughter at bedside, patient was experiencing arthritis pain, became very weak, altered, total body pain, and nausea. Patient was seen and evaluated in the ED, laboratory data shows WBC 9.2, hemoglobin 8.8, hematocrit 25.9, platelets 330, sodium 140, potassium 2.5, BUN 24, creatinine 0.79, glucose 96, troponin < 3, BNP 34.77, albumin 3.1, blood pressure 93/68, heart rate 140 trending down to 110, temperature 99.4 F, O2 saturation 99% on room air, urinalysis positive for urinary tract infection. Head CT showed no acute intracranial abnormality. Patient was started on IV antibiotic regimen levofloxacin. Patient denies chest pain, no headache, no dizziness, no diaphoresis, currently on oxygen, no nausea, no vomiting, no fever, no chills. Patient was admitted for further evaluation and medical management. Spine surgery H and P, per the family the patient became very weak and having a lot of body pain and joint pain due to her rheumatoid arthritis August of 2024 at that time she started spinning more time in bed and has subsequently become bed-bound. Patient reports no surgical interventions, physical therapy, pain management, no type of FLORI injections. No chiropractic work in the past. Past Medical/Surgical History Past Medical/Surgical History Past Medical History Arthritis, DM, HTN Past Surgical History No reported surgeries of any kind to the spine per patient and family Family and Social History Family and Social History Past Social History The patient lives at home, denies smoking, alcohol or illicit drugs abuse. Allergies and medications Allergies: Coded Allergies: Atorvastatin (Verified Allergy, Unknown, 01/27/25) Penicillins (Verified Allergy, Unknown, 09/14/22) Review of systems Review of Systems: HEENT:Abnormal (pain to neck 1 week), CVS:Normal, RESPIRATORY:Normal, GI:Normal, :Abnormal (Wilks catheter in place), MSK:Abnormal (Patient has been bed-bound since August 2024), NEURO:Abnormal (Family states patient does not move much independently she requires full care) Examination Vital signs Imaging: PROCEDURE(s): MNE - CERVICAL WO CONTRAST REASON: ?cervical myelopathy ORDER NUMBER(s): [id number], ACCESSION NUMBER(s): [id number] PROCEDURE: MRI CERVICAL WO CONTRAST Indication: cervical myelopathy COMPARISON: None TECHNIQUE: Multiplanar multisequence images of the the cervical spine are obtain ed. FINDINGS: Cervical vertebral body heights are maintained. Alignment maintained. Moderate multilevel disc space narrowing and desiccation. No prevertebral edema. Atlantooccipital, atlantoaxial articulations intact. C2-3: Small disc osteophyte complex. No spinal canal stenosis. Mild left neural foraminal stenosis. C3-4: Small disc osteophyte complex. No spinal canal stenosis. Moderate to severe left and [id number] right neural foraminal stenosis secondary to facet and uncovertebral hypertrophy. C4-5: Disc osteophyte complex narrowing the ventral and dorsal CSF spaces. Thecal sac measures 9 mm AP. Mild spinal canal stenosis. Severe bilateral neural foraminal stenosis secondary to facet and uncovertebral hypertrophy. C5-6: Disc osteophyte complex narrowing the ventral and dorsal CSF spaces. Thecal sac measures 8 mm AP. Dfxy-st-kfzvedbd spinal canal stenosis. Severe left and moderate to severe right neural foraminal stenosis secondary to facet and uncovertebral hypertrophy. C6-7: Small disc osteophyte complex. No spinal canal stenosis. Severe right and moderate to severe left neural foraminal stenosis. C7-T1: No spinal canal, neural foraminal stenosis. T1-2: Large disc osteophyte complex narrowing the ventral CSF space. Dorsal CSF space preserved. Thecal sac measures 9 mm AP. Mild spinal canal stenosis. Moderate to severe right and mild left neural foraminal stenosis. IMPRESSION: Moderate cervical degenerative disc disease. Ypmq-wi-rvnlkbgq spinal canal stenosis C5-6. Mild spinal canal stenosis at C4-5, T1-2. Moderate to severe multilevel neural foraminal stenosis as described. Recommend MRI thoracic spine to further evaluate given the findings at T1-T2. EDURE: MRI THORACIC SPINE WITHOUT INDICATION: Spondylosis Exam Date: 02/14/2025 02:21 PM COMPARISON: None TECHNIQUE: MRI thoracic spine without intravenous contrast. FINDINGS: The thoracic alignment is intact. Mild chronic anterior wedging of the T11 vertebral body. No acute compression fracture. There are degenerative endplate changes with anterior and lateral osteophytes mid to lower thoracic levels. Posterior disc bulge at T1-2 resulting in severe central canal stenosis with impingement on the thoracic cord. Suspect mild abnormal cord signal. Posterior disc bulge at T11-12 resulting in moderate central canal stenosis. No significant neural foraminal stenosis identified. The visualized paraspinal soft tissues are otherwise unremarkable. Small to moderate bilateral pleural effusions right greater than left. IMPRESSION: 1. Large posterior disc bulge at T1-2 resulting in severe central canal stenosis with impingement on the thoracic cord and likely abnormal cord signal. Neurosurgical evaluation is recommended. Moderate central canal stenosis T11-12. No significant neural foraminal stenosis. 2. Bilateral pleural effusions right greater than left. HS:Y Vital Signs Date Time Temp Pulse Resp B/P (MAP) Pulse Ox O2 Delivery O2 Flow Rate FiO2 02/17/25 11:00 98.1 78 14 142/79 (100) 100 208.6 02/17/25 10:30 Room Air* 0 21 Medications Current Medications Medications (Trade) Dose Ordered Sig/Karan Route PRN Reason Start Time Stop Time Status Last Admin Amlodipine Besylate (Norvasc Tablet) 5 mg DAILY PO 02/17/25 10:00 02/17/25 09:30 Vancomycin HCl 100 ml @ 200 mls/hr Q12H IV 02/16/25 18:00 02/17/25 05:59 Laboratory Labs Test 02/17/25 03:30 02/16/25 03:19 02/15/25 01:50 02/13/25 16:14 Range/Units White Blood Count 7.5 # 4.4-10.8 10^3/uL Red Blood Count 3.34 L 4.0-5.20 10^6/uL Hemoglobin 9.9 L 12.2-16.2 g/dL Hematocrit 29.5 L 36.0-46.0 % Mean Corpuscular Volume 88.4 # 80.0-100.0 fL Mean Corpuscular Hemoglobin 29.6 28.0-32.0 pg Mean Corpuscular Hemoglobin Concent 33.5 32.0-36.0 g/dL Red Cell Distribution Width 27.3 H 11.8-14.3 % Platelet Count 172 140-450 10^3/uL Mean Platelet Volume 8.6 6.9-10.8 fL Neutrophils (%) (Auto) 90.1 H 37.0-80.0 % Lymphocytes (%) (Auto) 6.1 L 10.0-50.0 % Monocytes (%) (Auto) 3.7 0.0-12.0 % Eosinophils (%) (Auto) 0.0 0.0-7.0 % Basophils (%) (Auto) 0.1 0.0-2.0 % Neutrophils # (Auto) 6.7 1.6-8.6 10 ^3/uL Lymphocytes # (Auto) 0.5 0.4-5.4 10 ^3/uL Monocytes # (Auto) 0.3 0-1.3 10 ^3/uL Eosinophils # (Auto) 0 0-0.8 10 ^3/uL Basophils # (Auto) 0 0-0.2 10 ^3/uL Nucleated Red Blood Cells 0.2 % Platelet Estimate Adequate Anisocytosis (manual) Slight Sodium Level 148 H 136-145 mmol/L Potassium Level 3.8 3.5-5.1 mmol/L Chloride Level 115 H 98-107 mmol/L Carbon Dioxide Level 23 20-31 mmol/L Anion Gap 10 5-15 Blood Urea Nitrogen 21 9-23 mg/dL Creatinine 0.30 L 0.550-1.02 mg/dL Glomerular Filtration Rate Calc 122 >90 mL/min BUN/Creatinine Ratio 70.0 H 10.0-20.0 Serum Glucose 108 H 74-106 mg/dL Calcium Level 8.0 L 8.7-10.4 mg/dL Magnesium Level 2.1 1.6-2.6 mg/dL Total Bilirubin 0.8 0.2-1.0 mg/dL Aspartate Amino Transferase (AST) 46 H <34 U/L Alanine Aminotransferase (ALT) 117 H 7-40 U/L Alkaline Phosphatase 103 46-116 U/L Total Protein 4.2 L 5.7-8.2 g/dL Albumin 2.9 L 3.2-4.8 g/dL Random Vancomycin Level 12.1 H 5-10 ug/mL Vancomycin Level Trough 33.5 *H 5-10 ug/mL POC Glucose 126 H 70-106 mg/dl Test 02/13/25 02:40 02/11/25 03:00 02/05/25 16:30 02/04/25 12:51 Range/Units Differential Total Cells Counted 100.0 100 Neutrophils % (Manual) 85 H 37.0-80.0 Band Neutrophils % (Manual) 2 Lymphocytes % (Manual) 7 L 10.0-50.0 Monocytes % (Manual) 6 0-12 Eosinophils % (Manual) 0 0-7 Basophils % (Manual) 0 0.0-2.0 Metamyelocytes % (manual) 0 Myelocytes % (Manual) 0 Promyelocytes % (Manual) 0 Blast Cells % (Manual) 0 Reactive Lymphocytes 0 Prothrombin Time 12.3 H 9.3-11.8 sec Prothrombin Time INR 1.18 H 0.9-1.15 Activated Partial Thromboplast Time 22.8 L 24.5-34.5 SEC Urine Color Colorless Yellow Urine Clarity Turbid H Clear Urine pH 7.0 5.0-9.0 Urine Specific [place] 1.009 1.001-1.035 Urine Protein Trace H Negative Urine Ketones Negative Negative Urine Blood 2+ H Negative /uL Urine Nitrite Negative Negative Urine Bilirubin Negative Negative Urine Urobilinogen Normal Negative mg/dL Urine Leukocyte Esterase 3+ Negative /uL Urine RBC 5 0 - 4 /hpf Urine Microscopic WBC 26 H 0-5 /HPF Urine Squamous Epithelial Cells None seen <5 /hpf Urine Bacteria Few H None Seen /hpf Urine Glucose Trace Normal mg/dL Hepatitis A IgM Antibody Negative Hepatitis B Surface Antigen Negative Negative Hepatitis B Core IgM Antibody Negative Negative Hepatitis C Antibody Negative Negative Test 02/04/25 08:56 02/04/25 06:30 02/03/25 22:00 02/01/25 15:56 Range/Units Cortisol AM Sample 23.24 H 5.27-22.45 ug/dL HIV (1&2) Antibody Negative Negative Stool Occult Blood Negative Negative Stool Occult Blood Sample #3 Negative Urine Creatinine 21.71 L 30.0-125.0 mg/dL Urine Protein/Creatinine Ratio 2.89 Urine Total Protein 62.8 H 1-14 mg/dL Blood Gas Specimen Type Venous Blood Gas Sample Site Vbg - n/a Blood Gas Patient Temperature 37.0 Arterial Blood Date Drawn [id number] Bennie Test N/a Venous Blood pH 7.424 7.320-7.430 Venous Blood pCO2 at Patient Temp 25.2 L 38.0-54.0 mmHg Venous Blood pO2 at Patient Temp < 36.5 23.0-48.0 mmHg Venous Blood HCO3 16.1 L 22.0-29.0 mmol/L Venous Blood Base Excess -6.3 L -2.0-3.0 mmol/L Blood Gas Modality Room air FiO2 % 21.0 Test 01/30/25 10:33 01/28/25 13:34 01/28/25 13:30 01/28/25 09:19 Range/Units Ammonia < 10 L 11-32 umol/L Free Thyroxine Index 2.3 1.2-4.9 Thyroxine (T4) 5.9 4.5-12.0 ug/dL Triiodothyronine (T3) Uptake 39 24-39 % Specimen Drawn By jenny Connolly rn Erythrocyte Sedimentation Rate 62 H 0-20 mm/hr Haptoglobin 189 33-346 mg/dL Uric Acid 4.5 3.1-7.8 mg/dL C-Reactive Protein High Sensitivity 8.04 H <1.0 mg/dL Vitamin D 25-Hydroxy 11 L . ng/mL 25-Hydroxy Vitamin D2 <1.0 . ng/mL 25-Hydroxy Vitamin D3 11 . ng/mL Anti-Nuclear Antibody Comment Comment . MASHA-1 Antibody <0.2 0.0-0.9 AI SS-A/Ro Antibody <0.2 0.0-0.9 AI SS-B/La Antibody <0.2 0.0-0.9 AI Sm Antibody <0.2 0.0-0.9 AI TROLLEY CAR OVERHAULER Antibody <0.2 0.0-0.9 AI Scl-70 (Scleroderma) Antibody <0.2 0.0-0.9 AI Anti-Double Strand DNA Antibody 2 0-9 IU/mL Chromatin Antibody <0.2 0.0-0.9 AI Centromere B Antibody <0.2 0.0-0.9 AI Iron Level 74 50-170 ug/dL Total Iron Binding Capacity 129 L 250-425 ug/dL Percent Iron Saturation 57.4 H 15-50 % Vitamin B12 Level 339 211-911 pg/mL Folic Acid 2.75 >5.38 ng/mL Test 01/28/25 03:55 01/27/25 19:50 01/27/25 16:33 01/27/25 16:06 Range/Units Lactate Dehydrogenase 180 120-246 U/L Thyroid Stimulating Hormone (TSH) 3.96 0.55-4.78 uIU/mL Troponin I High Sensitivity < 3 L </=34 ng/L Lactic Acid Level 2.0 0.4-2.0 mmol/L B-Type Natriuretic Peptide 34.77 0-100 pg/mL Plasma/Serum Blood Alcohol 3.7 <10 mg/dL Urine WBC Clumps Present None Seen /hpf Urine Mucus Few None Seen Urine Yeast (Budding) Many None Seen /hpf Urine Opiates Screen Neg NEGATIVE Urine Fentanyl Screen Neg NEGATIVE Urine Barbiturates Screen Neg NEGATIVE Urine Phencyclidine Screen Neg NEGATIVE Urine Amphetamines Screen Neg NEGATIVE Urine Benzodiazepines Screen Neg NEGATIVE Urine Cocaine Screen Neg NEGATIVE Urine Cannabinoids Screen Neg NEGATIVE Microbiology Date/Time Source Procedure Growth Status 02/13/25 08:30 Drainage Gram Stain - Final Resulted 02/13/25 08:30 Drainage Anaerobic Culture - Preliminary Resulted 02/13/25 08:30 Drainage Aerobic Culture - Preliminary Resulted 02/03/25 22:00 Urine - [place] Urine Culture - Final Complete 01/28/25 16:23 Sacrum Gram Stain - Final Complete 01/28/25 16:23 Wound Culture - Final Escherichia coli Presumptive Floridalma albicans Complete 01/27/25 16:41 Blood Blood Culture - Final NO GROWTH AFTER 5 DAYS OF INCUBATION. Complete Examination: GENERAL:Abnormal (Patient appears very sickly), HEENT:Abnormal (Voice is very quiet patient is not able to turn her head from left and right patient keeps a right-sided head physician, restricted due to pain in the neck), NECK:Abnormal (Pain to the neck shoulders patient unable to lift her arms), CVS:Normal, ABDOMEN:Abnormal (Obese), MSK:Abnormal (Patient able to extend fingers to both hands no forestry tree pruner, patient unable to lift her arms or bend flex at the elbows, patient able to slightly move her left foot unable to move toes chan ble to lift knees unable to perform pedal pushes or pulls no intension felt in the muscles), SKIN:Abnormal (Blistering edematous), NEURO:Abnormal (Patient reports that she has sensation to her lower extremities and arms however she is not able to discern which digit or toe is being touched patient is not able to tell what part of the leg is being touched), :Abnormal (Wilks catheter in place) Problem List/Assessment/Plan Problems: (1) Cervical stenosis of spinal canal (2) Lumbar stenosis with neurogenic claudication Assessment and Plan Conversation with patient's daughter Mabel at [phone] and motor vehicle parts interpreter Dio automotive parts interpreter [phone] used for assessment MRI findings of Moderate cervical degenerative disc disease. Qvwn-ad-hvbeidnk spinal canal stenosis C5-6. Mild spinal canal stenosis at C4-5, T1-2. Moderate to severe multilevel neural foraminal stenosis Large posterior disc bulge at T1-2 resulting in severe central canal stenosis with impingement on the thoracic cord and likely abnormal cord signal. Moderate central canal stenosis T11-12. No significant neural foraminal stenosis. Patient is open to having surgical intervention to correct some of these problems however she is not metabolically optimized in order to withstand anesthesia or any surgical intervention/ instrumentation at this time. Family is also agreeable that if the patient was more healthy surgical intervention would be welcome Continue supportive care and therapies per admitting team's discretion Patient needs to be metabolically optimized and free from infection prior to any surgical consideration Re-consult spine if patient becomes metabolically optimized/ clear of infection Physical therapy for evaluation and treatment recommendations to prevent contractures Call with questions Bess Amador [facility] Orthopaedic Spine Surgery nurse practitioner For Dr Chrisyt Tello Patient was examined, chart reviewed, labs evaluated, and diagnostic studies and findings analyzed. Case was discussed with Dr. Ashwin Tello who formulated the plan of care. This medical document was created using an electronic medical record system with [employer] dictation system. Although this document has been carefully reviewed, there might still be some phonetic and typographical errors. These areas are purely typographical due to imperfections of the software programs, and do not reflect any compromise in the patient's medical care. Plan discussed with Plan discussed with: Patient (Latvian Interpertor Dio [id number]), Daughter (Mabel [phone]), Other JOYCELYN AMADOR NP Feb 17, 2025 12:47
--- NOTE | 2025-02-17 13:03 | MEDREC ---
[facility] Intervention Section I [facility] Intervention: Deescalate AB based on CS (15 DAYS ON VANCOMYCIN, AFERILE, WBC IN NORMAL RANGE - NO MRSA MICROORGANISM ISOLATED IN CULTURES - PLEASE CONSIDER D/C VANCOMYCIN ), Review courses of therapy BETTE AMANDA PHARMACIST Feb 17, 2025 13:03
--- NOTE | 2025-02-17 14:15 | DVHPN2 ---
Progress Note Date Seen: Feb 17, 2025 Medical Necessity Reason Pt with a Central, PICC or Fol: Yes The following are medically ne: Perera Catheter Reason for perera catheter: Strict I&O Subjective Patient reports: No new complaints Review of Systems: HEENT:Normal, CVS:Normal, RESPIRATORY:Normal, GI:Normal, :Normal, MSK:Normal, NEURO:Normal Objective vital signs Vital Sign Date Time Temp Pulse Resp B/P (MAP) Pulse Ox O2 Delivery O2 Flow Rate FiO2 02/17/25 12:20 12 99 Room Air* 0 21 02/17/25 12:00 74 02/17/25 11:00 98.1 142/79 (100) 208.6 Total Intake and Output 02/16/25 02/16/25 02/17/25 14:59 22:59 06:59 Intake Total 760 ml 440 ml 240 ml Output Total 275 ml 380 ml Balance 760 ml 165 ml -140 ml medications Current Medications Medications Dose Ordered Sig/Karan Route Start Time Stop Time Status Last Admin Dose Admin Sodium Chloride 10 ml Q8HR IV 01/27/25 22:00 02/17/25 06:06 10 ML Ondansetron HCl 4 mg Q4HP PRN IV 01/27/25 18:45 02/09/25 01:19 4 MG Docusate Sodium 100 mg BIDPRN PRN PO 01/27/25 18:45 Acetaminophen 650 mg Q6HP PRN PO 01/27/25 18:45 02/13/25 18:29 650 MG Nitroglycerin 0.4 mg Q5MINP PRN SL 01/27/25 18:45 Potassium Chloride 100 ml @ 50 mls/hr Q2H IV 01/28/25 07:00 01/28/25 12:59 Cancel Pantoprazole Sodium 40 mg DAILY IV 01/29/25 10:00 02/17/25 09:30 40 MG Multivitamins 1 tab DAILY PO 02/01/25 10:00 02/17/25 09:30 1 TAB Diphenoxylate HCl/ Atropine 2.5 mg Q12HP PRN PO 02/04/25 10:00 02/06/25 00:14 2.5 MG Sodium Chloride 10 ml QSHIFT@, IV 02/06/25 22:00 02/17/25 09:30 10 ML Vancomycin HCl 200 ml @ 200 mls/hr DAILY IV 02/10/25 12:00 UNV Methylprednisolone Sodium Succinate 20 mg BID IV 02/12/25 22:00 02/17/25 09:30 20 MG Hydralazine HCl 10 mg Q6HP PRN IV 02/12/25 16:15 02/16/25 19:46 10 MG Fluconazole 100 ml @ 100 mls/hr DAILY IV 02/14/25 10:00 02/17/25 09:30 100 MLS/HR Vancomycin HCl 0 ml @ 0 mls/hr UD IV 02/14/25 16:30 Amlodipine Besylate 5 mg DAILY PO 02/17/25 10:00 02/17/25 09:30 5 MG Vancomycin HCl 100 ml @ 200 mls/hr Q12H IV 02/16/25 18:00 02/17/25 05:59 200 MLS/HR Examination: GENERAL:Normal, HEENT:Normal, NECK:Normal, LUNGS:Normal, CVS:Normal, ABDOMEN:Normal, MSK:Normal, SKIN:Normal, NEURO:Normal, :Normal laboratory and microbiology Laboratory Tests 02/17/25 03:30 Test 02/17/25 03:30 Range/Units Serum Glucose 108 H 74-106 mg/dL Microbiology Date/Time Source Procedure Growth Status 02/13/25 08:30 Drainage Gram Stain - Final Resulted 02/13/25 08:30 Drainage Anaerobic Culture - Preliminary Resulted 02/13/25 08:30 Drainage Aerobic Culture - Preliminary Resulted 02/03/25 22:00 Urine - [place]rera [place] Urine Culture - Final Complete 01/28/25 16:23 Sacrum Gram Stain - Final Complete 01/28/25 16:23 Wound Culture - Final Escherichia coli Presumptive Floridalma albicans Complete 01/27/25 16:41 Blood Blood Culture - Final NO GROWTH AFTER 5 DAYS OF INCUBATION. Complete Problem List/Assessment/Plan Problem List/Assessment/Plan #1 septic shock with uti: off iv pressors, dc iv antibiotics #2 gallstones: s/p surg #3 encephalopathy- ?metabolic #4 dm: ssi #5 RA: prednisone #6 obesity #7 anemia: transfuse #8 thrombocytopenia: monitor #9 nutrition: tube feedings #10 mod protein malnutrition #11 quadriparesis: spinal stenosis #12 htn: hydralazine, dc lasix iv long dw son/sister- reviewed labs and plan of care Plan discussed with: Patient My Orders My Orders Orders - BAILEY ROBERSON MD Procedure Category Date Status Time Prednisone Tablet PHA 02/17/25 Transmitted 22:00 Transfer Orders XFER 02/17/25 Transmitted 14:07 Nutritional PHA 02/17/25 Transmitted Supplements (Ensure 18:00 Basic Metabolic Panel LAB 02/18/25 Verified 06:00 Complete Blood Count LAB 02/18/25 Verified 06:00 Dietary Evaluation Review Comments: 1. CCHO-45 Cardiac Diet 2. Reassess in 2-3 days Expected Outcomes/Goals: Gradual Wt loss will be desirable. Critical Care Time (mins): 48 (critical care time 48 mins) Date of Service: Feb 17, 2025 Billing Provider: BAILEY ROBERSON MD Common Visit Codes: [id number] CARE 30-74 MIN BAILEY ROBERSON MD Feb 17, 2025 14:15
[2025-02-17] MEDS: Ensure HIGH Protein Chocolate 8oz Bottle PO SCH (18:00)
[2025-02-17] MEDS: predniSONE 20 MG TAB PO SCH (21:04)
[2025-02-18] VITALS (7 sets, daily range): BP systolic 111–140; BP diastolic 57–85; PULSE 54–71; RESP 17; TEMP 97.6–98.2; O2SAT 98–100
[2025-02-18 06:40] LABS: Hematocrit 26.0 % (36.0-46.0); Hemoglobin 8.6 g/dL (12.2-16.2); Mean Corpuscular Hemoglobin 29.9 pg (28.0-32.0); Mean Corpuscular Volume 90.2 fL (80.0-100.0); Nucleated Red Blood Cells % 0.3 %
[2025-02-18 06:50] LABS: Potassium 3.8 mmol/L (3.5-5.1)
[2025-02-18 06:51] LABS: Anion Gap 8 (5-15); Carbon Dioxide 21 mmol/L (20-31)
[2025-02-18 06:56] LABS: BUN/Creatinine Ratio 60.0 (10.0-20.0); Blood Urea Nitrogen 18 mg/dL (9-23); Glucose 93 mg/dL (74-106)
[2025-02-18 07:02] LABS: Calcium 7.9 mg/dL (8.7-10.4); Chloride 118 mmol/L (98-107); Sodium 147 mmol/L (136-145)
--- NOTE | 2025-02-18 07:50 | ECG ---
[facility] Test Date: 2025-02-17 Test Time: 16:03:43 Pat Name: GAIL PEREZ [facility] Gender: F Assistant Corporation Counsel: dory : 1965 Requested By: MARC CARVER Order Number: [id number] Reading MD: Lio Albright Measurements Intervals [place] Rate: 97 P: 63 [place]: 127 QRS: 0 QRSD: 96 T: -11 QT: 419 QTc: 533 Interpretive Statements Sinus rhythm Paired ventricular premature complexes Borderline T abnormalities, diffuse leads Electronically Signed On 02-21-2025 9:32:56 PDT by Lio Albright Please click the below link to view image of tracing.
--- NOTE | 2025-02-18 07:50 | ECG ---
[facility] Test Date: 2025-02-17 Test Time: 16:02:05 Pat Name: GAIL PEREZ Department: Room: [facility] Gender: F Clinical Documentation Nurse: dory : 1965 Requested By: CHRISTINA WILSON Order Number: [id number] Reading MD: Lio Albright Measurements Intervals [place] Rate: 77 P: 51 [place]: 129 QRS: -5 QRSD: 99 T: -9 QT: 383 QTc: 434 Interpretive Statements Sinus rhythm Ventricular premature complex Borderline T wave abnormalities Electronically Signed On 02-21-2025 9:32:51 PDT by Lio Albright Please click the below link to view image of tracing.
--- NOTE | 2025-02-18 07:51 | ECG ---
[facility] Test Date: 2025-02-17 Test Time: 16:07:04 Pat Name: GAIL PEREZ Department: Room: [facility] B Gender: F Photographers' Model: dory : 1965 Requested By: MARC CARVER Order Number: [id number] Reading MD: Lio Albright Measurements Intervals [place] Rate: 90 P: 50 [place]: 135 QRS: -6 QRSD: 99 T: -15 QT: 382 QTc: 468 Interpretive Statements Sinus rhythm Borderline T abnormalities, anterior leads Electronically Signed On 02-21-2025 9:32:59 PDT by Lio Albright Please click the below link to view image of tracing.
--- NOTE | 2025-02-18 11:45 | DVHPN2 ---
Progress Note Date Seen: Feb 18, 2025 Medical Necessity Reason Pt with a Central, PICC or Fol: Yes The following are medically ne: Perera Catheter Reason for perera catheter: Strict I&O Subjective Patient reports: No new complaints Review of Systems: HEENT:Normal, CVS:Normal, RESPIRATORY:Normal, GI:Normal, :Normal, MSK:Normal, NEURO:Normal Objective vital signs Vital Sign Date Time Temp Pulse Resp B/P (MAP) Pulse Ox O2 Delivery O2 Flow Rate FiO2 02/18/25 09:19 111/57 02/18/25 09:00 98.2 54 17 98 98.2 02/18/25 08:00 Room Air* 0 21 Total Intake and Output 02/17/25 02/17/25 02/18/25 15:00 23:00 07:00 Intake Total 340 ml 450 ml 0 ml Output Total 760 ml 1050 ml Balance 340 ml -310 ml -1050 ml medications Current Medications Medications Dose Ordered Sig/Karan Route Start Time Stop Time Status Last Admin Dose Admin Sodium Chloride 10 ml Q8HR IV 01/27/25 22:00 02/18/25 06:44 10 ML Ondansetron HCl 4 mg Q4HP PRN IV 01/27/25 18:45 02/09/25 01:19 4 MG Docusate Sodium 100 mg BIDPRN PRN PO 01/27/25 18:45 Acetaminophen 650 mg Q6HP PRN PO 01/27/25 18:45 02/13/25 18:29 650 MG Nitroglycerin 0.4 mg Q5MINP PRN SL 01/27/25 18:45 Potassium Chloride 100 ml @ 50 mls/hr Q2H IV 01/28/25 07:00 01/28/25 12:59 Cancel Pantoprazole Sodium 40 mg DAILY IV 01/29/25 10:00 02/18/25 09:18 40 MG Multivitamins 1 tab DAILY PO 02/01/25 10:00 02/18/25 09:19 1 TAB Diphenoxylate HCl/ Atropine 2.5 mg Q12HP PRN PO 02/04/25 10:00 02/06/25 00:14 2.5 MG Vancomycin HCl 200 ml @ 200 mls/hr DAILY IV 02/10/25 12:00 UNV Hydralazine HCl 10 mg Q6HP PRN IV 02/12/25 16:15 02/17/25 20:23 10 MG Fluconazole 100 ml @ 100 mls/hr DAILY IV 02/14/25 10:00 02/18/25 09:18 100 MLS/HR Amlodipine Besylate 5 mg DAILY PO 02/17/25 10:00 02/18/25 09:19 5 MG Prednisone 20 mg BID PO 02/17/25 22:00 02/18/25 09:19 20 MG Enteral Nutritional Formula 240 ml BIDWM PO 02/17/25 18:00 Examination: GENERAL:Normal, HEENT:Normal, NECK:Normal, LUNGS:Normal, CVS:Normal, ABDOMEN:Normal, MSK:Normal, SKIN:Normal, NEURO:Normal, NEURO:Abnormal (quadriparesis), :Normal laboratory and microbiology Laboratory Tests 02/18/25 05:41 Test 02/18/25 05:41 Range/Units Serum Glucose 93 74-106 mg/dL Microbiology Date/Time Source Procedure Growth Status 02/13/25 08:30 Drainage Gram Stain - Final Complete 02/13/25 08:30 Drainage Anaerobic Culture - Final Complete 02/13/25 08:30 Drainage Aerobic Culture - Final Complete 02/03/25 22:00 Urine - Perera Port Urine Culture - Final Complete 01/28/25 16:23 Sacrum Gram Stain - Final Complete 01/28/25 16:23 Wound Culture - Final Escherichia coli Presumptive Floridalma albicans Complete 01/27/25 16:41 Blood Blood Culture - Final NO GROWTH AFTER 5 DAYS OF INCUBATION. Complete Problem List/Assessment/Plan Problem List/Assessment/Plan #1 septic shock with uti: off iv pressors, dc iv antibiotics #2 gallstones: s/p surg #3 encephalopathy- ?metabolic #4 dm: ssi #5 RA: prednisone #6 obesity #7 anemia: transfuse #8 thrombocytopenia: monitor #9 nutrition: po diet #10 mod protein malnutrition #11 quadriparesis: spinal stenosis #12 htn: hydralazine, dc lasix iv long dw son/sister- reviewed labs and plan of care Plan discussed with: Patient My Orders My Orders Orders - BAILEY ROBERSON MD Procedure Category Date Status Time Prednisone Tablet PHA 02/17/25 In Process 22:00 Nutritional PHA 02/17/25 In Process Supplements (Ensure 18:00 Dietary Evaluation Review Comments: 1. CCHO-45 Cardiac Diet 2. Reassess in 2-3 days Expected Outcomes/Goals: Gradual Wt loss will be desirable. Date of Service: Feb 18, 2025 Billing Provider: BAILEY ROBERSON MD Common Visit Codes: [id number] INP/OBS CARE(HIGH) BAILEY ROBERSON MD Feb 18, 2025 11:45
--- NOTE | 2025-02-18 14:30 | DVHPN2 ---
Subjective Date Seen: Feb 18, 2025 Post op day Post op day: 5 Patient reports: No new complaints Nursing reports: No new complaints General: Normal HNT: Normal Cardiovascular: Normal Respiratory: Normal Gastrointestinal: Normal Genitourinary: Normal Musculoskeletal: Normal Neurological: Normal Objective Vitals Vital Sign Date Time Temp Pulse Resp B/P (MAP) Pulse Ox O2 Delivery O2 Flow Rate FiO2 02/18/25 09:19 111/57 02/18/25 09:00 98.2 54 17 98 98.2 02/18/25 08:00 Room Air* 0 21 Total Intake and Output 02/17/25 02/17/25 02/18/25 15:00 23:00 07:00 Intake Total 340 ml 450 ml 0 ml Output Total 760 ml 1050 ml Balance 340 ml -310 ml -1050 ml Medications Current Medications Medications Dose Ordered Sig/Karan Route Start Time Stop Time Status Last Admin Dose Admin Sodium Chloride 10 ml Q8HR IV 01/27/25 22:00 02/18/25 06:44 10 ML Ondansetron HCl 4 mg Q4HP PRN IV 01/27/25 18:45 02/09/25 01:19 4 MG Docusate Sodium 100 mg BIDPRN PRN PO 01/27/25 18:45 Acetaminophen 650 mg Q6HP PRN PO 01/27/25 18:45 02/13/25 18:29 650 MG Nitroglycerin 0.4 mg Q5MINP PRN SL 01/27/25 18:45 Potassium Chloride 100 ml @ 50 mls/hr Q2H IV 01/28/25 07:00 01/28/25 12:59 Cancel Multivitamins 1 tab DAILY PO 02/01/25 10:00 02/18/25 09:19 1 TAB Diphenoxylate HCl/ Atropine 2.5 mg Q12HP PRN PO 02/04/25 10:00 02/06/25 00:14 2.5 MG Vancomycin HCl 200 ml @ 200 mls/hr DAILY IV 02/10/25 12:00 UNV Hydralazine HCl 10 mg Q6HP PRN IV 02/12/25 16:15 02/17/25 20:23 10 MG Amlodipine Besylate 5 mg DAILY PO 02/17/25 10:00 02/18/25 09:19 5 MG Prednisone 20 mg BID PO 02/17/25 22:00 02/18/25 09:19 20 MG Enteral Nutritional Formula 240 ml BIDWM PO 02/17/25 18:00 Pantoprazole Sodium 40 mg DAILY@0600 PO 02/19/25 06:00 UNV Fluconazole 200 mg DAILY PO 02/19/25 10:00 UNV General: Normal, Mild distress Head/Eyes: Normal ENT: Normal Neck: Normal Lungs: Normal, Normal inspection Cardiovascular: Normal, Regular rate and rhythm Abdominal: Soft Labs and Microbiology Laboratory Tests 02/18/25 05:41 Test 02/18/25 05:41 Range/Units Serum Glucose 93 74-106 mg/dL Ass/Plan Labs and/or images reviewed: Labs reviewed by me Problem List #1 septic shock with uti: off iv pressors, dc iv antibiotics #2 gallstones: s/p surg #3 encephalopathy- ?metabolic #4 dm: ssi #5 RA: prednisone #6 obesity #7 anemia: transfuse #8 thrombocytopenia: monitor #9 nutrition: po diet #10 mod protein malnutrition #11 quadriparesis: spinal stenosis #12 htn: hydralazine, dc lasix iv long dw son/sister- reviewed labs and plan of care Assessment/Plan s/p laparoscopic cholecystectomy POD 5 no new complaints abdomen soft, non distended, appropriately tender SHANTE drain serous sanguinous , 30cc wound clean dry and intact Plan: continue current treatment Physical therapy Prognosis: Good Plan discussed with patient, Dr. Friend Visit Coding Surgery Date of Service if different f: Feb 18, 2025 Billing Provider: VILLA FRIEND MD Surgery Visit Codes: [id number] INP/OBS CARE(HIGH) LUZ ELENA [employer]LE [employer] Feb 18, 2025 14:30
--- NOTE | 2025-02-18 15:29 | DVHPN2 ---
Progress Note - Dictate Date Seen: Feb 18, 2025 Medical Necessity Reason Pt with a Central, PICC or Fol: Yes The following are medically ne: Perera Catheter Reason for perera catheter: Strict I&O Subjective Ms. Evans is a 59 years old right-handed female with a history of hypertension, diabetes, gallstone, rheumatoid arthritis, the patient was brought to the [facility] on 01/27/2025 with a chief company of altered mental status. I have seen and examined the patient, I have talked to her nurse. She was doing fine, no new complaints, awake, oriented to person, place, good social skills, she speaks with weak voice She is able to move both upper extremities and left lower extremity a little bit [facility] reports EGD 01/02/2025: Preoperative diagnosis: Microcytic anemia, nausea, vomiting Post-op diagnosis: Diffuse gastritis, no biopsy Colonoscopy, 01/02/2025: Postop diagnosis: One normal anal canal, there was no internal external hemorrhoids. 2, moderately severe uncomplicated sigmoid diverticulosis, 3. 2 mm polyp in the mid sigmoid removed by cold biopsy. The rest of the colon is normal on AVM mucosa anomalies or other polyps ABG, 02/01/2025: Compensated metabolic acidosis, Blood culture, 01/28/2025: No growth Wound culture, 01/28/2025: E coli Urine culture, 01/28/2025: Yeast: > 100,000 UDS, 01/27/2025: Negative Plasma alcohol, 01/27/2025: 3.7 Urinalysis, 01/27/2025: WBC: 733, urine leukocyte esterase: 3+ WBC/HB/PLT/MCV, 02/17/2025: 6.6/9.4/258/83.6 HCO3, : 20, 01/28/2025: 18, 01/31/2025: 20, 02/03/2025: 14, 02/04/2025: 17. 6/: 20, 02/06/2025: 24, 02/10/2025: 26 CRP, 01/28/2025: 8.04 Liver function tests, 01/28/2025: Unremarkable Ammonia, : 10 Vitamin B12, 01/28/2025: 339 Folic acid, 01/28/2025: 2.75 TSH, 01/28/2025: 3.96 FT four, 01/30/2025: 2.3 Echocardiogram, 01/29/2025: Conclusion lvef 60% grade 1 diastolic dysfunction normal rv functon left atrium enlarged EEG, 02/01/2025: Moderately abnormal EEG EEG, 02/07/2025, This is an inadequate but likely mildly abnormal EEG, Carotid Doppler 02/10/2025: No hemodynamically significant stenosis by velocity criteria CT abdominal/pelvis, 01/29/2025: No acute intraabdominal abnormality. Cholelithiasis.No sacral soft tissue defect visualized MRI head, 01/31/2025: No evidence of acute intracranial abnormalities MRI cervical spine, 02/12/2025: Moderate cervical degenerative disc disease. [id number] spinal canal stenosis C5-6. Mild spinal canal stenosis at C4-5, T1-2. Moderate to severe multilevel neural foraminal stenosis as described. Recommend MRI thoracic spine to further evaluate given the findings at T1-T2. MRI T-spine, 02/14/2025:1. Large posterior disc bulge at T1-2 resulting in severe central canal stenosis with impingement on the thoracic cord and likely abnormal cord signal. Neurosurgical evaluation is recommended. Moderate central canal stenosis T11-12. No significant neural foraminal stenosis. 2. Bilateral pleural effusions right greater than left vital signs Vital Sign Date Time Temp Pulse Resp B/P (MAP) Pulse Ox O2 Delivery O2 Flow Rate FiO2 02/18/25 09:19 111/57 02/18/25 09:00 98.2 54 17 98 98.2 02/18/25 08:00 Room Air* 0 21 Total Intake and Output 02/17/25 02/17/25 02/18/25 15:00 23:00 07:00 Intake Total 340 ml 450 ml 0 ml Output Total 760 ml 1050 ml Balance 340 ml -310 ml -1050 ml medications Current Medications Medications Dose Ordered Sig/Karan Route Start Time Stop Time Status Last Admin Dose Admin Sodium Chloride 10 ml Q8HR IV 01/27/25 22:00 02/18/25 14:00 10 ML Ondansetron HCl 4 mg Q4HP PRN IV 01/27/25 18:45 02/09/25 01:19 4 MG Docusate Sodium 100 mg BIDPRN PRN PO 01/27/25 18:45 Acetaminophen 650 mg Q6HP PRN PO 01/27/25 18:45 02/13/25 18:29 650 MG Nitroglycerin 0.4 mg Q5MINP PRN SL 01/27/25 18:45 Potassium Chloride 100 ml @ 50 mls/hr Q2H IV 01/28/25 07:00 01/28/25 12:59 Cancel Multivitamins 1 tab DAILY PO 02/01/25 10:00 02/18/25 09:19 1 TAB Diphenoxylate HCl/ Atropine 2.5 mg Q12HP PRN PO 02/04/25 10:00 02/06/25 00:14 2.5 MG Vancomycin HCl 200 ml @ 200 mls/hr DAILY IV 02/10/25 12:00 UNV Hydralazine HCl 10 mg Q6HP PRN IV 02/12/25 16:15 02/17/25 20:23 10 MG Amlodipine Besylate 5 mg DAILY PO 02/17/25 10:00 02/18/25 09:19 5 MG Prednisone 20 mg BID PO 02/17/25 22:00 02/18/25 09:19 20 MG Enteral Nutritional Formula 240 ml BIDWM PO 02/17/25 18:00 Pantoprazole Sodium 40 mg DAILY@0600 PO 02/19/25 06:00 Fluconazole 200 mg DAILY PO 02/19/25 10:00 objective General: the patient is well developed and nourished. No acute distress. MUSCULOSKELETAL EXAM: Change in the both hands is consistent with history of rheumatoid arthritis MENTAL STATUS: Subjective SPEECH, LANGUAGE, HIGHER CORTICAL FUNCTION: Subjective CRANIAL NERVES: Pupils are equal, round and reactive. EOMs full and conjugate. Facial sensation intact in all three divisions bilaterally. Mandibular strength intact. Facial muscles symmetrical and strength intact. SENSATION: Sensation to touch and pinprick is okay, no [id number] differences, no sensory level MOTOR: Normal tone in the upper and lower extremity. Normal muscle bulk. No fasciculations. No abnormal movements or posturing. Minimal movement in the arms and left leg REFLEXES: Deep tendon reflexes are symmetrical. No pathological reflexes. CEREBELLAR/COORDINATION: Deferred GAIT/STATION: deferred Mild tenderness to palpation in the neck, and back laboratory and microbiology Laboratory Tests 02/18/25 05:41 Test 02/18/25 05:41 Range/Units Serum Glucose 93 74-106 mg/dL Problem List Altered mental status/Metabolic encephalopathy secondary to UTI, sepsis/septic shock Pressure wound Metabolic acidosis Nausea, vomiting Bradycardia Episodic event, rule out seizure Quadriparesis T-spine stenosis Assessment/Plan Monitoring Supportive treatment Follow-up labs ICU care Stabilize vitals Respiratory support p.r.n. IV antibiotics DVT prophylaxis GI prophylaxis Cardiology on case Dr. Tello on case More recommendation per clinical course This medical document was created using an electronic medical record system with [employer] dictation system. Although this document has been carefully reviewed, there may still be some phonetic and typographical errors. These areas are purely typographical due to imperfections of the software programs, and do not reflect any compromise in the patient's medical care. Prognosis poor Dietary Evaluation Review Comments: 1. CCHO-45 Cardiac Diet 2. Reassess in 2-3 days Expected Outcomes/Goals: Gradual Wt loss will be desirable. Plan discussed with: Other RIZWANA MUÑOZ MD Feb 18, 2025 15:29
[2025-02-19] VITALS (8 sets, daily range): BP systolic 109–137; BP diastolic 59–75; PULSE 55–63; RESP 15–18; TEMP 97.5–98; O2SAT 97–100
[2025-02-19] MEDS: PANTOPRAZOLE 40 MG TAB PO SCH (05:56)
[2025-02-19] MEDS: FLUCONAZOLE 100 MG TAB PO SCH (10:26)
--- NOTE | 2025-02-19 12:56 | DVHPN2 ---
Subjective Date Seen: Feb 19, 2025 Post op day Post op day: 6 Patient reports: No new complaints Nursing reports: No new complaints General: Normal HNT: Normal Cardiovascular: Normal Respiratory: Normal Gastrointestinal: Normal Genitourinary: Normal Musculoskeletal: Normal Neurological: Normal Objective Vitals Vital Sign Date Time Temp Pulse Resp B/P (MAP) Pulse Ox O2 Delivery O2 Flow Rate FiO2 02/19/25 10:26 137/72 02/19/25 09:00 98.0 62 17 97 98.0 02/19/25 08:00 Room Air* 0 21 Total Intake and Output 02/18/25 02/18/25 02/19/25 15:00 23:00 07:00 Intake Total 340 ml 240 ml 400 ml Output Total 190 ml 690 ml Balance 340 ml 50 ml -290 ml Medications Current Medications Medications Dose Ordered Sig/Karan Route Start Time Stop Time Status Last Admin Dose Admin Sodium Chloride 10 ml Q8HR IV 01/27/25 22:00 02/19/25 05:56 10 ML Ondansetron HCl 4 mg Q4HP PRN IV 01/27/25 18:45 02/09/25 01:19 4 MG Docusate Sodium 100 mg BIDPRN PRN PO 01/27/25 18:45 Acetaminophen 650 mg Q6HP PRN PO 01/27/25 18:45 02/13/25 18:29 650 MG Nitroglycerin 0.4 mg Q5MINP PRN SL 01/27/25 18:45 Potassium Chloride 100 ml @ 50 mls/hr Q2H IV 01/28/25 07:00 01/28/25 12:59 Cancel Multivitamins 1 tab DAILY PO 02/01/25 10:00 02/19/25 10:27 1 TAB Diphenoxylate HCl/ Atropine 2.5 mg Q12HP PRN PO 02/04/25 10:00 02/06/25 00:14 2.5 MG Vancomycin HCl 200 ml @ 200 mls/hr DAILY IV 02/10/25 12:00 UNV Hydralazine HCl 10 mg Q6HP PRN IV 02/12/25 16:15 02/17/25 20:23 10 MG Amlodipine Besylate 5 mg DAILY PO 02/17/25 10:00 02/19/25 10:26 5 MG Prednisone 20 mg BID PO 02/17/25 22:00 02/19/25 10:24 20 MG Enteral Nutritional Formula 240 ml BIDWM PO 02/17/25 18:00 Pantoprazole Sodium 40 mg DAILY@0600 PO 02/19/25 06:00 02/19/25 05:56 40 MG Fluconazole 200 mg DAILY PO 02/19/25 10:00 02/19/25 10:26 200 MG General: Normal, Mild distress Head/Eyes: Normal ENT: Normal Neck: Normal Lungs: Normal, Normal inspection Cardiovascular: Normal, Regular rate and rhythm Abdominal: Soft Labs and Microbiology Laboratory Tests 02/18/25 05:41 Test 02/18/25 05:41 Range/Units Serum Glucose 93 74-106 mg/dL Ass/Plan Labs and/or images reviewed: Labs reviewed by me Problem List #1 septic shock with uti: off iv pressors, dc iv antibiotics #2 gallstones: s/p surg #3 encephalopathy- ?metabolic #4 dm: ssi #5 RA: prednisone #6 obesity #7 anemia: transfuse #8 thrombocytopenia: monitor #9 nutrition: po diet #10 mod protein malnutrition #11 quadriparesis: spinal stenosis #12 htn: hydralazine, dc lasix iv long dw son/sister- reviewed labs and plan of care Assessment/Plan s/p laparoscopic cholecystectomy POD 5 no new complaints abdomen soft, non distended, appropriately tender SHANTE drain serous sanguinous , 30cc wound clean dry and intact Plan: continue current treatment Physical therapy s/p laparoscopic cholecystectomy POD 6 no new complaints abdomen soft, non distended, appropriately tender SHANTE drain serous sanguinous fluid wound clean dry and intact Plan: continue current treatment Physical therapy per surgery point of view ok to discharge patient to follow up in surgery clinic 2 weeks after discharge Prognosis: Good Plan discussed with patient , Dr. Friend Visit Coding Surgery Date of Service if different f: Feb 19, 2025 Billing Provider: VILLA FRIEND MD Surgery Visit Codes: [id number] INP/OBS CARE(HIGH) LUZ ELENA R[employer]DLE MANAGEMENT TECH Feb 19, 2025 12:56
--- NOTE | 2025-02-19 14:10 | DVHPN2 ---
Progress Note Date Seen: Feb 19, 2025 Medical Necessity Reason Pt with a Central, PICC or Fol: Yes The following are medically ne: Perera Catheter Reason for perera catheter: Strict I&O Subjective Patient reports: No new complaints Review of Systems: HEENT:Normal, CVS:Normal, RESPIRATORY:Normal, GI:Normal, :Normal, MSK:Normal, NEURO:Normal Objective vital signs Vital Sign Date Time Temp Pulse Resp B/P (MAP) Pulse Ox O2 Delivery O2 Flow Rate FiO2 02/19/25 10:26 137/72 02/19/25 09:00 98.0 62 17 97 98.0 02/19/25 08:00 Room Air* 0 21 Total Intake and Output 02/18/25 02/18/25 02/19/25 15:00 23:00 07:00 Intake Total 340 ml 240 ml 400 ml Output Total 190 ml 690 ml Balance 340 ml 50 ml -290 ml medications Current Medications Medications Dose Ordered Sig/Karan Route Start Time Stop Time Status Last Admin Dose Admin Sodium Chloride 10 ml Q8HR IV 01/27/25 22:00 02/19/25 14:01 10 ML Ondansetron HCl 4 mg Q4HP PRN IV 01/27/25 18:45 02/09/25 01:19 4 MG Docusate Sodium 100 mg BIDPRN PRN PO 01/27/25 18:45 Acetaminophen 650 mg Q6HP PRN PO 01/27/25 18:45 02/13/25 18:29 650 MG Nitroglycerin 0.4 mg Q5MINP PRN SL 01/27/25 18:45 Potassium Chloride 100 ml @ 50 mls/hr Q2H IV 01/28/25 07:00 01/28/25 12:59 Cancel Multivitamins 1 tab DAILY PO 02/01/25 10:00 02/19/25 10:27 1 TAB Vancomycin HCl 200 ml @ 200 mls/hr DAILY IV 02/10/25 12:00 UNV Hydralazine HCl 10 mg Q6HP PRN IV 02/12/25 16:15 02/17/25 20:23 10 MG Amlodipine Besylate 5 mg DAILY PO 02/17/25 10:00 02/19/25 10:26 5 MG Prednisone 20 mg BID PO 02/17/25 22:00 02/19/25 10:24 20 MG Enteral Nutritional Formula 240 ml BIDWM PO 02/17/25 18:00 Pantoprazole Sodium 40 mg DAILY@0600 PO 02/19/25 06:00 02/19/25 05:56 40 MG Fluconazole 200 mg DAILY PO 02/19/25 10:00 02/19/25 10:26 200 MG Examination: GENERAL:Normal, HEENT:Normal, NECK:Normal, LUNGS:Normal, CVS:Normal, ABDOMEN:Normal, MSK:Normal, SKIN:Normal, NEURO:Normal, NEURO:Abnormal (quadriparesis), :Normal laboratory and microbiology Laboratory Tests 02/18/25 05:41 Test 02/18/25 05:41 Range/Units Serum Glucose 93 74-106 mg/dL Microbiology Date/Time Source Procedure Growth Status 02/13/25 08:30 Drainage Gram Stain - Final Complete 02/13/25 08:30 Drainage Anaerobic Culture - Final Complete 02/13/25 08:30 Drainage Aerobic Culture - Final Complete 02/03/25 22:00 Urine - Perera Port Urine Culture - Final Complete 01/28/25 16:23 Sacrum Gram Stain - Final Complete 01/28/25 16:23 Wound Culture - Final Escherichia coli Presumptive Floridalma albicans Complete 01/27/25 16:41 Blood Blood Culture - Final NO GROWTH AFTER 5 DAYS OF INCUBATION. Complete Problem List/Assessment/Plan Problem List/Assessment/Plan #1 septic shock with uti: off iv pressors, dc iv antibiotics #2 gallstones: s/p surg #3 encephalopathy- ?metabolic #4 dm: ssi #5 RA: prednisone #6 obesity #7 anemia: transfuse #8 thrombocytopenia: monitor #9 nutrition: po diet #10 mod protein malnutrition #11 quadriparesis: spinal stenosis- dw family #12 htn: hydralazine, dc lasix iv long dw son/sister- reviewed labs and plan of care Plan discussed with: Patient Dietary Evaluation Review Comments: 1. CCHO-45 Cardiac Diet 2. Reassess in 2-3 days Expected Outcomes/Goals: Gradual Wt loss will be desirable. Date of Service: Feb 19, 2025 Billing Provider: BAILEY ROBERSON MD Common Visit Codes: [id number] INP/OBS CARE(HIGH) BAILEY ROBERSON MD Feb 19, 2025 14:10
[2025-02-20] VITALS (8 sets, daily range): BP systolic 108–128; BP diastolic 62–74; PULSE 55–74; RESP 16–17; TEMP 97.5–98.1; O2SAT 95–100
[2025-02-20 06:40] LABS: Hematocrit 33.2 % (36.0-46.0); Hemoglobin 10.9 g/dL (12.2-16.2); Mean Corpuscular Hemoglobin 29.9 pg (28.0-32.0); Mean Corpuscular Volume 90.6 fL (80.0-100.0); Nucleated Red Blood Cells % 0.1 %
[2025-02-20 06:49] LABS: Alkaline Phosphatase 110 U/L (46-116); Anion Gap 9 (5-15); BUN/Creatinine Ratio 73.9 (10.0-20.0); Bilirubin, Total 1.1 mg/dL (0.2-1.0); Blood Urea Nitrogen 17 mg/dL (9-23); Carbon Dioxide 25 mmol/L (20-31); Glucose 77 mg/dL (74-106)
[2025-02-20 06:54] LABS: Alanine Aminotransferase 87 U/L (7-40); Albumin 2.8 g/dL (3.2-4.8); Calcium 7.9 mg/dL (8.7-10.4); Chloride 113 mmol/L (98-107); Potassium 3.3 mmol/L (3.5-5.1); Sodium 147 mmol/L (136-145); Total Protein 4.1 g/dL (5.7-8.2)
[2025-02-20 08:56] LABS: Anisocytosis Moderate
--- NOTE | 2025-02-20 13:24 | DVHPN2 ---
Progress Note Date Seen: Feb 20, 2025 Medical Necessity Reason Pt with a Central, PICC or Fol: Yes The following are medically ne: Perera Catheter Reason for perera catheter: Strict I&O Subjective Patient reports: No new complaints Review of Systems: HEENT:Normal, CVS:Normal, RESPIRATORY:Normal, GI:Normal, :Normal, MSK:Normal, NEURO:Normal Objective vital signs Vital Sign Date Time Temp Pulse Resp B/P (MAP) Pulse Ox O2 Delivery O2 Flow Rate FiO2 02/20/25 12:41 97.5 68 16 116/63 (80) 100 97.5 02/19/25 20:00 Room Air* 0 21 Total Intake and Output 02/19/25 02/19/25 02/20/25 15:00 23:00 07:00 Intake Total 325 ml 400 ml Output Total 570 ml 700 ml Balance -245 ml -300 ml medications Current Medications Medications Dose Ordered Sig/Karan Route Start Time Stop Time Status Last Admin Dose Admin Sodium Chloride 10 ml Q8HR IV 01/27/25 22:00 02/20/25 05:38 10 ML Ondansetron HCl 4 mg Q4HP PRN IV 01/27/25 18:45 02/09/25 01:19 4 MG Docusate Sodium 100 mg BIDPRN PRN PO 01/27/25 18:45 Acetaminophen 650 mg Q6HP PRN PO 01/27/25 18:45 02/13/25 18:29 650 MG Nitroglycerin 0.4 mg Q5MINP PRN SL 01/27/25 18:45 Potassium Chloride 100 ml @ 50 mls/hr Q2H IV 01/28/25 07:00 01/28/25 12:59 Cancel Multivitamins 1 tab DAILY PO 02/01/25 10:00 02/20/25 10:32 1 TAB Vancomycin HCl 200 ml @ 200 mls/hr DAILY IV 02/10/25 12:00 UNV Hydralazine HCl 10 mg Q6HP PRN IV 02/12/25 16:15 02/17/25 20:23 10 MG Amlodipine Besylate 5 mg DAILY PO 02/17/25 10:00 02/20/25 10:34 5 MG Prednisone 20 mg BID PO 02/17/25 22:00 02/20/25 10:32 20 MG Enteral Nutritional Formula 240 ml BIDWM PO 02/17/25 18:00 02/20/25 08:00 240 ML Pantoprazole Sodium 40 mg DAILY@0600 PO 02/19/25 06:00 02/20/25 05:38 40 MG Fluconazole 200 mg DAILY PO 02/19/25 10:00 02/20/25 10:32 200 MG Examination: GENERAL:Normal, HEENT:Normal, NECK:Normal, LUNGS:Normal, CVS:Normal, ABDOMEN:Normal, MSK:Normal, SKIN:Normal, NEURO:Normal, NEURO:Abnormal (quadriparesis), :Normal laboratory and microbiology Laboratory Tests 02/20/25 05:18 Test 02/20/25 05:18 Range/Units Serum Glucose 77 74-106 mg/dL Microbiology Date/Time Source Procedure Growth Status 02/13/25 08:30 Drainage Gram Stain - Final Complete 02/13/25 08:30 Drainage Anaerobic Culture - Final Complete 02/13/25 08:30 Drainage Aerobic Culture - Final Complete 02/03/25 22:00 Urine - Perera Port Urine Culture - Final Complete 01/28/25 16:23 Sacrum Gram Stain - Final Complete 01/28/25 16:23 Wound Culture - Final Escherichia coli Presumptive Floridalma albicans Complete 01/27/25 16:41 Blood Blood Culture - Final NO GROWTH AFTER 5 DAYS OF INCUBATION. Complete Problem List/Assessment/Plan Problem List/Assessment/Plan #1 septic shock with uti: off iv pressors, dc iv antibiotics, repeat ua #2 gallstones: s/p surg #3 encephalopathy- ?metabolic #4 dm: ssi #5 RA: prednisone #6 obesity #7 anemia: transfuse #8 thrombocytopenia: monitor #9 nutrition: po diet #10 mod protein malnutrition #11 quadriparesis: spinal stenosis- long dw daughter/sister- agreeable to surgery #12 htn: hydralazine, dc lasix iv long dw son/sister- reviewed labs and plan of care Plan discussed with: Patient, Daughter My Orders My Orders Orders - BAILEY ROBERSON MD Procedure Category Date Status Time * Wound Consult CONS 02/19/25 Transmitted Cover Wound With Dry KALYAN 02/20/25 In Process Dressing 11:08 Dietary Evaluation Review Comments: 1. CCHO-45 Cardiac Diet 2. Reassess in 2-3 days Expected Outcomes/Goals: Gradual Wt loss will be desirable. Date of Service: Feb 20, 2025 Billing Provider: BAILEY ROBERSON MD Common Visit Codes: [id number] INP/OBS CARE(HIGH) Secondary Visit Codes: [id number] CARE PLAN 30 MINUTES BAILEY ROBERSON MD Feb 20, 2025 13:24
[2025-02-20] MEDS: SERTRALINE HCL 50 MG TAB PO ONE (15:00)
[2025-02-20] MEDS: POTASSIUM CHLORIDE 20 MEQ in D5W 5% 1,000 ML IV SCH (19:47)
[2025-02-20 21:31] LABS: Urine Protein, UAD TRACE (Negative)
[2025-02-21] VITALS (9 sets, daily range): BP systolic 118–133; BP diastolic 67–77; PULSE 60–83; RESP 16–17; TEMP 97.7–98.6; O2SAT 96–99
[2025-02-21 06:59] LABS: Anion Gap 9 (5-15); Carbon Dioxide 25 mmol/L (20-31)
[2025-02-21 07:05] LABS: BUN/Creatinine Ratio 78.9 (10.0-20.0); Blood Urea Nitrogen 15 mg/dL (9-23); Glucose 105 mg/dL (74-106)
[2025-02-21 07:06] LABS: Magnesium 1.9 mg/dL (1.6-2.6)
[2025-02-21 07:08] LABS: Calcium 7.6 mg/dL (8.7-10.4); Chloride 113 mmol/L (98-107); Potassium 3.0 mmol/L (3.5-5.1); Sodium 147 mmol/L (136-145)
[2025-02-21] MEDS: SERTRALINE HCL 50 MG TAB PO SCH (10:30)
[2025-02-22] VITALS (8 sets, daily range): BP systolic 113–131; BP diastolic 72–77; PULSE 70–97; RESP 16–18; TEMP 97.2–99.5; O2SAT 96–99
--- NOTE | 2025-02-22 00:42 | DVHPN2 ---
Subjective The patient is seen and examined at bedside. Remained weak. Reviewed: Care Plan, H&P, Labs, Medications Changes from previous H/P or p: No Changes General: Per HPI Eyes: No Pain, No Vision change, No Conjunctivae inflammation, No Eyelid inflammation, No Other, No Redness ENT: No Ear pain, No Ear discharge, No Nose pain, No Nose discharge, No Nose congestion, No Mouth pain, No Mouth swelling, No Throat pain, No Throat swelling, No Other Cardiovascular: No Chest Pain, No Palpitations, No Orthopnea, No Paroxysmal Noc. Dyspnea, No Edema, No Lt Headedness, No Other Respiratory: No Cough, No Dry, No Shortness of breath, No SOB with excertion, No Wheezing, No Hemoptysis, No Pleuritic Pain, No Sputum, No Other Gastrointestinal: No Nausea, No Vomiting, No Abdominal Pain, No Diarrhea, No Constipation, No Melena, No Hematochezia, No Other Genitourinary: Other Musculoskeletal: No other, No neck pain, No shoulder pain, No arm pain, No back pain, No hand pain, No leg pain, No foot pain Skin: No Rash, No Lesions, No Jaundice, No Bruising, No Other Objective Vitals Vital Signs Date Time Temp Pulse Resp B/P (MAP) Pulse Ox O2 Delivery O2 Flow Rate FiO2 02/21/25 21:00 97.9 82 17 118/75 (89) 99 97.9 02/21/25 20:00 Room Air* 0 21 Intake/Output Intake and Output 02/22/25 06:59 Intake Total 300 ml Output Total 500 ml Balance -200 ml Intake Oral 300 ml Output Urine Total 400 ml Drainage Total 100 ml General Appearance: Alert, Cooperative, moderate distress HEENT: Atraumatic, PERRLA Lungs: Clear to auscultation, Normal air movement Cardiovascular: Normal S1, Normal S2, Other Abdomen: Normal bowel sounds, No tenderness Musculoskeletal: Normal sensory function, Normal motor function Extremities: Other Neuro: Other Skin: Dry, Intact Psych/Mental Status: Mental status NL, Mood NL Medications Current Medications Medications Dose Ordered Sig/Karan Route Start Time Stop Time Status Last Admin Dose Admin Sodium Chloride 10 ml Q8HR IV 01/27/25 22:00 02/21/25 21:30 10 ML Ondansetron HCl 4 mg Q4HP PRN IV 01/27/25 18:45 02/09/25 01:19 4 MG Docusate Sodium 100 mg BIDPRN PRN PO 01/27/25 18:45 Acetaminophen 650 mg Q6HP PRN PO 01/27/25 18:45 02/21/25 17:31 650 MG Nitroglycerin 0.4 mg Q5MINP PRN SL 01/27/25 18:45 Potassium Chloride 100 ml @ 50 mls/hr Q2H IV 01/28/25 07:00 01/28/25 12:59 Cancel Multivitamins 1 tab DAILY PO 02/01/25 10:00 02/21/25 10:28 1 TAB Vancomycin HCl 200 ml @ 200 mls/hr DAILY IV 02/10/25 12:00 UNV Hydralazine HCl 10 mg Q6HP PRN IV 02/12/25 16:15 02/17/25 20:23 10 MG Amlodipine Besylate 5 mg DAILY PO 02/17/25 10:00 02/21/25 10:29 5 MG Prednisone 20 mg BID PO 02/17/25 22:00 02/21/25 10:28 20 MG Enteral Nutritional Formula 240 ml BIDWM PO 02/17/25 18:00 02/21/25 08:19 240 ML Pantoprazole Sodium 40 mg DAILY@0600 PO 02/19/25 06:00 02/21/25 05:34 40 MG Fluconazole 200 mg DAILY PO 02/19/25 10:00 02/21/25 10:29 200 MG Potassium Chloride 20 meq/ Dextrose 1,010 ml @ 50 mls/hr [id number] IV 02/20/25 13:15 02/20/25 19:47 50 MLS/HR Sertraline HCl 25 mg DAILY PO 02/21/25 10:00 02/21/25 10:30 25 MG Laboratory Results Laboratory Tests 02/20/25 05:18 02/21/25 05:34 Chemistry Test 02/21/25 05:34 Calcium Level 7.6 mg/dL (8.7-10.4) L Magnesium Level 1.9 mg/dL (1.6-2.6) Urinalysis Test 01/27/25 16:06 02/03/25 22:00 02/20/25 20:00 Urine WBC Clumps Present /hpf (None Seen) Urine Mucus Few (None Seen) Urine Yeast (Budding) Many /hpf (None Seen) Urine Creatinine 21.71 mg/dL (30.0-125.0) L Urine Protein/Creatinine Ratio 2.89 Urine Total Protein 62.8 mg/dL (1-14) H Urine Color Light-yellow (Yellow) Urine Clarity Turbid (Clear) H Urine pH 6.5 (5.0-9.0) Urine Specific [place] 1.011 (1.001-1.035) Urine Protein Trace (Negative) H Urine Ketones 1+ (Negative) H Urine Blood Trace /uL (Negative) H Urine Nitrite Negative (Negative) Urine Bilirubin Negative (Negative) Urine Urobilinogen Normal mg/dL (Negative) Urine Leukocyte Esterase 3+ /uL (Negative) Urine RBC 5 /hpf (0 - 4) Urine Microscopic WBC 163 /HPF (0-5) H Urine Squamous Epithelial Cells Few /hpf (<5) Urine Bacteria Few /hpf (None Seen) H Urine Glucose 1+ mg/dL (Normal) H Microbiology Microbiology Date/Time Source Procedure Growth Status 02/13/25 08:30 Drainage Gram Stain - Final Complete 02/13/25 08:30 Drainage Anaerobic Culture - Final Complete 02/13/25 08:30 Drainage Aerobic Culture - Final Complete 02/03/25 22:00 Urine - [place] Urine Culture - Final Complete 01/28/25 16:23 Sacrum Gram Stain - Final Complete 01/28/25 16:23 Wound Culture - Final Escherichia coli Presumptive Floridalma albicans Complete 01/27/25 16:41 Blood Blood Culture - Final NO GROWTH AFTER 5 DAYS OF INCUBATION. Complete Labs and/or images reviewed: Labs reviewed by me Assessment/Plan Assessment/Plan #1 septic shock with uti: off iv pressors, dc iv antibiotics, repeat ua normal. #2 gallstones: s/p surg #3 encephalopathy- ?metabolic #4 dm: ssi #5 RA: prednisone #6 obesity #7 anemia: status post transfusion, transfuse as needed when Hb less than 7 #8 thrombocytopenia: monitor #9 nutrition: po diet #10 mod protein malnutrition #11 quadriparesis: spinal stenosis- long dw daughter/sister- agreeable to surgery #12 htn: hydralazine, dc lasix iv Continue current management. Continue PT/OT. Waiting for spine surgery. This medical document was created using an electronic medical record system with [employer] direct computerized dictation system. Although this document has been carefully reviewed, there may still be some phonetic and typographical errors. These areas are purely typographical due to imperfections of the software programs, and do not reflect any compromise in the patient's medical care. Plan discussed with: Patient, Daughter Date of Service: Feb 21, 2025 Billing Provider: CAROLE HERRING MD Common Visit Codes: [id number] INP/OBS CARE(HIGH) CAROLE HERRING MD Feb 22, 2025 00:42
--- NOTE | 2025-02-22 13:40 | DVHPN2 ---
Subjective The patient is seen and examined at bedside. No complaint today Reviewed: Care Plan, H&P, Labs, Medications Changes from previous H/P or p: No Changes General: Per HPI Eyes: No Pain, No Vision change, No Conjunctivae inflammation, No Eyelid inflammation, No Other, No Redness ENT: No Ear pain, No Ear discharge, No Nose pain, No Nose discharge, No Nose congestion, No Mouth pain, No Mouth swelling, No Throat pain, No Throat swelling, No Other Cardiovascular: No Chest Pain, No Palpitations, No Orthopnea, No Paroxysmal Noc. Dyspnea, No Edema, No Lt Headedness, No Other Respiratory: No Cough, No Dry, No Shortness of breath, No SOB with excertion, No Wheezing, No Hemoptysis, No Pleuritic Pain, No Sputum, No Other Gastrointestinal: No Nausea, No Vomiting, No Abdominal Pain, No Diarrhea, No Constipation, No Melena, No Hematochezia, No Other Genitourinary: Other Musculoskeletal: No other, No neck pain, No shoulder pain, No arm pain, No back pain, No hand pain, No leg pain, No foot pain Skin: No Rash, No Lesions, No Jaundice, No Bruising, No Other Objective Vitals Vital Signs Date Time Temp Pulse Resp B/P (MAP) Pulse Ox O2 Delivery O2 Flow Rate FiO2 02/22/25 13:00 98.9 97 16 119/74 (89) 97 98.9 02/22/25 08:00 Room Air* 0 21 Intake/Output Intake and Output 02/22/25 07:00 Intake Total 700 ml Output Total 1150 ml Balance -450 ml Intake Oral 700 ml Output Urine Total 1050 ml Drainage Total 100 ml General Appearance: moderate distress HEENT: Atraumatic, PERRLA Lungs: Clear to auscultation, Normal air movement Cardiovascular: Normal S1, Normal S2, Other Abdomen: Normal bowel sounds, No tenderness Musculoskeletal: Normal sensory function, Normal motor function Extremities: Other Neuro: Other Skin: Dry, Intact Psych/Mental Status: Mental status NL, Mood NL Medications Current Medications Medications Dose Ordered Sig/Karan Route Start Time Stop Time Status Last Admin Dose Admin Sodium Chloride 10 ml Q8HR IV 01/27/25 22:00 02/22/25 05:38 10 ML Ondansetron HCl 4 mg Q4HP PRN IV 01/27/25 18:45 02/09/25 01:19 4 MG Docusate Sodium 100 mg BIDPRN PRN PO 01/27/25 18:45 Acetaminophen 650 mg Q6HP PRN PO 01/27/25 18:45 02/21/25 17:31 650 MG Nitroglycerin 0.4 mg Q5MINP PRN SL 01/27/25 18:45 Potassium Chloride 100 ml @ 50 mls/hr Q2H IV 01/28/25 07:00 01/28/25 12:59 Cancel Multivitamins 1 tab DAILY PO 02/01/25 10:00 02/22/25 08:56 1 TAB Vancomycin HCl 200 ml @ 200 mls/hr DAILY IV 02/10/25 12:00 UNV Hydralazine HCl 10 mg Q6HP PRN IV 02/12/25 16:15 02/17/25 20:23 10 MG Amlodipine Besylate 5 mg DAILY PO 02/17/25 10:00 02/22/25 08:56 5 MG Prednisone 20 mg BID PO 02/17/25 22:00 02/22/25 08:57 20 MG Enteral Nutritional Formula 240 ml BIDWM PO 02/17/25 18:00 02/22/25 08:24 240 ML Pantoprazole Sodium 40 mg DAILY@0600 PO 02/19/25 06:00 02/21/25 05:34 40 MG Fluconazole 200 mg DAILY PO 02/19/25 10:00 02/22/25 08:57 200 MG Potassium Chloride 20 meq/ Dextrose 1,010 ml @ 50 mls/hr [id number] IV 02/20/25 13:15 02/22/25 05:25 50 MLS/HR Sertraline HCl 25 mg DAILY PO 02/21/25 10:00 02/22/25 08:57 25 MG Laboratory Results Laboratory Tests 02/20/25 05:18 02/21/25 05:34 Urinalysis Test 01/27/25 16:06 02/03/25 22:00 02/20/25 20:00 Urine WBC Clumps Present /hpf (None Seen) Urine Mucus Few (None Seen) Urine Yeast (Budding) Many /hpf (None Seen) Urine Creatinine 21.71 mg/dL (30.0-125.0) L Urine Protein/Creatinine Ratio 2.89 Urine Total Protein 62.8 mg/dL (1-14) H Urine Color Light-yellow (Yellow) Urine Clarity Turbid (Clear) H Urine pH 6.5 (5.0-9.0) Urine Specific [place] 1.011 (1.001-1.035) Urine Protein Trace (Negative) H Urine Ketones 1+ (Negative) H Urine Blood Trace /uL (Negative) H Urine Nitrite Negative (Negative) Urine Bilirubin Negative (Negative) Urine Urobilinogen Normal mg/dL (Negative) Urine Leukocyte Esterase 3+ /uL (Negative) Urine RBC 5 /hpf (0 - 4) Urine Microscopic WBC 163 /HPF (0-5) H Urine Squamous Epithelial Cells Few /hpf (<5) Urine Bacteria Few /hpf (None Seen) H Urine Glucose 1+ mg/dL (Normal) H Microbiology Microbiology Date/Time Source Procedure Growth Status 02/13/25 08:30 Drainage Gram Stain - Final Complete 02/13/25 08:30 Drainage Anaerobic Culture - Final Complete 02/13/25 08:30 Drainage Aerobic Culture - Final Complete 02/03/25 22:00 Urine - [place] Urine Culture - Final Complete 01/28/25 16:23 Sacrum Gram Stain - Final Complete 01/28/25 16:23 Wound Culture - Final Escherichia coli Presumptive Floridalma albicans Complete 01/27/25 16:41 Blood Blood Culture - Final NO GROWTH AFTER 5 DAYS OF INCUBATION. Complete Labs and/or images reviewed: Labs reviewed by me Assessment/Plan Assessment/Plan #1 septic shock with uti: off iv pressors, dc iv antibiotics, repeat ua no growth #2 gallstones: s/p surg #3 encephalopathy- ?metabolic #4 dm: ssi #5 RA: prednisone #6 obesity #7 anemia: transfuse if Hb less than 7 #8 thrombocytopenia: monitor #9 nutrition: po diet #10 mod protein malnutrition #11 quadriparesis: spinal stenosis- long dw daughter/sister- agreeable to surgery #12 htn: hydralazine, dc lasix iv Continue current management. Continue PT/OT. Waiting for spine surgery. This medical document was created using an electronic medical record system with M[employer] direct computerized dictation system. Although this document has been carefully reviewed, there may still be some phonetic and typographical errors. These areas are purely typographical due to imperfections of the software programs, and do not reflect any compromise in the patient's medical care. Plan discussed with: Patient Date of Service: Feb 22, 2025 Billing Provider: CAROLE HERRING MD Common Visit Codes: [id number] INP/OBS CARE(HIGH) CAROLE HERRING MD Feb 22, 2025 13:40
[2025-02-23] VITALS (8 sets, daily range): BP systolic 121–138; BP diastolic 71–80; PULSE 56–91; RESP 16–20; TEMP 97.1–98.6; O2SAT 98–100
--- NOTE | 2025-02-23 13:43 | DVHPN2 ---
Subjective The patient is seen and examined at bedside. No complains today. Reviewed: Care Plan, H&P, Labs, Medications Changes from previous H/P or p: No Changes General: Per HPI Eyes: No Pain, No Vision change, No Conjunctivae inflammation, No Eyelid inflammation, No Other, No Redness ENT: No Ear pain, No Ear discharge, No Nose pain, No Nose discharge, No Nose congestion, No Mouth pain, No Mouth swelling, No Throat pain, No Throat swelling, No Other Cardiovascular: No Chest Pain, No Palpitations, No Orthopnea, No Paroxysmal Noc. Dyspnea, No Edema, No Lt Headedness, No Other Respiratory: No Cough, No Dry, No Shortness of breath, No SOB with excertion, No Wheezing, No Hemoptysis, No Pleuritic Pain, No Sputum, No Other Gastrointestinal: No Nausea, No Vomiting, No Abdominal Pain, No Diarrhea, No Constipation, No Melena, No Hematochezia, No Other Genitourinary: Other Musculoskeletal: No other, No neck pain, No shoulder pain, No arm pain, No back pain, No hand pain, No leg pain, No foot pain Skin: No Rash, No Lesions, No Jaundice, No Bruising, No Other Objective Vitals Vital Signs Date Time Temp Pulse Resp B/P (MAP) Pulse Ox O2 Delivery O2 Flow Rate FiO2 02/23/25 09:01 121/71 02/23/25 09:00 97.7 76 16 100 97.7 02/23/25 08:00 Room Air* 0 21 Intake/Output Intake and Output 02/23/25 06:59 Intake Total 1200 ml Output Total 2280 ml Balance -1080 ml Intake Oral 100 ml IV Total 1100 ml Output Urine Total 1650 ml Stool Total 600 ml Drainage Total 30 ml General Appearance: moderate distress HEENT: Atraumatic, PERRLA Lungs: Clear to auscultation, Normal air movement Cardiovascular: Normal S1, Normal S2, Other Abdomen: Normal bowel sounds, No tenderness Musculoskeletal: Normal sensory function, Normal motor function Extremities: Other Neuro: Other Skin: Dry, Intact Psych/Mental Status: Mental status NL, Mood NL Medications Current Medications Medications Dose Ordered Sig/Karan Route Start Time Stop Time Status Last Admin Dose Admin Sodium Chloride 10 ml Q8HR IV 01/27/25 22:00 02/23/25 05:27 10 ML Ondansetron HCl 4 mg Q4HP PRN IV 01/27/25 18:45 02/09/25 01:19 4 MG Docusate Sodium 100 mg BIDPRN PRN PO 01/27/25 18:45 Acetaminophen 650 mg Q6HP PRN PO 01/27/25 18:45 02/23/25 13:03 650 MG Nitroglycerin 0.4 mg Q5MINP PRN SL 01/27/25 18:45 Potassium Chloride 100 ml @ 50 mls/hr Q2H IV 01/28/25 07:00 01/28/25 12:59 Cancel Multivitamins 1 tab DAILY PO 02/01/25 10:00 02/23/25 09:01 1 TAB Vancomycin HCl 200 ml @ 200 mls/hr DAILY IV 02/10/25 12:00 UNV Hydralazine HCl 10 mg Q6HP PRN IV 02/12/25 16:15 02/17/25 20:23 10 MG Amlodipine Besylate 5 mg DAILY PO 02/17/25 10:00 02/23/25 09:01 5 MG Prednisone 20 mg BID PO 02/17/25 22:00 02/23/25 09:00 20 MG Enteral Nutritional Formula 240 ml BIDWM PO 02/17/25 18:00 02/23/25 08:00 240 ML Pantoprazole Sodium 40 mg DAILY@0600 PO 02/19/25 06:00 02/23/25 05:26 40 MG Fluconazole 200 mg DAILY PO 02/19/25 10:00 02/23/25 09:00 200 MG Potassium Chloride 20 meq/ Dextrose 1,010 ml @ 50 mls/hr [id number] IV 02/20/25 13:15 02/23/25 05:27 50 MLS/HR Sertraline HCl 25 mg DAILY PO 02/21/25 10:00 02/23/25 09:01 25 MG Laboratory Results Laboratory Tests 02/20/25 05:18 02/21/25 05:34 Urinalysis Test 01/27/25 16:06 02/03/25 22:00 02/20/25 20:00 Urine WBC Clumps Present /hpf (None Seen) Urine Mucus Few (None Seen) Urine Yeast (Budding) Many /hpf (None Seen) Urine Creatinine 21.71 mg/dL (30.0-125.0) L Urine Protein/Creatinine Ratio 2.89 Urine Total Protein 62.8 mg/dL (1-14) H Urine Color Light-yellow (Yellow) Urine Clarity Turbid (Clear) H Urine pH 6.5 (5.0-9.0) Urine Specific [place] 1.011 (1.001-1.035) Urine Protein Trace (Negative) H Urine Ketones 1+ (Negative) H Urine Blood Trace /uL (Negative) H Urine Nitrite Negative (Negative) Urine Bilirubin Negative (Negative) Urine Urobilinogen Normal mg/dL (Negative) Urine Leukocyte Esterase 3+ /uL (Negative) Urine RBC 5 /hpf (0 - 4) Urine Microscopic WBC 163 /HPF (0-5) H Urine Squamous Epithelial Cells Few /hpf (<5) Urine Bacteria Few /hpf (None Seen) H Urine Glucose 1+ mg/dL (Normal) H Microbiology Microbiology Date/Time Source Procedure Growth Status 02/13/25 08:30 Drainage Gram Stain - Final Complete 02/13/25 08:30 Drainage Anaerobic Culture - Final Complete 02/13/25 08:30 Drainage Aerobic Culture - Final Complete 02/03/25 22:00 Urine - [place] Urine Culture - Final Complete 01/28/25 16:23 Sacrum Gram Stain - Final Complete 01/28/25 16:23 Wound Culture - Final Escherichia coli Presumptive Floridalma albicans Complete 01/27/25 16:41 Blood Blood Culture - Final NO GROWTH AFTER 5 DAYS OF INCUBATION. Complete Labs and/or images reviewed: Labs reviewed by me Assessment/Plan Assessment/Plan #1 septic shock with uti: off iv pressors, dc iv antibiotics, repeat ua no growth #2 gallstones: s/p surg #3 encephalopathy- ?metabolic #4 dm: ssi #5 RA: prednisone #6 obesity #7 anemia: transfuse if Hb less than 7 #8 thrombocytopenia: monitor #9 nutrition: po diet #10 mod protein malnutrition #11 quadriparesis: spinal stenosis- long dw daughter/sister- agreeable to surgery #12 htn: hydralazine, dc lasix iv Continue current management. Continue PT/OT. Waiting for spine surgery. This medical document was created using an electronic medical record system with M[employer] direct computerized dictation system. Although this document has been carefully reviewed, there may still be some phonetic and typographical errors. These areas are purely typographical due to imperfections of the software programs, and do not reflect any compromise in the patient's medical care. Plan discussed with: Patient My Orders Orders - CAROLE HERRING MD Procedure Category Date Status Time Hemoglobin & LAB 02/23/25 Logged Hematocrit 12:10 Comprehensive LAB 02/23/25 Logged Metabolic Panel 12:10 Date of Service: Feb 23, 2025 Billing Provider: CAROLE HERRING MD Common Visit Codes: [id number] INP/OBS CARE(HIGH) CAROLE HERRING MD Feb 23, 2025 13:42
[2025-02-23 15:33] LABS: Hematocrit 28.3 % (36.0-46.0); Hemoglobin 9.7 g/dL (12.2-16.2)
[2025-02-23 15:49] LABS: Anion Gap 11 (5-15); BUN/Creatinine Ratio 34.2 (10.0-20.0); Bilirubin, Total 1.0 mg/dL (0.2-1.0); Blood Urea Nitrogen 13 mg/dL (9-23); Carbon Dioxide 22 mmol/L (20-31); Glucose 103 mg/dL (74-106); Potassium 3.6 mmol/L (3.5-5.1); Sodium 144 mmol/L (136-145)
[2025-02-23 15:50] LABS: Alanine Aminotransferase 51 U/L (7-40); Albumin 2.8 g/dL (3.2-4.8); Alkaline Phosphatase 116 U/L (46-116); Calcium 8.3 mg/dL (8.7-10.4); Chloride 111 mmol/L (98-107); Total Protein 4.4 g/dL (5.7-8.2)
[2025-02-24] VITALS (8 sets, daily range): BP systolic 122–136; BP diastolic 70–86; PULSE 60–99; RESP 17–20; TEMP 97.8–99.2; O2SAT 96–99
--- NOTE | 2025-02-24 12:18 | DVHPN2 ---
Subjective The patient is seen and examined at bedside. No complains today. Work with PT. Remained very weak. Reviewed: Care Plan, H&P, Labs, Medications Changes from previous H/P or p: No Changes General: Per HPI Eyes: No Pain, No Vision change, No Conjunctivae inflammation, No Eyelid inflammation, No Other, No Redness ENT: No Ear pain, No Ear discharge, No Nose pain, No Nose discharge, No Nose congestion, No Mouth pain, No Mouth swelling, No Throat pain, No Throat swelling, No Other Cardiovascular: No Chest Pain, No Palpitations, No Orthopnea, No Paroxysmal Noc. Dyspnea, No Edema, No Lt Headedness, No Other Respiratory: No Cough, No Dry, No Shortness of breath, No SOB with excertion, No Wheezing, No Hemoptysis, No Pleuritic Pain, No Sputum, No Other Gastrointestinal: No Nausea, No Vomiting, No Abdominal Pain, No Diarrhea, No Constipation, No Melena, No Hematochezia, No Other Genitourinary: Other Musculoskeletal: No other, No neck pain, No shoulder pain, No arm pain, No back pain, No hand pain, No leg pain, No foot pain Skin: No Rash, No Lesions, No Jaundice, No Bruising, No Other Objective Vitals Vital Signs Date Time Temp Pulse Resp B/P (MAP) Pulse Ox O2 Delivery O2 Flow Rate FiO2 02/24/25 09:03 158/70 02/24/25 08:30 98.3 80 17 96 98.3 02/24/25 08:00 Room Air* 0 21 Intake/Output Intake and Output 02/24/25 07:00 Intake Total 1040 ml Output Total 2250 ml Balance -1210 ml Intake Oral 1040 ml Output Urine Total 2250 ml # Bowel Movements 2 General Appearance: Alert, Cooperative, moderate distress HEENT: Atraumatic, PERRLA Lungs: Clear to auscultation, Normal air movement Cardiovascular: Normal S1, Normal S2, Other Abdomen: Normal bowel sounds, No tenderness Musculoskeletal: Normal sensory function, Normal motor function Extremities: Other Neuro: Other Skin: Dry, Intact Psych/Mental Status: Mental status NL, Mood NL Medications Current Medications Medications Dose Ordered Sig/Karan Route Start Time Stop Time Status Last Admin Dose Admin Sodium Chloride 10 ml Q8HR IV 01/27/25 22:00 02/24/25 05:20 10 ML Ondansetron HCl 4 mg Q4HP PRN IV 01/27/25 18:45 02/09/25 01:19 4 MG Docusate Sodium 100 mg BIDPRN PRN PO 01/27/25 18:45 Acetaminophen 650 mg Q6HP PRN PO 01/27/25 18:45 02/23/25 13:03 650 MG Nitroglycerin 0.4 mg Q5MINP PRN SL 01/27/25 18:45 Potassium Chloride 100 ml @ 50 mls/hr Q2H IV 01/28/25 07:00 01/28/25 12:59 Cancel Multivitamins 1 tab DAILY PO 02/01/25 10:00 02/24/25 09:02 1 TAB Vancomycin HCl 200 ml @ 200 mls/hr DAILY IV 02/10/25 12:00 UNV Hydralazine HCl 10 mg Q6HP PRN IV 02/12/25 16:15 02/17/25 20:23 10 MG Amlodipine Besylate 5 mg DAILY PO 02/17/25 10:00 02/24/25 09:03 5 MG Prednisone 20 mg BID PO 02/17/25 22:00 02/24/25 09:02 20 MG Enteral Nutritional Formula 240 ml BIDWM PO 02/17/25 18:00 02/24/25 08:00 240 ML Pantoprazole Sodium 40 mg DAILY@0600 PO 02/19/25 06:00 02/24/25 05:20 40 MG Fluconazole 200 mg DAILY PO 02/19/25 10:00 02/24/25 09:02 200 MG Potassium Chloride 20 meq/ Dextrose 1,010 ml @ 50 mls/hr [id number] IV 02/20/25 13:15 02/24/25 01:00 50 MLS/HR Sertraline HCl 25 mg DAILY PO 02/21/25 10:00 02/24/25 09:04 25 MG Laboratory Results Laboratory Tests 02/20/25 05:18 02/23/25 15:17 Chemistry Test 02/23/25 15:17 Albumin 2.8 g/dL (3.2-4.8) L Calcium Level 8.3 mg/dL (8.7-10.4) L Total Protein 4.4 g/dL (5.7-8.2) L LFT Test 02/23/25 15:17 Alanine Aminotransferase (ALT) 51 U/L (7-40) H Alkaline Phosphatase 116 U/L (46-116) Aspartate Amino Transferase (AST) 40 U/L (13-40) Total Bilirubin 1.0 mg/dL (0.2-1.0) Urinalysis Test 01/27/25 16:06 02/03/25 22:00 02/20/25 20:00 Urine WBC Clumps Present /hpf (None Seen) Urine Mucus Few (None Seen) Urine Yeast (Budding) Many /hpf (None Seen) Urine Creatinine 21.71 mg/dL (30.0-125.0) L Urine Protein/Creatinine Ratio 2.89 Urine Total Protein 62.8 mg/dL (1-14) H Urine Color Light-yellow (Yellow) Urine Clarity Turbid (Clear) H Urine pH 6.5 (5.0-9.0) Urine Specific [place] 1.011 (1.001-1.035) Urine Protein Trace (Negative) H Urine Ketones 1+ (Negative) H Urine Blood Trace /uL (Negative) H Urine Nitrite Negative (Negative) Urine Bilirubin Negative (Negative) Urine Urobilinogen Normal mg/dL (Negative) Urine Leukocyte Esterase 3+ /uL (Negative) Urine RBC 5 /hpf (0 - 4) Urine Microscopic WBC 163 /HPF (0-5) H Urine Squamous Epithelial Cells Few /hpf (<5) Urine Bacteria Few /hpf (None Seen) H Urine Glucose 1+ mg/dL (Normal) H Microbiology Microbiology Date/Time Source Procedure Growth Status 02/13/25 08:30 Drainage Gram Stain - Final Complete 02/13/25 08:30 Drainage Anaerobic Culture - Final Complete 02/13/25 08:30 Drainage Aerobic Culture - Final Complete 02/03/25 22:00 Urine - [place] Urine Culture - Final Complete 01/28/25 16:23 Sacrum Gram Stain - Final Complete 01/28/25 16:23 Wound Culture - Final Escherichia coli Presumptive Floridalma albicans Complete 01/27/25 16:41 Blood Blood Culture - Final NO GROWTH AFTER 5 DAYS OF INCUBATION. Complete Assessment/Plan Assessment/Plan #1 septic shock with uti: off iv pressors, dc iv antibiotics, repeat ua no growth #2 gallstones: s/p surg #3 encephalopathy- ?metabolic #4 dm: ssi #5 RA: prednisone #6 obesity #7 anemia: transfuse if Hb less than 7 #8 thrombocytopenia: monitor #9 nutrition: po diet #10 mod protein malnutrition #11 quadriparesis: spinal stenosis- long dw daughter/sister- agreeable to surgery #12 htn: hydralazine, dc lasix iv Continue current management. Continue PT/OT. Waiting for spine surgery. This medical document was created using an electronic medical record system with [employer] direct computerized dictation system. Although this document has been carefully reviewed, there may still be some phonetic and typographical errors. These areas are purely typographical due to imperfections of the software programs, and do not reflect any compromise in the patient's medical care. Plan discussed with: Patient Date of Service: Feb 24, 2025 Billing Provider: CAROLE HERRING MD Common Visit Codes: [id number] INP/OBS CARE(HIGH) CAROLE HERRING MD Feb 24, 2025 12:18
[2025-02-24 16:31] LABS: Hematocrit 30.7 % (36.0-46.0); Hemoglobin 10.4 g/dL (12.2-16.2); Mean Corpuscular Hemoglobin 30.2 pg (28.0-32.0); Mean Corpuscular Volume 89.2 fL (80.0-100.0); Nucleated Red Blood Cells % 0.0 %
[2025-02-24 16:48] LABS: Alkaline Phosphatase 108 U/L (46-116); Anion Gap 9 (5-15); BUN/Creatinine Ratio 68.4 (10.0-20.0); Blood Urea Nitrogen 13 mg/dL (9-23); Carbon Dioxide 24 mmol/L (20-31); Potassium 3.6 mmol/L (3.5-5.1)
[2025-02-24 16:49] LABS: Bilirubin, Total 0.8 mg/dL (0.2-1.0)
[2025-02-24 16:51] LABS: Alanine Aminotransferase 40 U/L (7-40); Albumin 2.6 g/dL (3.2-4.8); Calcium 7.5 mg/dL (8.7-10.4); Chloride 114 mmol/L (98-107); Glucose 117 mg/dL (74-106); Sodium 147 mmol/L (136-145); Total Protein 3.9 g/dL (5.7-8.2)
--- NOTE | 2025-02-24 21:40 | DVHPN2 ---
Progress Note - Dictate Date Seen: Feb 24, 2025 Medical Necessity Reason Pt with a Central, PICC or Fol: Yes The following are medically ne: Perera Catheter Reason for perera catheter: Strict I&O Subjective Ms. Evans is a 59 years old right-handed female with a history of hypertension, diabetes, gallstone, rheumatoid arthritis, the patient was brought to the [facility] on 01/27/2025 with a chief company of altered mental status. I have seen and examined the patient, I have talked to her nurse. She was doing fine, no new complaints, awake body stronger, oriented to person, place, good social skills, she speaks with weak voice She is able to move both upper extremities and left lower foot a little bit No sensory level on physical examination [facility] reports EGD 01/02/2025: Preoperative diagnosis: Microcytic anemia, nausea, vomiting Post-op diagnosis: Diffuse gastritis, no biopsy Colonoscopy, 01/02/2025: Postop diagnosis: One normal anal canal, there was no internal external hemorrhoids. 2, moderately severe uncomplicated sigmoid diverticulosis, 3. 2 mm polyp in the mid sigmoid removed by cold biopsy. The rest of the colon is normal on AVM mucosa anomalies or other polyps ABG, 02/01/2025: Compensated metabolic acidosis, Blood culture, 01/28/2025: No growth Wound culture, 01/28/2025: E coli Urine culture, 01/28/2025: Yeast: > 100,000 UDS, 01/27/2025: Negative Plasma alcohol, 01/27/2025: 3.7 Urinalysis, 01/27/2025: WBC: 733, urine leukocyte esterase: 3+ WBC/HB/PLT/MCV, 02/17/2025: 6.6/9.4/258/83.6 HCO3, : 20, 01/28/2025: 18, 01/31/2025: 20, 02/03/2025: 14, 02/04/2025: 17. 6/: 20, 02/06/2025: 24, 02/10/2025: 26 CRP, 01/28/2025: 8.04 Liver function tests, 01/28/2025: Unremarkable Ammonia, : 10 Vitamin B12, 01/28/2025: 339 Folic acid, 01/28/2025: 2.75 TSH, 01/28/2025: 3.96 FT four, 01/30/2025: 2.3 Echocardiogram, 01/29/2025: Conclusion lvef 60% grade 1 diastolic dysfunction normal rv functon left atrium enlarged EEG, 02/01/2025: Moderately abnormal EEG EEG, 02/07/2025, This is an inadequate but likely mildly abnormal EEG, Carotid Doppler 02/10/2025: No hemodynamically significant stenosis by velocity criteria CT abdominal/pelvis, 01/29/2025: No acute intraabdominal abnormality. Cholelithiasis.No sacral soft tissue defect visualized MRI head, 01/31/2025: No evidence of acute intracranial abnormalities MRI cervical spine, 02/12/2025: Moderate cervical degenerative disc disease. Oghy-[id number] spinal canal stenosis C5-6. Mild spinal canal stenosis at C4-5, T1-2. Moderate to severe multilevel neural foraminal stenosis as described. Recommend MRI thoracic spine to further evaluate given the findings at T1-T2. MRI T-spine, 02/14/2025:1. Large posterior disc bulge at T1-2 resulting in severe central canal stenosis with impingement on the thoracic cord and likely abnormal cord signal. Neurosurgical evaluation is recommended. Moderate central canal stenosis T11-12. No significant neural foraminal stenosis. 2. Bilateral pleural effusions right greater than left vital signs Vital Sign Date Time Temp Pulse Resp B/P (MAP) Pulse Ox O2 Delivery O2 Flow Rate FiO2 02/24/25 16:47 97.8 69 17 130/74 (92) 96 97.8 02/24/25 08:00 Room Air* 0 21 Total Intake and Output 02/23/25 02/23/25 02/24/25 15:00 23:00 07:00 Intake Total 240 ml 800 ml Output Total 950 ml 1300 ml Balance 240 ml -950 ml -500 ml medications Current Medications Medications Dose Ordered Sig/Karan Route Start Time Stop Time Status Last Admin Dose Admin Sodium Chloride 10 ml Q8HR IV 01/27/25 22:00 02/24/25 14:03 10 ML Ondansetron HCl 4 mg Q4HP PRN IV 01/27/25 18:45 02/09/25 01:19 4 MG Docusate Sodium 100 mg BIDPRN PRN PO 01/27/25 18:45 Acetaminophen 650 mg Q6HP PRN PO 01/27/25 18:45 02/23/25 13:03 650 MG Nitroglycerin 0.4 mg Q5MINP PRN SL 01/27/25 18:45 Potassium Chloride 100 ml @ 50 mls/hr Q2H IV 01/28/25 07:00 01/28/25 12:59 Cancel Multivitamins 1 tab DAILY PO 02/01/25 10:00 02/24/25 09:02 1 TAB Vancomycin HCl 200 ml @ 200 mls/hr DAILY IV 02/10/25 12:00 UNV Hydralazine HCl 10 mg Q6HP PRN IV 02/12/25 16:15 02/17/25 20:23 10 MG Amlodipine Besylate 5 mg DAILY PO 02/17/25 10:00 02/24/25 09:03 5 MG Prednisone 20 mg BID PO 02/17/25 22:00 02/24/25 09:02 20 MG Enteral Nutritional Formula 240 ml BIDWM PO 02/17/25 18:00 02/24/25 18:16 240 ML Pantoprazole Sodium 40 mg DAILY@0600 PO 02/19/25 06:00 02/24/25 05:20 40 MG Fluconazole 200 mg DAILY PO 02/19/25 10:00 02/24/25 09:02 200 MG Potassium Chloride 20 meq/ Dextrose 1,010 ml @ 50 mls/hr [id number] IV 02/20/25 13:15 02/24/25 18:17 50 MLS/HR Sertraline HCl 25 mg DAILY PO 02/21/25 10:00 02/24/25 09:04 25 MG objective General: the patient is well developed and nourished. No acute distress. MUSCULOSKELETAL EXAM: Change in the both hands is consistent with history of rheumatoid arthritis MENTAL STATUS: Subjective SPEECH, LANGUAGE, HIGHER CORTICAL FUNCTION: Subjective CRANIAL NERVES: Pupils are equal, round and reactive. EOMs full and conjugate. Facial sensation intact in all three divisions bilaterally. Mandibular strength intact. Facial muscles symmetrical and strength intact. SENSATION: Sensation to touch and pinprick is okay, no azrf-[id number] differences, no sensory level MOTOR: Normal tone in the upper and lower extremity. Normal muscle bulk. No fasciculations. No abnormal movements or posturing. Minimal movement in the arms and left leg REFLEXES: Deep tendon reflexes are symmetrical. No pathological reflexes. CEREBELLAR/COORDINATION: Deferred GAIT/STATION: deferred Mild tenderness to palpation in the neck, and back laboratory and microbiology Laboratory Tests 02/24/25 16:21 Test 02/24/25 16:21 Range/Units Serum Glucose 117 H 74-106 mg/dL Problem List Altered mental status/Metabolic encephalopathy secondary to UTI, sepsis/septic shock Pressure wound Metabolic acidosis Nausea, vomiting Bradycardia Episodic event, rule out seizure Quadriparesis T-spine stenosis Assessment/Plan Monitoring Supportive treatment Follow-up labs Telemetry IV antibiotics DVT prophylaxis GI prophylaxis Consider T-spine surgery once she is stronger enough Cardiology on case Dr. Tello on case More recommendation per clinical course This medical document was created using an electronic medical record system with [employer] dictation system. Although this document has been carefully reviewed, there may still be some phonetic and typographical errors. These areas are purely typographical due to imperfections of the software programs, and do not reflect any compromise in the patient's medical care. Prognosis poor Dietary Evaluation Review Comments: 1. CCHO-45 Cardiac Diet 2. Reassess in 2-3 days Expected Outcomes/Goals: Gradual Wt loss will be desirable. Plan discussed with: Other RIZWANA MUÑOZ MD Feb 24, 2025 21:40
[2025-02-25] VITALS (7 sets, daily range): BP systolic 116–136; BP diastolic 74–80; PULSE 71–91; RESP 14–20; TEMP 97.4–98.3; O2SAT 96–100
[2025-02-25 06:48] LABS: Hematocrit 31.1 % (36.0-46.0); Hemoglobin 10.4 g/dL (12.2-16.2); Mean Corpuscular Hemoglobin 29.8 pg (28.0-32.0); Mean Corpuscular Volume 89.6 fL (80.0-100.0)
[2025-02-25 06:54] LABS: Anion Gap 11 (5-15); Carbon Dioxide 23 mmol/L (20-31); Sodium 145 mmol/L (136-145)
[2025-02-25 06:56] LABS: Calcium 8.0 mg/dL (8.7-10.4); Chloride 111 mmol/L (98-107); Potassium 3.3 mmol/L (3.5-5.1)
[2025-02-25 07:01] LABS: BUN/Creatinine Ratio 52.4 (10.0-20.0); Blood Urea Nitrogen 11 mg/dL (9-23); Glucose 103 mg/dL (74-106)
[2025-02-25 08:29] LABS: Anisocytosis Slight; Total Cells Counted 100.0 (100)
--- NOTE | 2025-02-25 11:25 | DVHPN2 ---
Progress Note Date Seen: Feb 25, 2025 Medical Necessity Reason Pt with a Central, PICC or Fol: Yes The following are medically ne: Perera Catheter Reason for perera catheter: Strict I&O Subjective Patient reports: No new complaints Review of Systems: HEENT:Normal, CVS:Normal, RESPIRATORY:Normal, GI:Normal, :Normal, MSK:Normal, NEURO:Normal Objective vital signs Vital Sign Date Time Temp Pulse Resp B/P (MAP) Pulse Ox O2 Delivery O2 Flow Rate FiO2 02/25/25 09:22 121/76 02/25/25 08:30 98.1 71 19 99 98.1 02/24/25 20:00 Room Air* 0 21 Total Intake and Output 02/24/25 02/24/25 02/25/25 14:59 22:59 06:59 Intake Total 1470 ml 100 ml Output Total 1700 ml 810 ml Balance -230 ml -710 ml medications Current Medications Medications Dose Ordered Sig/Karan Route Start Time Stop Time Status Last Admin Dose Admin Sodium Chloride 10 ml Q8HR IV 01/27/25 22:00 02/25/25 05:46 10 ML Ondansetron HCl 4 mg Q4HP PRN IV 01/27/25 18:45 02/09/25 01:19 4 MG Docusate Sodium 100 mg BIDPRN PRN PO 01/27/25 18:45 Acetaminophen 650 mg Q6HP PRN PO 01/27/25 18:45 02/23/25 13:03 650 MG Nitroglycerin 0.4 mg Q5MINP PRN SL 01/27/25 18:45 Potassium Chloride 100 ml @ 50 mls/hr Q2H IV 01/28/25 07:00 01/28/25 12:59 Cancel Multivitamins 1 tab DAILY PO 02/01/25 10:00 02/25/25 09:23 1 TAB Vancomycin HCl 200 ml @ 200 mls/hr DAILY IV 02/10/25 12:00 UNV Hydralazine HCl 10 mg Q6HP PRN IV 02/12/25 16:15 02/17/25 20:23 10 MG Amlodipine Besylate 5 mg DAILY PO 02/17/25 10:00 02/25/25 09:22 5 MG Prednisone 20 mg BID PO 02/17/25 22:00 02/25/25 09:21 20 MG Enteral Nutritional Formula 240 ml BIDWM PO 02/17/25 18:00 02/25/25 09:19 240 ML Pantoprazole Sodium 40 mg DAILY@0600 PO 02/19/25 06:00 02/25/25 05:45 40 MG Fluconazole 200 mg DAILY PO 02/19/25 10:00 02/25/25 09:23 200 MG Potassium Chloride 20 meq/ Dextrose 1,010 ml @ 50 mls/hr [id number] IV 02/20/25 13:15 02/24/25 18:17 50 MLS/HR Sertraline HCl 25 mg DAILY PO 02/21/25 10:00 02/25/25 09:21 25 MG Examination: GENERAL:Normal, HEENT:Normal, NECK:Normal, LUNGS:Normal, CVS:Normal, ABDOMEN:Normal, MSK:Normal, SKIN:Normal, NEURO:Normal, NEURO:Abnormal (quadriparetic), :Normal laboratory and microbiology Laboratory Tests 02/25/25 06:04 Test 02/25/25 06:04 Range/Units Serum Glucose 103 74-106 mg/dL Microbiology Date/Time Source Procedure Growth Status 02/13/25 08:30 Drainage Gram Stain - Final Complete 02/13/25 08:30 Drainage Anaerobic Culture - Final Complete 02/13/25 08:30 Drainage Aerobic Culture - Final Complete 02/03/25 22:00 Urine - Perera Port Urine Culture - Final Complete 01/28/25 16:23 Sacrum Gram Stain - Final Complete 01/28/25 16:23 Wound Culture - Final Escherichia coli Presumptive Floridalma albicans Complete 01/27/25 16:41 Blood Blood Culture - Final NO GROWTH AFTER 5 DAYS OF INCUBATION. Complete Problem List/Assessment/Plan Problem List/Assessment/Plan #1 septic shock with uti: off iv pressors, dc iv antibiotics, repeat ua #2 gallstones: s/p surg #3 encephalopathy- ?metabolic #4 dm: ssi #5 RA: prednisone #6 obesity #7 anemia: transfuse #8 thrombocytopenia: resolved #9 nutrition: po diet #10 mod protein malnutrition #11 quadriparesis: spinal stenosis- long dw daughter/sister- agreeable to surgery #12 htn: hydralazine, dc lasix iv long dw son/sister- reviewed labs and plan of care Plan discussed with: Patient My Orders My Orders Orders - BAILEY ROBERSON MD Procedure Category Date Status Time Potassium Effervesent PHA 02/25/25 Transmitted Tab (Klor-Con/Ef) 11:30 Basic Metabolic Panel LAB 02/26/25 Verified 06:00 Dietary Evaluation Review Comments: 1. CCHO-45 Cardiac Diet 2. Reassess in 2-3 days Expected Outcomes/Goals: Gradual Wt loss will be desirable. Date of Service: Feb 25, 2025 Billing Provider: BAILEY ROBERSON MD Common Visit Codes: [id number] INP/OBS CARE(HIGH) BAILEY ROBERSON MD Feb 25, 2025 11:25
[2025-02-25] MEDS: POTASSIUM EFFERVESENT TAB 25 MEQ PO ONE (12:58)
[2025-02-26] VITALS (8 sets, daily range): BP systolic 114–131; BP diastolic 69–81; PULSE 78–98; RESP 14–20; TEMP 97.7–99.1; O2SAT 96–100
[2025-02-26] MEDS: predniSONE 20 MG TAB PO SCH (06:14)
--- NOTE | 2025-02-26 11:21 | DVHPN2 ---
Progress Note - Dictate Date Seen: Feb 26, 2025 Medical Necessity Reason Pt with a Central, PICC or Fol: Yes The following are medically ne: Perera Catheter Reason for perera catheter: Strict I&O Subjective Ms. Evans is a 59 years old right-handed female with a history of hypertension, diabetes, gallstone, rheumatoid arthritis, the patient was brought to the [facility] [place] on 01/27/2025 with a chief company of altered mental status. I have seen and examined the patient, I have talked to her nurse. She is doing fine, voice is stronger, but unable to move the extremities better No sensory level on physical examination The case discussed [facility] reports EGD 01/02/2025: Preoperative diagnosis: Microcytic anemia, nausea, vomiting Post-op diagnosis: Diffuse gastritis, no biopsy Colonoscopy, 01/02/2025: Postop diagnosis: One normal anal canal, there was no internal external hemorrhoids. 2, moderately severe uncomplicated sigmoid diverticulosis, 3. 2 mm polyp in the mid sigmoid removed by cold biopsy. The rest of the colon is normal on AVM mucosa anomalies or other polyps ABG, 02/01/2025: Compensated metabolic acidosis, Blood culture, 01/28/2025: No growth Wound culture, 01/28/2025: E coli Urine culture, 01/28/2025: Yeast: > 100,000 UDS, 01/27/2025: Negative Plasma alcohol, 01/27/2025: 3.7 Urinalysis, 01/27/2025: WBC: 733, urine leukocyte esterase: 3+ WBC/HB/PLT/MCV, 02/17/2025: 6.6/9.4/258/83.6 HCO3, : 20, 01/28/2025: 18, 01/31/2025: 20, 02/03/2025: 14, 02/04/2025: 17. 6/: 20, 02/06/2025: 24, 02/10/2025: 26 CRP, 01/28/2025: 8.04 Liver function tests, 01/28/2025: Unremarkable Ammonia, : 10 Vitamin B12, 01/28/2025: 339 Folic acid, 01/28/2025: 2.75 TSH, 01/28/2025: 3.96 FT four, 01/30/2025: 2.3 Echocardiogram, 01/29/2025: Conclusion lvef 60% grade 1 diastolic dysfunction normal rv functon left atrium enlarged EEG, 02/01/2025: Moderately abnormal EEG EEG, 02/07/2025, This is an inadequate but likely mildly abnormal EEG, Carotid Doppler 02/10/2025: No hemodynamically significant stenosis by velocity criteria CT abdominal/pelvis, 01/29/2025: No acute intraabdominal abnormality. Cholelithiasis.No sacral soft tissue defect visualized MRI head, 01/31/2025: No evidence of acute intracranial abnormalities MRI cervical spine, 02/12/2025: Moderate cervical degenerative disc disease. [id number] spinal canal stenosis C5-6. Mild spinal canal stenosis at C4-5, T1-2. Moderate to severe multilevel neural foraminal stenosis as described. Recommend MRI thoracic spine to further evaluate given the findings at T1-T2. MRI T-spine, 02/14/2025:1. Large posterior disc bulge at T1-2 resulting in severe central canal stenosis with impingement on the thoracic cord and likely abnormal cord signal. Neurosurgical evaluation is recommended. Moderate central canal stenosis T11-12. No significant neural foraminal stenosis. 2. Bilateral pleural effusions right greater than left vital signs Vital Sign Date Time Temp Pulse Resp B/P (MAP) Pulse Ox O2 Delivery O2 Flow Rate FiO2 02/26/25 09:26 97.9 89 18 123/77 (92) 98 97.9 02/25/25 20:00 Room Air* 0 21 Total Intake and Output 02/25/25 02/25/25 02/26/25 15:00 23:00 07:00 Intake Total 770 ml 600 ml Output Total 600 ml Balance 170 ml 600 ml medications Current Medications Medications Dose Ordered Sig/Karan Route Start Time Stop Time Status Last Admin Dose Admin Sodium Chloride 10 ml Q8HR IV 01/27/25 22:00 02/26/25 06:15 10 ML Ondansetron HCl 4 mg Q4HP PRN IV 01/27/25 18:45 02/09/25 01:19 4 MG Docusate Sodium 100 mg BIDPRN PRN PO 01/27/25 18:45 Acetaminophen 650 mg Q6HP PRN PO 01/27/25 18:45 02/23/25 13:03 650 MG Nitroglycerin 0.4 mg Q5MINP PRN SL 01/27/25 18:45 Potassium Chloride 100 ml @ 50 mls/hr Q2H IV 01/28/25 07:00 01/28/25 12:59 Cancel Multivitamins 1 tab DAILY PO 02/01/25 10:00 02/26/25 09:23 1 TAB Vancomycin HCl 200 ml @ 200 mls/hr DAILY IV 02/10/25 12:00 UNV Hydralazine HCl 10 mg Q6HP PRN IV 02/12/25 16:15 02/17/25 20:23 10 MG Amlodipine Besylate 5 mg DAILY PO 02/17/25 10:00 02/26/25 09:24 5 MG Enteral Nutritional Formula 240 ml BIDWM PO 02/17/25 18:00 02/26/25 08:00 240 ML Pantoprazole Sodium 40 mg DAILY@0600 PO 02/19/25 06:00 02/26/25 06:14 40 MG Fluconazole 200 mg DAILY PO 02/19/25 10:00 02/26/25 09:23 200 MG Potassium Chloride 20 meq/ Dextrose 1,010 ml @ 50 mls/hr [id number] IV 02/20/25 13:15 02/26/25 09:53 50 MLS/HR Sertraline HCl 25 mg DAILY PO 02/21/25 10:00 02/26/25 09:24 25 MG Prednisone 20 mg QAM PO 02/26/25 07:00 02/26/25 06:14 20 MG objective General: the patient is well developed and nourished. No acute distress. MUSCULOSKELETAL EXAM: Change in the both hands is consistent with history of rheumatoid arthritis MENTAL STATUS: Subjective SPEECH, LANGUAGE, HIGHER CORTICAL FUNCTION: Subjective CRANIAL NERVES: Pupils are equal, round and reactive. EOMs full and conjugate. Facial sensation intact in all three divisions bilaterally. Mandibular strength intact. Facial muscles symmetrical and strength intact. SENSATION: Sensation to touch and pinprick is okay, no [id number]-so-[id number] differences, no sensory level MOTOR: Normal tone in the upper and lower extremity. Normal muscle bulk. No fasciculations. No abnormal movements or posturing. Minimal movement in the arms and left leg REFLEXES: Deep tendon reflexes are symmetrical. No pathological reflexes. CEREBELLAR/COORDINATION: Deferred GAIT/STATION: deferred Mild tenderness to palpation in the neck, and back laboratory and microbiology Laboratory Tests 02/25/25 06:04 Test 02/25/25 06:04 Range/Units Serum Glucose 103 74-106 mg/dL Problem List Altered mental status/Metabolic encephalopathy secondary to UTI, sepsis/septic shock Pressure wound Metabolic acidosis Nausea, vomiting Bradycardia Episodic event, rule out seizure Quadriparesis T-spine stenosis Assessment/Plan Monitoring Supportive treatment Follow-up labs Telemetry IV antibiotics DVT prophylaxis GI prophylaxis Consider T-spine surgery once she is stronger enough Cardiology on case Dr. Tello on case More recommendation per clinical course This medical document was created using an electronic medical record system with [employer] dictation system. Although this document has been carefully reviewed, there may still be some phonetic and typographical errors. These areas are purely typographical due to imperfections of the software programs, and do not reflect any compromise in the patient's medical care. Prognosis poor Dietary Evaluation Review Comments: 1. CCHO-45 Cardiac Diet 2. Reassess in 2-3 days Expected Outcomes/Goals: Gradual Wt loss will be desirable. Plan discussed with: Other RIZWANA MUÑOZ MD Feb 26, 2025 11:21
--- NOTE | 2025-02-26 11:27 | DVHPN2 ---
Progress Note Date Seen: Feb 26, 2025 Medical Necessity Reason Pt with a Central, PICC or Fol: Yes The following are medically ne: Perera Catheter Reason for perera catheter: Strict I&O Subjective Patient reports: No new complaints Review of Systems: HEENT:Normal, CVS:Normal, RESPIRATORY:Normal, GI:Normal, :Normal, MSK:Normal, NEURO:Normal Objective vital signs Vital Sign Date Time Temp Pulse Resp B/P (MAP) Pulse Ox O2 Delivery O2 Flow Rate FiO2 02/26/25 09:26 97.9 89 18 123/77 (92) 98 97.9 02/25/25 20:00 Room Air* 0 21 Total Intake and Output 02/25/25 02/25/25 02/26/25 15:00 23:00 07:00 Intake Total 770 ml 600 ml Output Total 600 ml Balance 170 ml 600 ml medications Current Medications Medications Dose Ordered Sig/Karan Route Start Time Stop Time Status Last Admin Dose Admin Sodium Chloride 10 ml Q8HR IV 01/27/25 22:00 02/26/25 06:15 10 ML Ondansetron HCl 4 mg Q4HP PRN IV 01/27/25 18:45 02/09/25 01:19 4 MG Docusate Sodium 100 mg BIDPRN PRN PO 01/27/25 18:45 Acetaminophen 650 mg Q6HP PRN PO 01/27/25 18:45 02/23/25 13:03 650 MG Nitroglycerin 0.4 mg Q5MINP PRN SL 01/27/25 18:45 Potassium Chloride 100 ml @ 50 mls/hr Q2H IV 01/28/25 07:00 01/28/25 12:59 Cancel Multivitamins 1 tab DAILY PO 02/01/25 10:00 02/26/25 09:23 1 TAB Vancomycin HCl 200 ml @ 200 mls/hr DAILY IV 02/10/25 12:00 UNV Hydralazine HCl 10 mg Q6HP PRN IV 02/12/25 16:15 02/17/25 20:23 10 MG Amlodipine Besylate 5 mg DAILY PO 02/17/25 10:00 02/26/25 09:24 5 MG Enteral Nutritional Formula 240 ml BIDWM PO 02/17/25 18:00 02/26/25 08:00 240 ML Pantoprazole Sodium 40 mg DAILY@0600 PO 02/19/25 06:00 02/26/25 06:14 40 MG Fluconazole 200 mg DAILY PO 02/19/25 10:00 02/26/25 09:23 200 MG Potassium Chloride 20 meq/ Dextrose 1,010 ml @ 50 mls/hr [id number] IV 02/20/25 13:15 02/26/25 09:53 50 MLS/HR Sertraline HCl 25 mg DAILY PO 02/21/25 10:00 02/26/25 09:24 25 MG Prednisone 20 mg QAM PO 02/26/25 07:00 02/26/25 06:14 20 MG Examination: GENERAL:Normal, HEENT:Normal, NECK:Normal, LUNGS:Normal, CVS:Normal, ABDOMEN:Normal, MSK:Normal, SKIN:Normal, NEURO:Normal, NEURO:Abnormal (quadriparesis), :Normal laboratory and microbiology Laboratory Tests 02/25/25 06:04 Test 02/25/25 06:04 Range/Units Serum Glucose 103 74-106 mg/dL Microbiology Date/Time Source Procedure Growth Status 02/13/25 08:30 Drainage Gram Stain - Final Complete 02/13/25 08:30 Drainage Anaerobic Culture - Final Complete 02/13/25 08:30 Drainage Aerobic Culture - Final Complete 02/03/25 22:00 Urine - Perera Port Urine Culture - Final Complete 01/28/25 16:23 Sacrum Gram Stain - Final Complete 01/28/25 16:23 Wound Culture - Final Escherichia coli Presumptive Floridalma albicans Complete 01/27/25 16:41 Blood Blood Culture - Final NO GROWTH AFTER 5 DAYS OF INCUBATION. Complete Problem List/Assessment/Plan Problem List/Assessment/Plan #1 septic shock with uti: off iv pressors, dc iv antibiotics, repeat ua #2 gallstones: s/p surg #3 encephalopathy- ?metabolic #4 dm: ssi #5 RA: prednisone #6 obesity #7 anemia: transfuse #8 thrombocytopenia: resolved #9 nutrition: po diet #10 mod protein malnutrition #11 quadriparesis: spinal stenosis- long dw daughter/sister- agreeable to surgery, await dr Tello to schedule #12 htn: hydralazine, dc lasix iv long dw son/sister- reviewed labs and plan of care Plan discussed with: Patient My Orders My Orders Orders - BAILEY ROBERSON MD Procedure Category Date Status Time * Wound Consult CONS 02/26/25 Transmitted Basic Metabolic Panel LAB 02/27/25 Verified 06:00 Complete Blood Count LAB 02/27/25 Verified 06:00 PTPTT LAB 02/27/25 Verified 04:00 Dietary Evaluation Review Comments: 1. CCHO-45 Cardiac Diet 2. Reassess in 2-3 days Expected Outcomes/Goals: Gradual Wt loss will be desirable. Date of Service: Feb 26, 2025 Billing Provider: BAILEY ROBERSON MD Common Visit Codes: [id number] INP/OBS CARE(HIGH) BAILEY ROBERSON MD Feb 26, 2025 11:27
--- NOTE | 2025-02-26 14:24 | DVHPN2 ---
Progress Note Date Seen: Feb 26, 2025 Medical Necessity Reason Pt with a Central, PICC or Fol: Yes The following are medically ne: Perera Catheter Reason for perera catheter: Strict I&O Objective vital signs Vital Sign Date Time Temp Pulse Resp B/P (MAP) Pulse Ox O2 Delivery O2 Flow Rate FiO2 02/26/25 12:59 98.5 84 18 118/79 (92) 97 98.5 02/25/25 20:00 Room Air* 0 21 Total Intake and Output 02/25/25 02/25/25 02/26/25 15:00 23:00 07:00 Intake Total 770 ml 600 ml Output Total 600 ml Balance 170 ml 600 ml medications Current Medications Medications Dose Ordered Sig/Karan Route Start Time Stop Time Status Last Admin Dose Admin Sodium Chloride 10 ml Q8HR IV 01/27/25 22:00 02/26/25 06:15 10 ML Ondansetron HCl 4 mg Q4HP PRN IV 01/27/25 18:45 02/09/25 01:19 4 MG Docusate Sodium 100 mg BIDPRN PRN PO 01/27/25 18:45 Acetaminophen 650 mg Q6HP PRN PO 01/27/25 18:45 02/23/25 13:03 650 MG Nitroglycerin 0.4 mg Q5MINP PRN SL 01/27/25 18:45 Potassium Chloride 100 ml @ 50 mls/hr Q2H IV 01/28/25 07:00 01/28/25 12:59 Cancel Multivitamins 1 tab DAILY PO 02/01/25 10:00 02/26/25 09:23 1 TAB Vancomycin HCl 200 ml @ 200 mls/hr DAILY IV 02/10/25 12:00 UNV Hydralazine HCl 10 mg Q6HP PRN IV 02/12/25 16:15 02/17/25 20:23 10 MG Enteral Nutritional Formula 240 ml BIDWM PO 02/17/25 18:00 02/26/25 08:00 240 ML Pantoprazole Sodium 40 mg DAILY@0600 PO 02/19/25 06:00 02/26/25 06:14 40 MG Fluconazole 200 mg DAILY PO 02/19/25 10:00 02/26/25 09:23 200 MG Potassium Chloride 20 meq/ Dextrose 1,010 ml @ 50 mls/hr [id number] IV 02/20/25 13:15 02/26/25 09:53 50 MLS/HR Sertraline HCl 25 mg DAILY PO 02/21/25 10:00 02/26/25 09:24 25 MG Prednisone 20 mg QAM PO 02/26/25 07:00 02/26/25 06:14 20 MG laboratory and microbiology Laboratory Tests 02/25/25 06:04 Test 02/25/25 06:04 Range/Units Serum Glucose 103 74-106 mg/dL Problem List/Assessment/Plan Problem List/Assessment/Plan 02/14/25 alert,oriented, cooperative, wounds clean and well approximated, abdomen appropriately tender, SHANTE drainage serous.Bilirubin normal. will get a swallowing study and attempt to resume po intake 02/15/25 DOING WELL, NO NAUSEA, NO CHOKING ,SWALLOWING WELL, WOUNDS CLEAN AN WELL APPROXIMATED. ok TO ADVANCE DIET. FROM SURGICAL POINT OF VIEW SHE COULD BE DISCHARGED TOMORROW OR Monday02/16/25 tolerating po liquids, abdomen non tender, SHANTE drainage non bilious. "surgically " stable. 02/26/25 ABDOMEN NON TENDER, WOUNDS CLEAN AND WELL APPROXIMATED, DRAINAGE SEROUS. WILL POSSIBLY REMOVE DRAIN IF DRAINAGE DECREASES IN VOLUME. SHE IS TOLERATING REGULAR DIET AND RESUMED NORMAL BOWEL AND BLADDER FUNCTION.. Plan discussed with: Patient Dietary Evaluation Review Comments: 1. CCHO-45 Cardiac Diet 2. Reassess in 2-3 days Expected Outcomes/Goals: Gradual Wt loss will be desirable. VILLA BEASLEY MD Feb 26, 2025 14:24
--- NOTE | 2025-02-26 17:03 | PRN ---
Misceleneous Note Note Note 02/26/2025 spoke to patient with american sign language interpreter david number [id number] with RN paco LAU who also has extension [phone]. Reviewed the case with patient explained that the patient may have been adequately optimized to have gone through abdominal surgery. However consideration of spine surgery and the patient has multiple open wounds and large decubitus ulcer make her a poor candidate to be the recipient of any spinal hardware. These conditions in addition to her copious amounts of watery diarrhea and a urine that is still has signs of infection present increase her risk for having hardware infection and with the proximity of it being to the spinal cord it is a contraindication to any type of spinal surgery. The best option for the patient at this time is to go to rehab where she can heal from her wounds clear her urine and diarrhea issues and she may follow up with Dr Ashwin Tello as an outpatient and they can plan surgical progression for her herniated discs. Patient should go to rehab for further healing and medical optimization with a consideration of spinal surgery at a later date Patient verbalized understanding and had no further questions per the interpr eter present, RN also understood the conversation and will relate plan of care to the patient's family Call with questions [facility] Orthopaedic Spine Surgery nurse practitioner For Dr Christy Tello Patient was examined, chart reviewed, labs evaluated, and diagnostic studies and findings analyzed. Case was discussed with Dr. Ashwin Tello who formulated the plan of care. This medical document was created using an electronic medical record system with [employer] ([employer] dictation system. Although this document has been carefully reviewed, there might still be some phonetic and typographical errors. These areas are purely typographical due to imperfections of the software programs, and do not reflect any compromise in the patient's medical care. JOYCELYN ROCK NP Feb 26, 2025 17:02
[2025-02-27] VITALS (8 sets, daily range): BP systolic 118–146; BP diastolic 73–87; PULSE 78–98; RESP 6–17; TEMP 98–98.6; O2SAT 97–100
[2025-02-27 03:06] LABS: Urine Protein, UAD Negative (Negative)
[2025-02-27 07:21] LABS: Sodium 142 mmol/L (136-145)
[2025-02-27 07:22] LABS: Anion Gap 10 (5-15); Calcium 8.1 mg/dL (8.7-10.4); Carbon Dioxide 22 mmol/L (20-31); Chloride 110 mmol/L (98-107); Potassium 3.1 mmol/L (3.5-5.1)
[2025-02-27 07:25] LABS: INR 1.06 (0.9-1.15); Partial Thromboplastin Time < 20.0 SEC (24.5-34.5); Prothrombin Time 11.2 sec (9.3-11.8)
[2025-02-27 07:27] LABS: BUN/Creatinine Ratio 37.9 (10.0-20.0); Blood Urea Nitrogen 11 mg/dL (9-23); Glucose 70 mg/dL (74-106)
[2025-02-27 09:02] LABS: Hematocrit 32.9 % (36.0-46.0); Hemoglobin 11.3 g/dL (12.2-16.2); Mean Corpuscular Hemoglobin 30.6 pg (28.0-32.0); Mean Corpuscular Volume 89.4 fL (80.0-100.0); Nucleated Red Blood Cells % 0.2 %
--- NOTE | 2025-02-27 10:07 | DVHPN2 ---
Progress Note - Dictate Date Seen: Feb 27, 2025 Medical Necessity Reason Pt with a Central, PICC or Fol: Yes The following are medically ne: Perera Catheter Reason for perera catheter: Strict I&O Subjective Ms. Evans is a 59 years old right-handed female with a history of hypertension, diabetes, gallstone, rheumatoid arthritis, the patient was brought to the [facility] on 01/27/2025 with a chief company of altered mental status. I have seen and examined the patient, I have talked to her nurse. She is doing fine, voice is stronger, only moves the arms and legs minimally No sensory level on physical examination [facility] reports EGD 01/02/2025: Preoperative diagnosis: Microcytic anemia, nausea, vomiting Post-op diagnosis: Diffuse gastritis, no biopsy Colonoscopy, 01/02/2025: Postop diagnosis: One normal anal canal, there was no internal external hemorrhoids. 2, moderately severe uncomplicated sigmoid diverticulosis, 3. 2 mm polyp in the mid sigmoid removed by cold biopsy. The rest of the colon is normal on AVM mucosa anomalies or other polyps ABG, 02/01/2025: Compensated metabolic acidosis, Blood culture, 01/28/2025: No growth Wound culture, 01/28/2025: E coli Urine culture, 01/28/2025: Yeast: > 100,000 UDS, 01/27/2025: Negative Plasma alcohol, 01/27/2025: 3.7 Urinalysis, 01/27/2025: WBC: 733, urine leukocyte esterase: 3+ WBC/HB/PLT/MCV, 02/17/2025: 6.6/9.4/258/83.6 HCO3, : 20, 01/28/2025: 18, 01/31/2025: 20, 02/03/2025: 14, 02/04/2025: 17. 6/: 20, 02/06/2025: 24, 02/10/2025: 26 CRP, 01/28/2025: 8.04 Liver function tests, 01/28/2025: Unremarkable Ammonia, six: 10 Vitamin B12, 01/28/2025: 339 Folic acid, 01/28/2025: 2.75 TSH, 01/28/2025: 3.96 FT four, 01/30/2025: 2.3 Echocardiogram, 01/29/2025: Conclusion lvef 60% grade 1 diastolic dysfunction normal rv functon left atrium enlarged EEG, 02/01/2025: Moderately abnormal EEG EEG, 02/07/2025, This is an inadequate but likely mildly abnormal EEG, Carotid Doppler 02/10/2025: No hemodynamically significant stenosis by velocity criteria CT abdominal/pelvis, 01/29/2025: No acute intraabdominal abnormality. Cholelithiasis.No sacral soft tissue defect visualized MRI head, 01/31/2025: No evidence of acute intracranial abnormalities MRI cervical spine, 02/12/2025: Moderate cervical degenerative disc disease. Eewy-[id number] spinal canal stenosis C5-6. Mild spinal canal stenosis at C4-5, T1-2. Moderate to severe multilevel neural foraminal stenosis as described. Recommend MRI thoracic spine to further evaluate given the findings at T1-T2. MRI T-spine, 02/14/2025:1. Large posterior disc bulge at T1-2 resulting in severe central canal stenosis with impingement on the thoracic cord and likely abnormal cord signal. Neurosurgical evaluation is recommended. Moderate central canal stenosis T11-12. No significant neural foraminal stenosis. 2. Bilateral pleural effusions right greater than left vital signs Vital Sign Date Time Temp Pulse Resp B/P (MAP) Pulse Ox O2 Delivery O2 Flow Rate FiO2 02/27/25 09:00 98.1 78 14 118/73 (88) 97 98.1 02/26/25 20:00 Room Air* 0 21 Total Intake and Output 02/26/25 02/26/25 02/27/25 15:00 23:00 07:00 Intake Total 570 ml 150 ml Output Total 1070 ml 1000 ml Balance -500 ml -850 ml medications Current Medications Medications Dose Ordered Sig/Karan Route Start Time Stop Time Status Last Admin Dose Admin Potassium Chloride 100 ml @ 50 mls/hr Q2H IV 01/28/25 07:00 01/28/25 12:59 Cancel Multivitamins 1 tab DAILY PO 02/01/25 10:00 02/26/25 09:23 1 TAB Vancomycin HCl 200 ml @ 200 mls/hr DAILY IV 02/10/25 12:00 UNV Hydralazine HCl 10 mg Q6HP PRN IV 02/12/25 16:15 02/17/25 20:23 10 MG Enteral Nutritional Formula 240 ml BIDWM PO 02/17/25 18:00 02/26/25 17:55 240 ML Pantoprazole Sodium 40 mg DAILY@0600 PO 02/19/25 06:00 02/27/25 06:42 40 MG Fluconazole 200 mg DAILY PO 02/19/25 10:00 02/26/25 09:23 200 MG Potassium Chloride 20 meq/ Dextrose 1,010 ml @ 50 mls/hr [id number] IV 02/20/25 13:15 02/27/25 06:42 50 MLS/HR Sertraline HCl 25 mg DAILY PO 02/21/25 10:00 02/26/25 09:24 25 MG Prednisone 20 mg QAM PO 02/26/25 07:00 02/27/25 06:42 20 MG objective General: the patient is well developed and nourished. No acute distress. MUSCULOSKELETAL EXAM: Change in the both hands is consistent with history of rheumatoid arthritis MENTAL STATUS: Subjective SPEECH, LANGUAGE, HIGHER CORTICAL FUNCTION: Subjective CRANIAL NERVES: Pupils are equal, round and reactive. EOMs full and conjugate. Facial sensation intact in all three divisions bilaterally. Mandibular strength intact. Facial muscles symmetrical and strength intact. SENSATION: Sensation to touch and pinprick is okay, no [id number] differences, no sensory level MOTOR: Normal tone in the upper and lower extremity. Normal muscle bulk. No fasciculations. No abnormal movements or posturing. Minimal movement in the arms and left leg REFLEXES: Deep tendon reflexes are symmetrical. No pathological reflexes. CEREBELLAR/COORDINATION: Deferred GAIT/STATION: deferred Mild tenderness to palpation in the neck, and back laboratory and microbiology Laboratory Tests 02/27/25 08:40 02/27/25 06:26 Test 02/27/25 06:26 Range/Units Serum Glucose 70 L 74-106 mg/dL Problem List Altered mental status/Metabolic encephalopathy secondary to UTI, sepsis/septic shock Pressure wound Metabolic acidosis Nausea, vomiting Bradycardia Episodic event, rule out seizure Quadriparesis T-spine stenosis Assessment/Plan Monitoring Supportive treatment Follow-up labs Telemetry IV antibiotics DVT prophylaxis GI prophylaxis Consider T-spine surgery once she is stronger enough Cardiology on case Dr. Tello on case More recommendation per clinical course This medical document was created using an electronic medical record system with Dragon computerized dictation system. Although this document has been carefully reviewed, there may still be some phonetic and typographical errors. These areas are purely typographical due to imperfections of the software programs, and do not reflect any compromise in the patient's medical care. Prognosis poor Dietary Evaluation Review Comments: 1. CCHO-45 Cardiac Diet 2. Reassess in 2-3 days Expected Outcomes/Goals: Gradual Wt loss will be desirable. Plan discussed with: Other RIZWANA MUÑOZ MD Feb 27, 2025 10:07
--- NOTE | 2025-02-27 15:32 | DVHPN2 ---
Progress Note Date Seen: Feb 27, 2025 Medical Necessity Reason Pt with a Central, PICC or Fol: Yes The following are medically ne: Perera Catheter Reason for perera catheter: Strict I&O Objective vital signs Vital Sign Date Time Temp Pulse Resp B/P (MAP) Pulse Ox O2 Delivery O2 Flow Rate FiO2 02/27/25 13:00 98.1 90 16 134/84 (101) 100 98.1 02/27/25 08:00 Room Air* 0 21 Total Intake and Output 02/26/25 02/26/25 02/27/25 15:00 23:00 07:00 Intake Total 570 ml 150 ml Output Total 1070 ml 1000 ml Balance -500 ml -850 ml medications Current Medications Medications Dose Ordered Sig/Karan Route Start Time Stop Time Status Last Admin Dose Admin Potassium Chloride 100 ml @ 50 mls/hr Q2H IV 01/28/25 07:00 01/28/25 12:59 Cancel Multivitamins 1 tab DAILY PO 02/01/25 10:00 02/27/25 11:31 1 TAB Vancomycin HCl 200 ml @ 200 mls/hr DAILY IV 02/10/25 12:00 UNV Hydralazine HCl 10 mg Q6HP PRN IV 02/12/25 16:15 02/17/25 20:23 10 MG Enteral Nutritional Formula 240 ml BIDWM PO 02/17/25 18:00 02/26/25 17:55 240 ML Pantoprazole Sodium 40 mg DAILY@0600 PO 02/19/25 06:00 02/27/25 06:42 40 MG Fluconazole 200 mg DAILY PO 02/19/25 10:00 02/27/25 10:00 200 MG Potassium Chloride 20 meq/ Dextrose 1,010 ml @ 50 mls/hr [id number] IV 02/20/25 13:15 02/27/25 06:42 50 MLS/HR Sertraline HCl 25 mg DAILY PO 02/21/25 10:00 02/27/25 11:31 25 MG Prednisone 20 mg QAM PO 02/26/25 07:00 02/27/25 06:42 20 MG laboratory and microbiology Laboratory Tests 02/27/25 08:40 02/27/25 06:26 Test 02/27/25 06:26 Range/Units Serum Glucose 70 L 74-106 mg/dL Problem List/Assessment/Plan Problem List/Assessment/Plan 02/14/25 alert,oriented, cooperative, wounds clean and well approximated, abdomen appropriately tender, SHANTE drainage serous.Bilirubin normal. will get a swallowing study and attempt to resume po intake 02/15/25 DOING WELL, NO NAUSEA, NO CHOKING ,SWALLOWING WELL, WOUNDS CLEAN AN WELL APPROXIMATED. ok TO ADVANCE DIET. FROM SURGICAL POINT OF VIEW SHE COULD BE DISCHARGED TOMORROW OR Monday02/16/25 tolerating po liquids, abdomen non tender, SHANTE drainage non bilious. "surgically " stable. 02/26/25 ABDOMEN NON TENDER, WOUNDS CLEAN AND WELL APPROXIMATED, DRAINAGE SEROUS. WILL POSSIBLY REMOVE DRAIN IF DRAINAGE DECREASES IN VOLUME. SHE IS TOLERATING REGULAR DIET AND RESUMED NORMAL BOWEL AND BLADDER FUNCTION.. 02/27/25 drain with minimal serous fluid, drain removed without difficulty.otherwise unchanged Plan discussed with: Patient Dietary Evaluation Review Comments: 1. CCHO-45 Cardiac Diet 2. Reassess in 2-3 days Expected Outcomes/Goals: Gradual Wt loss will be desirable. VILLA BEASLEY MD Feb 27, 2025 15:32
--- NOTE | 2025-02-27 15:43 | DVHPN2 ---
Progress Note Date Seen: Feb 27, 2025 Medical Necessity Reason Pt with a Central, PICC or Fol: Yes The following are medically ne: Perera Catheter Reason for perera catheter: Strict I&O Subjective Patient reports: No new complaints Review of Systems: HEENT:Normal, CVS:Normal, RESPIRATORY:Normal, GI:Normal, :Normal, MSK:Normal, NEURO:Normal Objective vital signs Vital Sign Date Time Temp Pulse Resp B/P (MAP) Pulse Ox O2 Delivery O2 Flow Rate FiO2 02/27/25 13:00 98.1 90 16 134/84 (101) 100 98.1 02/27/25 08:00 Room Air* 0 21 Total Intake and Output 02/26/25 02/26/25 02/27/25 15:00 23:00 07:00 Intake Total 570 ml 150 ml Output Total 1070 ml 1000 ml Balance -500 ml -850 ml medications Current Medications Medications Dose Ordered Sig/Karan Route Start Time Stop Time Status Last Admin Dose Admin Potassium Chloride 100 ml @ 50 mls/hr Q2H IV 01/28/25 07:00 01/28/25 12:59 Cancel Multivitamins 1 tab DAILY PO 02/01/25 10:00 02/27/25 11:31 1 TAB Vancomycin HCl 200 ml @ 200 mls/hr DAILY IV 02/10/25 12:00 UNV Hydralazine HCl 10 mg Q6HP PRN IV 02/12/25 16:15 02/17/25 20:23 10 MG Enteral Nutritional Formula 240 ml BIDWM PO 02/17/25 18:00 02/26/25 17:55 240 ML Pantoprazole Sodium 40 mg DAILY@0600 PO 02/19/25 06:00 02/27/25 06:42 40 MG Fluconazole 200 mg DAILY PO 02/19/25 10:00 02/27/25 10:00 200 MG Potassium Chloride 20 meq/ Dextrose 1,010 ml @ 50 mls/hr [id number] IV 02/20/25 13:15 02/27/25 06:42 50 MLS/HR Sertraline HCl 25 mg DAILY PO 02/21/25 10:00 02/27/25 11:31 25 MG Prednisone 20 mg QAM PO 02/26/25 07:00 02/27/25 06:42 20 MG Examination: GENERAL:Normal, HEENT:Normal, NECK:Normal, LUNGS:Normal, CVS:Normal, ABDOMEN:Normal, MSK:Normal, MSK:Abnormal (decub ulcer), SKIN:Normal, NEURO:Normal, NEURO:Abnormal (quadriparesis), :Normal laboratory and microbiology Laboratory Tests 02/27/25 08:40 02/27/25 06:26 Test 02/27/25 06:26 Range/Units Serum Glucose 70 L 74-106 mg/dL Microbiology Date/Time Source Procedure Growth Status 02/13/25 08:30 Drainage Gram Stain - Final Complete 02/13/25 08:30 Drainage Anaerobic Culture - Final Complete 02/13/25 08:30 Drainage Aerobic Culture - Final Complete 02/03/25 22:00 Urine - Perera Port Urine Culture - Final Complete 01/28/25 16:23 Sacrum Gram Stain - Final Complete 01/28/25 16:23 Wound Culture - Final Escherichia coli Presumptive Floridalma albicans Complete 01/27/25 16:41 Blood Blood Culture - Final NO GROWTH AFTER 5 DAYS OF INCUBATION. Complete Problem List/Assessment/Plan Problem List/Assessment/Plan #1 septic shock with uti: change perera, iv antibiotics #2 gallstones: s/p surg #3 encephalopathy- ?metabolic #4 dm: ssi #5 RA: dc prednisone #6 obesity #7 anemia: transfuse #8 thrombocytopenia: #9 nutrition: po diet #10 mod protein malnutrition #11 quadriparesis: spinal stenosis- long dw daughter/sister- agreeable to surgery, await dr Tello to schedule #12 decub ulcer: surg eval, iv antibiotics long dw Mabel- daughter- explained plan of care Plan discussed with: Patient My Orders My Orders Orders - BAILEY ROBERSON MD Procedure Category Date Status Time Cleanse Wound With KALYAN 02/26/25 In Process Wound Clean 17:24 * Phone Manager CONS 02/27/25 Transmitted Consult Potassium Effervesent PHA 02/27/25 Transmitted Tab (Klor-Con/Ef) 15:30 Basic Metabolic Panel LAB 02/28/25 Verified 06:00 Complete Blood Count LAB 02/28/25 Verified 06:00 Magnesium LAB 02/28/25 Verified 05:00 Dietary Evaluation Review Comments: 1. CCHO-45 Cardiac Diet 2. Reassess in 2-3 days Expected Outcomes/Goals: Gradual Wt loss will be desirable. Date of Service: Feb 27, 2025 Billing Provider: BAILEY ROBERSON MD Common Visit Codes: 54381-[id number] INP/OBS CARE(HIGH) Secondary Visit Codes: 86403-[id number] CARE PLAN 30 MINUTES BAILEY ROBERSON MD Feb 27, 2025 15:43
[2025-02-27] MEDS ORDERED: VANCOMYCIN PER PHARMACY 0 MG IV SCH (15:45)
[2025-02-27] MEDS: POTASSIUM EFFERVESENT TAB 25 MEQ PO ONE (18:24)
[2025-02-27] MEDS: VANCOMYCIN 1.5GM/300ML 300 ML IV ONE (18:25)
[2025-02-28] VITALS (7 sets, daily range): BP systolic 114–140; BP diastolic 76–80; PULSE 77–100; RESP 15–19; TEMP 97.6–98.9; O2SAT 97–100
[2025-02-28] MEDS: VANCOMYCIN 1GM/200ML PM 200 ML IV SCH (02:14)
[2025-02-28 07:32] LABS: Potassium 3.7 mmol/L (3.5-5.1); Sodium 143 mmol/L (136-145)
[2025-02-28 07:33] LABS: Anion Gap 10 (5-15); Carbon Dioxide 21 mmol/L (20-31)
[2025-02-28 07:36] LABS: Calcium 7.9 mg/dL (8.7-10.4); Chloride 112 mmol/L (98-107)
[2025-02-28 07:38] LABS: BUN/Creatinine Ratio 37.5 (10.0-20.0)
[2025-02-28 07:39] LABS: Blood Urea Nitrogen 9 mg/dL (9-23); Glucose 72 mg/dL (74-106); Magnesium 1.7 mg/dL (1.6-2.6)
[2025-02-28 07:42] LABS: Hematocrit 34.3 % (36.0-46.0); Hemoglobin 11.2 g/dL (12.2-16.2); Mean Corpuscular Hemoglobin 29.9 pg (28.0-32.0); Mean Corpuscular Volume 91.4 fL (80.0-100.0)
[2025-02-28 09:18] LABS: Total Cells Counted 100.0 (100)
[2025-02-28 09:19] LABS: Anisocytosis Moderate
[2025-02-28] MEDS: FLUCONAZOLE 200MG/100ML 100 ML IV SCH (10:11)
--- NOTE | 2025-02-28 22:55 | DVHPN2 ---
Progress Note - Dictate Date Seen: Feb 28, 2025 Medical Necessity Reason Pt with a Central, PICC or Fol: Yes The following are medically ne: Perera Catheter Reason for perera catheter: Strict I&O Subjective Ms. Evans is a 59 years old right-handed female with a history of hypertension, diabetes, gallstone, rheumatoid arthritis, the patient was brought to the [facility] on 01/27/2025 with a chief company of altered mental status. I have seen and examined the patient, I have talked to her nurse. She is doing fine, slowly improving, but weakness in the extremity has no obvious changes [facility] reports EGD 01/02/2025: Preoperative diagnosis: Microcytic anemia, nausea, vomiting Post-op diagnosis: Diffuse gastritis, no biopsy Colonoscopy, 01/02/2025: Postop diagnosis: One normal anal canal, there was no internal external hemorrhoids. 2, moderately severe uncomplicated sigmoid diverticulosis, 3. 2 mm polyp in the mid sigmoid removed by cold biopsy. The rest of the colon is normal on AVM mucosa anomalies or other polyps ABG, 02/01/2025: Compensated metabolic acidosis, Blood culture, 01/28/2025: No growth Wound culture, 01/28/2025: E coli Urine culture, 01/28/2025: Yeast: > 100,000 UDS, 01/27/2025: Negative Plasma alcohol, 01/27/2025: 3.7 Urinalysis, 01/27/2025: WBC: 733, urine leukocyte esterase: 3+ WBC/HB/PLT/MCV, 02/17/2025: 6.6/9.4/258/83.6 HCO3, : 20, 01/28/2025: 18, 01/31/2025: 20, 02/03/2025: 14, 02/04/2025: 17. 6/18: 20, 02/06/2025: 24, 02/10/2025: 26 CRP, 01/28/2025: 8.04 Liver function tests, 01/28/2025: Unremarkable Ammonia, six: 10 Vitamin B12, 01/28/2025: 339 Folic acid, 01/28/2025: 2.75 TSH, 01/28/2025: 3.96 FT four, 01/30/2025: 2.3 Echocardiogram, 01/29/2025: Conclusion lvef 60% grade 1 diastolic dysfunction normal rv functon left atrium enlarged EEG, 02/01/2025: Moderately abnormal EEG EEG, 02/07/2025, This is an inadequate but likely mildly abnormal EEG, Carotid Doppler 02/10/2025: No hemodynamically significant stenosis by velocity criteria CT abdominal/pelvis, 01/29/2025: No acute intraabdominal abnormality. Cholelithiasis.No sacral soft tissue defect visualized MRI head, 01/31/2025: No evidence of acute intracranial abnormalities MRI cervical spine, 02/12/2025: Moderate cervical degenerative disc disease. [id number] spinal canal stenosis C5-6. Mild spinal canal stenosis at C4-5, T1-2. Moderate to severe multilevel neural foraminal stenosis as described. Recommend MRI thoracic spine to further evaluate given the findings at T1-T2. MRI T-spine, 02/14/2025:1. Large posterior disc bulge at T1-2 resulting in severe central canal stenosis with impingement on the thoracic cord and likely abnormal cord signal. Neurosurgical evaluation is recommended. Moderate central canal stenosis T11-12. No significant neural foraminal stenosis. 2. Bilateral pleural effusions right greater than left vital signs Vital Sign Date Time Temp Pulse Resp B/P (MAP) Pulse Ox O2 Delivery O2 Flow Rate FiO2 02/28/25 21:00 98.4 100 19 119/80 (93) 100 98.4 02/28/25 20:00 Room Air* 0 21 Total Intake and Output 02/27/25 02/27/25 02/28/25 15:00 23:00 07:00 Intake Total 725 ml 1800 ml Output Total 1100 ml 2100 ml Balance -375 ml -300 ml medications Current Medications Medications Dose Ordered Sig/Karan Route Start Time Stop Time Status Last Admin Dose Admin Potassium Chloride 100 ml @ 50 mls/hr Q2H IV 01/28/25 07:00 01/28/25 12:59 Cancel Multivitamins 1 tab DAILY PO 02/01/25 10:00 02/28/25 10:11 1 TAB Vancomycin HCl 200 ml @ 200 mls/hr DAILY IV 02/10/25 12:00 UNV Hydralazine HCl 10 mg Q6HP PRN IV 02/12/25 16:15 02/17/25 20:23 10 MG Enteral Nutritional Formula 240 ml BIDWM PO 02/17/25 18:00 02/28/25 17:44 240 ML Pantoprazole Sodium 40 mg DAILY@0600 PO 02/19/25 06:00 02/28/25 05:37 40 MG Potassium Chloride 20 meq/ Dextrose 1,010 ml @ 50 mls/hr [id number] IV 02/20/25 13:15 02/28/25 02:48 50 MLS/HR Fluconazole 100 ml @ 100 mls/hr DAILY IV 02/28/25 10:00 02/28/25 10:11 100 MLS/HR Vancomycin HCl 0 ml @ 0 mls/hr UD IV 02/27/25 15:45 objective General: the patient is well developed and nourished. No acute distress. MUSCULOSKELETAL EXAM: Change in the both hands is consistent with history of rheumatoid arthritis MENTAL STATUS: Subjective SPEECH, LANGUAGE, HIGHER CORTICAL FUNCTION: Subjective CRANIAL NERVES: Pupils are equal, round and reactive. EOMs full and conjugate. Facial sensation intact in all three divisions bilaterally. Mandibular strength intact. Facial muscles symmetrical and strength intact. SENSATION: Sensation to touch and pinprick is okay, no [id number] differences, no sensory level MOTOR: Normal tone in the upper and lower extremity. Normal muscle bulk. No fasciculations. No abnormal movements or posturing. Minimal movement in the arms and left leg REFLEXES: Deep tendon reflexes are symmetrical. No pathological reflexes. CEREBELLAR/COORDINATION: Deferred GAIT/STATION: deferred Mild tenderness to palpation in the neck, and back laboratory and microbiology Laboratory Tests 02/28/25 06:46 Test 02/28/25 06:46 Range/Units Serum Glucose 72 L 74-106 mg/dL Problem List Altered mental status/Metabolic encephalopathy secondary to UTI, sepsis/septic shock Pressure wound Metabolic acidosis Nausea, vomiting Bradycardia Episodic event, rule out seizure Quadriparesis T-spine stenosis Assessment/Plan Monitoring Supportive treatment Follow-up labs Telemetry IV antibiotics DVT prophylaxis GI prophylaxis Consider T-spine surgery once she is stronger enough Cardiology on case Dr. Tello on case More recommendation per clinical course This medical document was created using an electronic medical record system with [employer] dictation system. Although this document has been carefully reviewed, there may still be some phonetic and typographical errors. These areas are purely typographical due to imperfections of the software programs, and do not reflect any compromise in the patient's medical care. Prognosis poor Dietary Evaluation Review Comments: [facility] 2. Reassess in 2-3 days Expected Outcomes/Goals: Gradual Wt loss will be desirable. Plan discussed with: Other RIZWANA MUÑOZ MD Feb 28, 2025 22:55
[2025-03-01] VITALS (9 sets, daily range): BP systolic 111–128; BP diastolic 76–85; PULSE 95–116; RESP 16–19; TEMP 97.4–99.6; O2SAT 99–100
[2025-03-01] MEDS: VANCOMYCIN 1GM/200ML PM 200 ML IV SCH (12:57)
--- NOTE | 2025-03-01 14:47 | DVHPN2 ---
Subjective Patient denies any symptoms. Reviewed: Care Plan, H&P, Labs, Medications Changes from previous H/P or p: No Changes General: Per HPI Eyes: No Pain, No Vision change, No Conjunctivae inflammation, No Eyelid inflammation, No Other, No Redness ENT: No Ear pain, No Ear discharge, No Nose pain, No Nose discharge, No Nose congestion, No Mouth pain, No Mouth swelling, No Throat pain, No Throat swelling, No Other Cardiovascular: No Chest Pain, No Palpitations, No Orthopnea, No Paroxysmal Noc. Dyspnea, No Edema, No Lt Headedness, No Other Respiratory: No Cough, No Dry, No Shortness of breath, No SOB with excertion, No Wheezing, No Hemoptysis, No Pleuritic Pain, No Sputum, No Other Gastrointestinal: No Nausea, No Vomiting, No Abdominal Pain, No Diarrhea, No Constipation, No Melena, No Hematochezia, No Other Genitourinary: Other Musculoskeletal: No other, No neck pain, No shoulder pain, No arm pain, No back pain, No hand pain, No leg pain, No foot pain Skin: No Rash, No Lesions, No Jaundice, No Bruising, No Other Objective Vitals Vital Signs Date Time Temp Pulse Resp B/P (MAP) Pulse Ox O2 Delivery O2 Flow Rate FiO2 03/01/25 13:00 98.6 103 19 128/85 (99) 100 98.6 02/28/25 20:00 Room Air* 0 21 Intake/Output Intake and Output 03/01/25 07:00 Intake Total 533 ml Output Total 3675 ml Balance -3142 ml Intake Oral 333 ml IV Total 200 ml Output Urine Total 3675 ml # Bowel Movements 1 General Appearance: Alert, Oriented X3, Cooperative, mild distress HEENT: Atraumatic, PERRLA Lungs: Clear to auscultation, Normal air movement Cardiovascular: Normal S1, Normal S2, Other Abdomen: Normal bowel sounds, No tenderness Musculoskeletal: Normal sensory function, Normal motor function Extremities: Other Neuro: Other Skin: Wounds (See nurse notes and pictures), Other (Wound noted to right upper extremity) Psych/Mental Status: Mental status NL, Mood NL Medications Current Medications Medications Dose Ordered Sig/Karan Route Start Time Stop Time Status Last Admin Dose Admin Potassium Chloride 100 ml @ 50 mls/hr Q2H IV 01/28/25 07:00 01/28/25 12:59 Cancel Multivitamins 1 tab DAILY PO 02/01/25 10:00 03/01/25 11:00 1 TAB Vancomycin HCl 200 ml @ 200 mls/hr DAILY IV 02/10/25 12:00 UNV Hydralazine HCl 10 mg Q6HP PRN IV 02/12/25 16:15 02/17/25 20:23 10 MG Enteral Nutritional Formula 240 ml BIDWM PO 02/17/25 18:00 02/28/25 17:44 240 ML Pantoprazole Sodium 40 mg DAILY@0600 PO 02/19/25 06:00 03/01/25 05:28 40 MG Potassium Chloride 20 meq/ Dextrose 1,010 ml @ 50 mls/hr [id number] IV 02/20/25 13:15 02/28/25 02:48 50 MLS/HR Fluconazole 100 ml @ 100 mls/hr DAILY IV 02/28/25 10:00 03/01/25 11:00 100 MLS/HR Vancomycin HCl 0 ml @ 0 mls/hr UD IV 02/27/25 15:45 Vancomycin HCl 200 ml @ 200 mls/hr DAILY@1100 IV 03/01/25 11:00 03/01/25 12:57 200 MLS/HR Laboratory Results Laboratory Tests 02/28/25 06:46 03/01/25 05:25 Urinalysis Test 01/27/25 16:06 02/03/25 22:00 02/27/25 02:04 Urine WBC Clumps Present /hpf (None Seen) Urine Mucus Few (None Seen) Urine Yeast (Budding) Many /hpf (None Seen) Urine Creatinine 21.71 mg/dL (30.0-125.0) L Urine Protein/Creatinine Ratio 2.89 Urine Total Protein 62.8 mg/dL (1-14) H Urine Color Colorless (Yellow) Urine Clarity Turbid (Clear) H Urine pH 7.0 (5.0-9.0) Urine Specific [place] 1.004 (1.001-1.035) Urine Protein Negative (Negative) Urine Ketones Negative (Negative) Urine Blood Negative /uL (Negative) Urine Nitrite Negative (Negative) Urine Bilirubin Negative (Negative) Urine Urobilinogen Normal mg/dL (Negative) Urine Leukocyte Esterase 3+ /uL (Negative) Urine RBC 2 /hpf (0 - 4) Urine Microscopic WBC 42 /HPF (0-5) H Urine Squamous Epithelial Cells None seen /hpf (<5) Urine Bacteria Many /hpf (None Seen) H Urine Glucose Normal mg/dL (Normal) Microbiology Microbiology Date/Time Source Procedure Growth Status 02/27/25 18:30 Urine - [place] Urine Culture - Preliminary Resulted 02/13/25 08:30 Drainage Gram Stain - Final Complete 02/13/25 08:30 Drainage Anaerobic Culture - Final Complete 02/13/25 08:30 Drainage Aerobic Culture - Final Complete 01/28/25 16:23 Sacrum Gram Stain - Final Complete 01/28/25 16:23 Wound Culture - Final Escherichia coli Presumptive Floridalma albicans Complete 01/27/25 16:41 Blood Blood Culture - Final NO GROWTH AFTER 5 DAYS OF INCUBATION. Complete Labs and/or images reviewed: Labs reviewed by me, Image(s) reviewed by me Assessment/Plan Assessment/Plan Impression: -severe sepsis with shock -hypokalemia -anemia -cholelithiasis -intractable nausea and vomiting -rheumatoid arthritis -primary hypertension -complicated cystitis -C-spine, T STEMI and stenosis -cholecystitis/cholelithiasis, status post cholecystectomy Plan: -events: Evaluated for spinal surgery. Defer at this time given clinical presentation. -increase/encourage p.o. intake -Continue tube feeding. -continue empiric antibiotics -wound care -MVI, vitamin-D supplementation -neurology consultation: Recommendations reviewed -advance diet as tolerated -repeat labs in a.m. Total time spent with patient discussing and formulating plan of care: 35 minutes. This medical document was created using an electronic medical record system with [employer] dictation system. Although this document has been carefully reviewed, there may still be some phonetic and typographical errors. These areas are purely typographical due to imperfections of the software programs, and do not reflect any compromise in the patient's medical care. Plan discussed with: Patient, Other (RN) Date of Service: Mar 01, 2025 Billing Provider: MARC CARVER NP Common Visit Codes: [id number] INP/OBS CARE(HIGH) MARC CARVER NP Mar 01, 2025 14:47
[2025-03-02] VITALS (9 sets, daily range): BP systolic 114–131; BP diastolic 71–87; PULSE 60–113; RESP 14–18; TEMP 97.5–98.8; O2SAT 98–100
[2025-03-02 07:14] LABS: Hematocrit 30.7 % (36.0-46.0); Hemoglobin 10.4 g/dL (12.2-16.2); Mean Corpuscular Hemoglobin 29.7 pg (28.0-32.0); Mean Corpuscular Volume 87.7 fL (80.0-100.0); Nucleated Red Blood Cells % 0.1 %
[2025-03-02 07:21] LABS: Sodium 137 mmol/L (136-145)
[2025-03-02 07:22] LABS: Anion Gap 12 (5-15)
[2025-03-02 07:27] LABS: Blood Urea Nitrogen 12 mg/dL (9-23)
[2025-03-02 07:28] LABS: Calcium 7.9 mg/dL (8.7-10.4); Carbon Dioxide 18 mmol/L (20-31); Chloride 107 mmol/L (98-107); Potassium 2.7 mmol/L (3.5-5.1)
[2025-03-02 07:29] LABS: Glucose 71 mg/dL (74-106)
[2025-03-02 07:33] LABS: BUN/Creatinine Ratio 41.4 (10.0-20.0)
[2025-03-02] MEDS: POTASSIUM CHL 20MEQ/100ML 100 ML IV SCH (14:31)
--- NOTE | 2025-03-02 15:48 | DVHPN2 ---
Subjective Patient denies any symptoms. Reviewed: Care Plan, H&P, Labs, Medications Changes from previous H/P or p: No Changes General: Per HPI Eyes: No Pain, No Vision change, No Conjunctivae inflammation, No Eyelid inflammation, No Other, No Redness ENT: No Ear pain, No Ear discharge, No Nose pain, No Nose discharge, No Nose congestion, No Mouth pain, No Mouth swelling, No Throat pain, No Throat swelling, No Other Cardiovascular: No Chest Pain, No Palpitations, No Orthopnea, No Paroxysmal Noc. Dyspnea, No Edema, No Lt Headedness, No Other Respiratory: No Cough, No Dry, No Shortness of breath, No SOB with excertion, No Wheezing, No Hemoptysis, No Pleuritic Pain, No Sputum, No Other Gastrointestinal: No Nausea, No Vomiting, No Abdominal Pain, No Diarrhea, No Constipation, No Melena, No Hematochezia, No Other Genitourinary: Other Musculoskeletal: No other, No neck pain, No shoulder pain, No arm pain, No back pain, No hand pain, No leg pain, No foot pain Skin: No Rash, No Lesions, No Jaundice, No Bruising, No Other Objective Vitals Vital Signs Date Time Temp Pulse Resp B/P (MAP) Pulse Ox O2 Delivery O2 Flow Rate FiO2 03/02/25 13:00 98.3 92 14 118/77 (91) 98 98.3 03/02/25 08:00 Room Air* 0 21 Intake/Output Intake and Output 03/02/25 07:00 Intake Total 570 ml Output Total 1575 ml Balance -1005 ml Intake Oral 270 ml IV Total 300 ml Output Urine Total 1575 ml # Bowel Movements 1 General Appearance: Alert, Oriented X3, Cooperative, mild distress HEENT: Atraumatic, PERRLA Lungs: Clear to auscultation, Normal air movement Cardiovascular: Normal S1, Normal S2, Other Abdomen: Normal bowel sounds, No tenderness Musculoskeletal: Normal sensory function, Normal motor function Extremities: Other Neuro: Other Skin: Wounds (See nurse notes and pictures), Other (Wound noted to right upper extremity) Psych/Mental Status: Mental status NL, Mood NL Medications Current Medications Medications Dose Ordered Sig/Karan Route Start Time Stop Time Status Last Admin Dose Admin Potassium Chloride 100 ml @ 50 mls/hr Q2H IV 01/28/25 07:00 01/28/25 12:59 Cancel Multivitamins 1 tab DAILY PO 02/01/25 10:00 03/02/25 09:31 1 TAB Vancomycin HCl 200 ml @ 200 mls/hr DAILY IV 02/10/25 12:00 UNV Hydralazine HCl 10 mg Q6HP PRN IV 02/12/25 16:15 02/17/25 20:23 10 MG Enteral Nutritional Formula 240 ml BIDWM PO 02/17/25 18:00 03/01/25 08:00 240 ML Pantoprazole Sodium 40 mg DAILY@0600 PO 02/19/25 06:00 03/02/25 05:29 40 MG Fluconazole 100 ml @ 100 mls/hr DAILY IV 02/28/25 10:00 03/02/25 09:31 100 MLS/HR Vancomycin HCl 0 ml @ 0 mls/hr UD IV 02/27/25 15:45 Vancomycin HCl 200 ml @ 200 mls/hr DAILY@1100 IV 03/01/25 11:00 03/02/25 11:27 200 MLS/HR Potassium Chloride 100 ml @ 50 mls/hr Q2H IV 03/02/25 13:45 03/02/25 17:44 03/02/25 14:31 50 MLS/HR Potassium Chloride 20 meq/ Dextrose 1,010 ml @ 75 mls/hr [id number] IV 03/02/25 14:45 Laboratory Results Laboratory Tests 03/02/25 05:53 Chemistry Test 03/02/25 05:53 Calcium Level 7.9 mg/dL (8.7-10.4) L Magnesium Level 1.4 mg/dL (1.6-2.6) L Urinalysis Test 01/27/25 16:06 02/03/25 22:00 02/27/25 02:04 Urine WBC Clumps Present /hpf (None Seen) Urine Mucus Few (None Seen) Urine Yeast (Budding) Many /hpf (None Seen) Urine Creatinine 21.71 mg/dL (30.0-125.0) L Urine Protein/Creatinine Ratio 2.89 Urine Total Protein 62.8 mg/dL (1-14) H Urine Color Colorless (Yellow) Urine Clarity Turbid (Clear) H Urine pH 7.0 (5.0-9.0) Urine Specific [place] 1.004 (1.001-1.035) Urine Protein Negative (Negative) Urine Ketones Negative (Negative) Urine Blood Negative /uL (Negative) Urine Nitrite Negative (Negative) Urine Bilirubin Negative (Negative) Urine Urobilinogen Normal mg/dL (Negative) Urine Leukocyte Esterase 3+ /uL (Negative) Urine RBC 2 /hpf (0 - 4) Urine Microscopic WBC 42 /HPF (0-5) H Urine Squamous Epithelial Cells None seen /hpf (<5) Urine Bacteria Many /hpf (None Seen) H Urine Glucose Normal mg/dL (Normal) Microbiology Microbiology Date/Time Source Procedure Growth Status 02/27/25 18:30 Urine - [place] Urine Culture - Final Klebsiella pneumoniae Pseudomonas aeruginosa Complete 02/13/25 08:30 Drainage Gram Stain - Final Complete 02/13/25 08:30 Drainage Anaerobic Culture - Final Complete 02/13/25 08:30 Drainage Aerobic Culture - Final Complete 01/28/25 16:23 Sacrum Gram Stain - Final Complete 01/28/25 16:23 Wound Culture - Final Escherichia coli Presumptive Floridalma albicans Complete 01/27/25 16:41 Blood Blood Culture - Final NO GROWTH AFTER 5 DAYS OF INCUBATION. Complete Labs and/or images reviewed: Labs reviewed by me, Image(s) reviewed by me Assessment/Plan Assessment/Plan Impression: -severe sepsis with shock -hypokalemia -anemia -cholelithiasis -intractable nausea and vomiting -rheumatoid arthritis -primary hypertension -complicated cystitis -C-spine, T STEMI and stenosis -cholecystitis/cholelithiasis, status post cholecystectomy -probable depression Plan: -events: Potassium, magnesium decreased. Patient poor oral intake. Noted borderline hypoglycemia. Discussion made with patient using supervisor slate splitting to attempt to increase food intake. Noted patient's mentation to be somewhat withdrawn. -increase D5 NS to 75 mL/hour -continue nutritional supplementation -reconsult surgery for wound debridement -potassium and magnesium replete -continue empiric antibiotics -wound care -repeat labs in a.m. Total time spent with patient discussing and formulating plan of care: 35 minutes. This medical document was created using an electronic medical record system with [employer] system. Although this document has been carefully reviewed, there may still be some phonetic and typographical errors. These areas are purely typographical due to imperfections of the software programs, and do not reflect any compromise in the patient's medical care. Plan discussed with: Patient, Other (RN) My Orders Orders - MARC CARVER NP Procedure Category Date Status Time Potassium Chl PHA 03/02/25 In Process 20meq/100ml 13:45 Potassium LAB 03/02/25 Logged 19:00 D5w 5% (Dextrose 5%) PHA 03/02/25 In Process W/Potassium Chlorid 14:45 Magnesium Tima PHA 03/02/25 Verified 16:00 Date of Service: Mar 02, 2025 Billing Provider: MARC CARVER NP Common Visit Codes: [id number] INP/OBS CARE(HIGH) MARC CARVER NP Mar 02, 2025 15:48
--- NOTE | 2025-03-02 15:54 | MEDREC ---
[facility] Intervention Section I [facility] Intervention: Deescalate AB based on CS, Review courses of therapy (PLEASE CONSIDER REVIEWING COURSE OF THERAPY BASED ON CULTURE RESULTS IF CLINICALLY RELEVANT) BETTE AMANDA PHARMACIST Mar 02, 2025 15:54
[2025-03-02] MEDS: MAGNESIUM SULFATE 1GM/100ML 100 ML IV SCH (17:40)
[2025-03-02] MEDS: POTASSIUM CHLORIDE 20 MEQ in D5W 5% 1,000 ML IV SCH (22:09)
[2025-03-02] MEDS: HYDROcodone-ACET 5/325MG TAB PO PRN (22:24)
[2025-03-02] MEDS: CEFEPIME 1GM/ 50ML 50 ML IV SCH (22:30)
[2025-03-03 01:00] VITALS: BP 122/81; PULSE 100; RESP 17; TEMP 98.5; O2SAT 99
[2025-03-03 05:00] VITALS: BP 109/60; PULSE 99; RESP 17; TEMP 98.3; O2SAT 98
[2025-03-03 08:00] VITALS: PULSE 102
[2025-03-03 09:00] VITALS: BP 116/79; PULSE 105; RESP 15; TEMP 98.6; O2SAT 100
--- NOTE | 2025-03-03 12:05 | DVHDS2 ---
Discharge Summary Date of Admission Jan 27, 2025 at 18:43 Date of Discharge: Mar 03, 2025 Labs/Diagnostic Data: Laboratory Results Test 03/02/25 19:00 03/02/25 05:53 03/01/25 05:25 02/28/25 16:46 Potassium Level 3.7 mmol/L (3.5-5.1) White Blood Count 3.5 10^3/uL (4.4-10.8) Red Blood Count 3.51 10^6/uL (4.0-5.20) Hemoglobin 10.4 g/dL (12.2-16.2) Hematocrit 30.7 % (36.0-46.0) Mean Corpuscular Volume 87.7 fL (80.0-100.0) Mean Corpuscular Hemoglobin 29.7 pg (28.0-32.0) Mean Corpuscular Hemoglobin Concent 33.9 g/dL (32.0-36.0) Red Cell Distribution Width 21.5 % (11.8-14.3) Platelet Count 177 10^3/uL (140-450) Mean Platelet Volume 8.0 fL (6.9-10.8) Neutrophils (%) (Auto) 69.4 % (37.0-80.0) Lymphocytes (%) (Auto) 19.1 % (10.0-50.0) Monocytes (%) (Auto) 6.2 % (0.0-12.0) Eosinophils (%) (Auto) 4.4 % (0.0-7.0) Basophils (%) (Auto) 0.9 % (0.0-2.0) Neutrophils # (Auto) 2.4 10 ^3/uL (1.6-8.6) Lymphocytes # (Auto) 0.7 10 ^3/uL (0.4-5.4) Monocytes # (Auto) 0.2 10 ^3/uL (0-1.3) Eosinophils # (Auto) 0.2 10 ^3/uL (0-0.8) Basophils # (Auto) 0 10 ^3/uL (0-0.2) Nucleated Red Blood Cells 0.1 % Sodium Level 137 mmol/L (136-145) Chloride Level 107 mmol/L (98-107) Carbon Dioxide Level 18 mmol/L (20-31) Anion Gap 12 (5-15) Blood Urea Nitrogen 12 mg/dL (9-23) Creatinine 0.29 mg/dL (0.550-1.02) Glomerular Filtration Rate Calc 123 mL/min (>90) BUN/Creatinine Ratio 41.4 (10.0-20.0) Serum Glucose 71 mg/dL (74-106) Calcium Level 7.9 mg/dL (8.7-10.4) Magnesium Level 1.4 mg/dL (1.6-2.6) Random Vancomycin Level 21.9 ug/mL (5-10) Vancomycin Level Trough 36.7 ug/mL (5-10) Test 02/28/25 06:46 02/27/25 06:26 02/27/25 02:04 02/24/25 16:21 Differential Total Cells Counted 100.0 (100) Neutrophils % (Manual) 69 (37.0-80.0) Band Neutrophils % (Manual) 6 Lymphocytes % (Manual) 18 (10.0-50.0) Monocytes % (Manual) 4 (0-12) Eosinophils % (Manual) 3 (0-7) Basophils % (Manual) 0 (0.0-2.0) Metamyelocytes % (manual) 0 Myelocytes % (Manual) 0 Promyelocytes % (Manual) 0 Blast Cells % (Manual) 0 Reactive Lymphocytes 0 Platelet Estimate Adequate Anisocytosis (manual) Moderate Prothrombin Time 11.2 sec (9.3-11.8) Prothrombin Time INR 1.06 (0.9-1.15) Activated Partial Thromboplast Time < 20.0 SEC (24.5-34.5) Urine Color Colorless (Yellow) Urine Clarity Turbid (Clear) Urine pH 7.0 (5.0-9.0) Urine Specific [place] 1.004 (1.001-1.035) Urine Protein Negative (Negative) Urine Ketones Negative (Negative) Urine Blood Negative /uL (Negative) Urine Nitrite Negative (Negative) Urine Bilirubin Negative (Negative) Urine Urobilinogen Normal mg/dL (Negative) Urine Leukocyte Esterase 3+ /uL (Negative) Urine RBC 2 /hpf (0 - 4) Urine Microscopic WBC 42 /HPF (0-5) Urine Squamous Epithelial Cells None seen /hpf (<5) Urine Bacteria Many /hpf (None Seen) Urine Glucose Normal mg/dL (Normal) Total Bilirubin 0.8 mg/dL (0.2-1.0) Aspartate Amino Transferase (AST) 22 U/L (13-40) Alanine Aminotransferase (ALT) 40 U/L (7-40) Alkaline Phosphatase 108 U/L (46-116) Total Protein 3.9 g/dL (5.7-8.2) Albumin 2.6 g/dL (3.2-4.8) Test 02/20/25 05:18 02/13/25 16:14 02/04/25 12:51 02/04/25 08:56 Poikilocytosis (manual) Slight Schistocytes Few POC Glucose 126 mg/dl (70-106) Hepatitis A IgM Antibody Negative Hepatitis B Surface Antigen Negative (Negative) Hepatitis B Core IgM Antibody Negative (Negative) Hepatitis C Antibody Negative (Negative) Cortisol AM Sample 23.24 ug/dL (5.27-22.45) HIV (1&2) Antibody Negative (Negative) Test 02/04/25 06:30 02/03/25 22:00 02/01/25 15:56 01/30/25 10:33 Stool Occult Blood Negative (Negative) Stool Occult Blood Sample #3 (Negative) Urine Creatinine 21.71 mg/dL (30.0-125.0) Urine Protein/Creatinine Ratio 2.89 Urine Total Protein 62.8 mg/dL (1-14) Blood Gas Specimen Type Venous Blood Gas Sample Site Vbg - n/a Blood Gas Patient Temperature 37.0 Arterial Blood Date Drawn [id number] Bennie Test N/a Venous Blood pH 7.424 (7.320-7.430) Venous Blood pCO2 at Patient Temp 25.2 mmHg (38.0-54.0) Venous Blood pO2 at Patient Temp < 36.5 mmHg (23.0-48.0) Venous Blood HCO3 16.1 mmol/L (22.0-29.0) Venous Blood Base Excess -6.3 mmol/L (-2.0-3.0) Blood Gas Modality Room air FiO2 % 21.0 Ammonia < 10 umol/L (11-32) Free Thyroxine Index 2.3 (1.2-4.9) Thyroxine (T4) 5.9 ug/dL (4.5-12.0) Triiodothyronine (T3) Uptake 39 % (24-39) Test 01/28/25 13:34 01/28/25 13:30 01/28/25 09:19 01/28/25 03:55 Specimen Drawn By jenny Connolly rn Erythrocyte Sedimentation Rate 62 mm/hr (0-20) Haptoglobin 189 mg/dL (33-346) Uric Acid 4.5 mg/dL (3.1-7.8) C-Reactive Protein High Sensitivity 8.04 mg/dL (<1.0) Vitamin D 25-Hydroxy 11 ng/mL (.) 25-Hydroxy Vitamin D2 <1.0 ng/mL (.) 25-Hydroxy Vitamin D3 11 ng/mL (.) Anti-Nuclear Antibody Comment Comment (.) MASHA-1 Antibody <0.2 AI (0.0-0.9) SS-A/Ro Antibody <0.2 AI (0.0-0.9) SS-B/La Antibody <0.2 AI (0.0-0.9) Sm Antibody <0.2 AI (0.0-0.9) DECISION SCIENCE ANALYST Antibody <0.2 AI (0.0-0.9) Scl-70 (Scleroderma) Antibody <0.2 AI (0.0-0.9) Anti-Double Strand DNA Antibody 2 IU/mL (0-9) Chromatin Antibody <0.2 AI (0.0-0.9) Centromere B Antibody <0.2 AI (0.0-0.9) Iron Level 74 ug/dL (50-170) Total Iron Binding Capacity 129 ug/dL (250-425) Percent Iron Saturation 57.4 % (15-50) Vitamin B12 Level 339 pg/mL (211-911) Folic Acid 2.75 ng/mL (>5.38) Lactate Dehydrogenase 180 U/L (120-246) Thyroid Stimulating Hormone (TSH) 3.96 uIU/mL (0.55-4.78) Test 01/27/25 19:50 01/27/25 16:33 01/27/25 16:06 Troponin I High Sensitivity < 3 ng/L (</=34) Lactic Acid Level 2.0 mmol/L (0.4-2.0) B-Type Natriuretic Peptide 34.77 pg/mL (0-100) Plasma/Serum Blood Alcohol 3.7 mg/dL (<10) Urine WBC Clumps Present /hpf (None Seen) Urine Mucus Few (None Seen) Urine Yeast (Budding) Many /hpf (None Seen) Urine Opiates Screen Neg (NEGATIVE) Urine Fentanyl Screen Neg (NEGATIVE) Urine Barbiturates Screen Neg (NEGATIVE) Urine Phencyclidine Screen Neg (NEGATIVE) Urine Amphetamines Screen Neg (NEGATIVE) Urine Benzodiazepines Screen Neg (NEGATIVE) Urine Cocaine Screen Neg (NEGATIVE) Urine Cannabinoids Screen Neg (NEGATIVE) Other Laboratory Tests 03/02/25 19:00 03/02/25 05:53 Brief Hx & Hospital Course: see dictated note Condition at Discharge: Guarded Final Diagnosis/Problems List gen weakness Discharge Disposition: Shelter Facility Discharge Instruct/Medications Diet: Regular Activity: No Restrictions, As Tolerated Follow Up/Referral: fu with pcp/dr Tello Medications: per oct dc with perera Discharge Statement: "Patient was advised to return to the ER or call 911 if any headaches, dizziness, shortness of breath, chest pain, abdominal pain, bleeding, fevers, or worsening of medical condition. Patient was counseled about treatment plan, medications, possible side effects, patientverbalized understanding. All questions were answered to the best of my ability. This discharge took greater then 30 minutes in planning, reviewing documentation, counseling the patient, and discussing with other team members." ASSESSMENT ASSESSMENT Assessment gen weakness Date of Service: Mar 03, 2025 Billing Provider: BAILEY ROBERSON MD Common Visit Codes: [id number] DISCH DAY >30min BAILEY ROBERSON MD Mar 03, 2025 12:05
[2025-03-03 13:00] VITALS: BP 102/67; PULSE 103; RESP 14; TEMP 98.9; O2SAT 99
[2025-03-03 13:59] LABS: Potassium 3.7 mmol/L (3.5-5.1); Sodium 137 mmol/L (136-145)
[2025-03-03 14:00] LABS: Anion Gap 8 (5-15); Carbon Dioxide 20 mmol/L (20-31)
[2025-03-03 14:04] LABS: Calcium 7.6 mg/dL (8.7-10.4); Chloride 109 mmol/L (98-107)
[2025-03-03 14:05] LABS: BUN/Creatinine Ratio 47.6 (10.0-20.0); Blood Urea Nitrogen 10 mg/dL (9-23); Glucose 104 mg/dL (74-106)
[2025-03-03 14:06] LABS: Magnesium 1.8 mg/dL (1.6-2.6)
[2025-03-03] MEDS: VANCOMYCIN 1GM/200ML PM 200 ML IV SCH (15:00)
--- NOTE | 2025-03-03 15:30 | DVHDS ---
DATE OF DISCHARGE: 03/03/2025 RAZA OF TRANSFER: 03/03/2025 HISTORY OF PRESENT ILLNESS: The patient is a 59-year-old lady who was admitted with altered mental status and has history of diabetes, rheumatoid arthritis, and hypertension. HOSPITAL COURSE: The patient was noted to have a urinary tract infection and was seen in Neurology consult also by Dr. Sanchez. EEG done, showed no seizure activity. The patient had echocardiogram done that showed ejection fraction of 60%. The patient had MRI of the brain that showed no acute abnormality. The patient had a CT of abdomen and pelvis that showed cholelithiasis. Gallbladder ultrasound showed hepatic steatosis with possible cirrhosis and cholelithiasis. The patient underwent laparoscopic cholecystectomy by Dr. Friend. The patient had improvement in mental status and was noted to be quadriparetic. The patient had a cervical spine MRI that showed evidence of moderate DJD of the cervical spine. The patient had a thoracic spine MRI that showed a large posterior disk bulge at T1-T2 resulting in severe central canal stenosis with impingement on the thoracic cord. The patient had Gastrografin study that showed no obstruction. The patient was seen in Surgery consult by Dr. Tello. The patient, however, was not to be a candidate currently for surgery on the cervical spine, especially in view of the bed sore that she has. The patient also had a urinary tract infection sensitive to Klebsiella and Pseudomonas. I have explained to the daughter the patient's overall poor prognosis and the plan of care. She will be transferred to a rehab center for wound care as well as rehabilitation. FINAL DIAGNOSES: * Sepsis with septic shock with urinary tract infection due to Klebsiella and Pseudomonas. * Cholelithiasis status post laparoscopic cholecystectomy. * Encephalopathy, metabolic. * Diabetes mellitus. * Rheumatoid arthritis. * Obesity. * Anemia, status post transfusion. * Thrombocytopenia that is improved. * Moderate protein malnutrition. * Quadriparesis with spinal stenosis with T2 cord compression. * Decubitus ulcer. Time spent in discharge planning and review of plan with the patient and nursing and Office Assistance was 39 minutes. MD CLAUDIO Martinez/KALEB/CHYNA TID: [id number] RECEIPT: [id number]
[2025-03-03 17:00] VITALS: BP 127/72; PULSE 117; RESP 14; TEMP 99.3; O2SAT 95
== END 2025-03-03 19:00 | DRG 710 ==
LOC: EDBD 16:03 → ER 16:03 → OVERFLOW 18:43 → ICU WEST 01-28 12:46 → TELE-WESTW 02-17 22:40
PROVIDERS: ADMIT Internal Medicine; ATTEND Internal Medicine
PROC: 30233N1 Transfusion of Nonautologous Red Blood Cells into Peripheral Vein, Percutaneous Approach (ICD-10-PCS; principal; 2025-01-28)
PROC: 05HA33Z Insertion of Infusion Device into Left Brachial Vein, Percutaneous Approach (ICD-10-PCS; 2025-01-29)
PROC: B54NZZA Ultrasonography of Left Upper Extremity Veins, Guidance (ICD-10-PCS; 2025-01-29)
PROC: 06HY33Z Insertion of Infusion Device into Lower Vein, Percutaneous Approach (ICD-10-PCS; 2025-02-06)
PROC: B54MZZA Ultrasonography of Right Upper Extremity Veins, Guidance (ICD-10-PCS; 2025-02-06)
PROC: 0FT44ZZ Resection of Gallbladder, Percutaneous Endoscopic Approach (ICD-10-PCS; 2025-02-13)
DX: A41.52 Sepsis due to Pseudomonas (principal); R65.21 Severe sepsis with septic shock; N17.0 Acute kidney failure with tubular necrosis; G82.50 Quadriplegia, unspecified; E44.0 Moderate protein-calorie malnutrition; G93.41 Metabolic encephalopathy; K80.10 Calculus of gallbladder with chronic cholecystitis without obstruction; D69.6 Thrombocytopenia, unspecified; N30.90 Cystitis, unspecified without hematuria; E87.20 Acidosis, unspecified; E11.9 Type 2 diabetes mellitus without complications; D64.9 Anemia, unspecified; E86.0 Dehydration; E87.6 Hypokalemia; M06.9 Rheumatoid arthritis, unspecified; E66.9 Obesity, unspecified; I10 Essential (primary) hypertension; M48.062 Spinal stenosis, lumbar region with neurogenic claudication; M48.04 Spinal stenosis, thoracic region; M48.02 Spinal stenosis, cervical region; K66.0 Peritoneal adhesions (postprocedural) (postinfection); K82.8 Other specified diseases of gallbladder; L89.899 Pressure ulcer of other site, unspecified stage; K76.0 Fatty (change of) liver, not elsewhere classified; M47.892 Other spondylosis, cervical region; N73.6 Female pelvic peritoneal adhesions (postinfective); I21.3 ST elevation (STEMI) myocardial infarction of unspecified site; Z88.0 Allergy status to penicillin; Z88.8 Allergy status to other drugs, medicaments and biological substances; Z83.3 Family history of diabetes mellitus; Z82.49 Family history of ischemic heart disease and other diseases of the circulatory system; Z82.3 Family history of stroke; Z74.01 Bed confinement status; Z80.41 Family history of malignant neoplasm of ovary; Z68.33 Body mass index [BMI] 33.0-33.9, adult
CPT/HCPCS: 36415; 36569; 36600; 70450; 70551; 71045; 72141; 72146; 74018; 74177; 74220; 76536; 76705; 76881; 76937; 80048; 80053; 80074; 80202; 80307; 80320; 81001; 82140; 82270; 82306; 82533; 82565; 82570; 82607; 82746; 82805; 82962; 83010; 83516; 83540; 83550; 83605; 83615; 83735; 83880; 84100; 84132; 84156; 84443; 84484; 84550; 85007; 85014; 85018; 85025; 85027; 85610; 85652; 85730; 86141; 86225; 86235; 86703; 86803; 86850; 86880; 86885; 86900; 86901; 86920; 87040; 87070; 87075; 87077; 87081; 87086; 87088; 87186; 87205; 87340; 93005; 93017; 93306; 93886; 93926; 93970; 95819; 96365; 96375; 97110; 97163; 97530; 99291; G0378; J0692; J1450; J1885; J2003; J2185; J2248; J2250; J2405; J2470; J2704; J3430; J3480; J3490; J7042; P9047